=== PATIENT | female | born 1945 | race Caucasian/White ===

== ENCOUNTER 2018-04-19 12:27 | Emergency (ER) | payer MEDICARE, OTHER, SELFPAY ==
[2018-04-19 12:27] VITALS: BP 124/73; PULSE 87; RESP 16; TEMP 36.6; O2SAT 98; BMI 38.7
[2018-04-19 12:31] VITALS: BP 127/78; PULSE 87; RESP 16; O2SAT 96
--- NOTE | 2018-04-19 12:41 | EKG12_ITS ---
Test Reason : LEFT ARM PAIN Blood Pressure : / mmHG Vent. Rate : 085 BPM Atrial Rate : 085 BPM P-R Int : 138 ms QRS Dur : 074 ms QT Int : 372 ms P-R-T Axes : 023 -04 014 degrees QTc Int : 442 ms Normal sinus rhythm Normal ECG Confirmed by RONAN BIRD ([id number]), whizzer hand BAILEY ALEGRE ([id number]) on 04/29/2018 6:15:25 PM Referred By: CLARA
--- NOTE | 2018-04-19 12:43 | ED.RN ---
NO OLD EKG'S IN MUSE.
--- NOTE | 2018-04-19 13:09 | ED.VISSUMM ---
- ER Visit Summary Date of Service: 04/19/18 Chief Complaint: Atraumatic left shoulder pain last evening and nausea and diaphoresis this morning History of Present Illness: The patient is a 72 F who was sent from Dr. Ko's office for further evaluation of atraumatic left shoulder pain that was reported to be associated with nausea and diaphoresis. Upon further questioning patient states she has had problems with her shoulder. The shoulder pain occurred last evening. She has pain with movement of that extremity. There is no associated chest pain, back pain, neck or jaw pain. There was no associated nausea, vomiting, diaphoresis or dyspnea with the left shoulder pain. This morning while packing/doing the dishes she developed nausea and diaphoresis. This occurred at approximately 10 AM. She has no known coronary disease. She does have risk factors. She presently complains of shoulder pain. The nausea and diaphoresis was transient. She denies any fever, chills night sweats. She denies any ocular, visual auditory symptoms. She denies any trouble with speech or swallowing. She denies any dyspnea or dyspnea on exertion. She denied orthopnea or PND. She denied any black or maroon colored stool. She had no urologic symptoms. She denied any neurologic symptoms. Physical Examination: Patient's vital signs were noted and are unremarkable. BMI is 30.7. HEENT exam is unremarkable. She has left shoulder pain with passive internal/external rotation and abduction. Axillary, median, radial and ulnar function intact. Trachea is midline. There is no cervical lymphadenopathy or carotid bruits. Heart is regular without murmur, gallop or rub. S1 and S2 are normal. Lungs are clear to auscultation with good movement of air bilaterally. There is no reproducible chest pain. Abdomen is soft nontender with no abnormal bowel sounds or tympany on percussion. There is no CVA tenderness noted. There is no asymmetry, swelling, discoloration, leg vein distention, palpable cords or tenderness along the distribution of the deep venous system. Neuro exam is nonfocal. Test Results: EKG is normal with a rate of 85. Two-view chest x-ray interpreted by me as normal. White count slightly elevated 12.3 with 78 segs. Electro panels marked for an elevated glucose 192 and slight elevation of creatinine 1.05. Troponin is less than 0.015. Emergency Department Course and Treatment: In my professional medical opinion patient's left shoulder pain is muscle skeletal etiology. The nausea and diaphoresis may represent hypoglycemia, coronary disease, or possible pulmonary cause. Since she is 72 years of age with multiple risk factors for coronary disease will obtain an EKG, troponin as well as CBC to evaluate for pneumonia and BMP to assess her blood sugar and electrolytes. Treatment Plan: Outpatient follow-up with her primary care physician. Disposition: Discharged home in stable condition Impression: 1. Musculoskeletal left shoulder pain 2. Nausea and diaphoresis of unknown etiology 3. History of diabetes, type II 3. History of hypertension This note was generated with [employer] dictation software. It may contain incorrect words, spelling, and punctuation that were not noted in review of the chart prior to signing ED Disposition - Plan for ED Patient: Disposition: Home or Assisted Living Chief Complaint: General Illness Instructions: ED Shoulder Pain [facility] Referrals: Nica Macario MD [Primary Care Provider] - 3-5 Days
[2018-04-19 13:10] LABS: Absolute Lymphocyte Count 1.68 X10^3/ul (0.83-4.51); Absolute Neutrophil Count 9.5 X10^3/uL (2.0-7.7); Basophil# 0.03 X10^3/uL; Basophil% 0.2 % (0-1); Eosinophil# 0.15 X10^3/uL; Eosinophils% 1.2 % (0-5); Hemoglobin 12.6 g/dl (12.0-15.0); Lymphocyte # 1.68 X10^3/ul (4.0); Lymphocyte % 13.7 % (19-41); Mean Corp Hgb Conc 32.3 g/gl (32-36); Mean Corpuscular Hgb 24.6 pg (27.0-32.0); Mean Corpuscular Volume 76.2 fL (81-99); Monocyte# 0.85 X10^3/uL; Monocyte% 6.9 % (0-10); Neutrophil # 9.51 X10^3/uL (2.7-7.7); Neutrophil % 77.8 % (47-70); Platelet Count 368 K/mm3 (150-450); RBC Distribution Width CV 13.9 % (11.6-14.6); RBC Distribution Width SD 39.1 fl (35.1-43.9); Red Blood Count 5.12 M/mm3 (4.2-5.4); White Blood Count 12.3 K/mm3 (4.4-11.0)
--- NOTE | 2018-04-19 13:10 | RAD_ITS ---
STUDY: X-RAY CHEST REASON FOR EXAM: Female, 72 years old. Nausea. Chest pain radiating into the left arm. TECHNIQUE: PA and lateral views of the chest. COMPARISON: None. FINDINGS: The lungs are clear and expanded. Scattered calcified granulomas. There is no demonstrated pleural abnormality. Normal size heart. Normal mediastinum and nuzhat. Normal visualized pulmonary arteries. There is atherosclerotic tortuosity of the aortic arch and descending thoracic aorta. There are degenerative changes of the visualized thoracic spine. Normal visualized ribs, clavicles, and shoulders. Prior cholecystectomy. RAD/Chest PA and Lateral IMPRESSION: No acute abnormality is seen. Electronically Signed: Ronnie Garcia MD at 13:36 EDT Tel [phone], Service support ,
[2018-04-19 13:17] LABS: Anion Gap 10 (5-15); BUN 16 mg/dL (7-18); BUN/Creat Ratio 15.2 RATIO (10-20); Calcium,Total 9.8 mg/dL (8.5-10.1); Chloride 99 mmol/L (98-107); Creatinine, Serum 1.05 mg/dL (0.55-1.02); EST Glomerular Filtration Rate 55 mL/min (>60); Est Glom Filt Rate - Afr Amer 67 mL/min (>60); Estimated Creatinine Clearance 41.24 ml/min; Glucose 192 mg/dL (74-106); Potassium 3.9 mmol/L (3.5-5.1); Sodium Level 135 mmol/L (136-145)
[2018-04-19 13:21] LABS: POSITIVE COUNT NO; POSITIVE DIFFERENTIAL NO; POSITIVE MORPHOLOGY NO
[2018-04-19 14:00] VITALS: BP 124/77; PULSE 79; RESP 20; O2SAT 96
[2018-04-19 15:20] VITALS: BP 127/79; PULSE 77; RESP 18; O2SAT 96
== END 2018-04-19 15:00 | disposition home or self-care (01) ==
PROVIDERS: Emergency Provider Emergency Medicine; Family Provider Internal Medicine; PCP Internal Medicine
DX: M25.512 Pain in left shoulder (principal); R11.0 Nausea; R61 Generalized hyperhidrosis; E11.9 Type 2 diabetes mellitus without complications; I10 Essential (primary) hypertension; E78.00 Pure hypercholesterolemia, unspecified; E66.9 Obesity, unspecified; Z68.38 Body mass index [BMI] 38.0-38.9, adult; Z87.891 Personal history of nicotine dependence
CPT/HCPCS: 71046; 80048; 84484; 85025; 93005; 99284; A4216

== ENCOUNTER 2021-01-12 15:12 | Outpatient (RCR) | payer MEDICARE, BC, SELFPAY | END 2021-01-12 23:59 | LOC: IMMUN 15:12 | PROVIDERS: PCP Internal Medicine; Referring Provider Family Medicine; Visit Provider Family Medicine | DX: Z23 Encounter for immunization (principal) | CPT/HCPCS: 0011A; 0012A ==

== ENCOUNTER 2021-10-29 16:31 | Emergency (ER) | payer MEDICARE, BC, SELFPAY ==
[2021-10-29 16:31] VITALS: BP 145/87; PULSE 78; RESP 18; TEMP 36.2; O2SAT 99; BMI 35.7
--- NOTE | 2021-10-29 17:02 | RAD_ITS ---
STUDY: X-RAY - RIGHT WRIST REASON FOR EXAM: Female, 76 years old. injury TECHNIQUE: 3 view(s) of the wrist were obtained. COMPARISON: None. FINDINGS: Diffuse osteopenia. Osseous densities of the dorsal and volar wrist on lateral view are well corticated. Possible triquetral fracture. Normal radiocarpal articulation. Normal distal radioulnar articulation. Normal carpal bones. There is widening of the scapholunate articulation suggesting a sprain of the scapholunate interosseous ligament. Status post trapezium resection. Operative changes of the first carpal. Normal second through fifth carpometacarpal articulations. Mild osteopenia. Oval to round shaped areas of lucency in the distal tibia and fibula may be sequela of old injury or localized osteopenia. No periosteal reaction. Operative changes of the distal ulna. Diffuse soft tissue swelling. RAD/Wrist min 3 Views IMPRESSION: 1. Possible triquetral fracture versus sequela previous surgery/injury. 2. Degenerative and operative changes, as above. Electronically Signed: Alejnadro Orr MD ([place]) at 17:42 EST , Service support ,
--- NOTE | 2021-10-29 17:05 | EX.ED.UPPERE ---
HPI History of Present Illness Chief Complaint: Upper Extremity Injury Informant: patient Occured/Mechanism Mechanism/Context: Yes fall Onset/Context/Timing Onset: Today Current Severity: Mild Maximum Severity: Moderate Narrative Narrative: Patient presents secondary to right wrist injury. She was walking into a local [employer] [place] this morning and slipped on the wet tile floor injuring her right wrist. Her left wrist is already in an AP splint due to a recent fall. She states there was concern for possible hairline fracture there versus sprain. She is in a splint and is scheduled to have repeat x-rays done next week. She denies any new injury to the left arm from her fall. She denies striking her head or loss of consciousness. [facility] Medical History (Updated 10/29/21 @ 18:[address] Tonia Sierra MD) Diabetes High cholesterol Hypertension Hypothyroidism Vertigo Allergy/AdvReac Type Severity Reaction Status Date / Time amoxicillin Allergy Unknown Verified 10/29/21 16:35 codeine AdvReac Nausea Verified 10/29/21 16:35 Social History Smoking Status: Never smoker ROS ROS ED Constitutional Constitutional ED: Denies chills or fever(s) Eyes Eyes: Denies change in vision ENT ENT ED: Denies sore throat Cardiovascular Cardiovascular: Denies chest pain Respiratory/Chest Respiratory/Chest: Denies cough or dyspnea Gastrointestinal Gastrointestinal: Denies abdominal pain, nausea or vomiting Genitourinary Genitourinary ED: Denies dysuria Musculoskeletal Musculoskeletal: Reports other Details: Right wrist pain ; Denies back pain or neck pain Integumentary Denies rash Neurologic Neurologic: Denies headache(s) or weakness Allergic/Immunologic Allergic/Immunologic ED: Denies urticaria EXAM Physical Exam Const Vital Signs: 10/29/21 16:31 Temperature 97.2 F L Temperature Source Temporal Pulse Rate 78 Respiratory Rate 18 Blood Pressure 145/87 H Blood Pressure Mean 106 Pulse Ox 99 Oxygen Delivery Method Room Air Positive well nourished and well developed General Appearance ED: well developed HEENT normocephalic Eyes PERRL and EOMs intact bilaterally Neck full ROM and supple Resp normal respiratory effort and clear to auscultation bilaterally Cardio regular rate and regular rhythm GI non-tender Palpation: soft Extremity Extremity Narrative: Left wrist and AP splint. Able to wiggle fingers with good sensation. Mild edema and tenderness noted to the right wrist with no obvious deformity. No tenderness at the right elbow or shoulder. Psych mental status grossly normal Skin Lesions: no lesions Rashes: no rashes MDM MDM MDM Narrative Medical decision making narrative: Right wrist x-rays obtained. Radiography Diagnostic Testing: Radiology Impression Wrist X-Ray 10/29/21 17:02 IMPRESSION: 1. Possible triquetral fracture versus sequela previous surgery/injury. 2. Degenerative and operative changes, as above. Electronically Signed: Alejandro Orr MD ([place]) at 17:42 EST , Service support , Treatment and Re-Evaluation Comments:: X-ray results discussed with patient. There is a questionable triquetral fracture. She does have tenderness to this area. She be placed in a Velcro wrist splint. She is already scheduled to see sports medicine/Ortho next Sunday for her left wrist. She will have right wrist reevaluate at that time as well. Discharge Plan Triage Chief Complaint: Upper Extremity Injury ED Provider: Tonia Sierra Dx/Rx/DC Orders Clinical Impression: Right wrist sprain Instructions: ED Possible Wrist Fracture Primary Care Provider: Nica Macario Referrals: Nica Macario MD [Primary Care Provider] - Activity Restrictions/Additional Instructions: Follow-up this Sunday as discussed. Disposition Disposition: Home, Self Care
[2021-10-29 18:10] VITALS: RESP 16
== END 2021-10-29 18:15 | disposition home or self-care (01) ==
LOC: ED 18:05
PROVIDERS: Emergency Provider Emergency Medicine; PCP Internal Medicine
DX: S63.501A Unspecified sprain of right wrist, initial encounter (principal); W01.0XXA Fall on same level from slipping, tripping and stumbling without subsequent striking against object, initial encounter; Y93.01 Activity, walking, marching and hiking
CPT/HCPCS: 73110; 99283

== ENCOUNTER → 2023-12-06 | Outpatient (CLI) | payer MEDICARE, BC, SELFPAY ==
--- NOTE | 2023-12-06 13:32 | CT_ITS ---
ACR Level 3 findings have been noted. An addendum which confirms receipt of the report will follow. EXAM: CT NECK WITH INTRAVENOUS CONTRAST CLINICAL INDICATION: RT NECK/PAROTID MASS TECHNIQUE: Helically acquired images were obtained of the neck with intravenous contrast. This CT exam was performed using one or more of the following dose reduction techniques: automated exposure control, adjustment of the mA and/or kV according to patient size, and/or use of iterative reconstruction technique. CONTRAST: IV 75mL [id number]-370 RADIATION DOSE: CTDIvol = 16.34 mGy, DLP = 469.52 mGy-cm COMPARISON: No relevant prior studies available. FINDINGS: NASOPHARYNX: Unremarkable. SUPRAHYOID NECK: Unremarkable. Oropharynx, oral cavity, parapharyngeal space and retropharyngeal space are unremarkable. INFRAHYOID NECK: Unremarkable. The larynx, hypopharynx and supraglottis are unremarkable. SUBMANDIBULAR/PAROTID GLANDS: Unremarkable. Glands are normal in size. THYROID: Enlarged heterogeneous thyroid. Confluent complex cystic mass of 5 cm x 2.1 cm x 3.3 cm in the left lobe with internal incomplete septations and question of a medial irregular solid component, likely large multilocular cyst.. Punctate calcification and thick-walled centrally low-attenuation 1.5 cm x 1.1 cm x 1.6 cm nodule in the right lobe. Thyroid ultrasound is recommended if not previously evaluated. SINUSES: Completely included paranasal sinuses, middle ears and mastoids sinuses are well aerated. BONES/JOINTS: Straightening of the usual lordotic curvature of the cervical spine with marked disc space narrowing at C5-C7 with mild anterior and posterior spondylosis. Ventral thecal sac flattening these levels, minimal AP diameter estimated to be 9 mm at C5-6 and C6-7 moderate right C4-5 neural foraminal stenosis, moderate bilateral C5-6 neural foraminal stenosis. No acute fracture. SOFT TISSUES: There is a smooth ovoid completely fat density mass measuring 4.3 cm x 2.1 cm x 2.7 cm in the right sternocleidomastoid muscle posterior to the right parotid gland. No parotid gland mass. Apparent intramuscular lipoma. VASCULATURE: Mild intracranial carotid calcifications. Telida of Ortiz vessels appear unremarkable. The partially included deep veins and dural venous sinuses are opacified. LYMPH NODES: Unremarkable. No lymphadenopathy. LUNG APICES: Unremarkable as visualized. HEART: Mild-moderate bilateral coronary artery calcification, estimated up to 50% narrowing at the left ICA origin. CT/Soft Tissue Neck WITH Contrast IMPRESSION: 1. 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 No suspicious parotid mass. 2. Heterogeneous enlarged thyroid with multiple focal complex lesions, the largest of at least 5 cm in the left lobe. Thyroid ultrasound is recommended if not recently performed. 3. Estimated 50% narrowing of the origin of the left ICA. 4. Degenerative spine changes with multilevel borderline spinal canal stenosis and moderate neural foraminal stenosis. Electronically Signed: Cass Breaux MD at 8:24 EST ,
--- OUTSIDE RECORDS SUMMARY | 2023-12-06 13:52 | XMS RPT_ITS | CCD ---
Author Name Unknown Address [address] [place] [address] Organization [facility] Care Team Providers Care Machine Stitcher Name Role Phone Amirah RUEDA, Patricia Primary Care Provider James Hu MD Unavailable Jamey Hu MDh A Unavailable Moon PT, Agatha Unavailable Patricia Covarrubias MD Primary Care Provider James Hu MD A Unavailable Fritz RUEDA, James A Unavailable [phone] Moon PT, Agatha Unavailable Older BRIM BLOCKER.TOOL POLISHING MACHINE OPERATOR, Meaghan Primary Care Provider Moon PT, Agatha Unavailable PROVIDER, UNKNOWN Referring Unavailable OLDER, MEAGHAN Primary Care Unavailable PROVIDER, UNKNOWN Referring Unavailable OLDER, MEAGHAN Primary Care Unavailable OLDER, MEAGHAN Primary Care Unavailable PROVIDER, UNKNOWN Referring Unavailable GANTA, PTARICIA Primary Care Unavailable PROVIDER, UNKNOWN Referring Unavailable GANTA, PATRICIA Primary Care Unavailable PATIENCE KEBEDE Admitting Unavailab le PATIENCE KEBEDE Attending Unavailab le GANTA, PATRICIA Primary Care Unavailable JESSY GRAY Referring Unavailable Moon PT, Agatha Unavailable GANTA, PATRICIA Primary Care Unavailable OLDER, MEAGHAN Primary Care Unavailable OLDER, MEAGHAN Referring Unavailable PATIENCE KEBEDE Attending Unavailab le GANTA, PATRICIA Primary Care Unavailable OLDER, MEAGHAN Primary Care Unavailable TOBIN GUERRERO Attending Unavailable JOSEPH ANG Referring Unavailable GANTA, PATRICIA Primary Care Unavailable MELO FREEMAN Referring Unavailable OLDER, MEAGHAN Primary Care Unavailable PATIENCE KEBEDE Attending Unavailab le OLDER, MEAGHAN Primary Care Unavailable REBECA, JOSEPH Referring Unavailable OLDER, MEAGHAN Primary Care Unavailable REBECA, JOSEPH Referring Unavailable OLDER, MEAGHAN Primary Care Unavailable TOBIN GUERRERO Attending Unavailable REBECA, JOSEPH Referring Unavailable OLDER, MEAGHAN Primary Care Unavailable GANTA, PATRCIIA Referring Unavailable OLDER, MEAGHAN Primary Care Unavailable TOBIN GUERRERO Attending Unavailable GANTA, PATRICIA Referring Unavailable OLDER, MEAGHAN Primary Care Unavailable TOBIN GUERRERO Attending Unavailable GANTA, PATRICIA Referring Unavailable OLDER, MEAGHAN Primary Care Unavailable TOIBN GUERRERO Attending Unavailable GANTA, PATRICIA Referring Unavailable OLDER, MEAGHAN Primary Care Unavailable REBECA, JOSEPH Referring Unavailable OLDER, MEAGHAN Primary Care Unavailable TOBIN GUERRERO Attending Unavailable REBECA, JOSEPH Referring Unavailable OLDER, MEAGHAN Primary Care Unavailable REBECA, JOSEPH Referring Unavailable OLDER, MEAGHAN Primary Care Unavailable REBECA, JOSEPH Referring Unavailable OLDER, MEAGHAN Primary Care Unavailable TOBIN GUERRERO Attending Unavailable REBECA, JOSEPH Referring Unavailable GANTA, PATRICIA Primary Care Unavailable GANTA, PATRICIA Attending Unavailable OLDER, MEAGHAN Primary Care Unavailable OLDER, MEAGHAN Primary Care Unavailable PATIENCE KEBEDE Referring Unavailab le YANDYPATIENCE Attending Unavailab le OLDER, MEAGHAN Primary Care Unavailable MAEGAN TORRES Attending Unavailable JESSY GRAY Attending Unavailable GANTA, PATRICIA Primary Care Unavailable GANTA, PATRICIA Primary Care Unavailable GANTA, PATRICIA Referring Unavailable YANDYPATIENCE Attending Unavailab le GANTA, PATRICIA Primary Care Unavailable GANTA, PATRICIA Primary Care Unavailable GANTA, PATRICIA Primary Care Unavailable GANTA, PATRICIA Attending Unavailable GANTA, PATRICIA Primary Care Unavailable GANTA, PATRICIA Primary Care Unavailable OLDER, MEAGHAN Primary Care Unavailable OLDER, MEAGHAN Attending Unavailable OLDER, MEAGHAN Primary Care Unavailable OLDER, MEAGHAN Referring Unavailable OLDER, MEAGHAN Primary Care Unavailable GANTA, PATRICIA Primary Care Unavailable GANTA, PATRICIA Referring Unavailable GANTA, PATRICIA Primary Care Unavailable MORRIS RAMON Referring Unavailable TESTMORRIS DAUGHERTY Attending Unavailable GANTA, PATRICIA Primary Care Unavailable OLDER, MEAGHAN Primary Care Unavailable OLDER, MEAGHAN Primary Care Unavailable YANDYPATIENCE PRIDE Referring Unavailab le OLDER, MEAGHAN Primary Care Unavailable CHRISSY MCCLOUD Referring Unavailable OLDER, MEAGHAN Primary Care Unavailable OLDER, MEAGHAN Primary Care Unavailable OLDER, MEAGHAN Primary Care Unavailable PATIENCE KEBEDE Attending Unavailab le OLDER, MEAGHAN Primary Care Unavailable MAEGAN TORRES Referring Unavailable PATRICIA COVARRUBIAS Primary Care Unavailable OLDER, MEAGHAN Primary Care Unavailable OLDER, MEAGHAN Primary Care Unavailable OLDER, MEAGHAN Primary Care Unavailable OLDER, MEAGHAN Attending Unavailable OLDER, MEAGHAN Primary Care Unavailable Allergies Allergy Classification Reported Allergen(s) Allergy Type Date of Onset Reaction(s) Facility (20 sources) Amoxicillin; Translations: [AMOXICILLIN] Drug Allergy 01-17-2013 [facility] (20 sources) Codeine; Translations: [CODEINE] Drug Allergy 01-17-2013 [facility] (20 sources) Latex; Translations: [LATEX] Drug Allergy 12-31-2019 [facility] Medications Current Medications Medication Drug Class(es) Dates Sig (Normalized) Sig (Original) doxycycline hyclate 100 mg oral capsule (4 sources) Tetracycline-clas s Drug Start: 06-04-2023 End: 06-14-2023 take 1 capsule by mouth twice daily doxycycline hyclate (VIBRAMYCIN) 100 mg capsule Indications: Skin infection Take 1 capsule by mouth twice daily for 10 days. 20 capsule 0 06/04/2023 06/14/2023 Active Completed/Discontinued Medications Medication Drug Class(es) Dates Sig (Normalized) Sig (Original) acetaminophen 325 mg / oxyCODONE hydrochloride 5 mg oral tablet (20 sources) Opioid Agonist Start: 06-01-2023 take 1-2 tablets by mouth every four hours as needed for pain oxyCODONE-acetami nophen (PERCOCET) 5-325 mg tablet Indications: S/P reverse total shoulder arthroplasty, right Take 1-2 tablets by mouth every 4 hours as needed for pain. 28 tablet 0 06/01/2023 Active Problems Active Problems Problem Classification Problem Date Documented Da te Episodic/Chronic Anxiety disorders (20 sources) Mixed anxiety and depressive disorder; Translations: [Anxiety disorder, unspecified] Onset: 05-14-2017 05-14-2017 Chronic Deficiency and other anemia (2 sources) Nutritional anemia; Translations: [Vitamin B12 deficiency anemia, unspecified] Episodic Diabetes mellitus with complications (20 sources) Type 2 diabetes mellitus; Translations: [Type 2 diabetes mellitus with diabetic neuropathy, unspecified] Onset: 05-14-2017 08-20-2020 Chronic Disorders of lipid metabolism (20 sources) Mixed hyperlipidemia; Translations: [Mixed hyperlipidemia] Onset: 05-14-2017 05-14-2017 Chronic Essential hypertension (20 sources) Essential hypertension; Translations: [Essential (primary) hypertension] Onset: 05-14-2017 05-14-2017 Chronic Fracture of upper limb (5 sources) Closed fracture of distal end of radius; Translations: [Other fractures of lower end of right radius, initial encounter for closed fracture] Episodic Genitourinary symptoms and ill-defined conditions (2 sources) Albuminuria ; Translations: [Proteinuria, unspecified] Episodic Immunizations and screening for infectious disease (3 sources) Vaccination needed; Translations: [Encounter for immunization] Episodic Mood disorders (17 sources) Seasonal affective disorder; Translations: [Other recurrent depressive disorders] Onset: 04-10-2023 04-10-2023 Chronic Osteoarthritis (20 sources) Osteoarthritis of right glenohumeral joint; Translations: [Primary osteoarthritis, right shoulder] Onset: 06-08-2023 Chronic Other connective tissue disease (20 sources) History of revision of right total knee arthroplasty; Translations: [Presence of right artificial knee joint] Onset: 04-20-2020 04-20-2020 Chronic Other connective tissue disease (1 source) Presence of right artificial shoulder joint; Translations: [S/P reverse total shoulder arthroplasty, right] Onset: 06-01-2023 Chronic Other connective tissue disease (16 sources) Paraparesis; Translations: [Other symptoms and signs involving the musculoskeletal system] Onset: 09-19-2022 Episodic Other connective tissue disease (1 source) Calcaneal spur; Translations: [Calcaneal spur, unspecified foot] Episodic Other connective tissue disease (1 source) Tendinitis; Translations: [Other specified enthesopathies of unspecified lower limb, excluding foot] Episodic Other gastrointestinal disorders (1 source) Diarrhea; Translations: [Diarrhea, unspecified] 07-13-2023 Episodic Other gastrointestinal disorders (1 source) Constipation; Translations: [Constipation, unspecified] 08-09-2023 Episodic Other hereditary and degenerative nervous system conditions (20 sources) Restless legs; Translations: [Restless legs syndrome] Onset: 05-14-2017 05-14-2017 Chronic Other hereditary and degenerative nervous system conditions (1 source) Restless legs syndrome; Translations: [Restless leg syndrome] Onset: 05-14-2017 Chronic Other nervous system disorders (1 source) Polyneuropathy; Translations: [Other specified polyneuropathies] Chronic Other nervous system disorders (1 source) Other chronic pain; Translations: [Chronic right shoulder pain] Onset: 08-24-2023 Chronic Other nervous system disorders (16 sources) Impairment of balance; Translations: [Other abnormalities of gait and mobility] Onset: 09-19-2022 Episodic Other non-traumatic joint disorders (1 source) Shoulder pain; Translations: [Pain in right shoulder] Episodic Other non-traumatic joint disorders (1 source) Pain of right wrist; Translations: [Pain in right wrist] Episodic Other non-traumatic joint disorders (3 sources) Chronic pain of right upper limb; Translations: [Pain in right shoulder] Episodic Other non-traumatic joint disorders (1 source) Effusion of joint; Translations: [Effusion, right elbow] 06-04-2023 Episodic Other non-traumatic joint disorders (1 source) Pain in right shoulder; Translations: [Chronic right shoulder pain] Onset: 08-24-2023 Episodic Other nutritional; endocrine; and metabolic disorders (2 sources) Obese class II; Translations: [Obesity, unspecified] Chronic Other nutritional; endocrine; and metabolic disorders (2 sources) Obesity; Translations: [Other obesity due to excess calories] Onset: 12-31-2019 Chronic Other nutritional; endocrine; and metabolic disorders (20 sources) Obesity caused by energy imbalance; Translations: [Other obesity due to excess calories] Onset: 12-31-2019 05-09-2023 Chronic Other nutritional; endocrine; and metabolic disorders (1 source) Other obesity due to excess calories; Translations: [Class 1 obesity due to excess calories with serious comorbidity and body mass index (BMI) of 33.0 to 33.9 in adult] Onset: 05-09-2023 Chronic Other nutritional; endocrine; and metabolic disorders (1 source) Body mass index (BMI) 33.0-33.9, adult; Translations: [Class 1 obesity due to excess calories with serious comorbidity and body mass index (BMI) of 33.0 to 33.9 in adult] Onset: 05-09-2023 Chronic Other screening for suspected conditions (not mental disorders or infectious disease) (3 sources) Mammography abnormal; Translations: [Other abnormal and inconclusive findings on diagnostic imaging of breast] Episodic Residual codes; unclassified (20 sources) Obstructive sleep apnea syndrome; Translations: [Obstructive sleep apnea (adult) (pediatric)] Onset: 05-14-2017 05-14-2017 Chronic Residual codes; unclassified (1 source) Obstructive sleep apnea (adult) (pediatric); Translations: [DAVION (obstructive sleep apnea)] Onset: 05-14-2017 Chronic Residual codes; unclassified (2 sources) Edema of foot; Translations: [Localized edema] Episodic Skin and subcutaneous tissue infections (1 source) Infection of skin; Translations: [Local infection of the skin and subcutaneous tissue, unspecified] 06-04-2023 Episodic Thyroid disorders (20 sources) Acquired hypothyroidism; Translations: [Hypothyroidism, unspecified] Onset: 05-14-2017 05-14-2017 Chronic Past or Other Problems Problem Classification Problem Date Documented Date Episodic/Chronic Deficiency and other anemia (20 sources) Iron deficiency anemia; Translations: [Iron deficiency anemia, unspecified] Onset: 04-23-2020 04-23-2020 Episodic Deficiency and other anemia (1 source) Iron deficiency anemia, unspecified; Translations: [Iron deficiency anemia, unspecified iron deficiency anemia type] Onset: 04-23-2020 Episodic Nutritional deficiencies (20 sources) Cobalamin deficiency; Translations: [Deficiency of other specified B group vitamins] Onset: 05-26-2022 Episodic Other and unspecified benign neoplasm (20 sources) Adrenal adenoma; Translations: [Benign neoplasm of unspecified adrenal gland] Onset: 12-31-2019 12-31-2019 Episodic Other and unspecified benign neoplasm (1 source) Benign neoplasm of unspecified adrenal gland; Translations: [Adrenal adenoma, unspecified laterality] Onset: 12-31-2019 Episodic Other connective tissue disease (20 sources) Quadriceps weakness; Translations: [Muscle weakness (generalized)] Onset: 04-20-2020 04-20-2020 Episodic Other diseases of veins and lymphatics (20 sources) Peripheral venous insufficiency; Translations: [Venous insufficiency (chronic) (peripheral)] Onset: 04-10-2019 04-10-2019 Episodic Other diseases of veins and lymphatics (1 source) Venous insufficiency (chronic) (peripheral); Translations: [Venous insufficiency (chronic) (peripheral)] Onset: 04-10-2019 Episodic Other non-epithelial cancer of skin (20 sources) Basal cell carcinoma of neck; Translations: [Basal cell carcinoma of skin of scalp and neck] Onset: 12-31-2019 12-31-2019 Episodic Other non-traumatic joint disorders (1 source) Pain in right knee; Translations: [Pain in both knees, unspecified chronicity] Onset: 12-20-2022 Episodic Other non-traumatic joint disorders (1 source) Pain in left knee; Translations: [Pain in both knees, unspecified chronicity] Onset: 12-20-2022 Episodic Other non-traumatic joint disorders (1 source) Knee pain Onset: 12-20-2022 Episodic Pancreatic disorders (not diabetes) (20 sources) Cyst of pancreas; Translations: [Cyst of pancreas] Onset: 05-14-2017 12-31-2017 Episodic Results Test Name Value Interpretation Reference Range Facil ity Vital Signs Date Time Vital Sign Value Performing Clinician Sruthi waite 10-15-2023 11:24-0500 Body weight 85.28 kg Meaghan Older BRIM BLOCKER.TOOL POLISHING MACHINE OPERATOR Work Phone: [facility] 10-15-2023 11:24-0500 Diastolic blood pressure 72 mm[Hg] Meaghan Older BRIM BLOCKER.TOOL POLISHING MACHINE OPERATOR Work Phone: [facility] 10-15-2023 11:24-0500 Heart rate 76 /min Meaghan Older BRIM BLOCKER.TOOL POLISHING MACHINE OPERATOR Work Phone: [facility] 10-15-2023 11:24-0500 Respiratory rate 16 /min Meaghan Older BRIM BLOCKER.TOOL POLISHING MACHINE OPERATOR Work Phone: [facility] 10-15-2023 11:24-0500 Systolic blood pressure 126 mm[Hg] Meaghan Older BRIM BLOCKER.TOOL POLISHING MACHINE OPERATOR Work Phone: [facility] 08-09-2023 14:15-0400 Body height 160 cm Meagan Torres MD Work Phone: [facility] 08-09-2023 14:15-0400 Body weight 85.73 kg Maegan Torres MD Work Phone: [facility] 08-09-2023 14:15-0400 Diastolic blood pressure 73 mm[Hg] Maegan Torres MD Work Phone: [facility] 08-09-2023 14:15-0400 Heart rate 76 /min Maegan Torres MD Work Phone: [facility] 08-09-2023 14:15-0400 Respiratory rate 16 /min Maegan Torres MD Work Phone: [facility] 08-09-2023 14:15-0400 SaO2% (BldA) [Mass fraction] 99 % Maegan Torres MD Work Phone: [facility] 08-09-2023 14:15-0400 Systolic blood pressure 139 mm[Hg] Maegan Torres MD Work Phone: [facility] 07-13-2023 09:15-0400 Diastolic blood pressure 84 mm[Hg] Meaghan Older BRIM BLOCKER.TOOL POLISHING MACHINE OPERATOR Work Phone: [facility] 07-13-2023 09:15-0400 Systolic blood pressure 136 mm[Hg] Meaghan Older BRIM BLOCKER.TOOL POLISHING MACHINE OPERATOR Work Phone: [facility] 07-13-2023 08:43-0400 Body weight 83.01 kg Meaghan Older BRIM BLOCKER.TOOL POLISHING MACHINE OPERATOR Work Phone: [facility] 07-13-2023 08:43-0400 Heart rate 90 /min Meaghan Older BRIM BLOCKER.TOOL POLISHING MACHINE OPERATOR Work Phone: [facility] 07-13-2023 08:43-0400 Respiratory rate 16 /min Meaghan Older BRIM BLOCKER.TOOL POLISHING MACHINE OPERATOR Work Phone: [facility] 07-13-2023 08:43-0400 SaO2% (BldA) [Mass fraction] 99 % Meaghan Older BRIM BLOCKER.TOOL POLISHING MACHINE OPERATOR Work Phone: [facility] 06-04-2023 11:48-0400 Body temperature 98.1 [degF] Alexsandra Cruz-Tarik BRIM BLOCKER.TOOL POLISHING MACHINE OPERATOR Work Phone: [facility] 06-04-2023 11:48-0400 Body weight 85.28 kg Alexsandra Pramiriamler-Wood BRIM BLOCKER.TOOL POLISHING MACHINE OPERATOR Work Phone: [facility] 06-04-2023 11:48-0400 Diastolic blood pressure 70 mm[Hg] Alexsandra Praisler-Wood BRIM BLOCKER.TOOL POLISHING MACHINE OPERATOR Work Phone: [facility] 06-04-2023 11:48-0400 Heart rate 96 /min Alexsandra Praisler-Wood BRIM BLOCKER.TOOL POLISHING MACHINE OPERATOR Work Phone: [facility] 06-04-2023 11:48-0400 Respiratory rate 16 /min Alexsandra Praisler-Wood BRIM BLOCKER.TOOL POLISHING MACHINE OPERATOR Work Phone: [facility] 06-04-2023 11:48-0400 SaO2% (BldA) [Mass fraction] 96 % Alexsandra Praisler-Wood BRIM BLOCKER.TOOL POLISHING MACHINE OPERATOR Work Phone: [facility] 06-04-2023 11:48-0400 Systolic blood pressure 128 mm[Hg] Alexsandra Praisler-Wood BRIM BLOCKER.TOOL POLISHING MACHINE OPERATOR Work Phone: [facility] 05-09-2023 09:21-0400 Body height 160 cm Pacc 1 Work Phone: [facility] 05-09-2023 09:21-0400 Body temperature 97.2 [degF] Pacc 1 Work Phone: [facility] 05-09-2023 09:21-0400 Body weight 84.82 kg Pacc 1 Work Phone: [facility] 05-09-2023 09:21-0400 Diastolic blood pressure 76 mm[Hg] Pacc 1 Work Phone: [facility] 05-09-2023 09:21-0400 Heart rate 87 /min Pacc 1 Work Phone: [facility] 05-09-2023 09:21-0400 SaO2% (BldA) [Mass fraction] 96 % Pacc 1 Work Phone: [facility] 05-09-2023 09:21-0400 Systolic blood pressure 120 mm[Hg] Pacc 1 Work Phone: [facility] 12-21-2022 10:58-0500 Body temperature 97.5 [degF] Patricia Covarrubias MD Work Phone: [facility] 12-21-2022 10:58-0500 Body weight 86.09 kg Patricia Covarrubias MD Work Phone: [facility] 12-21-2022 10:58-0500 Diastolic blood pressure 76 mm[Hg] Patricia Covarrubias MD Work Phone: [facility] 12-21-2022 10:58-0500 Heart rate 74 /min Patricia Covarrubias MD Work Phone: [facility] 12-21-2022 10:58-0500 Respiratory rate 18 /min Patricia Covarrubias MD Work Phone: [facility] 12-21-2022 10:58-0500 SaO2% (BldA) [Mass fraction] 97 % Patricia Covarrubias MD Work Phone: [facility] 12-21-2022 10:58-0500 Systolic blood pressure 118 mm[Hg] Patricia Covarrubias MD Work Phone: [facility] 08-03-2022 13:58-0400 Body temperature 97.3 [degF] Clara Athy PA-C Work Phone: [facility] 08-03-2022 13:58-0400 Body weight 89.45 kg Clara Athy PA-C Work Phone: [facility] 08-03-2022 13:58-0400 Diastolic blood pressure 80 mm[Hg] Clara Athy PA-C Work Phone: [facility] 08-03-2022 13:58-0400 Heart rate 82 /min Clara Athy PA-C Work Phone: [facility] 08-03-2022 13:58-0400 Respiratory rate 21 /min Clara Athy PA-C Work Phone: [facility] 08-03-2022 13:58-0400 SaO2% (BldA) [Mass fraction] 99 % Clara Athy PA-C Work Phone: [facility] 08-03-2022 13:58-0400 Systolic blood pressure 136 mm[Hg] Clara Felix PA-C Work Phone: [facility] 07-13-2022 15:45-0400 Body height 160.3 cm Maegan Torres MD Work Phone: [facility] 07-13-2022 15:45-0400 Body weight 85.73 kg Maegan Torres MD Work Phone: [facility] 07-13-2022 15:45-0400 Diastolic blood pressure 88 mm[Hg] Maegan Torres MD Work Phone: [facility] 07-13-2022 15:45-0400 Heart rate 85 /min Maegan Torres MD Work Phone: [facility] 07-13-2022 15:45-0400 Respiratory rate 16 /min Maegan Torres MD Work Phone: [facility] 07-13-2022 15:45-0400 SaO2% (BldA) [Mass fraction] 98 % Maegan Torres MD Work Phone: [facility] 07-13-2022 15:45-0400 Systolic blood pressure 140 mm[Hg] Maegan Torres MD Work Phone: [facility] 04-13-2022 09:51-0400 Body weight 87.82 kg Patricia Covarrubias MD Work Phone: [facility] 04-13-2022 09:51-0400 Diastolic blood pressure 64 mm[Hg] Patricia Covarrubias MD Work Phone: [facility] 04-13-2022 09:51-0400 Heart rate 95 /min Patricia Covarrubias MD Work Phone: [facility] 04-13-2022 09:51-0400 Respiratory rate 18 /min Patricia Covarrubias MD Work Phone: [facility] 04-13-2022 09:51-0400 Systolic blood pressure 116 mm[Hg] Patricia Covarrubias MD Work Phone: [facility] Encounters Encounter Date Encounter Type Care Provider Facility Start: 12-04-2023 End: 12-04-2023 ambulatory MEAGHAN OLDER Facility:[facility] Start: 11-05-2023 End: 11-05-2023 ambulatory MEAGHAN OLDER Facility:[facility] Start: 10-15-2023 End: 10-15-2023 ambulatory MEAGHAN OLDER Facility:[facility] Start: 10-15-2023 End: 10-15-2023 Patient encounter procedure Meaghan Villareal BRIM BLOCKER.TOOL POLISHING MACHINE OPERATOR Work Phone: [facility] Procedures Date Procedure Procedure Detail Performing Clinician Start: 09-11-2023 PFIZER-BIONTECH COVI D-19 VACCINE ( SEASON) AGE 12+ YR Jose Dunbar MD Work Phone: Start: 08-14-2023 INFLUENZA VACCINE, P RSV FREE, AGE 65+ YR, HIGH DOSE, QUADRIVALENT (FLUZONE HIGH-DOSE) Danika Smith MD Work Phone: Start: 07-13-2023 Hemoglobin A1c/Hemoglobin.total in Blood Meaghan Older BRIM BLOCKER.TOOL POLISHING MACHINE OPERATOR Work Phone: Start: 05-09-2023 Ecg routine ecg w/le ast 12 lds i&r only [facility] Provider Start: 12-21-2022 Mri abdomen w/o & w/contrast material Melo Freeman MD Work Phone: Start: 08-31-2022 Screening mammograph y bi 2-view breast inc cad Patricia Covarrubias MD Work Phone: Start: 08-19-2022 INFLUENZA SEASONAL QUADRIVALENT HIGH DOSE AGE 65+ Patricia Covarrubias MD Work Phone: Start: 08-19-2022 PFIZER-BIONTECH COVI D-19 BIVALENT BOOSTER VACCINE, AGE 12+ YR Patricia Covarrubias MD Work Phone: Start: 04-13-2022 Hemoglobin A1c/Hemoglobin.total in Blood Patricia Covarrubias MD Work Phone: Start: 03-30-2022 PFIZER-BIONTECH COVI D-19 VACCINE, AGE 12+ YR (DAVIS TOP) Meaghan Older BRIM BLOCKER.TOOL POLISHING MACHINE OPERATOR Work Phone: Start: 08-23-2021 Mammography Mallorie Older BRIM BLOCKER.TOOL POLISHING MACHINE OPERATOR Work Phone: Start: 10-24-2018 Colonoscopy Mallorie Older BRIM BLOCKER.TOOL POLISHING MACHINE OPERATOR Work Phone: Plan of Treatment Date Care Activity Detail Author Start: 10-24-2028 Colonoscopy COLONOSCOPY [facility] Start: 10-24-2028 COLORECTAL CANCER SCREENING COLORECTAL CANCER SCREENING [facility] Start: 10-15-2024 3 comp foot exam completed Diabetic Foot Exam [facility] Start: 10-15-2024 Annual PCP Team Flight Engineer magdalena Disease Visit Annual PCP Team Chronic Disease Visit [facility] Start: 10-15-2024 BP Controlled (<130/80) BP Controlle d (<130/80) [facility] Start: 10-15-2024 Hepatitis B Vaccine (1 of 3 - Risk 3-dose series) Hepatitis B Vaccine (1 of 3 - Risk 3-dose series) [facility] Immunizations Immunization Date Immunization Notes Care Provider Fa anthony 09-11-2023 COVID-19 vaccine, ag e 12+ yr, season (PFIZER-BIONTECH) Ut Nurse Work Phone: [facility] Work Phone: 08-14-2023 influenza (HD-IIV4) vaccine, age 65+ yr, high dose, quadrivalent, PF (FLUZONE HIGH-DOSE) Ut Nurse Work Phone: [facility] Work Phone: 04-13-2023 COVID-19 vaccine, ag e 12+ yr, bivalent (PFIZER-BIONTECH) Patience Kebede MD Work Phone: [facility] Work Phone: 08-19-2022 COVID-19 booster vaccine, age 12+ yr, bivalent (PFIZER-BIONTECH) Immunization Boykins Work Phone: [facility] Work Phone: 08-19-2022 influenza, high-dose , quadrivalent vaccine (FLUZONE HIGH DOSE QUADRIVALENT) Immunization Usama Work Phone: [facility] Work Phone: 08-19-2022 influenza virus vaccine, unspecified formulation Maegan Torres MD Work Phone: [facility] 03-30-2022 COVID-19 vaccine, ag e 12+ yr (PFIZER-BIONTECH - DAVIS TOP) Ut Nurse Work Phone: [facility] Work Phone: 09-12-2021 COVID-19 vaccine, ag e 12+ yr (PFIZER-BIONTECH - PURPLE TOP) Mallorie Older BRIM BLOCKER.TOOL POLISHING MACHINE OPERATOR Work Phone: [facility] Work Phone: 08-19-2021 influenza, high dose seasonal, preservative-free Mallorie Older BRIM BLOCKER.TOOL POLISHING MACHINE OPERATOR Work Phone: [facility] Work Phone: 08-19-2021 influenza, high-dose , quadrivalent vaccine (FLUZONE HIGH DOSE QUADRIVALENT) Patricia Covarrubias MD Work Phone: [facility] 02-09-2021 COVID-19 vaccine, fu ll dose (MODERNA) Mallorie Older BRIM BLOCKER.TOOL POLISHING MACHINE OPERATOR Work Phone: [facility] Work Phone: 01-12-2021 COVID-19 vaccine, fu ll dose (MODERNA) Mallorie Older BRIM BLOCKER.TOOL POLISHING MACHINE OPERATOR Work Phone: [facility] Work Phone: 09-02-2020 zoster vaccine recombinant Mallorie Older BRIM BLOCKER.TOOL POLISHING MACHINE OPERATOR Work Phone: [facility] Work Phone: 07-12-2020 influenza, high dose seasonal, preservative-free Mallorie Older BRIM BLOCKER.TOOL POLISHING MACHINE OPERATOR Work Phone: [facility] 07-12-2020 influenza, high-dose , quadrivalent vaccine (FLUZONE HIGH DOSE QUADRIVALENT) Patricia Covarrubias MD Work Phone: [facility] 07-03-2020 zoster vaccine recombinant Mallorie Older BRIM BLOCKER.TOOL POLISHING MACHINE OPERATOR Work Phone: [facility] Work Phone: 06-19-2020 influenza virus vaccine, unspecified formulation Mallorie Older BRIM BLOCKER.TOOL POLISHING MACHINE OPERATOR Work Phone: [facility] 09-19-2019 influenza, high dose seasonal, preservative-free Mallorie Older BRIM BLOCKER.TOOL POLISHING MACHINE OPERATOR Work Phone: [facility] 09-12-2018 influenza, high dose seasonal, preservative-free Mallorie Older BRIM BLOCKER.TOOL POLISHING MACHINE OPERATOR Work Phone: [facility] Work Phone: 04-03-2018 pneumococcal polysaccharide vaccine, 23 valent Mallorie Older BRIM BLOCKER.TOOL POLISHING MACHINE OPERATOR Work Phone: [facility] Work Phone: 09-18-2017 influenza, high dose seasonal, preservative-free Mallorie Older BRIM BLOCKER.TOOL POLISHING MACHINE OPERATOR Work Phone: [facility] Work Phone: 08-19-2015 influenza, high dose seasonal, preservative-free Patricia Covarrubias MD Work Phone: [facility] 05-20-2015 pneumococcal conjuga te vaccine, 13 valent Mallorie Older BRIM BLOCKER.TOOL POLISHING MACHINE OPERATOR Work Phone: [facility] 12-05-2012 tetanus toxoid, redu araceli diphtheria toxoid, and acellular pertussis vaccine, adsorbed Mallorie Older BRIM BLOCKER.TOOL POLISHING MACHINE OPERATOR Work Phone: [facility] 11-25-2012 zoster vaccine, live Mallorie Old er BRIM BLOCKER.TOOL POLISHING MACHINE OPERATOR Work Phone: [facility] 07-08-2008 tetanus and diphther ia toxoids, adsorbed, preservative free, for adult use (2 Lf of tetanus toxoid and 2 Lf of diphtheria toxoid) Mallorie Older BRIM BLOCKER.TOOL POLISHING MACHINE OPERATOR Work Phone: [facility] 12-26-2007 pneumococcal polysaccharide vaccine, 23 valent Mallorie Older BRIM BLOCKER.TOOL POLISHING MACHINE OPERATOR Work Phone: [facility] Payers Date Payer Category Payer Unknown ANTHEM BLUE CARD PPO OOS [id number] 2020-Present [phone] [address] [place] [address] PPO [id number] 2020 Unknown ADARSH BLUE CARD PPO OOS [id number] 2020-Present [phone] [address] [place] [address] PPO [id number] 2020 Unknown [id number] 2012 Medicare MEDICARE MEDICAR E A AND B [id number] 2012-Present [phone] [place] [address] Medicare [id number] 2012 Medicare MEDICARE MEDICAR E A AND B [id number] 2012-Present [phone] [place] [address] Medicare [id number] 2012 Medicare [id number] Social History Date Type Detail Facility Start: 01-17-2013 End: 07-13-2022 Tobacco smoking status NHIS Ex-smoker [facility] End: 11-19-1971 History of tobacco use Current smoker [facility] Start: 12-27-2021 End: 10-15-2023 Alcohol intake Current non-drinker of alcohol (finding) [facility] Start: 04-16-2020 End: 12-15-2022 History SDOH Alcohol Frequency 1 [facility] Start: 10-16-2019 History SDOH Alcohol Std Drinks 98 [facility] Start: 01-17-2013 History SDOH Alcohol Comment quit with onset DM2 [facility] Start: 08-22-2020 End: 12-15-2022 History SDOH Social Connections Phone 3 [facility] Start: 08-22-2020 End: 12-15-2022 History SDOH Social Connections Get Together 5 [facility] Start: 10-16-2019 End: 12-15-2022 History SDOH Physical Activity DPW 2 [facility] Start: 10-16-2019 Education 18 [facility] Start: 1945 Sex Assigned At Not on file [facility] Start: 03-29-2022 End: 10-03-2022 Exposure to SARS-CoV-2 (event) Not sure [facility] End: 11-19-1971 History of tobacco use Cigarette Smoker [facility] Work Phone: Start: 01-17-2013 End: 07-13-2022 Tobacco use and exposure Smokeless tobacco non-user [facility] Work Phone: Start: 12-15-2022 History SDOH Alcohol Std Drinks 0 [facility] Start: 12-15-2022 History SDOH Physical Activity DPW 4 [facility] Start: 12-15-2022 End: 03-27-2023 History of Social function [facility] Start: 12-15-2022 End: 03-27-2023 Social connection and isolation panel [facility] Do you belong to any clubs or organizations such as zoroastrianism groups, Subitecs, fraHelishopter or athletic groups, or school groups? Yes [facility] Are you now , , , , never or living with a partner? [facility] How often to you hav e a drink containing alcohol? Never [facility] How many standard dr inks containing alcohol do you have on a typical day? Patient does not drink [facility] Do you feel stress - tense, restless, nervous, or anxious, or unable to sleep at night because your mind is troubled all the time - these days [OSQ] Only a little [facility] (I/We) worried milena er (my/our) food would run out before (I/we) got money to buy more. Never true [facility] In the past 12 month s, was there a time when you were not able to pay the mortgage or rent on time? No [facility] Start: 04-05-2019 Sexual orientation Heterosexual (finding) [facility] Medical Equipment Procedure Code Equipment Code Equipment Origin al Text Equipment Identifier Dates Cement Simplex P Bone Radiopaque Full Dose Sterile - [id number] Start: 01-14-2020 Cement Simplex P Bone Radiopaque Full Dose Sterile - [id number] Start: 01-14-2020 Cement Simplex P Bone Radiopaque Full Dose Sterile - [id number] Start: 01-14-2020 Cement Simplex P Bone Radiopaque Full Dose Sterile - [id number] Start: 01-14-2020 Augment Triathlo n D Cone Tritanium Tibial Symmetric Revision Knee - [id number] Start: 01-14-2020 Augment Triathlo n 4 5mm Femoral Total Stabilized Right Distal Knee - [id number] Start: 01-14-2020 Stem Triathlon 1 5mm Cocr 50mm Femoral Cemented Total Stabilize Knee - [id number] Start: 01-14-2020 Component Triath adilene 4 Cocr Femoral Total Stabilizer Knee Right - [id number] Start: 01-14-2020 Augment Triathlo n 4 10mm Femoral Total Stabilize Knee Posterior - [id number] Start: 01-14-2020 Insert Triathlon 4 X3 19mm Tibial Posterior Stabilized Bearing Knee - [id number] Start: 01-14-2020 Stem Triathlon 1 5mm Cocr 50mm Femoral Cemented Total Stabilize Knee - [id number] Start: 01-14-2020 Augment Triathlo n 4 5mm Femoral Total Stabilized Right Distal Knee - [id number] Start: 01-14-2020 Augment Triathlo n 4 10mm Femoral Total Stabilize Knee Posterior - [id number] Start: 01-14-2020 Baseplate Triath adilene 4 [place] Cocr Tibial Total Stabilize Cemented Knee - [id number] Start: 01-14-2020 1 Strip once darrin ly. Use as instructed. Dx: E11.8 Insulin: No Start: 02-11-2021 End: 06-13-2023 Clinical Notes 01-14-2020 to 12-04-2023 Meaghan Villareal APRN.MYAH - 10/15/2023 11:30 AM Elsy Menard LPN - 10/09/2023 9:10 AM ESTTelephone Verónica - Lidya Blake MA - 10/02/2023 10:22 AM Elsy Menard LPN - 09/11/2023 10:09 AM EDT Note Date & Type Note [facility] 12-04-2023 Note [facility] 11-05-2023 Note [facility] 10-15-2023 Note [facility] 10-15-2023 History of Present illness Narrative CC: Patient presents with: F/U 3 Month HPI Medardo Ruiz is a 78 year old female who presents today for routine follow up. DIABETES MELLITUS: Ms. Ruiz denies increased frequency of urination, chest pain or dyspnea , numbness, tingling or pain in extremities, new or unusual visual symptoms, low sugar/hypoglycemic reactions, weight loss/gain, and bowel changes/loose stools. Has increased thirst. Follows a diabetic diet some of the time. Has noticed she is eating more sweet desert type food. Takes medication as ordered and had recent increase in doses by endocrinology. She reports checking her glucose on a once a day schedule with sugars in the fasting 140s - 160s range. Patient's last HgA1C was Hemoglobin A1C (%) Date Value 10/13/2023 7.0 03/12/2023 6.0 06/16/2021 7.3 03/16/2021 7.3 Hemoglobin A1C (POCT) (%) Date Value 07/13/2023 5.9 04/13/2022 5.9 ) Last Ophthalmology exam was within the past 12 months HTN and HLD: Ms. Ruiz indicates that she is feeling well and denies any symptoms referable to elevated blood pressure. Specifically denies headache, chest pain, palpitations, dyspnea, and peripheral edema. Patient denies any side effects of her medication(s) and is compliant with their regimen. She does not check BP's generally. Medardo denies regular aerobic exercise. She watches her diet for sodium, low fat and low cholesterol some of the time. Last 3 Encounter BP Readings: Date: BP: 10/15/2023 126/72 08/09/2023 139/73 07/13/2023 136/84 Depression: Stable at this time but usually worsens in the winter time or if she doesn't get to socialize. Does volunteer activities to make sure she is focusing. Sleep: is described as normal Alcohol use: does not drink any alcohol Drug use: No Appetite: good Stresses: Denies any major stressor. REVIEW OF SYSTEMS See HPI PAST MEDICAL HISTORY Diagnosis Date Depression DM type 2 (diabetes mellitus, type 2) (HCC) GERD (gastroesophageal reflux disease) Hyperlipidemia Hypertension Loc osteoarth NOS-site NEC Narcolepsy Pancreatic neoplasm PUD (peptic ulcer disease) Restless leg Rhinitis, chronic Sleep apnea Snoring Thyroid nodule PAST SURGICAL HISTORY Procedure Laterality Date ADENOIDECTOMY PRIMARY <AGE 14 1950 Adenoidectomy ARTHROPLASTY METACARPOPHALANGEAL JOINT EACH 2002 right thumb ARTHROSCOPY KNEE DIAGNOSTIC W/WO SYNOVIAL BX SPX Left 2006 Arthroscopy, knee ARTHROSCOPY KNEE DIAGNOSTIC W/WO SYNOVIAL BX SPX Right 2011 Arthroscopy, knee ARTHRP KNE CONDYLE&PLATU MEDIAL&LAT COMPARTMENTS Left 2007 Knee replacement, total ARTHRP KNE CONDYLE&PLATU MEDIAL&LAT COMPARTMENTS Right 2010 Knee replacement, total BLEPHAROPLASTY UP LID W/EXCESS SKIN 2011 bilaterally BREAST BIOPSY 1998 negative DELIVERY ONLY 1975 , low transverse DELIVERY ONLY 1978 , low transverse CHOLECYSTECTOMY 1977 Cholecystectomy COLONOSCOPY 2012 COLONOSCOPY FLX DX W/COLLJ SPEC WHEN PFRMD 10/24/2018 Colonoscopy EXCISION GANGLION WRIST, RECURRENT Right 1968 NEUROPLASTY &/TRANSPOS MEDIAN NRV CARPAL TUNNE Right 1998 Carpal tunnel decomp PAST SURGICAL HISTORY OF 2011 trigger finger release x 4 bilateral middle and ring fingers PAST SURGICAL HISTORY OF 6 of small instestine removed REVJ TOT KNEE ARTHRP FEM&ENTIRE TIBIAL COMPONE Right 01/14/2020 Knee replacement, revision TONSILLECTOMY PRIMARY/SECONDARY <AGE 14 1952 Tonsillectomy TOTAL ABDOMINAL HYSTERECT W/WO RMVL TUBE OVARY 1988 Hysterectomy, KALIA left ovary remains ALLERGIES Amoxicillin, Codeine, and Latex MEDICATIONS levothyroxine (SYNTHROID) 75 mcg tablet^Take 1 tablet by mouth daily before breakfast.^Disp: 90 tablet^Rfl: 3 metFORMIN ER (GLUCOPHAGE XR) 500 mg 24 hr tablet^Take 1 tablet by mouth two times a day.^Disp: 180 tablet^Rfl: 3 dulaglutide (TRULICITY) 1.5 mg/0.5 mL pen injector^Inject 1.5 mg subcutaneously one time a week.^Disp: 6 mL^Rfl: 1 buPROPion (WELLBUTRIN) 75 mg tablet^Take 1 tablet by mouth two times a day.^Disp: 180 tablet^Rfl: 1 furosemide (LASIX) 20 mg tablet^Take 1 tablet by mouth once daily.^Disp: 90 tablet^Rfl: 3 blood sugar diagnostic (ACCU-CHEK ISAMAR PLUS TEST STRP) test strip^1 Strip once daily. Use as instructed. Dx: E11.8 Insulin: No^Disp: 100 Strip^Rfl: 5 Ibuprofen 200 mg cap^Take by mouth every 6 hours as needed for pain.^Disp: ^Rfl: docusate sodium (COLACE) 100 mg capsule^Take 1 capsule by mouth twice daily.^Disp: 30 capsule^Rfl: 1 venlafaxine ER (EFFEXOR XR) 75 mg 24 hr capsule^Take 1 capsule by mouth once daily.^Disp: 90 capsule^Rfl: 3 rOPINIRole (REQUIP) 1 mg tablet^Take 1.5 tablets by mouth daily at bedtime.^Disp: 135 tablet^Rfl: 3 simvastatin (ZOCOR) 40 mg tablet^Take 1 tablet by mouth daily at bedtime.^Disp: 90 tablet^Rfl: 3 amLODIPine (NORVASC) 5 mg tablet^Take 1 tablet by mouth once daily.^Disp: 90 tablet^Rfl: 3 Benazepril HCl (LOTENSIN) 40 mg tablet^Take 1 tablet by mouth once daily.^Disp: 90 tablet^Rfl: 3 diclofenac (VOLTAREN) 1 % topical gel^Apply 4 g to affected area three times daily as needed.^Disp: 200 g^Rfl: 0 Ferrous Gluconate 240 mg (27 mg iron) tablet^Take 1 tablet by mouth three times daily with meals.^Disp: 90 tablet^Rfl: 11 latanoprost (XALATAN) 0.005 % ophthalmic solution^^Disp: ^Rfl: CPAP^Initiate CPAP @ 9 cm of water with humidification. Mask (per patient preference) optional chin strap (if indicated) , filters, tubing, humidifier and lifetime supplies.^Disp: 1 Device^Rfl: 0 Omeprazole Magnesium 20 mg tablet^Take 20 mg by mouth once daily.^Disp: ^Rfl: ascorbic acid, vitamin C, (VITAMIN C) 500 mg tablet^Take 500 mg by mouth once daily.^Disp: ^Rfl: Calcium Citrate-Vitamin D3 (CITRACAL+D) 315 mg-6.25 mcg (250 unit) tab^Take 1 tablet by mouth once daily. ^Disp: ^Rfl: glimepiride (AMARYL) 2 mg tablet^Take 1 tablet by mouth daily with breakfast.^Disp: 90 tablet^Rfl: 0 (Patient not taking: Reported on 10/15/2023) oxyCODONE-acetaminophen (PERCOCET) 5-325 mg tablet^Take 1-2 tablets by mouth every 4 hours as needed for pain.^Disp: 28 tablet^Rfl: 0 ondansetron orally disintegrating (ZOFRAN ODT) 4 mg disintegrating tablet^Take 1 tablet by mouth every 8 hours as needed for nausea/vomiting.^Disp: 20 tablet^Rfl: 1 FAMILY HISTORY Problem Relation Age of Onset Cancer Mother lymphoma Breast Cancer Mother Stroke Mother r/t chemo Alzheimer's Disease Father Diabetes Father Hypertension Father Cancer Brother brain, prostate Hypertension Brother Social History Tobacco Use Smoking status: Former Types: Cigarettes Quit date: 11/19/1971 Years since quittin.9 Smokeless tobacco: Never Vaping Use Vaping Use: Never used Substance Use Topics Alcohol use: No Comment: quit with onset DM2 Drug use: No PHYSICAL EXAM BP 126/72 (BP Site: Left Arm, BP Position: Sitting, BP Cuff Size: Large Adult) Pulse 76 Resp 16 Wt 85.3 kg (188 lb) BMI 33.31 kg/m General Appearance: well appearing, in no acute distress, alert Pysch: mood and affect broad and appropriate Skin: Skin color, texture, turgor normal for age; Eyes: conjunctiva pink and moist, no icterus, sclera white, non-injected Lungs: Lungs clear to auscultation. No wheezing, rhonchi, rales. Heart: RRR without murmur, gallop, or rubs. No ectopy Extremities: No deformities, edema, skin discoloration, clubbing or cyanosis. Good capillary refill. Feet:Shoes and socks removed, normal distal pulses, sensitive to 10 gm monofilament except decreased sensitivity noted to left great toe, and vibratory perception normal Health maintenance reviewed with patient: BP Controlled (<130/80) Never done Hepatitis B Vaccine(1 of 3 - Risk 3-dose series) Never done RSV Vaccine(1 - 1-dose 60+ series) Never done Advance Directive Discussion due on 11/19/2022 Diabetic Foot Exam due on 09/19/2023 DTaP,Tdap,Td Vaccine(2 - Td or Tdap) due on 07/13/2024 Dilated Retinal Exam due on 03/26/2024 HbA1C due on 04/12/2024 Annual PCP Team Chronic Disease Visit due on 07/13/2024 Urine Albumin:Creatinine Ratio due on 08/23/2024 LDL Cholesterol due on 10/13/2024 Bone Density Screening Completed Influenza Vaccine Completed Hepatitis C Screening Completed Shingrix Vaccine Completed Covid-19 Vaccine Completed Pneumococcal Vaccine: 65+ Completed HPV Vaccine Aged Out Mammogram Screening Discontinued Colorectal Cancer Screening Discontinued DATA REVIEWED: Most recent labs ASSESSMENT/PLAN: 1. Type 2 diabetes mellitus with diabetic neuropathy, without long-term current use of insulin (HCC) - ICD9: 250.60, 357.2, ICD10: E11.40 (primary diagnosis) - Worsening control - Continue current medications as increased recently by endocrinology - follow up in 3 months - Blood glucose monitoring on a once daily schedule - Counseled on healthy diet and regular exercise - Discussed need for and benefit of weight loss. BMI 33.31 kg/(m^2) - BASIC METABOLIC PNL - CBC - HGB A1C 2. Essential hypertension - ICD9: 401.9, ICD10: I10 - Controlled - Continue current medications - Recommend home blood pressure monitoring, to bring results to next visit - Encouraged sodium restriction, DASH or Mediterranean diet - Recommend regular aerobic exercise - BASIC METABOLIC PNL - CBC 3. Mixed hyperlipidemia - ICD9: 272.2, ICD10: E78.2 - Uncontrolled - patient has had worsening diet and sedentary lifestyle. - continue with healthy choices as discussed and will recheck in 3 months, if no improvement will have to discuss medication changes - Continue current medications - Counseled on healthy diet and regular exercise - Discussed need for and benefit of weight loss. BMI 33.31 kg/(m^2) - LIPID PANEL BASIC 4. Moderate episode of recurrent major depressive disorder (HCC) - ICD9: 296.32, ICD10: F33.1 Controlled at this time - patient going to increase exercise and activities to see if this will help prevent her worsening depression in winter - call if this does not help and we can increase effexor - Reviewed concept of neurochemical imbalance wt depression/anxiety, treatment options and benefits of counseling in combination with medication. Also reviewed benefits of sleep hygeine, diet and exercise - Follow-up in 3 months or sooner as needed - Instructed patient to contact office or [id number] after-hours promptly should condition worsen or any new symptoms appear. - [facility] crisis line Prescription instructions reviewed with patient as applicable. Potential red flag symptoms discussed with the patient. Reviewed appropriate action plan to take if red flag symptoms occur. Patient agreeable to treatment plan. Meaghan Villareal APRN.CNP documented in this encounter [facility] 10-09-2023 Note [facility] 10-09-2023 History of Present illness Narrative Patient presents for B-12 injection. Denies any problems at this time. Patient instructed on any SE of medication, verbalized understanding and agreed to proceed with treatment. Tolerated injection well. Elsy Escalera LPN documented in this encounter [facility] 10-02-2023 Miscellaneous Notes Requester: Pharmacy Last Visit in Endocrinology: Provider name: Maegan Torres DO , Date 08/09/2023 Next Scheduled Appt in Endo: Visit date not found Last Refill: 07/13/2022 Number of Refills given: 3 Requested Prescriptions Pending Prescriptions Disp Refills levothyroxine (SYNTHROID) 75 mcg tablet 90 tablet 3 Sig: Take 1 tablet by mouth daily before breakfast. Please review and advise. Lidya Blake MA documented in this encounter [facility] 09-12-2023 Miscellaneous Notes Patient phones requesting refills as follows: LAST SEEN 08/09/23 Requested Prescriptions Pending Prescriptions Disp Refills dulaglutide (TRULICITY) 1.5 mg/0.5 mL pen injector 6 mL 1 Sig: Inject 1.5 mg subcutaneously one time a week. Please review and advise. Neela Iglesias MA documented in this encounter [facility] 09-11-2023 Note [facility] 09-11-2023 History of Present illness Narrative Patient presents for B-12 injection. Denies any problems at this time. Patient instructed on any SE of medication, verbalized understanding and agreed to proceed with treatment. Tolerated injection well. Pt to also receive COVID vaccine. Elsy Escalera LPN documented in this encounter [facility] 09-05-2023 Miscellaneous Notes DONALDO: 07/13/2023 Last refill: 02/28/2023 QTY: 180 Refills: 1 documented in this encounter [facility] 08-31-2023 Miscellaneous Notes DONALDO: 04/10/2023 Last refill: 08/10/2022 QTY: 90 Refills: 3 documented in this encounter [facility] 08-27-2023 Note [facility] 08-24-2023 Note HNO ID: [id number] Author: Nunu Mullen RT(Suly) Service: Radiology Author Type: Technologist Type: Progress Notes Filed: 08/24/2023 11:28 AM Note Text: Radiology Service Progress Note PATIENT NAME: Medardo Ruiz DATE OF SERVICE: August 24, 2023 TIME: 11:16 AM PATIENT IDENTITY VERIFICATION COMPLETED USING TWO (2) IDENTIFIERS: Name and Date of confirmed by patient verbally. FALL SCREENING: Has the patient had 2 falls in the last year or 1 fall with injury or currently using an Ambulatory Assistive Device (Walker, Cane, Wheelchair, Crutches, etc.)? No PATIENT GENDER DATA: Female. status: : No status: NO. PATIENT RELEVANT IMPLANT DATA REVIEWED: Not Applicable RADIOLOGY DEPARTMENT: General X-ray: Exam(s) Completed: Upper Extremity X-Ray(s): Shoulder, AP / TRUE AP / AXILLARY right PERIPHERAL IV DATA: Not applicable SIGNED BY: NEREIDA Gupta) August 24, 2023 11:16 AM [facility] 08-14-2023 Note [facility] 08-14-2023 History of Present illness Narrative Patient presents for B-12 injection. Denies any problems at this time. Patient instructed on any SE of medication, verbalized understanding and agreed to proceed with treatment. Tolerated injection well. Pt to also receive flu vaccine. Elsy Escalera LPN documented in this encounter [facility] 08-10-2023 Note [facility] 08-10-2023 History of Present illness Narrative Episode Visit Count: 13 Therapist That Will Accept/Oversee The Plan Of Care: Tobin Guerrero, PT, DPT. Start of Care Date: 06/01/23 Onset Date: 06/01/23 Plan of Care Certification Date: 07/10/23 Next Certification Due Date: 08/14/23 Patient Identified by Name and Date of : Yes [facility] PHYSICAL THERAPY DISCONTINUANCE OF CARE PLAN OF CARE UPDATE: Assessment: Medardo Ruiz is discontinued from Physical Therapy services due to goal achievement and maximal benefit.. Patient was seen for 13 visits from Start of Care Date: 06/01/23 to 08/10/2023 and treatment included: Therapeutic exercise, Manual therapy, and Self-snf management. Goals for Episode of Care: UPDATED on 08/10/23 Goals for Episode of Care: created on 06/01/23 through 08/09/23 1. [facility] in home exercise program. (Partially MET) 2. Patient will decrease pain rating by 2 points to meet minimal clinical important difference for numeric pain rating scale. (MET) 3. Patient will increase active ROM of RIGHT upper extremity to WNL/equal to the LEFT upper extremity to allow pt to to improve performance of ADLs. (MET) 4. Patient will demonstrate increase in RIGHT upper extremity strength to 5/5 during manual muscle testing in order to improve function for basic self-care tasks, home management tasks, light to moderate functional tasks, and prior functional tasks. (MET) 5. Perform use of RIGHT upper extremity at shoulder level with decreased report of symptoms/pain in 8 weeks. (MET) 6. Perform reaching, lifting, sleeping, and all self care without pain. (MET) Patient Goals: Wants to get back to PLOF; get back to water-jogging class , does variety of movements with arms/legs for 1 hr in the pool. SUBJECTIVE: Patient reports slight stiffness in B shoulders this date; states she felt really good following last session in the R Shoulder; Patient reports she thinks this will be her last visit and two cancel her next appts; she feels like she is able to do everything on her own, it is just a matter of adhering and completing the HEP. Except with R IR, pt. feels like she is back to normal. Pain: Pain Pain Level: 1 Pain Location: Shoulder - Right Description: Stiffness Post Treatment Pain Post Treatment Pain Level: Better Post Treatment Pain Location: Shoulder - Right Post Treatment Symptoms: Decreased stiffness.. PROMIS Scales Higher is Better 08/05/2023 07/10/2023 06/05/2023 Phys Func - Score 48 (within normal limits) 39 (moderate dysfunction) 42 (mild dysfunction) Phys Func - Percentile 42 % 14 % 21 % Self-Eff Symptom - Score 50 (Average) 46 (Average) 41 (Average) Self-Eff Symptom - Percentile 50 % 34 % 18 % T-scores: mean of general population = 50. 5 points is clinically meaningfully difference Percentiles provide an indication of how the patient's score ranks in relation to the general population. Higher percentile rankings indicate better function/quality of life. 50th percentile is the average of the general population and indicates half of respondents had a worse score. OBJECTIVE MEASURES WITH LEVEL OF FUNCTION: UE AROM R Shoulder Flex: 155 Degrees R Shoulder ABduction: 150 Degrees R Shoulder Internal Rotation (Functional): Thumb to approximately T12 R Shoulder External Rotation (Functional): T2 L Shoulder Flex: 155 Degrees L Shoulder ABduction: 150 Degrees L Shoulder Internal Rotation (Functional): T8 L Shoulder External Rotation (Functional): T2 UE PROM R Shoulder Flex: 165 Degrees (With rody's) TREATMENT: Therapeutic Exercise: 1: Rody Flexion: 3 Minutes 2: Rody ABD: 3 Minutes 3: R Sleeper Stretch: 3x12, 2-3 hold. 4: Standing Wall Ball Circles: 2x15 Cw/Ccw. 5: IR AAROM w/ wand behind back: 2x15, 1-2 hold. 6: *Objective Measures Collected this date* 7: *Education on continuing HEP, addressing questions as needed, and importance of adhering to for increased motion and strength following discharge. Skilled Intervention: Patient was educated in proper exercise technique and purpose for exercises. Reviewed and educated patient on additions/changes for home exercise program as above (*). Skilled judgment was provided in selection of appropriate interventions. Provided written instruction for home exercise program to facilitate proper performance and compliance. Correct performance of therapeutic exercises was facilitated with verbal, tactile, and visual cuing. Billing Therapeutic Exercise Treatment Minutes: 40 Skilled Treatment Time Minutes (timed and untimed codes): 40 Total Session Time (minutes): 40 Session Start Time : 914 Session Stop Time : 954 Tobin Guerrero PT documented in this encounter [facility] 08-09-2023 Note HNO ID: [id number] Author: Lidya Blake MA Service: ? Author Type: ? 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 documented in this encounter [facility] 08-09-2023 History of Present illness Narrative SUBJECTIVE: Medardo Ruiz is a 78 year old female presents for type 2 Diabetes and hypothyroidism follow up She has Intraductal pancreatic mucinous neoplasm, this was diagnosed in 2012, when she was in [place]. At that time, she was seen by Gastroenterology and surgical oncology. The initial diagnosis of diabetes was made in 2000. 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 Interval history: She underwent right shoulder replacement Recent A1c- 5.9 Weight loss of 25 lbs in the past 1 year, since starting Trulicity Recent weight gain of 10 lbs Patient reports constipation Current diabetes treatment regimen: Amaryl 2 mg daily with dinner Trulicity 0.75 mg weekly Metformin ER 500 mg Past diabetes treatments: Byetta- she stopped it due to concerns about pancreatitis Januvia- stopped when started Trulcity Metformin - Gut issues Blood glucose times and ranges (mg/dl): Currently checks sugars 1 times daily Average BG 103 Fasting BG -92, 91, 114, 119, 90, 84, 107 Hypoglycemic episodes: No Meal planning and timin meals Exercise: no eye exam:uptodate flu shot:Yes 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 Cardiovascular risk factors: hyperlipidemia, diabetes mellitus and obesity She also has hypothyroidism: Current treatment: Levothyroxine 75 mcg daily Previous treatment: she was taking levothyroxine 100 mcg 4 days a week and half tablet 3 days a week No temperature intolerance No changes in bowel habits Pancreatic cyst- Sees MRI pancreas was in Sep 2020 REVIEW OF SYSTEMS: GENERAL:No weight loss, malaise or fevers NECK:Negative for lumps, goiter, pain and significant neck swelling RESPIRATORY: Negative for cough, hemoptysis, wheezing or shortness of breath CARDIOVASCULAR: Negative for chest pain, leg swelling or palpitations GASTROINTESTINAL: No nausea, vomiting, or persistent diarrhea GENITOURINARY: no dysuria, Polyuria, no changes in urinary frequency MUSCULOSKELETAL:no muscle aches, arthralgia NEUROLOGIC: no numbness, tingling, no Paresthesias, no headaches SKIN:Negative for lesions, rash, and itching ENDOCRINE: Negative for cold or heat intolerance or goiter Current Outpatient Medications on File Prior to Visit Medication Sig levothyroxine (SYNTHROID) 75 mcg tablet Take 1 tablet by mouth daily before breakfast. dulaglutide (TRULICITY) 0.75 mg/0.5 mL pen injector Inject 0.75 mg subcutaneously one time a week. Inject dose once per week. Discard Pen After blood sugar diagnostic (ACCU-CHEK ISAMAR PLUS TEST STRP) test strip 1 Strip once daily. Use as instructed. Dx: E11.8 Insulin: No glimepiride (AMARYL) 4 mg tablet Take 1 tablet by mouth daily with breakfast. (Patient taking differently: Take 4 mg by mouth daily with breakfast. 1/2 tab daily) rOPINIRole (REQUIP) 1 mg tablet Take 1.5 tablets by mouth daily at bedtime. venlafaxine ER (EFFEXOR XR) 75 mg 24 hr capsule Take 1 capsule by mouth once daily. amLODIPine (NORVASC) 5 mg tablet Take 1 tablet by mouth once daily. Benazepril HCl (LOTENSIN) 40 mg tablet Take 1 tablet by mouth once daily. simvastatin (ZOCOR) 40 mg tablet Take 1 tablet by mouth daily at bedtime. buPROPion (WELLBUTRIN) 75 mg tablet Take 1 tablet by mouth twice daily. latanoprost (XALATAN) 0.005 % ophthalmic solution metFORMIN (GLUCOPHAGE) 500 mg tablet Take 2 tablets by mouth twice daily with meals. And 1 tablet at bedtime furosemide (LASIX) 20 mg tablet Take 1 tablet by mouth once daily. Ferrous Gluconate 240 mg (27 mg iron) tablet Take 1 tablet by mouth three times daily with meals. CPAP Initiate CPAP @ 9 cm of water with humidification. Mask (per patient preference) optional chin strap (if indicated) , filters, tubing, humidifier and lifetime supplies. Omeprazole Magnesium 20 mg tablet Take 20 mg by mouth once daily. ascorbic acid, vitamin C, (VITAMIN C) 500 mg tablet Take 500 mg by mouth once daily. loratadine 10 mg cap Take by mouth. Calcium Citrate-Vitamin D3 (CITRACAL+D) 315 mg-6.25 mcg (250 unit) tab Take 1 tablet by mouth once daily. Current Facility-Administered Medications on File Prior to Visit Medication cyanocobalamin 1,000 mcg injection ALLERGIES Allergen Reactions Amoxicillin Itching Codeine Itching Latex Itching PAST MEDICAL HISTORY Diagnosis Date Depression DM type 2 (diabetes mellitus, type 2) (HCC) GERD (gastroesophageal reflux disease) Hyperlipidemia Hypertension Loc osteoarth NOS-site NEC Narcolepsy Pancreatic neoplasm PUD (peptic ulcer disease) Restless leg Rhinitis, chronic Sleep apnea Snoring Thyroid nodule PAST SURGICAL HISTORY Procedure Laterality Date ADENOIDECTOMY PRIMARY <AGE 14 1952 Adenoidectomy ARTHROPLASTY METACARPOPHALANGEAL JOINT EACH 2001 right thumb ARTHROSCOPY KNEE DIAGNOSTIC W/WO SYNOVIAL BX SPX Left 2005 Arthroscopy, knee ARTHROSCOPY KNEE DIAGNOSTIC W/WO SYNOVIAL BX SPX Right 2011 Arthroscopy, knee ARTHRP KNE CONDYLE&PLATU MEDIAL&LAT COMPARTMENTS Left 2007 Knee replacement, total ARTHRP KNE CONDYLE&PLATU MEDIAL&LAT COMPARTMENTS Right 2010 Knee replacement, total BLEPHAROPLASTY UP LID W/EXCESS SKIN 2010 bilaterally BREAST BIOPSY 1998 negative DELIVERY ONLY 1975 , low transverse DELIVERY ONLY 1978 , low transverse CHOLECYSTECTOMY 1977 Cholecystectomy COLONOSCOPY 2012 COLONOSCOPY FLX DX W/COLLJ SPEC WHEN PFRMD 10/24/2018 Colonoscopy EXCISION GANGLION WRIST, RECURRENT Right 1967 NEUROPLASTY &/TRANSPOS MEDIAN NRV CARPAL TUNNE Right 1997 Carpal tunnel decomp PAST SURGICAL HISTORY OF 2011 trigger finger release x 4 bilateral middle and ring fingers PAST SURGICAL HISTORY OF 6 of small instestine removed REVJ TOT KNEE ARTHRP FEM&ENTIRE TIBIAL COMPONE Right 01/14/2020 Knee replacement, revision TONSILLECTOMY PRIMARY/SECONDARY <AGE 14 1952 Tonsillectomy TOTAL ABDOMINAL HYSTERECT W/WO RMVL TUBE OVARY 1988 Hysterectomy, KALIA left ovary remains Social History Tobacco Use Smoking status: Former Types: Cigarettes Quit date: 11/19/1971 Years since quittin.7 Smokeless tobacco: Never Vaping Use Vaping Use: Never used Substance Use Topics Alcohol use: No Comment: quit with onset DM2 Drug use: No PHYSICAL EXAM: Resp 16 Ht 160 cm (5' 2.99 ) BMI 32.43 kg/m General:alert and oriented X 3, no acute distress Eyes:anicteric sclera, Extraocular motions intact Neck supple, no cervical lymphadenopathy Thyroid: normal size, normal texture, no palpable nodules Chest: Breathing unlabored, Lungs clear to auscultation. No wheezing CV:normal, Regular rate and rhythm, no murmurs, clicks, or gallops. Abdomen: Normal abdominal sounds, non tender to palpation, obese Neuro: Gait normal. Sensation grossly intact. No focal findings Musculoskeletal: Muscular strength intact, No joint swelling, deformity, or tenderness Extremities No edema, no deformities Skin: no rashes/ erythema, dry skin noted in feet and arms LAB: Hemoglobin A1C Date Value Ref Range Status 03/12/2023 6.0 (H) 4.3 - 5.6 % Final Comment: [place] [employer] guidelines indicate that patients with HgbA1c in the range 5.7-6.4% are at increased risk for development of diabetes, and intervention by lifestyle modification may be beneficial. HgbA1c greater or equal to 6.5% is considered diagnostic of diabetes. 12/19/2022 6.4 (H) 4.3 - 5.6 % Final Comment: [place] [employer] guidelines indicate that patients with HgbA1c in the range 5.7-6.4% are at increased risk for development of diabetes, and intervention by lifestyle modification may be beneficial. HgbA1c greater or equal to 6.5% is considered diagnostic of diabetes. 07/11/2022 6.2 (H) 4.3 - 5.6 % Final Comment: [place] [employer] guidelines indicate that patients with HgbA1c in the range 5.7-6.4% are at increased risk for development of diabetes, and intervention by lifestyle modification may be beneficial. HgbA1c greater or equal to 6.5% is considered diagnostic of diabetes. Hemoglobin A1C (POCT) Date Value Ref Range Status 07/13/2023 5.9 4.2 - 5.6 % Final Comment: Location:[address], [place], [address] Point of care (POC) Hemoglobin A1c (HGBA1C) testing is intended to assess glucose control and provide a management tool for patients known to have diabetes and their healthcare providers. Target HGBA1C levels may depend on specific clinical circumstances. POC HGBA1C is not intended for use as a diagnostic or screening test; laboratory-based testing should be used for diagnostic purposes. The following information is supplemental and may not be applicable to specific diabetes management situations: The POC device silk folder provides a normal range of 4.2% to 6.5% for the HGBA1C POC test. However, the [place] [employer] guidelines indicate that patients with HGBA1C in the range of 5.7% to 6.4% are at increased risk for development of diabetes and that intervention by lifestyle modification may be beneficial. A HGBA1C level greater than or equal to 6.5% is considered diagnostic of diabetes, pending confirmatory testing. Use of HGBA1C testing to evaluate glucose control may not be appropriate for patients with hemoglobin variants or other conditions (e.g. anemia) that alter red blood cell lifespan. 04/13/2022 5.9 4.2 - 5.6 % Final Comment: Location:[address], [place], [address] Point of care (POC) Hemoglobin A1c (HGBA1C) testing is intended to assess glucose control and provide a management tool for patients known to have diabetes and their healthcare providers. Target HGBA1C levels may depend on specific clinical circumstances. POC HGBA1C is not intended for use as a diagnostic or screening test; laboratory-based testing should be used for diagnostic purposes. The following information is supplemental and may not be applicable to specific diabetes management situations: The POC device silk folder provides a normal range of 4.2% to 6.5% for the HGBA1C POC test. However, the [place] [employer] guidelines indicate that patients with HGBA1C in the range of 5.7% to 6.4% are at increased risk for development of diabetes and that intervention by lifestyle modification may be beneficial. A HGBA1C level greater than or equal to 6.5% is considered diagnostic of diabetes, pending confirmatory testing. Use of HGBA1C testing to evaluate glucose control may not be appropriate for patients with hemoglobin variants or other conditions (e.g. anemia) that alter red blood cell lifespan. Glucose (mg/dL) Date Value 03/12/2023 104 03/16/2021 166 Potassium (mmol/L) Date Value 03/12/2023 4.8 03/16/2021 4.5 Sodium (mmol/L) Date Value 03/12/2023 140 03/16/2021 137 Chloride (mmol/L) Date Value 03/12/2023 101 03/16/2021 100 CO2 (mmol/L) Date Value 03/12/2023 27 03/16/2021 26 Creatinine (mg/dL) Date Value 03/12/2023 0.80 03/16/2021 0.85 BUN (mg/dL) Date Value 03/12/2023 15 03/16/2021 15 Anion Gap (mmol/L) Date Value 03/12/2023 12 03/16/2021 11 Calcium (mg/dL) Date Value 03/16/2021 9.8 Calcium, Total (mg/dL) Date Value 03/12/2023 9.7 Latest Reference Range & Units 07/11/22 10:10 Cholesterol, Total <200 mg/dL 174 Triglyceride <150 mg/dL 173 (H) Fasting Time hrs 11 HDL Cholesterol >39 mg/dL 51 LDL Cholesterol <100 mg/dL 88 Latest Reference Range & Units 07/11/22 10:10 Hemoglobin A1C 4.3 - 5.6 % 6.2 (H) Estimated Average Glucose mg/dL 131 TSH 0.270 - 4.200 mIU/L 0.338 ASSESSMENT/PLAN: Type 2 Diabetes Obesity/BMI 33 Hypertension Hyperlipidemia Hypothyroidism Albuminuria Constipation Pancreatic Cyst 1. Glycemic Control: A1c is within goal She has been successful losing weight with trulicity Her fasting BG has markedly improved and within target Stop Amaryl Increase Trulicity to 1.5 mg weekly Continue Metformin ER 500 mg with dinner Patient is instructed to test sugars 1 times daily 3. Hypertension: BP is well controlled Continue norvasc and lotensin 4. Cholesterol: lipids are within goal Will defer lipid testing to PCP Continue zocor 5. Complications: None 6. Other: Update urine microalbumin/Cr Previously, she had mild albuminuria She has been on ACEI Will continue to monitor urine microalbumin Eye exam and immunization are uptodate 7. Clinically, she appears euthyroid Update thyroid function test Continue levothyroxine 75 mcg daily 8. Intraductal pancreatic mucinous neoplasm-Sees GI 9. Constipation- recommended her to see GI I will send patient a message in my chart once the lab results become available Follow up with me in 12 months Maegan Torres MD documented in this encounter [facility] 08-07-2023 Note [facility] 08-07-2023 History of Present illness Narrative Episode Visit Count: 12 Therapist That Will Accept/Oversee The Plan Of Care: Tobin Guerrero, PT, DPT. Start of Care Date: 06/01/23 Onset Date: 06/01/23 Plan of Care Certification Date: 07/10/23 Next Certification Due Date: 08/14/23 Patient Identified by Name and Date of : Yes REHABILITATION AND SPORTS THERAPY PHYSICAL THERAPY TREATMENT NOTE ASSESSMENT: Medardo Ruiz tolerated the session with decreased tightness, expected muscle soreness, and no issues. She demonstrated difficulty with R internal rotation AAROM this date. The patient will continue to benefit from ongoing skilled physical therapy to progress toward set goals. PLAN FOR NEXT VISIT: Continue motion progressions; scapular strengthening, shoulder level stability. SUBJECTIVE: Pt. reports slight stiffness; slight pain/ache in R shoulder this a.m. Pain: Pain Pain Level: 1 Pain Location: Shoulder - Right Description: Sore, Stiffness Post Treatment Pain Post Treatment Pain Level: No Change Post Treatment Pain Location: Shoulder - Right Post Treatment Pain Description: Sore Post Treatment Symptoms: Decreased tightness, appropriate muscle soreness. OBJECTIVE MEASURES WITH LEVEL OF FUNCTION: UE PROM R Shoulder Internal Rotation: 50 Degrees (from 45 degrees ABD.) TREATMENT: Therapeutic Exercise: 1: Rody Flexion: 2 Minutes 2: Supine Shoulder Flexion AAROM with 3# cuff added: 3x10. 1-2 hold at end range. 3: *R Sleeper Stretch: 3x10, 2-3 hold. 4: Standing Wall Ball Circles: 3x12 Cw/Ccw. 5: Shoulder IR with YTB: 2x10 6: Shoulder ER with YTB: 2x10 7: Standing Rows: 2x15, PTB. 8: Standing Shoulder EXT: 2x15, PTB. 9: RUE Adduction: 2x10, YTB. 10: RUE ABDuction: 2x10, YTB. Skilled Intervention: Patient was educated in proper exercise technique and purpose for exercises. Reviewed and educated patient on additions/changes for home exercise program as above (*). Skilled judgment was provided in selection of appropriate interventions. Provided written instruction for home exercise program to facilitate proper performance and compliance. Correct performance of therapeutic exercises was facilitated with verbal, visual, and tactile cuing. Manual Therapy: 1: R Rotator Interval Manual Stretch 2: PROM to R shoulder internal rotation: Push to tolerance. 3: IaSTM to R Deltoid: Push to tolerance. Skilled Intervention: Manual skills to improve joint mobility, ROM, and decrease pain. Utilized anatomy knowledge of the therapist, and assessment of patient's response to intervention. Billing Therapeutic Exercise Treatment Minutes: 41 Manual TherapyTreatment Minutes: 14 Skilled Treatment Time Minutes (timed and untimed codes): 55 Total Session Time (minutes): 55 Session Start Time : 901 Session Stop Time : 956 Tobin Guerrero PT documented in this encounter [facility] 08-06-2023 Miscellaneous Notes Patient has appt on 08/09/23. Left voicemail and sent [employer] message. Please call patient her last office visit was 07/13/22 and no appointments coming up. She needs to schedule a follow up visit with us or let us know if she will be seeing another provider. Send back refill with date of appointment. documented in this encounter [facility] 08-03-2023 Note [facility] 07-27-2023 Note [facility] 07-27-2023 History of Present illness Narrative Episode Visit Count: 10 Therapist That Will Accept/Oversee The Plan Of Care: Tobin Guerrero, PT, DPT. Start of Care Date: 06/01/23 Onset Date: 06/01/23 Plan of Care Certification Date: 07/10/23 Next Certification Due Date: 08/14/23 Patient Identified by Name and Date of : Yes REHABILITATION AND SPORTS THERAPY PHYSICAL THERAPY TREATMENT NOTE ASSESSMENT: Medardo Ruiz tolerated the session with fatigue and expected muscle soreness. She demonstrated difficulty with ER with YTB. The patient will continue to benefit from ongoing skilled physical therapy to progress toward set goals. PLAN FOR NEXT VISIT: scapular stability exercises, possibly body blade SUBJECTIVE: Pt reports that her blood sugar was low today (61), pt ate 2 fig bars prior to coming. Pt states that she feels okay today. Pt really likes towel stretch and pink theraband exercises. Pain: Pain Pain Level: 0 Pain Location: Shoulder - Right Post Treatment Pain Post Treatment Pain Location: Shoulder - Right OBJECTIVE MEASURES WITH LEVEL OF FUNCTION: UE AROM R Shoulder Internal Rotation (Functional): thumb to approximately L1 UE PROM R Shoulder Internal Rotation: (f) TREATMENT: Therapeutic Exercise: 1: Rody Flexion: 2 Minutes 2: Standing Rows: 1x12, PTB. 3: Standing Shoulder EXT: 1x12, PTB. 4: IR AAROM w/ wand behind back: 2x10, 1-2 hold. 5: Shoulder IR with YTB 1x10 6: Shoulder ER with YTB 1x10 (challenging) 7: *Sidelying ER 2x10 Skilled Intervention: Patient was educated in proper exercise technique and purpose for exercises. Reviewed and educated patient on additions/changes for home exercise program as above (*). Skilled judgment was provided in selection of appropriate interventions. Provided written instruction for home exercise program to facilitate proper performance and compliance. Correct performance of therapeutic exercises was facilitated with verbal and visual cuing. Billing Therapeutic Exercise Treatment Minutes: 40 Skilled Treatment Time Minutes (timed and untimed codes): 40 Total Session Time (minutes): 40 Session Start Time : 847 Session Stop Time : 927 YANELIS Chowdary, PT, DPT. documented in this encounter [facility] 07-24-2023 Note [facility] 07-24-2023 History of Present illness Narrative Episode Visit Count: 9 Therapist That Will Accept/Oversee The Plan Of Care: Tobin Guerrero PT, DPT. Start of Care Date: 06/01/23 Onset Date: 06/01/23 Plan of Care Certification Date: 07/10/23 Next Certification Due Date: 08/14/23 Patient Identified by Name and Date of : Yes REHABILITATION AND SPORTS THERAPY PHYSICAL THERAPY TREATMENT NOTE ASSESSMENT: Medardo Ruiz tolerated the session with fatigue, expected muscle soreness, and no issues. She demonstrated improvements in R Shoulder PROM this date. The patient will continue to benefit from ongoing skilled physical therapy to progress toward set goals and to continue with post-operative protocol. PLAN FOR NEXT VISIT: Pulleys for warm-up;Assess how strengthening with HEP went; IR Motion, scap stability interventions. SUBJECTIVE: Pt. saw Joseph Ang with orthopedics last week and disclosed the fall from last week; Ortho reports the R shoulder is looking good per patient; patient reports continued improvement overall, she was able to get her phone in the back R pocket with her UE and she was able to open a heavy door with the R Arm as well. Pain: Pain Pain Level: 0 Pain Location: Shoulder - Right Post Treatment Pain Post Treatment Pain Level: Better Post Treatment Pain Location: Shoulder - Right Post Treatment Symptoms: R Shoulder Fatigued/Sore Appropriately. OBJECTIVE MEASURES WITH LEVEL OF FUNCTION: UE PROM R Shoulder Flex: 165 Degrees R Shoulder Internal Rotation: 40 Degrees (From 45 degrees of ABD.) R Shoulder External Rotation: 55 Degrees TREATMENT: Therapeutic Exercise: 1: UBE: Forward & Backward; 2 Minutes ea. (Direct contact & subjective taken.) 2: Rody Flexion: 2 Minutes 3: IR AAROM w/ wand behind back: 2x10, 1-2 hold. 4: Standing R Wall Clocks: 2x10, YTB. 5: Standing Wall Ball Circles: 2x15 Cw/Ccw. 6: *Standing Rows: 1x12, PTB. 7: *Standing Shoulder EXT: 1x12, PTB. Skilled Intervention: Patient was educated in proper exercise technique and purpose for exercises. Reviewed and educated patient on additions/changes for home exercise program as above (*). Skilled judgment was provided in selection of appropriate interventions. Provided written instruction for home exercise program to facilitate proper performance and compliance. Correct performance of therapeutic exercises was facilitated with verbal, visual, and tactile cuing. Manual Therapy: 1: PROM to R shoulder flexion, IR & ER: Push to tolerance. 2: R Rotator Interval Manual Stretch Skilled Intervention: Manual skills to improve joint mobility, ROM, and decrease pain. Utilized anatomy knowledge of the therapist, and assessment of patient's response to intervention. Billing Therapeutic Exercise Treatment Minutes: 30 Manual TherapyTreatment Minutes: 12 Skilled Treatment Time Minutes (timed and untimed codes): 42 Total Session Time (minutes): 42 Session Start Time : 945 Session Stop Time : 1028 Tobin Guerrero PT documented in this encounter [facility] 07-20-2023 Note [facility] 07-20-2023 Note HNO ID: [id number] Author: Radha Gardner Tech Service: Radiology Author Type: Postal Carrier Type: Progress Notes Filed: 07/20/2023 3:21 PM Note Text: Radiology Service Progress Note PATIENT NAME: Medardo Ruiz DATE OF SERVICE: July 20, 2023 TIME: 3:20 PM PATIENT IDENTITY VERIFICATION COMPLETED USING TWO (2) IDENTIFIERS: Name and Date of confirmed by patient verbally. FALL SCREENING: Has the patient had 2 falls in the last year or 1 fall with injury or currently using an Ambulatory Assistive Device (Walker, Cane, Wheelchair, Crutches, etc.)? No PATIENT GENDER DATA: Female. status: : No status: NO. PATIENT RELEVANT IMPLANT DATA REVIEWED: Not Applicable RADIOLOGY DEPARTMENT: General X-ray: Exam(s) Completed: Upper Extremity X-Ray(s): Shoulder, TRUE AP / AXILLARY / SUPRA OUTLET right PERIPHERAL IV DATA: Not applicable SIGNED BY: Kane Boateng July 20, 2023 3:20 PM [facility] 07-19-2023 Note [facility] 07-19-2023 History of Present illness Narrative Episode Visit Count: 8 Therapist That Will Accept/Oversee The Plan Of Care: Tobin Guerrero, PT, DPT. Start of Care Date: 06/01/23 Onset Date: 06/01/23 Plan of Care Certification Date: 07/10/23 Next Certification Due Date: 08/14/23 Patient Identified by Name and Date of : Yes REHABILITATION AND SPORTS THERAPY PHYSICAL THERAPY TREATMENT NOTE ASSESSMENT: Medardo Ruiz tolerated the session with fatigue, decreased symptoms, expected muscle soreness, and no issues. She demonstrated improvements in scapular strengthening tolerance and internal rotation PROM with continued repetitions. The patient will continue to benefit from ongoing skilled physical therapy to progress toward set goals. PLAN FOR NEXT VISIT: IR Motion; Scapular Stability; Possible Wall Clocks; Add strengthening to HEP. SUBJECTIVE: Pt. arrives from fall in PT 3 days ago; she reports she was sore in the R Shoulder & Wrist (what she feel on) for 36-48 hours after, however now she feels fine with no pain. Reports whole-body pain yesterday due to weather and her OA in several joints. Pain: Pain Pain Level: 1 Pain Location: Shoulder - Right (Deltoid.) Description: Sore Post Treatment Pain Post Treatment Pain Level: Better Post Treatment Pain Location: Shoulder - Right OBJECTIVE MEASURES WITH LEVEL OF FUNCTION: UE PROM R Shoulder Flex: 155 Degrees R Shoulder Internal Rotation: 40 Degrees (From 45 deg.) R Shoulder External Rotation: 50 Degrees TREATMENT: Therapeutic Exercise: 1: UBE: Forward & Backward; 2 Minutes ea. (Direct contact & subjective taken.) 2: RUE Flexion: 2x10, 1#db. 3: RUE Scaption: 2x10, 1#db. 4: RUE ABD: 2x10, 1#db. 5: *Standing Wall Ball Circles: 2x15 Cw/Ccw. 6: Standing Rows: 2x10, PTB. 7: Standing Shoulder EXT: 2x10, PTB. 8: IR AAROM w/ wand behind back: 2x10 Skilled Intervention: Patient was educated in proper exercise technique and purpose for exercises. Skilled judgment was provided in selection of appropriate interventions. Correct performance of therapeutic exercises was facilitated with verbal, visual, and tactile cuing. Manual Therapy: 1: PROM to R shoulder flexion, IR & ER: Push to tolerance. 2: IaSTM to R Deltoid: Push to tolerance. Skilled Intervention: Manual skills to improve joint mobility, ROM, and decrease pain. Utilized anatomy knowledge of the therapist, and assessment of patient's response to intervention. Billing Therapeutic Exercise Treatment Minutes: 30 Manual TherapyTreatment Minutes: 10 Total Treatment Time Minutes (timed/untimed): 40 Session Start Time : 1115 Session Stop Time : 1155 Tobin Guerrero PT documented in this encounter [facility] 07-17-2023 Note [facility] 07-17-2023 History of Present illness Narrative Patient presents for B-12 injection. Denies any problems at this time. Patient instructed on any SE of medication, verbalized understanding and agreed to proceed with treatment. Tolerated injection well. Elsy Escalera LPN documented in this encounter [facility] 07-16-2023 Note [facility] 07-16-2023 History of Present illness Narrative Episode Visit Count: 7 Therapist That Will Accept/Oversee The Plan Of Care: Tobin Guerrero PT, DPT. Start of Care Date: 06/01/23 Onset Date: 06/01/23 Plan of Care Certification Date: 07/10/23 Next Certification Due Date: 08/14/23 Patient Identified by Name and Date of : Yes REHABILITATION AND SPORTS THERAPY PHYSICAL THERAPY TREATMENT NOTE ASSESSMENT: Medardo Ruiz tolerated the session with fatigue and expected muscle soreness. She demonstrated improvements in R shoulder flexion with pulleys. Pt fell during session , she tripped over the toe of her sandal (didn't pick her foot up high enough and looked down to the R, which she has problems with due to vertigo issues and often falls as a result) and fell on her R shoulder and wrist/forearm. Pt tried to catch herself on the wall but was unsuccessful and DIRECT SUPPORT PROFESSIONAL was not close enough behind pt to grab her. Pt was safely assisted from floor and assesed for injury. Pt stated that her shoulder felt okay, but knows it will hurt later. Pt states her R wrist is hurting some, but nothing major according to pt. The patient will continue to benefit from ongoing skilled physical therapy to progress toward set goals. PLAN FOR NEXT VISIT: Continue with IR motion. Work on scapular stability. SUBJECTIVE: Pt reports that her shoulder is hurting today. Pt states that she went the [employer] and did her exercises and thinks she may have overdone it. Pt states that she slept on her R side most of the night last night. Pain: Pain Pain Level: 2 Pain Location: Shoulder - Right Description: Aching Post Treatment Pain Post Treatment Pain Location: Shoulder - Right OBJECTIVE MEASURES WITH LEVEL OF FUNCTION: UE PROM R Shoulder Flex: 157 Degrees (with pulleys) TREATMENT: Therapeutic Exercise: 1: Rody Flexion: 2.5 Minutes 2: Numbers on the wall #1-5 3x30 seconds 3: Seated IR isometric with wand 1x10 with 10 second hold 4: Seated ER isometric with wand 1x10 with 10 second hold Skilled Intervention: Patient was educated in proper exercise technique and purpose for exercises. Skilled judgment was provided in selection of appropriate interventions. Correct performance of therapeutic exercises was facilitated with verbal and visual cuing. Additional time necessary for assessing symptoms due to fall. Billing Therapeutic Exercise Treatment Minutes: 40 Total Treatment Time Minutes (timed/untimed): 40 Session Start Time : 1015 Session Stop Time : 1055 YANELIS Chowdary, PT, DPT. documented in this encounter [facility] 07-13-2023 Note [facility] 07-13-2023 Note [facility] 07-13-2023 History of Present illness Narrative Episode Visit Count: 6 Therapist That Will Accept/Oversee The Plan Of Care: Tobin Guerrero PT, DPT. Start of Care Date: 06/01/23 Onset Date: 06/01/23 Plan of Care Certification Date: 07/10/23 Next Certification Due Date: 08/14/23 Patient Identified by Name and Date of : Yes REHABILITATION AND SPORTS THERAPY PHYSICAL THERAPY TREATMENT NOTE ASSESSMENT: Medardo Ruiz tolerated the session with fatigue and expected muscle soreness. She demonstrated improvements in R shoulder flexion AROM. The patient will continue to benefit from ongoing skilled physical therapy to progress toward set goals. PLAN FOR NEXT VISIT: Continue with IR motion. Work on scapular stability. Numbers on wall with wrist weight SUBJECTIVE: Pt reports that she is tired today, didn't sleep last night. Pt reports that her shoulder has been sore, hasn't had time to rest. Pain: Pain Pain Level: 1 Pain Location: Shoulder - Right Description: Aching Post Treatment Pain Post Treatment Pain Location: Shoulder - Right OBJECTIVE MEASURES WITH LEVEL OF FUNCTION: UE AROM R Shoulder Flex: 145 Degrees TREATMENT: Therapeutic Exercise: 1: IR AAROM w/ wand behind back: 2x12 2: Rody Flexion: 2.5 Minutes 3: AROM flexion: 2x10 4: AROM scaption: 2x10 5: AROM abduction: 2x10 6: *Seated IR isometric with wand 1x10 with 10 second hold 7: *Seated ER isometric with wand 1x10 with 10 second hold 8: Body blade IR/ER 2x30 seconds RUE Skilled Intervention: Patient was educated in proper exercise technique and purpose for exercises. Reviewed and educated patient on additions/changes for home exercise program as above (*). Skilled judgment was provided in selection of appropriate interventions. Correct performance of therapeutic exercises was facilitated with verbal and visual cuing. Billing Therapeutic Exercise Treatment Minutes: 45 Total Treatment Time Minutes (timed/untimed): 45 Session Start Time : 1015 Session Stop Time : 1100 YANELIS Chowdary PT, DPT. documented in this encounter [facility] 07-13-2023 History of Present illness Narrative CC: Patient presents with: Recheck: 3 month follow up HPI Medardo Ruiz is a 78 year old female who presents today for routine follow up. DIABETES MELLITUS: Ms. Ruiz denies excessive thirst or increased frequency of urination, chest pain or dyspnea , numbness, tingling or pain in extremities, new or unusual visual symptoms, low sugar/hypoglycemic reactions, weight loss/gain, and lightheadedness/dizziness. Follows a diabetic diet most of the time. She is compliant with medication(s) and is tolerating med(s) without any side effects. Patient's last HgA1C was Hemoglobin A1C (%) Date Value 03/12/2023 6.0 12/19/2022 6.4 06/16/2021 7.3 03/16/2021 7.3 Hemoglobin A1C (POCT) (%) Date Value 07/13/2023 5.9 04/13/2022 5.9 ) Takes total of 2500mg of metformin daily as ordered by PCP. 100s-130s. Chronic bouts of diarrhea with vomiting over the last 12 years. Unsure on cause but possibly related to milk so she has decreased her milk intake but not all the time. Last colonoscopy was in 2018, normal, and recommendation to repeat in 10 years. Denies any abdominal pain nausea or concerns outside of these episodes. RLS: Well controlled on current treatment and sometimes doesn't even need the extra half. HTN and HLD: Ms. Ruiz indicates that she is feeling well and denies any symptoms referable to elevated blood pressure. Specifically denies headache, chest pain, palpitations, dyspnea, and peripheral edema. Patient denies any side effects of her medication(s) and is compliant with their regimen. She does not check BP's generally. Medardo works out regularly but has not been doing as much as usual. She watches her diet for sodium, low fat and low cholesterol most of the time. Last 3 Encounter BP Readings: Date: BP: 07/13/2023 136/84 06/04/2023 128/70 06/01/2023 193/105 Anxiety and Depression: Feels well controlled on current treatment. Sleep: is described as normal for her, but has not been to bed yet this morning. States she was up all night reading, there was a tornado warning, so she just stayed up for this appointment. Appetite: good Stresses: Denies any major stressor Suicidal Thoughts: No suicidal ideation, intent or plan Hypothyroidism: Takes medication as ordered. Denies any changes in energy or abnormal changes in weight. Hypothyroidism: Takes medication as ordered no abnormal changes in weight or energy. REVIEW OF SYSTEMS See HPI PAST MEDICAL HISTORY Diagnosis Date Depression DM type 2 (diabetes mellitus, type 2) (HCC) GERD (gastroesophageal reflux disease) Hyperlipidemia Hypertension Loc osteoarth NOS-site NEC Narcolepsy Pancreatic neoplasm PUD (peptic ulcer disease) Restless leg Rhinitis, chronic Sleep apnea Snoring Thyroid nodule PAST SURGICAL HISTORY Procedure Laterality Date ADENOIDECTOMY PRIMARY <AGE 14 1950 Adenoidectomy ARTHROPLASTY METACARPOPHALANGEAL JOINT EACH 2002 right thumb ARTHROSCOPY KNEE DIAGNOSTIC W/WO SYNOVIAL BX SPX Left 2006 Arthroscopy, knee ARTHROSCOPY KNEE DIAGNOSTIC W/WO SYNOVIAL BX SPX Right 2010 Arthroscopy, knee ARTHRP KNE CONDYLE&PLATU MEDIAL&LAT COMPARTMENTS Left 2007 Knee replacement, total ARTHRP KNE CONDYLE&PLATU MEDIAL&LAT COMPARTMENTS Right 2010 Knee replacement, total BLEPHAROPLASTY UP LID W/EXCESS SKIN 2011 bilaterally BREAST BIOPSY 1998 negative DELIVERY ONLY 1975 , low transverse DELIVERY ONLY 1978 , low transverse CHOLECYSTECTOMY 1977 Cholecystectomy COLONOSCOPY 2012 COLONOSCOPY FLX DX W/COLLJ SPEC WHEN PFRMD 10/24/2018 Colonoscopy EXCISION GANGLION WRIST, RECURRENT Right 1968 NEUROPLASTY &/TRANSPOS MEDIAN NRV CARPAL TUNNE Right 1997 Carpal tunnel decomp PAST SURGICAL HISTORY OF 2011 trigger finger release x 4 bilateral middle and ring fingers PAST SURGICAL HISTORY OF 6 of small instestine removed REVJ TOT KNEE ARTHRP FEM&ENTIRE TIBIAL COMPONE Right 01/14/2020 Knee replacement, revision TONSILLECTOMY PRIMARY/SECONDARY <AGE 14 1952 Tonsillectomy TOTAL ABDOMINAL HYSTERECT W/WO RMVL TUBE OVARY 1988 Hysterectomy, KALIA left ovary remains ALLERGIES Amoxicillin, Codeine, and Latex MEDICATIONS venlafaxine ER (EFFEXOR XR) 75 mg 24 hr capsule^Take 1 capsule by mouth once daily.^Disp: 90 capsule^Rfl: 3 rOPINIRole (REQUIP) 1 mg tablet^Take 1.5 tablets by mouth daily at bedtime.^Disp: 135 tablet^Rfl: 3 dulaglutide (TRULICITY) 0.75 mg/0.5 mL pen injector^Inject 0.75 mg subcutaneously one time a week. Inject dose once per week. Discard Pen After^Disp: 4 Each^Rfl: 5 metFORMIN ER (GLUCOPHAGE XR) 500 mg 24 hr tablet^Take 1 tablet by mouth daily with breakfast.^Disp: 360 tablet^Rfl: 3 simvastatin (ZOCOR) 40 mg tablet^Take 1 tablet by mouth daily at bedtime.^Disp: 90 tablet^Rfl: 3 amLODIPine (NORVASC) 5 mg tablet^Take 1 tablet by mouth once daily.^Disp: 90 tablet^Rfl: 3 Benazepril HCl (LOTENSIN) 40 mg tablet^Take 1 tablet by mouth once daily.^Disp: 90 tablet^Rfl: 3 buPROPion (WELLBUTRIN) 75 mg tablet^Take 1 tablet by mouth twice daily.^Disp: 180 tablet^Rfl: 1 furosemide (LASIX) 20 mg tablet^Take 1 tablet by mouth once daily.^Disp: 90 tablet^Rfl: 3 glimepiride (AMARYL) 2 mg tablet^Take 1 tablet by mouth daily with breakfast.^Disp: 90 tablet^Rfl: 3 levothyroxine (SYNTHROID) 75 mcg tablet^Take 1 tablet by mouth daily before breakfast.^Disp: 90 tablet^Rfl: 3 blood sugar diagnostic (ACCU-CHEK ISAMAR PLUS TEST STRP) test strip^1 Strip once daily. Use as instructed. Dx: E11.8 Insulin: No^Disp: 100 Strip^Rfl: 5 Ibuprofen 200 mg cap^Take by mouth every 6 hours as needed for pain.^Disp: ^Rfl: oxyCODONE-acetaminophen (PERCOCET) 5-325 mg tablet^Take 1-2 tablets by mouth every 4 hours as needed for pain.^Disp: 28 tablet^Rfl: 0 ondansetron orally disintegrating (ZOFRAN ODT) 4 mg disintegrating tablet^Take 1 tablet by mouth every 8 hours as needed for nausea/vomiting.^Disp: 20 tablet^Rfl: 1 docusate sodium (COLACE) 100 mg capsule^Take 1 capsule by mouth twice daily.^Disp: 30 capsule^Rfl: 1 diclofenac (VOLTAREN) 1 % topical gel^Apply 4 g to affected area three times daily as needed.^Disp: 200 g^Rfl: 0 Ferrous Gluconate 240 mg (27 mg iron) tablet^Take 1 tablet by mouth three times daily with meals.^Disp: 90 tablet^Rfl: 11 latanoprost (XALATAN) 0.005 % ophthalmic solution^^Disp: ^Rfl: CPAP^Initiate CPAP @ 9 cm of water with humidification. Mask (per patient preference) optional chin strap (if indicated) , filters, tubing, humidifier and lifetime supplies.^Disp: 1 Device^Rfl: 0 Omeprazole Magnesium 20 mg tablet^Take 20 mg by mouth once daily.^Disp: ^Rfl: ascorbic acid, vitamin C, (VITAMIN C) 500 mg tablet^Take 500 mg by mouth once daily.^Disp: ^Rfl: Calcium Citrate-Vitamin D3 (CITRACAL+D) 315 mg-6.25 mcg (250 unit) tab^Take 1 tablet by mouth once daily. ^Disp: ^Rfl: FAMILY HISTORY Problem Relation Age of Onset Cancer Mother lymphoma Breast Cancer Mother Stroke Mother r/t chemo Alzheimer's Disease Father Diabetes Father Hypertension Father Cancer Brother brain, prostate Hypertension Brother Social History Tobacco Use Smoking status: Former Types: Cigarettes Quit date: 11/19/1971 Years since quittin.6 Smokeless tobacco: Never Vaping Use Vaping Use: Never used Substance Use Topics Alcohol use: No Comment: quit with onset DM2 Drug use: No PHYSICAL EXAM BP 136/84 Pulse 90 Resp 16 Wt 83 kg (183 lb) SpO2 99% BMI 32.42 kg/m General Appearance: well appearing, in no acute distress, alert Pysch: mood and affect broad and appropriate Skin: Skin color, texture, turgor normal for age; Eyes: conjunctiva pink and moist, no icterus, sclera white, non-injected Neck: Thyroid normal size and symmetric without palpable nodules, Neck supple, No adenopathy Lymph nodes: No cervical lymphadenopathy and No supraclavicular lymphadenopathy Lungs: Lungs clear to auscultation. No wheezing, rhonchi, rales. Heart: RRR without murmur, gallop, or rubs. No ectopy Abdomen: Abdomen soft, non-tender. Bowel sounds normal. No masses, organomegaly Health maintenance reviewed with patient: ADVANCE DIRECTIVE DISCUSSION due on 11/19/2022 DTAP,TDAP,TD(2 - Td or Tdap) due on 12/05/2022 INFLUENZA(1) due on 07/20/2023 HBA1C due on 09/11/2023 URINE ALBUMIN:CREATININE RATIO due on 09/12/2023 DIABETIC FOOT EXAM due on 09/19/2023 LDL CHOLESTEROL due on 03/12/2024 DILATED RETINAL EXAM due on 03/26/2024 ANNUAL PCP TEAM CHRONIC DISEASE VISIT due on 04/10/2024 BP CONTROLLED (<130/80) due on 06/04/2024 BONE DENSITY Completed HEPATITIS C SCREENING Completed SHINGRIX VACCINE Completed COVID-19 VACCINE Completed PNEUMOCOCCAL: 65+ Completed HPV VACCINE Aged Out MAMMOGRAM Discontinued COLORECTAL CANCER SCREENING Discontinued DATA REVIEWED: No new labs ASSESSMENT/PLAN: 1. Type 2 diabetes mellitus with diabetic neuropathy, without long-term current use of insulin (HCC) - ICD9: 250.60, 357.2, ICD10: E11.40 (primary diagnosis) - Controlled - Continue current medications - at last visit in March PCP decreased metformin to XR and has not started new dosing yet. Patient to start new dosing as previously ordered and monitor glucose home readings closely. If a large increase in glucose is noted we can increase trulicity - Blood glucose monitoring on a twice daily schedule - Counseled on healthy diet and regular exercise - Discussed need for and benefit of weight loss. BMI 32.42 kg/(m^2) - HEMOGLOBIN A1C (POC) - COMP METABOLIC PANEL - CBC - HGB A1C 2. Essential hypertension - ICD9: 401.9, ICD10: I10 - Controlled - Continue current medications - Recommend home blood pressure monitoring, to bring results to next visit - Encouraged sodium restriction, DASH or Mediterranean diet - Recommend regular aerobic exercise - COMP METABOLIC PANEL - CBC 3. Mixed hyperlipidemia - ICD9: 272.2, ICD10: E78.2 - Controlled - Continue current medications - Counseled on healthy diet and regular exercise - Discussed need for and benefit of weight loss. BMI 32.42 kg/(m^2) - COMP METABOLIC PANEL - LIPID PANEL BASIC 4. Hypothyroidism, acquired - ICD9: 244.9, ICD10: E03.9 - Instructed patient on importance of taking on an empty stomach either first thing in the morning or at bedtime. asymptomatic - TSH BLD 5. Anxiety and depression - ICD9: 300.00, 311, ICD10: F41.9, F32.A Controlled at this time, continue current dosing - Reviewed concept of neurochemical imbalance [facility] depression/anxiety, treatment options and benefits of counseling in combination with medication. Also reviewed benefits of sleep hygeine, diet and exercise - Instructed patient to contact office or [id number] after-hours promptly should condition worsen or any new symptoms appear. - Counseling Center [facility] and after hours crisis line 6. Restless leg syndrome - ICD9: 333.94, ICD10: G25.81 - controlled with current treatment 7. Diarrhea, unspecified type - ICD9: 787.91, ICD10: R19.7 - chronic, no concerns at this time, curious to see if metformin changes improve this - follow up for any increase in this, abdominal pain, dark sticky stools, or blood in stools. Prescription instructions reviewed with patient as applicable. Potential red flag symptoms discussed with the patient. Reviewed appropriate action plan to take if red flag symptoms occur. Patient agreeable to treatment plan. Meaghan Villareal APRN.CNP documented in this encounter [facility] 07-10-2023 Note [facility] 07-10-2023 History of Present illness Narrative Episode Visit Count: 5 Therapist That Will Accept/Oversee The Plan Of Care: Tobin Guerrero, PT, DPT. Start of Care Date: 06/01/23 Onset Date: 06/01/23 Plan of Care Certification Date: 07/10/23 Next Certification Due Date: 08/14/23 Patient Identified by Name and Date of : Yes REHABILITATION AND SPORTS THERAPY PHYSICAL THERAPY PROGRESS REPORT PLAN OF CARE UPDATE: Assessment: Medardo Ruiz demonstrates significant improvement in global motion (except internal rotation), able to sleep through the night on the R Shoulder without awakening, lifting, physical activities, recreational activities, reaching overhead, use hand with arm at shoulder level, driving, cleaning, cooking, dressing, grooming, pulling, pushing, and carrying . She has progressed toward goals. Patient continues to present with impairments in ADL's/IADLs, flexibility, joint mobility, range of motion, and strength that interfere with reaching behind back, Comments buckling her seatbelt with the RUE.. Current prognosis is Good due to: current objective clinical presentation, good overall health status, good support system/ coping skills . She will benefit from continued skilled therapy services to meet the updated goals for this plan of care as noted below. Goals for Episode of Care: UPDATED on 07/10/23 Goals for Episode of Care: created on 06/01/23 through 08/09/23 1. [facility] in home exercise program. (Currently MET) 2. Patient will decrease pain rating by 2 points to meet minimal clinical important difference for numeric pain rating scale. (Currently MET) 3. Patient will increase active ROM of RIGHT upper extremity to WNL/equal to the LEFT upper extremity to allow pt to to improve performance of ADLs. (Progressing Towards) 4. Patient will demonstrate increase in RIGHT upper extremity strength to 5/5 during manual muscle testing in order to improve function for basic self-care tasks, home management tasks, light to moderate functional tasks, and prior functional tasks. (Progressing Towards) 5. Perform use of RIGHT upper extremity at shoulder level with decreased report of symptoms/pain in 8 weeks. (Progressing Towards) 6. Perform reaching, lifting, sleeping, and all self care without pain. (Currently MET) Patient Goals: Wants to get back to PLOF; get back to water-jogging class , does variety of movements with arms/legs for 1 hr in the pool. Planned Interventions, Frequency, and Duration: 2x/week (Patient wishes to complete rest of visits/POC and decide if she wants to continue with therapy for R Shoulder strength and motion gains.), 4 weeks Patient to be seen for Therapeutic exercise (50624), Neuromuscular re-education (75131), Manual therapy (82586), Therapeutic activities (08961), Self-snf management (56812), Patient/Family/Caregiver Education, Body Mechanics Training PLAN FOR NEXT VISIT: Work on R IR motion; progressive strengthening to R shoulder as tolerated. SUBJECTIVE: Patient reports she had to travel to [place] to visit a friend who was in intensive care; she got upgraded to a bigger rental car and haven't driven a big car in a while so she states the shoulder got a workout, but also feels like it loosened it up. Patient feels like she is 85% with the R Shoulder heading to 90%. Functional Limitations: reaching behind back, Comments Functional Limitation Comments: buckling her seatbelt with the RUE. Pain: Pain Pain Level: 2 Pain Location: Shoulder - Right Description: Aching Frequency: Continuous Post Treatment Pain Post Treatment Pain Level: No Change Post Treatment Pain Location: Shoulder - Right PROMIS Scales Higher is Better 07/10/2023 06/05/2023 10/02/2022 Phys Func - Score 39 (moderate dysfunction) 42 (mild dysfunction) 43 (mild dysfunction) Phys Func - Percentile 14 % 21 % 24 % Self-Eff Symptom - Score 46 (Average) 41 (Average) 47 (Average) Self-Eff Symptom - Percentile 34 % 18 % 38 % T-scores: mean of general population = 50. 5 points is clinically meaningfully difference Percentiles provide an indication of how the patient's score ranks in relation to the general population. Higher percentile rankings indicate better function/quality of life. 50th percentile is the average of the general population and indicates half of respondents had a worse score. OBJECTIVE MEASURES WITH LEVEL OF FUNCTION: Shoulder Observations Incision: Appropriately Healed. R Shoulder Palpation Tenderness: Bicipital groove R Shoulder Palpation Tenderness Comments: Middle Deltoid. UE AROM R Shoulder Flex: 135 Degrees R Shoulder ABduction: 130 Degrees R Shoulder Internal Rotation (Functional): R Thumb at R PSIS. R Shoulder External Rotation: 40 Degrees R Shoulder External Rotation (Functional): C7 UE PROM R Shoulder Flex: 155 Degrees R Shoulder Internal Rotation: (Top of R Pelvis with AAROM with wand.) R Shoulder External Rotation: 50 Degrees UE and Cervical Strength R UE Strength: Grossly 4+/5 L UE Strength: Grossly 5/5 TREATMENT: Therapeutic Exercise: 1: Rody Flexion: 2.5 Minutes 2: Rody ABD: 2.5 Minutes 3: IR AAROM w/ wand behind back: 2x12 (B Wand IR of shoulders.) 4: IR AAROM w/ wand behind back: 2x12 (L Shoulder moving into flexion pullying R arm up.) 5: AROM flexion: 2x10 6: AROM scaption: 2x10 7: AROM abduction: 2x10 8: *Progress check & objective measures collected this date*. Skilled Intervention: Patient was educated in proper exercise technique and purpose for exercises. Skilled judgment was provided in selection of appropriate interventions. Correct performance of therapeutic exercises was facilitated with verbal, visual, and tactile cuing. Billing Therapeutic Exercise Treatment Minutes: 40 Self-Care/Home Management Treatment Minutes: 2 Total Treatment Time Minutes (timed/untimed): 42 Session Start Time : 899 Session Stop Time : 941 Tobin Guerrero PT documented in this encounter [facility] 06-26-2023 Note [facility] 06-26-2023 History of Present illness Narrative Episode Visit Count: 4 Therapist That Will Accept/Oversee The Plan Of Care: Tobin Guerrero PT, DPT. Start of Care Date: 06/01/23 Onset Date: 06/01/23 Plan of Care Certification Date: 06/08/23 Next Certification Due Date: 07/13/23 Patient Identified by Name and Date of : Yes REHABILITATION AND SPORTS THERAPY PHYSICAL THERAPY TREATMENT NOTE ASSESSMENT: Medardo Ruiz tolerated the session with fatigue and expected muscle soreness. She demonstrated improvements in R shoulder flexion ROM. The patient will continue to benefit from ongoing skilled physical therapy to progress toward set goals. PLAN FOR NEXT VISIT: Pt out of town next week, will resume PT when she returns. SUBJECTIVE: Pt no longer taking Tylenol at night or any pain medications at this point. Pt states that her shoulder is feeling pretty good. Pt still having difficulty with drying the L side of her body ( horizontal adduction). Pt reports that she is going ot be out of town for the next week and will return to PT when seh gets back. Pain: Pain Pain Level: 0 Pain Location: Shoulder - Right Post Treatment Pain Post Treatment Pain Level: 0 Post Treatment Pain Location: Shoulder - Right OBJECTIVE MEASURES WITH LEVEL OF FUNCTION: UE AROM R Shoulder Flex: 125 Degrees R Shoulder ABduction: 128 Degrees UE PROM R Shoulder Flex: 140 Degrees (with pulleys) TREATMENT: Therapeutic Exercise: 1: Rody Flexion: 2x15 2-3 hold. 2: *AROM flexion 1x5 3: *AROM scaption 1x5 4: *AROM abduction 1x5 5: *Scapular retractions 2x10 6: *IR AAROM with wand behind back 2x10 Skilled Intervention: Patient was educated in proper exercise technique and purpose for exercises. Reviewed and educated patient on additions/changes for home exercise program as above (*). Skilled judgment was provided in selection of appropriate interventions. Provided written instruction for home exercise program to facilitate proper performance and compliance. Correct performance of therapeutic exercises was facilitated with verbal and visual cuing. Billing Therapeutic Exercise Treatment Minutes: 45 Total Treatment Time Minutes (timed/untimed): 45 Session Start Time : 1015 Session Stop Time : 1100 YANELIS Chowdary, FORTINO, DPT. documented in this encounter [facility] 06-21-2023 Note [facility] 06-21-2023 History of Present illness Narrative Episode Visit Count: 3 Therapist That Will Accept/Oversee The Plan Of Care: Tobin Guerrero, PT, DPT. Start of Care Date: 06/01/23 Onset Date: 06/01/23 Plan of Care Certification Date: 06/08/23 Next Certification Due Date: 07/13/23 Patient Identified by Name and Date of : Yes REHABILITATION AND SPORTS THERAPY PHYSICAL THERAPY TREATMENT NOTE ASSESSMENT: Medardo Ruiz tolerated the session with fatigue and expected muscle soreness. She demonstrated improvements in tolerance to seated AAROM wand flexion. The patient will continue to benefit from ongoing skilled physical therapy to progress toward set goals. PLAN FOR NEXT VISIT: Assess response to isometrics SUBJECTIVE: Pt reports that she is doing much better. Pt able to sleep on her R side and didn't realize it until she woke up. Pt states increased flexibiltiy and use of RUE. Pain: Pain Pain Location: Shoulder - Right Description: Aching Post Treatment Pain Post Treatment Pain Level: 0 Post Treatment Pain Location: Shoulder - Right OBJECTIVE MEASURES WITH LEVEL OF FUNCTION: Increased motion of R shoulder noted with increased reps of AAROM flexion with wand. TREATMENT: Therapeutic Exercise: 1: Rody Flexion: 2x15 2-3 hold. 2: *Scapular and deltoid isometrics x10 each direction with 5 second holds 3: Standing wand AAROM abduction 1x10 4: Seated AAROM flexion 3x10 5: Seated AAROM ER 2x10 Skilled Intervention: Patient was educated in proper exercise technique and purpose for exercises. Reviewed and educated patient on additions/changes for home exercise program as above (*). Skilled judgment was provided in selection of appropriate interventions. Provided written instruction for home exercise program to facilitate proper performance and compliance. Correct performance of therapeutic exercises was facilitated with verbal and visual cuing. Billing Therapeutic Exercise Treatment Minutes: 44 Total Treatment Time Minutes (timed/untimed): 44 Session Start Time : 1015 Session Stop Time : 1059 Soumya Stone, DIRECT SUPPORT PROFESSIONAL Tobin Guerrero, PT, DPT. documented in this encounter [facility] 06-19-2023 Note [facility] 06-13-2023 Miscellaneous Notes Anne with [facility] calls to request a prescription for Isamar Plus accu-check test strips. Order was sent to [facility] and they aren't able to bill medicare and prescription can't be transferred. Pended per request. Madina Ruff RN documented in this encounter [facility] 06-11-2023 Note [facility] 06-08-2023 Note [facility] 06-08-2023 Note HNO ID: [id number] Author: Radha Gardner Tech Service: Radiology Author Type: Postal Carrier Type: Progress Notes Filed: 06/08/2023 1:53 PM Note Text: Radiology Service Progress Note PATIENT NAME: Medardo Ruiz DATE OF SERVICE: June 08, 2023 TIME: 1:53 PM PATIENT IDENTITY VERIFICATION COMPLETED USING TWO (2) IDENTIFIERS: Name and Date of confirmed by patient verbally. FALL SCREENING: Has the patient had 2 falls in the last year or 1 fall with injury or currently using an Ambulatory Assistive Device (Walker, Cane, Wheelchair, Crutches, etc.)? No PATIENT GENDER DATA: Female. status: : No status: NO. PATIENT RELEVANT IMPLANT DATA REVIEWED: Not Applicable RADIOLOGY DEPARTMENT: General X-ray: Exam(s) Completed: Upper Extremity X-Ray(s): Shoulder, AP / TRUE AP / AXILLARY / SUPRA OUTLET right PERIPHERAL IV DATA: Not applicable SIGNED BY: Kane Boateng June 08, 2023 1:53 PM [facility] 06-08-2023 Note [facility] 06-04-2023 Note [facility] 06-04-2023 Miscellaneous Notes Addended by: ALEXSANDRA TOLEDO on: 06/04/2023 01:18 PM Modules accepted: Orders documented in this encounter [facility] 06-04-2023 History of Present illness Narrative Images from the original note were not included. Subjective HPI Medardo Ruiz is a 77 year old female who presents with concern over redness and swelling of her right arm following a surgery done on 06/01/23. She had a REVERSE TOTAL SHOULDER ARTHROPLASTY - Right with Yandy, Patience Cloud MD on 06/01/2023. She has been wearing her sling intermittently and states her pain is improving. She took the Percocet that was prescribed Sunday and Sunday and since has been taking ibuprofen. She is concerned due to redness, warmth and swelling around the distal upper arm and proximal lower arm. She has not had a fever. She did have some chills yesterday. Review of Systems Constitutional: Positive for chills. Negative for fever and malaise/fatigue. Respiratory: Negative. Cardiovascular: Negative. Musculoskeletal: Positive for joint pain. See HPI Skin: Negative for itching and rash. BP 128/70 Pulse 96 Temp 36.7 C (98.1 F) Resp 16 Wt 85.3 kg (188 lb) SpO2 96% BMI 33.30 kg/m PAST MEDICAL HISTORY Diagnosis Date Depression DM type 2 (diabetes mellitus, type 2) (HCC) GERD (gastroesophageal reflux disease) Hyperlipidemia Hypertension Loc osteoarth NOS-site NEC Narcolepsy Pancreatic neoplasm PUD (peptic ulcer disease) Restless leg Rhinitis, chronic Sleep apnea Snoring Thyroid nodule PAST SURGICAL HISTORY Procedure Laterality Date ADENOIDECTOMY PRIMARY <AGE 14 1952 Adenoidectomy ARTHROPLASTY METACARPOPHALANGEAL JOINT EACH 2001 right thumb ARTHROSCOPY KNEE DIAGNOSTIC W/WO SYNOVIAL BX SPX Left 2006 Arthroscopy, knee ARTHROSCOPY KNEE DIAGNOSTIC W/WO SYNOVIAL BX SPX Right 2011 Arthroscopy, knee ARTHRP KNE CONDYLE&PLATU MEDIAL&LAT COMPARTMENTS Left 2008 Knee replacement, total ARTHRP KNE CONDYLE&PLATU MEDIAL&LAT COMPARTMENTS Right 2011 Knee replacement, total BLEPHAROPLASTY UP LID W/EXCESS SKIN 2011 bilaterally BREAST BIOPSY 1998 negative DELIVERY ONLY 1976 , low transverse DELIVERY ONLY 1978 , low transverse CHOLECYSTECTOMY 1977 Cholecystectomy COLONOSCOPY 2012 COLONOSCOPY FLX DX W/COLLJ SPEC WHEN PFRMD 10/24/2018 Colonoscopy EXCISION GANGLION WRIST, RECURRENT Right 1967 NEUROPLASTY &/TRANSPOS MEDIAN NRV CARPAL TUNNE Right 1997 Carpal tunnel decomp PAST SURGICAL HISTORY OF 2011 trigger finger release x 4 bilateral middle and ring fingers PAST SURGICAL HISTORY OF 6 of small instestine removed REVJ TOT KNEE ARTHRP FEM&ENTIRE TIBIAL COMPONE Right 01/14/2020 Knee replacement, revision TONSILLECTOMY PRIMARY/SECONDARY <AGE 14 1952 Tonsillectomy TOTAL ABDOMINAL HYSTERECT W/WO RMVL TUBE OVARY 1987 Hysterectomy, KALIA left ovary remains ALLERGIES Amoxicillin, Codeine, and Latex MEDICATIONS doxycycline hyclate (VIBRAMYCIN) 100 mg capsule^Take 1 capsule by mouth twice daily for 10 days.^Disp: 20 capsule^Rfl: 0 oxyCODONE-acetaminophen (PERCOCET) 5-325 mg tablet^Take 1-2 tablets by mouth every 4 hours as needed for pain.^Disp: 28 tablet^Rfl: 0 ondansetron orally disintegrating (ZOFRAN ODT) 4 mg disintegrating tablet^Take 1 tablet by mouth every 8 hours as needed for nausea/vomiting.^Disp: 20 tablet^Rfl: 1 docusate sodium (COLACE) 100 mg capsule^Take 1 capsule by mouth twice daily.^Disp: 30 capsule^Rfl: 1 venlafaxine ER (EFFEXOR XR) 75 mg 24 hr capsule^Take 1 capsule by mouth once daily.^Disp: 90 capsule^Rfl: 3 rOPINIRole (REQUIP) 1 mg tablet^Take 1.5 tablets by mouth daily at bedtime.^Disp: 135 tablet^Rfl: 3 blood sugar diagnostic (ACCU-CHEK ISAMAR PLUS TEST STRP) test strip^1 Strip once daily. Use as instructed. Dx: E11.8 Insulin: No^Disp: 100 Strip^Rfl: 5 dulaglutide (TRULICITY) 0.75 mg/0.5 mL pen injector^Inject 0.75 mg subcutaneously one time a week. Inject dose once per week. Discard Pen After^Disp: 4 Each^Rfl: 5 metFORMIN ER (GLUCOPHAGE XR) 500 mg 24 hr tablet^Take 1 tablet by mouth daily with breakfast.^Disp: 360 tablet^Rfl: 3 simvastatin (ZOCOR) 40 mg tablet^Take 1 tablet by mouth daily at bedtime.^Disp: 90 tablet^Rfl: 3 amLODIPine (NORVASC) 5 mg tablet^Take 1 tablet by mouth once daily.^Disp: 90 tablet^Rfl: 3 Benazepril HCl (LOTENSIN) 40 mg tablet^Take 1 tablet by mouth once daily.^Disp: 90 tablet^Rfl: 3 buPROPion (WELLBUTRIN) 75 mg tablet^Take 1 tablet by mouth twice daily.^Disp: 180 tablet^Rfl: 1 diclofenac (VOLTAREN) 1 % topical gel^Apply 4 g to affected area three times daily as needed.^Disp: 200 g^Rfl: 0 Ferrous Gluconate 240 mg (27 mg iron) tablet^Take 1 tablet by mouth three times daily with meals.^Disp: 90 tablet^Rfl: 11 furosemide (LASIX) 20 mg tablet^Take 1 tablet by mouth once daily.^Disp: 90 tablet^Rfl: 3 glimepiride (AMARYL) 2 mg tablet^Take 1 tablet by mouth daily with breakfast.^Disp: 90 tablet^Rfl: 3 levothyroxine (SYNTHROID) 75 mcg tablet^Take 1 tablet by mouth daily before breakfast.^Disp: 90 tablet^Rfl: 3 latanoprost (XALATAN) 0.005 % ophthalmic solution^^Disp: ^Rfl: CPAP^Initiate CPAP @ 9 cm of water with humidification. Mask (per patient preference) optional chin strap (if indicated) , filters, tubing, humidifier and lifetime supplies.^Disp: 1 Device^Rfl: 0 Omeprazole Magnesium 20 mg tablet^Take 20 mg by mouth once daily.^Disp: ^Rfl: ascorbic acid, vitamin C, (VITAMIN C) 500 mg tablet^Take 500 mg by mouth once daily.^Disp: ^Rfl: Calcium Citrate-Vitamin D3 (CITRACAL+D) 315 mg-6.25 mcg (250 unit) tab^Take 1 tablet by mouth once daily. ^Disp: ^Rfl: FAMILY HISTORY Problem Relation Age of Onset Cancer Mother lymphoma Breast Cancer Mother Stroke Mother r/t chemo Alzheimer's Disease Father Diabetes Father Hypertension Father Cancer Brother brain, prostate Hypertension Brother Social History Tobacco Use Smoking status: Former Types: Cigarettes Quit date: 11/19/1971 Years since quittin.5 Smokeless tobacco: Never Vaping Use Vaping Use: Never used Substance Use Topics Alcohol use: No Comment: quit with onset DM2 Drug use: No Objective Physical Exam Vitals and nursing note reviewed. Constitutional: General: She is not in acute distress. Appearance: Normal appearance. She is ill-appearing. Cardiovascular: Rate and Rhythm: Normal rate. Pulmonary: Effort: Pulmonary effort is normal. Musculoskeletal: General: Swelling and tenderness present. Arms: Skin: General: Skin is warm and dry. Capillary Refill: Capillary refill takes less than 2 seconds. Findings: Bruising and erythema present. No rash. Neurological: Mental Status: She is alert. ASSESSMENT/PLAN: 1. Skin infection - ICD9: 686.9, ICD10: L08.9 - Begin treatment with doxycycline - No lymphangetic streaking, this was defined for patient to watch for and to seek medical care immediately if appears - DOXYCYCLINE HYCLATE 100 MG CAPSULE - discussed with Obed at Dr. Kebede's office. She will notify Dr. Kebede and contact patient if she needs to be seen sooner than Sunday. 2. Swelling of joint of upper arm, right - ICD9: 719.02, ICD10: M25.421 - consistent with s/p shoulder replacement surgery. - recommend use of ice packs around swollen area near elbow. - wear sling for comfort as needed. - Follow-up with your PCP in 3-5 days if symptoms have not improved or sooner if symptoms worsen - Discussed red flags and need for immediate medical evaluation if any occur. - Discussed supportive care treatment with fluids, rest and analgesia. - Discussed expected course of illness Alexsandra Toledo APRN.TOOL POLISHING MACHINE OPERATOR documented in this encounter [facility] 06-04-2023 Instructions Alexsandra Toledo APRN.TOOL POLISHING MACHINE OPERATOR - 06/04/2023 11:43 AM EDT ASSESSMENT/PLAN: 1. Skin infection - ICD9: 686.9, ICD10: L08.9 - Begin treatment with doxycycline - No lymphangetic streaking, this was defined for patient to watch for and to seek medical care immediately if appears - DOXYCYCLINE HYCLATE 100 MG CAPSULE - discussed with Obed at Dr. Kebede's office. She will notify Dr. Kebede and contact patient if she needs to be seen sooner than Sunday. 2. Swelling of joint of upper arm, right - ICD9: 719.02, ICD10: M25.421 - consistent with s/p shoulder replacement surgery. - recommend use of ice packs around swollen area near elbow. - wear sling for comfort as needed. - Follow-up with your PCP in 3-5 days if symptoms have not improved or sooner if symptoms worsen - Discussed red flags and need for immediate medical evaluation if any occur. - Discussed supportive care treatment with fluids, rest and analgesia. - Discussed expected course of illness Alexsandra Toledo APRN.TOOL POLISHING MACHINE OPERATOR documented in this encounter [facility] 06-01-2023 Note HNO ID: [id number] Author: VANESSA Dewitt Service: Nursing Author Type: Student Type: Anesthesia Procedure Notes Filed: 06/01/2023 10:41 AM Note Text: ANESTHESIOLOGY PROCEDURE NOTE Airway General Information Procedure Start Time/Medication Administration: 06/01/2023 10:15 AM Patient location during procedure: OR Timeout Performed Pre-procedure: timeout performed Consent Obtained: Yes Patient identity confirmed: patient and arm band Staffing SRNA: Kushal Pagan SRNA Performed by: VANESSA Indications and Patient Condition Indications for airway management: anesthesia Preoxygenated: yes anesthesia circuit Patient position: sniffing Method: asleep Cricoid Pressure: No Manual In-Line Stabilization: No Difficult Mask: No Final Airway Details Final airway type: endotracheal airway Final Endotracheal Airway: ETT Successful intubation technique: video laryngoscopy Devices used: P[place]ripe Endotracheal tube insertion site: oral ETT size (mm): 7.0 Measured from: lips Measurement (cm): 21 Placement verified by: chest auscultation and capnometry Cormack-Lehane Classification: grade I - full view of glottis Number of attempts at approach: 2 Ventilation between attempts: BVM Other Attempts Unsuccessful attempted endotracheal techniques: direct laryngoscopy (anterior airway) Failed airway: no Unrecognized esophageal intubation: no Airway not difficult SIGNATURE: VANESSA Dewitt PATIENT NAME: Medardo Ruiz DATE: June 01, 2023 TIME: 10:36 AM CSN: [id number] [facility] 06-01-2023 Note HNO ID: [id number] Author: Vini Cameron MD Service: Nursing Author Type: Anesthesiologist Type: Anesthesia Procedure Notes Filed: 06/01/2023 12:40 PM Note Text: ANESTHESIOLOGY PROCEDURE NOTE Peripheral Nerve Block General Information Procedure Start Time/Medication Administration: 06/01/2023 8:56 AM Procedure End time: 06/01/2023 9:01 AM Patient location during procedure: PACU Timeout Performed Pre-procedure: timeout performed Consent Obtained: Yes Patient identity confirmed: arm band and patient Reason for block: post-op pain management/at surgeon's request Staffing Anesthesiologist: Magdalena Cutler MD SRNA: Kushal Pagan SRNA Performed by: VANESSA Preparation Sterility Preparation: hand hygiene performed prior to procedure, sterile gloves, drapes, and procedure tray, surgical cap used, mask used, sterile drape used during line insertion, skin prep agent completely dried prior to procedure Site Prep: Chloraprep Pre-Procedure Neuro Exam Location: RUE Sensory: intact Motor: intact Procedure Details Patient Position: sitting Monitoring: Pulse OX, EKG and NIBP Block Type Upper Extremity: brachial plexus Approach: supraclavicular Laterality: right Injection Technique: single-shot Ultrasound Guided: Yes Image in Chart: yes Local Infiltration: Yes Needle Needle Type: echogenic Needle Gauge: 22 G Needle Length: 50 mm (80) Needle Localization: ultrasound Test Dose Response: negative test dose Assessment Injection assessment: negative aspiration and local visualized surrounding nerve on ultrasound Post-Procedure Neuro Exam Expected Regional Anesthesia: Yes Medications Administered ropivacaine (PF) 5 mg/mL (0.5 %) injection (NAROPIN) - peripheral nerve block 30 mL - 06/01/2023 8:56:00 AM dexamethasone sodium phosphate injection (DECADRON) - peripheral nerve block 4 mg - 06/01/2023 8:56:00 AM SIGNATURE: VANESSA Dewitt PATIENT NAME: Medardo Ruiz DATE: June 01, 2023 TIME: 9:05 AM CSN: [id number] [facility] 05-21-2023 Note [facility] 05-21-2023 History of Present illness Narrative Patient presents for B-12 injection. Denies any problems at this time. Patient instructed on any SE of medication, verbalized understanding and agreed to proceed with treatment. Tolerated injection well. Elsy Escalera LPN documented in this encounter [facility] 05-09-2023 History and physical note HISTORY AND PHYSICAL EXAMINATION SERVICE DATE: 05/09/2023 SERVICE TIME: 10:28 AM PRIMARY CARE PHYSICIAN: Meaghan Villareal APRN.CNP REASON FOR VISIT: Medardo Ruiz is a 77 year old female who is scheduled for Procedure(s): REVERSE TOTAL SHOULDER ARTHROPLASTY (Right) at the request of Dr. Patience Kebede for consultation. My final recommendation will be communicated back to the requesting physician by way of shared medical record or letter. Subjective The patient has the following: ACTIVE PROBLEM LIST Type 2 Diabetes Mellitus With Diabetic Neuropathy, Without Long-Term Current Use of Insulin (Hcc) Hypothyroidism, Acquired Pancreatic Cyst Davion (Obstructive Sleep Apnea) Restless Leg Syndrome Anxiety and Depression Mixed Hyperlipidemia Essential Hypertension Venous Insufficiency (Chronic) (Peripheral) Basal Cell Carcinoma (Bcc) of Skin of Neck Class 1 Obesity Due to Excess Calories With Serious Comorbidity and Body Mass Index (Bmi) of 33.0 to 33.9 in Adult Adrenal Adenoma S/P Revision of Total Knee, Right Quadriceps Weakness Iron Deficiency Anemia Vitamin B12 Deficiency Seasonal Depression (Hcc) COVID-19 Immunization Status COVID-19 VACCINE (Series Information) Completed 04/13/2023 Imm Admin: COVID-19 vaccine, age 12+ yr, bivalent (PFIZER-BIONTECH) 08/19/2022 Imm Admin: COVID-19 vaccine, age 12+ yr, bivalent (PFIZER-BIONTECH) 03/30/2022 Imm Admin: COVID-19 original vaccine, age 12+ yr, monovalent (PFIZER-BIONTECH - DAVIS TOP) Only the first 3 history entries have been loaded, but more history exists. CHIEF COMPLAINT: Pre-op exam HPI: Medardo Ruiz is a 77 year old seen for PAC due to scheduled above surgery because of OA right shoulder. 12/22/2022, Dr. Kebede CHIEF COMPLAINT: right shoulder pain PAIN EVALUATION 12/22/2022 1418 Pain Level: 9 Pain Location: Shoulder-Right Description: Sharp;Shooting;Radiating Duration Units: Years Frequency: Intermittent Intervention/Comfort measure: Medication tylenol Comments: cortisone injections in the past SUBJECTIVE: Medardo Ruiz is a 77 year old female presents to clinic with right shoulder pain. Ongoing since 2019 without injury. She has seen Dr. Pham in the past and was diagnosed with right shoulder osteoarthritis. She is undergone 1 corticosteroid injection with no improvement in symptoms. Occasionally she will take Tylenol, which does provide some relief. She has a history of a GI bleed and is a type II diabetic, therefore avoids NSAIDs. Most recent hemoglobin A1c was 6.4%. 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 REVIEW OF SYSTEMS: General: No weight loss, malaise or fevers. Neurological: No history of TIA's, stroke, DRY MILL OPERATOR tumor, impaired sensorium, hemiplegia, paraplegia or quadraplegia. No neurological symptoms or problems. Respiratory: Positive for: obstructive sleep apnea and CPAP/BiPAP compliant. Cardiovascular: Positive for: hyperlipidemia, hypertension and PVD Negative for: anticoagulation therapy, arrhythmia, atrial fibrillation, CAD, chest pain, CHF, congenital heart defect, DVT/PE, recent WI, murmur/valvular heart disease, open heart surgery and valve surgery. GI: Positive for: GERD Negative for: abdominal pain, dysphagia, hepatitis, irritable bowel syndrome, inflammatory bowel disease, liver disease, nausea, pancreatitis, vomiting and ETOH >2 drinks/day. : No history of dysuria, frequency or incontinence, stones or chronic kidney disease. No difficulty urinating, nocturia > 1 time per night or hematuria. PRINCIPAL BIOSTATISTICIAN: Negative for abnormal vaginal bleeding, abnormal vaginal discharge. Endocrine: +pancreatic cysts Positive for: diabetes mellitus and hypothyroidism (on rx). Patient's diabetes mellitus is controlled by oral agents and weekly injectable. Hematology: Positive for: anemia and iron deficiency anemia (on rx). Negative for: bruises/bleeds easily, factor V Leiden, transfusion of at least 4 units within 72 hours prior to surgery and chronic anti-coagulation/platelet meds. Oncology: BCC s/p excision Psych: Positive for: anxiety and depression. Musculoskeletal: See HPI. Positive for: joint pain. Skin: Negative for lesions, rash and itching. PAST MEDICAL HISTORY Diagnosis Date Depression DM type 2 (diabetes mellitus, type 2) (HCC) GERD (gastroesophageal reflux disease) Hyperlipidemia Hypertension Loc osteoarth NOS-site NEC Narcolepsy Pancreatic neoplasm PUD (peptic ulcer disease) Restless leg Rhinitis, chronic Sleep apnea Snoring Thyroid nodule PAST SURGICAL HISTORY Procedure Laterality Date ADENOIDECTOMY PRIMARY <AGE 14 1950 Adenoidectomy ARTHROPLASTY METACARPOPHALANGEAL JOINT EACH 2002 right thumb ARTHROSCOPY KNEE DIAGNOSTIC W/WO SYNOVIAL BX SPX Left 2006 Arthroscopy, knee ARTHROSCOPY KNEE DIAGNOSTIC W/WO SYNOVIAL BX SPX Right 2010 Arthroscopy, knee ARTHRP KNE CONDYLE&PLATU MEDIAL&LAT COMPARTMENTS Left 2007 Knee replacement, total ARTHRP KNE CONDYLE&PLATU MEDIAL&LAT COMPARTMENTS Right 2010 Knee replacement, total BLEPHAROPLASTY UP LID W/EXCESS SKIN 2011 bilaterally BREAST BIOPSY 1998 negative DELIVERY ONLY 1975 , low transverse DELIVERY ONLY 1978 , low transverse CHOLECYSTECTOMY 1977 Cholecystectomy COLONOSCOPY 2012 COLONOSCOPY FLX DX W/COLLJ SPEC WHEN PFRMD 10/24/2018 Colonoscopy EXCISION GANGLION WRIST, RECURRENT Right 1967 NEUROPLASTY &/TRANSPOS MEDIAN NRV CARPAL TUNNE Right 1997 Carpal tunnel decomp PAST SURGICAL HISTORY OF 2010 trigger finger release x 4 bilateral middle and ring fingers PAST SURGICAL HISTORY OF 6 of small instestine removed REVJ TOT KNEE ARTHRP FEM&ENTIRE TIBIAL COMPONE Right 01/14/2020 Knee replacement, revision TONSILLECTOMY PRIMARY/SECONDARY <AGE 14 1952 Tonsillectomy TOTAL ABDOMINAL HYSTERECT W/WO RMVL TUBE OVARY 1987 Hysterectomy, KALIA left ovary remains FAMILY HISTORY Problem Relation Age of Onset Cancer Mother lymphoma Breast Cancer Mother Stroke Mother r/t chemo Alzheimer's Disease Father Diabetes Father Hypertension Father Cancer Brother brain, prostate Hypertension Brother Social History Tobacco Use Smoking status: Former Types: Cigarettes Quit date: 11/19/1971 Years since quittin.5 Smokeless tobacco: Never Vaping Use Vaping Use: Never used Substance Use Topics Alcohol use: No Comment: quit with onset DM2 Drug use: No Prior to Admission medications as of 05/09/23 0934 Medication Sig Last Dose Taking venlafaxine ER (EFFEXOR XR) 75 mg 24 hr capsule Take 1 capsule by mouth once daily. Taking Yes rOPINIRole (REQUIP) 1 mg tablet Take 1.5 tablets by mouth daily at bedtime. Taking Yes blood sugar diagnostic (ACCU-CHEK ISAMAR PLUS TEST STRP) test strip 1 Strip once daily. Use as instructed. Dx: E11.8 Insulin: No Taking Yes dulaglutide (TRULICITY) 0.75 mg/0.5 mL pen injector Inject 0.75 mg subcutaneously one time a week. Inject dose once per week. Discard Pen After Taking Yes metFORMIN ER (GLUCOPHAGE XR) 500 mg 24 hr tablet Take 1 tablet by mouth daily with breakfast. Taking Yes simvastatin (ZOCOR) 40 mg tablet Take 1 tablet by mouth daily at bedtime. Taking Yes simvastatin (ZOCOR) 40 mg tablet Take 1 tablet by mouth daily at bedtime. Taking Yes amLODIPine (NORVASC) 5 mg tablet Take 1 tablet by mouth once daily. Taking Yes Benazepril HCl (LOTENSIN) 40 mg tablet Take 1 tablet by mouth once daily. Taking Yes buPROPion (WELLBUTRIN) 75 mg tablet Take 1 tablet by mouth twice daily. Taking Yes diclofenac (VOLTAREN) 1 % topical gel Apply 4 g to affected area three times daily as needed. Taking Yes Ferrous Gluconate 240 mg (27 mg iron) tablet Take 1 tablet by mouth three times daily with meals. Taking Yes furosemide (LASIX) 20 mg tablet Take 1 tablet by mouth once daily. Taking Yes glimepiride (AMARYL) 2 mg tablet Take 1 tablet by mouth daily with breakfast. Taking Yes levothyroxine (SYNTHROID) 75 mcg tablet Take 1 tablet by mouth daily before breakfast. Taking Yes latanoprost (XALATAN) 0.005 % ophthalmic solution Taking Yes CPAP Initiate CPAP @ 9 cm of water with humidification. Mask (per patient preference) optional chin strap (if indicated) , filters, tubing, humidifier and lifetime supplies. Taking Yes Omeprazole Magnesium 20 mg tablet Take 20 mg by mouth once daily. Taking Yes ascorbic acid, vitamin C, (VITAMIN C) 500 mg tablet Take 500 mg by mouth once daily. Taking Yes Calcium Citrate-Vitamin D3 (CITRACAL+D) 315 mg-6.25 mcg (250 unit) tab Take 1 tablet by mouth once daily. Taking Yes mupirocin (BACTROBAN) 2 % ointment Apply 0.5 inch with cotton swab (Q-tip) to each nostril in the morning and evening for 5 days prior to and including day of surgery. No medication comments found. ALLERGIES Allergen Reactions Amoxicillin Itching Codeine Itching Latex Itching Objective PHYSICAL EXAM: General: alert and oriented (x3), healthy appearance and obese. Pertinent negatives noted - not distressed. Skin: normal color, no rash or lesions. HEENT: EOM intact and pupils equal round. Pertinent negatives noted - no carotid bruit. Cardiovascular: regular rate and rhythm, normal S1 and S2, no rub, murmurs, or gallop. Respiratory: normal breath sounds, no wheezes or crackles. No chest wall deformity or tenderness. Abdomen: soft. Pertinent negatives noted - not tender. Extremities: no deformity, no edema or tenderness, no joint swelling or clubbing. Neurological: normal cognition and motor skills. Gait normal. No weakness or sensory deficit. PAIN ASSESSMENT: Pain Pain Level: 2 Pain Location: Shoulder-Right Description: Aching Duration Amount of Time: 4 Duration Units: Years Frequency: Continuous VITALS: BP 120/76 Pulse 87 Temp (Src) 97.2 (Temporal) Ht 5' 3 (1.60m) Wt 187 lb (84.8kg) SpO2 96% BMI 33.13 kg/(m^2). Diagnostic tests reviewed for today's visit: Lab Value Units Date High Low HB 12.3 g/dL 03/12/2023 15.5 11.5 HCT 38.8 % 03/12/2023 46.0 36.0 WBC 8.54 k/uL 03/12/2023 11.00 3.70 PLT 387 k/uL 03/12/2023 400 150 NA 140 mmol/L 03/12/2023 144 136 K 4.8 mmol/L 03/12/2023 5.1 3.7 GLUC 104 mg/dL 03/12/2023 99 74 BUN 15 mg/dL 03/12/2023 21 7 CREAT 0.80 mg/dL 03/12/2023 0.96 0.58 PTSEC No results within date range. INR No results within date range. APTT No results within date range. ALT 12 U/L 03/12/2023 38 7 AST 16 U/L 03/12/2023 35 13 TBILI 0.2 mg/dL 03/12/2023 1.3 0.2 TSH 0.376 mIU/L 03/12/2023 4.200 0.270 Lab Value Units Date High Low HCGQT No results within date range. UHCG No results within date range. HCG, BODY* No results within date range. Lab Value Units Date High Low ABORHD No results within date range. ABSCREEN No results within date range. Hemoglobin A1C (%) Date Value 03/12/2023 6.0 12/19/2022 6.4 07/11/2022 6.2 06/16/2021 7.3 03/16/2021 7.3 08/23/2020 7.0 07/06/2020 6.7 04/22/2020 6.8 Hemoglobin A1C (POCT) (%) Date Value 04/13/2022 5.9 12/27/2021 6.2 09/23/2021 6.5 12/28/2020 6.5 Recent Results (from the past 8760 hour(s)) ECG COMPLETE Collection Time: 05/09/23 9:35 AM Result Value Ventricular Rate 80 Atrial Rate 80 P-R Interval 142 QRS Duration 72 QT Interval 370 QTC Calculation (Bazett) 426 Calculated P [place] 28 Calculated R [place] -8 Calculated T [place] 42 Impression NORMAL SINUS RHYTHM NORMAL ECG No results found for this or any previous visit (from the past 56835 hour(s)). Assessment Patient has the following medical conditions which may affect alex-operative course: Seasonal depression (HCC) Assessment: stable on rx per pt Type 2 diabetes mellitus with diabetic neuropathy, without long-term current use of insulin (HCC) Assessment: controlled on oral agents and weekly injectable Hemoglobin A1C (%) Date Value 03/12/2023 6.0 06/16/2021 7.3 Hemoglobin A1C (POCT) (%) Date Value 04/13/2022 5.9 Iron deficiency anemia Assessment: on rx Hemoglobin (g/dL) Date Value 03/12/2023 12.3 03/16/2021 12.4 Hematocrit (%) Date Value 03/12/2023 38.8 03/16/2021 39.1 WBC (k/uL) Date Value 03/12/2023 8.54 03/16/2021 9.51 Adrenal adenoma Assessment: stable 12/2022 MRI Adrenals: 1.5 cm right adrenal nodule best appreciated on the coronal HASTE (2:19) stable when compared to the 2018 CT with signal loss on out of phase images in this region, likely adenoma. No left adrenal mass. Basal cell carcinoma (BCC) of skin of neck Assessment: s/p excision Essential hypertension Assessment: controlled on rx Last 14 BP Last 14 Encounter BP Readings: Date: BP: 05/09/2023 120/76 04/10/2023 132/76 12/21/2022 118/76 09/19/2022 110/72 08/03/2022 136/80 07/13/2022 140/88 05/15/2022 122/70 04/13/2022 116/64 12/27/2021 120/68 10/22/2021 124/78 10/04/2021 133/71 09/23/2021 124/64 06/21/2021 126/62 12/28/2020 123/72 Hypothyroidism, acquired Assessment: stable on rx Mixed hyperlipidemia Assessment: c/w statin DAVION (obstructive sleep apnea) Assessment: c/w CPAP Pancreatic cyst Assessment: stable under surveillance 12/2022 MRI IMPRESSION: Stable multiple cystic pancreatic lesions, 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 No worrisome features. Restless leg syndrome Assessment: controlled on rx Venous insufficiency (chronic) (peripheral) Assessment: controlled on rx Class 1 obesity due to excess calories with serious comorbidity and body mass index (BMI) of 33.0 to 33.9 in adult Assessment: Body mass index is 33.13 kg/m . Bruno Activity Status Index: METS: Climb a flight of stairs or walk up a hill (5.50 METs) DASI Score: 5.5 Patient denies any chest pain or undue shortness of breath with the above physical activity. Clinical Frailty Scale: 3. Well, with treated comorbid disease STOP-Bang Score: Snores loudly Often feels tired, fatigued, or sleepy during the daytime Has been observed to stop breathing or choking/gasping during sleep Has or is being treated for high blood pressure Patient over 50 years old Has a large neck BMI less than or equal to 35 kg/m^2 Non-male patient STOP-Bang Score: 6 [id number] Score: Age: >=75 Sex: female CHF history: No Hypertension history: Yes Stroke/TIA/thromboembolism history: No Vascular disease history: Yes Diabetes history: Yes [id number] Score: 6 ARISCAT Score: Age: 51-80 Preoperative SpO2: >=96% Respiratory infection in the last month: No Preoperative anemia: Yes Surgical incision: peripheral Duration of surgery: 2-3 hrs Emergency procedure: No ARISCAT Score: 30 ASA Class: 3 ANESTHESIA FINDINGS: Intubation History: No history of difficult intubation Significant Anesthesia Considerations: none Airway History: No history of difficult airway I - PHYSICAL EVALUATION AIRWAY Patient intubated: No. Tracheostomy tube not present Mallampati: III. TM distance: >3 FB. Neck ROM: full ROM without neurological symptoms. Mouth opening: adequate. Short neck: no. Thick neck: no Overton present: no Lip Bite Test: II Microretrognathia/Micronagthia/Rec essed Chin: No DENTAL Dental findings: teeth intact. Additional comments: +crowns/back. II - ANESTHESIA PLAN ASA Score: 3 Anesthetic Plan: other Anesthetic plan additional comments: *PACC/TCI - anesthesia choice. Beta Yvonne Monitoring Plan Post Procedure Analgesic Plan Informed Consent Anesthetic risks, benefits, alternatives, personnel and consent discussed: yes. Patient / Responsible Democrat agrees to proceed: yes Patient / Surrogate agrees to blood products: blood products not planned Discussed the possibility of lip / dental damage: yes Prepared for Surgery: optimally prepared for surgery, pending [see comment]. ekg CONSULTS: Patient does not require consults for optimization at this time Planned Anesthetic: other anesthesia choice The Following Tests/Procedures Have Been Initiated: Orders Placed This Encounter mupirocin (BACTROBAN) 2 % ointment Sig: Apply 0.5 inch with cotton swab (Q-tip) to each nostril in the morning and evening for 5 days prior to and including day of surgery. Dispense: 22 g Refill: 0 ECG COMPLETE Order Comments: Ordered by an unspecified provider ECG COMPLETE Standing Status: Future Standing Expiration Date: 05/09/2024 Instructions Given to Patient: Instructions located in the after visit summary. Patient given verbal and written preop instructions and voices comprehension and compliance. SIGNATURE: Chrissy Mccloud APRN.CNP PATIENT NAME: Medardo Ruiz DATE: May 09, 2023 TIME: 9:39 AM PAGER/CONTACT #: documented in this encounter [facility] 05-09-2023 Instructions Chrissy Mccloud APRN.CNP - 05/09/2023 9:37 AM EDT PATIENT PREOPERATIVE INSTRUCTIONS Patience Kebede,* has scheduled you for your procedure at this surgery center: [facility]: [phone] -- [address] [place] [id number]. Please read below carefully for your personalized instructions. Dietary Restrictions: - No solid food after midnight. - You may have 12 ounces of clear liquids (water, clear juices such as apple juice or gatorade, carbonated beverages, clear tea, black coffee, jello) until 2 hours before scheduled arrival at facility. No red/purple coloring and no creamer/sugar Medications: Unless instructed differently below, stay on all of your medications until your surgery. Approved medications to take the morning of surgery with a sip of water: amLODIPine (NORVASC), buPROPion (WELLBUTRIN), levothyroxine (SYNTHROID, omeprazole (PRILOSEC), rOPINIRole (REQUIP), simvastatin (ZOCOR), venlafaxine (EFFEXOR) Do not take Benzapril, furosemide (LASIX), or any ORAL diabetic medications including weekly Trulicity the morning and/or evening prior surgery If you take any medications for erectile dysfunction-Cialis (Tadalafil), Levitra, Staxyn (Vardenafil) Viagra (Sildenenafil please do not take these for 48 hours before surgery. If you start any new medications after today's visit, please contact the surgeon's office. Blood Thinning Medications: - Stop NSAIDS (Ibuprofen, Advil, Aleve, Motrin, Celebrex, Mobic, etc.) 7 days before surgery, as directed by your surgeon. - Stop Aspirin 7 days before surgery, as directed by your surgeon. - Stop Vitamin E, ALL multi-vitamins, herbals and dietary supplements 7 days before surgery. - You may take Tylenol (Acetaminophen) or any of your pain medications that do not contain aspirin or NSAIDS as needed. Important Reminders: - Candy, mints, gum and tobacco products are NOT permitted the morning of surgery. - Hearing aids, dentures and glasses may be worn the morning of surgery. - NO jewelry, body piercings, makeup, hairpins or contacts are to be worn the day of surgery. If you develop symptoms such as a fever, cold, or flu, or have other changes to your health within TWO DAYS of scheduled surgery or the morning of surgery, please contact the surgery center above. Personal Belongings: -Please have photo ID and insurance cards. -If you do not have a copy of advance directives on file with us, please bring a copy with you on the day of surgery. - Leave ALL valuables and money at home or with family members. For Outpatient Procedures: - YOU MUST HAVE A RESPONSIBLE TRACTOR TRAILER MOVING VAN DRIVER TAKE YOU HOME. A RIM FIRE PRIMING OPERATOR OR REGULATORY COORDINATOR CANNOT BE MADE A RESPONSIBLE TRACTOR TRAILER MOVING VAN DRIVER. - We recommend that a responsible person stays with you overnight to take care of you. - You cannot stay in a hotel alone after outpatient surgery. You will not be permitted to have your surgery, if you do not have someone to take care of you. Arrival Time for Surgery: - The Surgery Center or hospital where you are having surgery will call the afternoon before surgery (or Sunday for Sunday surgery) with a scheduled arrival time. - If you have not heard by 4 pm, please contact the surgery center above. Please be aware that emergency situations arise, which may delay or change your surgical time. If this happens, we will notify you as soon as possible and regret any inconvenience. If you already have an Advance Directive, please fax a copy to [phone] or email to for it to be added to your chart. If you do not have an Advance Directive, you can find the appropriate form and more information at [email or web address]. We recommend that you complete the Advance Directive form found on the website and bring it with you the day of your surgery. It can be witnessed and scanned into your chart that day. Chrissy Mccloud APRN.MYAH documented in this encounter [facility] 05-07-2023 Miscellaneous Notes Patient scheduled. Lorenza Marshall Patient scheduled for surgery 06-01-2023. Please reach out and assist with scheduling post-op physical therapy approximately 1 week post-op. Thank you. Lorenza Sandra Sedc documented in this encounter [facility] 04-25-2023 Miscellaneous Notes Please sign post-op physical therapy orders. Thank you. Lorenza Dasc documented in this encounter [facility] 04-24-2023 Note [facility] 04-24-2023 History of Present illness Narrative Patient presents for B-12 injection. Denies any problems at this time. Patient instructed on any SE of medication, verbalized understanding and agreed to proceed with treatment. Tolerated injection well. Elsy Escalera LPN documented in this encounter [facility] 04-20-2023 Note [facility] 04-20-2023 History of Present illness Narrative Images from the original note were not included. PAIN EVALUATION 04/20/2023 1121 Pain Level: -- 2-3, 4-6 Pain Location: Shoulder-Right Description: Aching;Sharp;Shooting Frequency: Intermittent Intervention/Comfort measure: Reposition;Relaxation;Cold;Medicat ion Encounter Diagnosis ICD-10-CM 1. Osteoarthritis of right glenohumeral joint M19.011 Medardo Ruiz returns today to discuss upcoming surgery scheduled for May for reverse shoulder arthroplasty. She has questions about surgery and recovery. On exam today she demonstrates her range of motion overhead and rotationally which is limited by pain. This essentially represents no change from what is documented in the office visit she had previously with Joseph Ang. I reviewed radiographs today showing end-stage osteoarthritis of the right shoulder. We had a discussion about surgery and expected timeline of recovery today. Informed consent was signed and we will plan to proceed with surgery as previously scheduled for May. Patience Kebede MD Shoulder & Elbow Surgeon Department of Orthopaedic Surgery [facility] documented in this encounter [facility] 04-13-2023 Note HNO ID: [id number] Author: Elsy Escalera LPN Service: ? Author Type: ? Type: Progress Notes Filed: 04/13/2023 10:39 AM Note Text: Patient presents for COVID booster. Denies any problems at this time. Tolerated injection well. 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 08/20/2020 Hypertension, essential 05/14/201703/20 documented as of this encounter (statuses as of 07/14/2023) [facility] History of Past illness Narrative* Problem Noted Date Diagnosed Date Resolved Date Seasonal depression 04/10/2023 07/13/20 Last Assessment & Plan: Assessment: stable on rx per pt Balance disorder 09/19/2022 10/26/2022 Weakness of both lower extremities 09/19/2022 10/26/2022 Arthritis of knee 01/14/2020 01/15/2020 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 08/20/2020 Infected prosthetic knee joint 06/18/2019 08/20/2020 Hypertension, essential 05/14/201703/20 documented as of this encounter (statuses as of 07/17/2023) [facility] History of Past illness Narrative* Problem Noted Date Diagnosed Date Resolved Date Seasonal depression 04/10/2023 07/13/20 Last Assessment & Plan: Assessment: stable on rx per pt Balance disorder 09/19/2022 10/26/2022 Weakness of both lower extremities 09/19/2022 10/26/2022 Arthritis of knee 01/14/2020 01/15/2020 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 08/20/2020 Infected prosthetic knee joint 06/18/2019 08/20/2020 Hypertension, essential 05/14/201703/20 documented as of this encounter (statuses as of 07/17/2023) [facility] History of Past illness Narrative* Problem Noted Date Diagnosed Date Resolved Date Seasonal depression 04/10/2023 07/13/20 Last Assessment & Plan: Assessment: stable on rx per pt Balance disorder 09/19/2022 10/26/2022 Weakness of both lower extremities 09/19/2022 10/26/2022 Arthritis of knee 01/14/2020 01/15/2020 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 08/20/2020 Infected prosthetic knee joint 06/18/2019 08/20/2020 Hypertension, essential 05/14/201703/20 documented as of this encounter (statuses as of 07/19/2023) [facility] History of Past illness Narrative* Problem Noted Date Diagnosed Date Resolved Date Seasonal depression 04/10/2023 07/13/20 Last Assessment & Plan: Assessment: stable on rx per pt Balance disorder 09/19/2022 10/26/2022 Weakness of both lower extremities 09/19/2022 10/26/2022 Arthritis of knee 01/14/2020 01/15/2020 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 08/20/2020 Infected prosthetic knee joint 06/18/2019 08/20/2020 Hypertension, essential 05/14/201703/20 documented as of this encounter (statuses as of 07/24/2023) [facility] History of Past illness Narrative* Problem Noted Date Diagnosed Date Resolved Date Seasonal depression 04/10/2023 07/13/20 Last Assessment & Plan: Assessment: stable on rx per pt Balance disorder 09/19/2022 10/26/2022 Weakness of both lower extremities 09/19/2022 10/26/2022 Arthritis of knee 01/14/2020 01/15/2020 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 08/20/2020 Infected prosthetic knee joint 06/18/2019 08/20/2020 Hypertension, essential 05/14/201703/20 documented as of this encounter (statuses as of 07/28/2023) [facility] History of Past illness Narrative* Problem Noted Date Diagnosed Date Resolved Date Seasonal depression 04/10/2023 07/13/20 Last Assessment & Plan: Assessment: stable on rx per pt Balance disorder 09/19/2022 10/26/2022 Weakness of both lower extremities 09/19/2022 10/26/2022 Arthritis of knee 01/14/2020 01/15/2020 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 08/20/2020 Infected prosthetic knee joint 06/18/2019 08/20/2020 Hypertension, essential 05/14/201703/20 documented as of this encounter (statuses as of 08/06/2023) [facility] History of Past illness Narrative* Problem Noted Date Diagnosed Date Resolved Date Seasonal depression 04/10/2023 07/13/20 Last Assessment & Plan: Assessment: stable on rx per pt Balance disorder 09/19/2022 10/26/2022 Weakness of both lower extremities 09/19/2022 10/26/2022 Arthritis of knee 01/14/2020 01/15/2020 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 08/20/2020 Infected prosthetic knee joint 06/18/2019 08/20/2020 Hypertension, essential 05/14/201703/20 documented as of this encounter (statuses as of 08/07/2023) [facility] History of Past illness Narrative* Problem Noted Date Diagnosed Date Resolved Date Seasonal depression 04/10/2023 07/13/20 Last Assessment & Plan: Assessment: stable on rx per pt Balance disorder 09/19/2022 10/26/2022 Weakness of both lower extremities 09/19/2022 10/26/2022 Arthritis of knee 01/14/2020 01/15/2020 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 08/20/2020 Infected prosthetic knee joint 06/18/2019 08/20/2020 Hypertension, essential 05/14/201703/20 documented as of this encounter (statuses as of 08/10/2023) [facility] History of Past illness Narrative* Problem Noted Date Diagnosed Date Resolved Date Seasonal depression 04/10/2023 07/13/20 Last Assessment & Plan: Assessment: stable on rx per pt Balance disorder 09/19/2022 10/26/2022 Weakness of both lower extremities 09/19/2022 10/26/2022 Arthritis of knee 01/14/2020 01/15/2020 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 08/20/2020 Infected prosthetic knee joint 06/18/2019 08/20/2020 Hypertension, essential 05/14/201703/20 documented as of this encounter (statuses as of 08/10/2023) [facility] History of Past illness Narrative* Problem Noted Date Diagnosed Date Resolved Date Seasonal depression 04/10/2023 07/13/20 Last Assessment & Plan: Assessment: stable on rx per pt Balance disorder 09/19/2022 10/26/2022 Weakness of both lower extremities 09/19/2022 10/26/2022 Arthritis of knee 01/14/2020 01/15/2020 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 08/20/2020 Infected prosthetic knee joint 06/18/2019 08/20/2020 Hypertension, essential 05/14/201703/20 documented as of this encounter (statuses as of 08/14/2023) [facility] History of Past illness Narrative* Problem Noted Date Diagnosed Date Resolved Date Seasonal depression 04/10/2023 07/13/20 Last Assessment & Plan: Assessment: stable on rx per pt Balance disorder 09/19/2022 10/26/2022 Weakness of both lower extremities 09/19/2022 10/26/2022 Arthritis of knee 01/14/2020 01/15/2020 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 08/20/2020 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/2019 08/20/2020 Hypertension, essential 05/14/201703/20 documented as of this encounter (statuses as of 08/31/2023) [facility] of Past illness Narrative* Problem Noted Date Diagnosed Date Resolved Date Seasonal depression 04/10/2023 07/13/20 Last Assessment & Plan: Assessment: stable on rx per pt Balance disorder 09/19/2022 10/26/2022 Weakness of both lower extremities 09/19/2022 10/26/2022 Arthritis of knee 01/14/2020 01/15/2020 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 08/20/2020 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/2019 08/20/2020 Hypertension, essential 05/14/201703/20 documented as of this encounter (statuses as of 09/06/2023) [facility] History of Past illness Narrative* Problem Noted Date Diagnosed Date Resolved Date Seasonal depression 04/10/2023 07/13/20 Last Assessment & Plan: Assessment: stable on rx per pt Balance disorder 09/19/2022 10/26/2022 Weakness of both lower extremities 09/19/2022 10/26/2022 Arthritis of knee 01/14/2020 01/15/2020 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 08/20/2020 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/2019 08/20/2020 Hypertension, essential 05/14/201703/20 documented as of this encounter (statuses as of 09/11/2023) [facility] History of Past illness Narrative* Problem Noted Date Diagnosed Date Resolved Date Seasonal depression 04/10/2023 07/13/20 Last Assessment & Plan: Assessment: stable on rx per pt Balance disorder 09/19/2022 10/26/2022 Weakness of both lower extremities 09/19/2022 10/26/2022 Arthritis of knee 01/14/2020 01/15/2020 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 08/20/2020 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/2019 08/20/2020 Hypertension, essential 05/14/201703/20 documented as of this encounter (statuses as of 09/13/2023) [facility] History of Past illness Narrative* Problem Noted Date Diagnosed Date Resolved Date Seasonal depression 04/10/2023 07/13/20 Last Assessment & Plan: Assessment: stable on rx per pt Balance disorder 09/19/2022 10/26/2022 Weakness of both lower extremities 09/19/2022 10/26/2022 Arthritis of knee 01/14/2020 01/15/2020 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 08/20/2020 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/2019 08/20/2020 Hypertension, essential 05/14/201703/20 documented as of this encounter (statuses as of 10/03/2023) [facility] History of Past illness Narrative* Problem Noted Date Diagnosed Date Resolved Date Seasonal depression 04/10/2023 07/13/20 Last Assessment & Plan: Assessment: stable on rx per pt Balance disorder 09/19/2022 10/26/2022 Weakness of both lower extremities 09/19/2022 10/26/2022 Arthritis of knee 01/14/2020 01/15/2020 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 08/20/2020 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/2019 08/20/2020 Hypertension, essential 05/14/201703/20 documented as of this encounter (statuses as of 10/09/2023) [facility] History of Past illness Narrative* Problem Noted Date Diagnosed Date Resolved Date Seasonal depression 04/10/2023 07/13/20 Last Assessment & Plan: Assessment: stable on rx per pt Balance disorder 09/19/2022 10/26/2022 Weakness of both lower extremities 09/19/2022 10/26/2022 Arthritis of knee 01/14/2020 01/15/2020 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 08/20/2020 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 Poor foot care may lead to amputation of a foot or leg. As a person with diabetes, you are more vulnerable to foot problems, because diabetes can damage your nerves and reduce blood flow to your feet. Here are some diabetes foot care tips to follow: Wash and Dry Your Feet Daily Use mild soaps Use warm water Pat your skin dry; do not rub. Thoroughly dry your feet. After washing, use lotion on your feet to prevent cracking. Do not put lotion between your toes. Examine Your Feet Each Day Check the tops and bottoms of your feet. Have someone else look at your feet if you cannot see them. Check for dry, cracked skin. Look for blisters, cuts, scratches, or other sores. Check for redness, increased warmth, or tenderness when touching any area of your feet. Check for ingrown toenails, corns, and calluses. If you get a blister or sore from your shoes, do not pop it. Apply a bandage and wear a differentpair of shoes. Take Care of Your Toenails Cut toenails after bathing, when they are soft. Cut toenails straight across and smooth with a nail file. Avoid cutting into the corners of toes. Do not cut cuticles. If you have neuropathy (or decreased sensation in your feet) a chain tender should always cut your toenails. Be Careful When Exercising Walk and exercise in comfortable shoes. Do not exercise when you have open sores on your feet. Protect Your Feet With Shoes and Socks Never go barefoot. Always protect your feet by wearing shoes or hard-soled slippers or footwear. Avoid shoes with high heels and pointed toes. Avoid shoes that expose your toes or heels (such as open-toed shoes or sandals). These types of shoes increase your risk for injury and potential infections. Try on new footwear with the type of socks you usually wear. Do not wear new shoes for more than an hour at a time. Change your socks daily. Look and feel inside your shoes before putting them on to make sure there are no foreign objects orrough areas. Avoid tight socks. Wear natural-fiber socks (cotton, wool, or a cotton-wool blend). Wear special shoes if your health care provider recommends them. Wear shoes/boots that will protect your feet from various weather conditions (cold, moisture, etc.). Make sure your shoes fit properly. If you have neuropathy (nerve damage), you may not notice that your shoes are too tight. Perform the footwear test described below. Footwear Test Use this simple test to see if your shoes fit correctly: Stand on a piece of paper. (Make sure you are standing and not sitting, because your foot changes shape when you stand.) Trace the outline of your foot. Trace the outline of your shoe. Compare the tracings: Is the shoe too narrow? Is your foot crammed into the shoe? The shoe should be at least 1/2 inch longer than your longest toe and as wide as your foot. Proper Shoe Choices The following types of shoes are best for people with diabetes Closed toes and heels Leather uppers without a seam inside At least 1/2 inch extra space at the end of your longest toe Inside of shoe should be soft with no rough areas Outer sole should be made of stiff material Shoes should be at least as wide as your feet Tips for Foot Care in Diabetes Don't wait to treat a minor foot problem if you have diabetes. Follow your health care provider's guidelines and first aid guidelines. Report foot injuries and infections to your health care provider immediately. Check water temperature with your elbow, not your foot. Do not use a heating pad on your feet. Do not cross your legs. Do not self-treat your corns, calluses, or other foot problems. Go to your health care provider or chain tender to treat these conditions. Shoe options: Eduardo (ravenna or ghost) Nkechi Blanton (dress ) [facility] History of Present illness Narrative* Morris Ramon - 04/03/2023 10:21 AM EDT Images from the original note were not included. Subjective: This 77 year old female presents to clinic for diabetic foot check.. Patient +B/T/N in feet at this time. Patient -pain in legs when walking. No other pedal complaints at this time. No change in medications or medical history since last visit. PAIN EVALUATION 04/03/2023 1004 Pain Level: 4 Pain Location: Other: See Comment bilateral feet Description: Sore;Stiffness Frequency: Intermittent Intervention/Comfort measure: Reposition;Relaxation Comments: when weather is changing Hemoglobin A1C (%) Date Value 03/12/2023 6.0 12/19/2022 6.4 07/11/2022 6.2 06/16/2021 7.3 03/16/2021 7.3 08/23/2020 7.0 07/06/2020 6.7 04/22/2020 6.8 Hemoglobin A1C (POCT) (%) Date Value 04/13/2022 5.9 12/27/2021 6.2 09/23/2021 6.5 12/28/2020 6.5 PCP: Patricia Covarrubias MD PAST MEDICAL HISTORY Diagnosis Date Depression DM type 2 (diabetes mellitus, type 2) (HCC) GERD (gastroesophageal reflux disease) Hyperlipidemia Hypertension Loc osteoarth NOS-site NEC Narcolepsy Pancreatic neoplasm PUD (peptic ulcer disease) Restless leg Rhinitis, chronic Sleep apnea Snoring Thyroid nodule Current Outpatient Medications Medication Sig simvastatin (ZOCOR) 40 mg tablet Take 1 tablet by mouth daily at bedtime. metFORMIN (GLUCOPHAGE) 500 mg tablet Take 2 tablets by mouth twice daily with meals. And 1 tablet at bedtime simvastatin (ZOCOR) 40 mg tablet Take 1 tablet by mouth daily at bedtime. amLODIPine (NORVASC) 5 mg tablet Take 1 tablet by mouth once daily. Benazepril HCl (LOTENSIN) 40 mg tablet Take 1 tablet by mouth once daily. buPROPion (WELLBUTRIN) 75 mg tablet Take 1 tablet by mouth twice daily. Ferrous Gluconate 240 mg (27 mg iron) tablet Take 1 tablet by mouth three times daily with meals. furosemide (LASIX) 20 mg tablet Take 1 tablet by mouth once daily. glimepiride (AMARYL) 2 mg tablet Take 1 tablet by mouth daily with breakfast. metFORMIN (GLUCOPHAGE) 500 mg tablet Take 2 tablets by mouth twice daily with meals. And 1 tablet at bedtime levothyroxine (SYNTHROID) 75 mcg tablet Take 1 tablet by mouth daily before breakfast. dulaglutide (TRULICITY) 0.75 mg/0.5 mL pen injector Inject 0.75 mg subcutaneously one time a week. Inject dose once per week. Discard Pen After blood sugar diagnostic (ACCU-CHEK ISAMAR PLUS TEST STRP) test strip 1 Strip once daily. Use as instructed. Dx: E11.8 Insulin: No rOPINIRole (REQUIP) 1 mg tablet Take 1.5 tablets by mouth daily at bedtime. venlafaxine ER (EFFEXOR XR) 75 mg 24 hr capsule Take 1 capsule by mouth once daily. latanoprost (XALATAN) 0.005 % ophthalmic solution CPAP Initiate CPAP @ 9 cm of water with humidification. Mask (per patient preference) optional chinstrap (if indicated) , filters, tubing, humidifier and lifetime supplies. Omeprazole Magnesium 20 mg tablet Take 20 mg by mouth once daily. ascorbic acid, vitamin C, (VITAMIN C) 500 mg tablet Take 500 mg by mouth once daily. Calcium Citrate-Vitamin D3 (CITRACAL+D) 315 mg-6.25 mcg (250 unit) tab Take 1 tablet by mouth once daily. diclofenac (VOLTAREN) 1 % topical gel Apply 4 g to affected area three times daily as needed. (Patient not taking: Reported on 04/03/2023) gabapentin (NEURONTIN) 300 mg capsule Take 1 capsule by mouth daily at bedtime for 90 days. loratadine 10 mg cap Take by mouth. Current Facility-Administered Medications Medication Dose Route Frequency cyanocobalamin 1,000 mcg injection 1,000 mcg INTRAMUSCULAR q 4 WEEKS ALLERGIES Allergen Reactions Amoxicillin Itching Codeine Itching Latex Itching PAST SURGICAL HISTORY Procedure Laterality Date ADENOIDECTOMY PRIMARY <AGE 12 1952 Adenoidectomy ARTHROPLASTY METACARPOPHALANGEAL JOINT EACH 2001 right thumb ARTHROSCOPY KNEE DIAGNOSTIC W/WO SYNOVIAL BX SPX Left 2005 Arthroscopy, knee ARTHROSCOPY KNEE DIAGNOSTIC W/WO SYNOVIAL BX SPX Right 2011 Arthroscopy, knee ARTHRP KNE CONDYLE&PLATU MEDIAL&LAT COMPARTMENTS Left 2008 Knee replacement, total ARTHRP KNE CONDYLE&PLATU MEDIAL&LAT COMPARTMENTS Right 2010 Knee replacement, total BLEPHAROPLASTY UP LID W/EXCESS SKIN 2011 bilaterally BREAST BIOPSY 1998 negative DELIVERY ONLY 1975 , low transverse DELIVERY ONLY 1978 , low transverse CHOLECYSTECTOMY 1977 Cholecystectomy COLONOSCOPY 2012 COLONOSCOPY FLX DX W/COLLJ SPEC WHEN PFRMD 10/24/2018 Colonoscopy EXCISION GANGLION WRIST, RECURRENT Right 1967 NEUROPLASTY &/TRANSPOS MEDIAN NRV CARPAL TUNNE Right 1997 Carpal tunnel decomp PAST SURGICAL HISTORY OF 2011 trigger finger release x 4 bilateral middle and ring fingers PAST SURGICAL HISTORY OF 6 of small instestine removed REVJ TOT KNEE ARTHRP FEM&ENTIRE TIBIAL COMPONE Right 01/14/2020 Knee replacement, revision TONSILLECTOMY PRIMARY/SECONDARY <AGE 14 1952 Tonsillectomy TOTAL ABDOMINAL HYSTERECT W/WO RMVL TUBE OVARY 1987 Hysterectomy, KALIA left ovary remains FAMILY HISTORY Problem Relation Age of Onset Cancer Mother lymphoma Breast Cancer Mother Stroke Mother r/t chemo Alzheimer's Disease Father Diabetes Father Hypertension Father Cancer Brother brain, prostate Hypertension Brother Social History Tobacco Use Smoking status: Former Types: Cigarettes Quit date: 11/19/1971 Years since quittin.4 Smokeless tobacco: Never Vaping Use Vaping Use: Never used Substance Use Topics Alcohol use: No Comment: quit with onset DM2 Drug use: No REVIEW OF SYSTEMS GENERAL: Negative for Malaise, significant weight loss, fever RESPIRATORY: Negative for cough, wheezing and shortness of breath CARDIOVASCULAR: Negative for chest pain, leg swelling and palpitations GI: Negative for abdominal discomfort, blood in stools or black stools and change in bowel habits : Negative for dysuria, frequency and incontinence MUSCULOSKELETAL: Negative for joint pain or swelling, back pain, and muscle pain. SKIN: Negative for lesions, rash, and itching. HEMATOLOGY/LYMPHOLOGY Negative for prolonged bleeding, bruising easily, and swollen nodes. ENDOCRINE: Negative for cold or heat intolerance, polyuria, polydipsia and goiter. NEURO: negative The remainder of the review of systems is noncontributory. Objective: Patient presents to clinic ambulating in [facility] Constitutional: Pt is a well developed 77 year old female who is alert, oriented, cooperative and in no apparent distress. Eyes: Following during examination. No redness or drainage. Respiratory: RR normal and nonlabored. Even breathing. No evidence of distress. Psychology: Patient is engaged during conversation. Normal affect and mood. Does not appear depressed or anxious. Vasc: DP and PT pulses are palpable bilateral. CFT is less than 5 seconds bilateral. Skin temperature is warm to warm proximal to distal bilateral. There is no edema or varicosities noted. Hair growth present. Neuro: Protective sensation is intact to the foot and toes when tested with the 5.07 SWM bilateral.Vibratory sensation is decreased at the hallux bilateral. + Significant neurological defecits. Derm: Inspection and palpation performed. Nails 1-5 b/l are normal in length and thickness Skin is of normal turgor and texture. Hyperkeratosis (minimal) to left 5th metatarsal. NO ulcerations, scars, verruca or other lesions noted. Ortho: Ankle joint DF is full with the knee extended and full with knee flexed. No pain or crepitusnoted. STJ, MTJ ROM are full and free of pain or crepitus. Muscle strength is 5/5 for dorsiflexors,plantarflexors, inverters, everters. Digital deformities include none. Arthritis of b/l midfoot Assessment: (E11.40) Type 2 diabetes mellitus with diabetic neuropathy, without long-term current use of insulin ([facility]) (primary encounter diagnosis) (M19.079) Arthritis of foot Plan: 1. Patient was seen and evaluated. 2. Patient was instructed on the continued importance of diabetic foot care along with proper diet and keeping their blood sugar under control to prevent complications. Instructions given both oral and written. 3. Discussed likely arthritis of midfoot. No pain. Offered plain film radiographs but she declined.Recommend good supporitve tennis shoes such as lopez or hoka or asics. If pain develops, steroid inejction under xray could be performed. Altering laces in shoes can help to limit pressure to toes. 4. Small callus lightly reduced with drmmel. 5. Recommend lotion to feet 6. F/u in 1 year Morris Ramon DPM * Alba Crespo LPN - 04/03/2023 10:04 AM EDT AMB ROOMING INTAKE FLOWSHEET DATA Pain Pain Level: 4 Pain Location: Other: See Comment (bilateral feet) Description: Sore, Stiffness Frequency: Intermittent Intervention/Comfort measure: Reposition, Relaxation Comments: when weather is changing Patient presents with: Left Foot - Established Patient, Follow Up, Diabetic Foot Care, Pain Right Foot - Established Patient, Diabetic Foot Care, Follow Up, Pain Alba Crespo LPN documented in [facility] encounterK[facility] History of Present illness Narrative* Elsy Escalera LPN - 03/27/2023 9:49 AM EDT Patient presents for B-12 injection. Denies any problems at this time. Patient instructed on any SEof medication, verbalized understanding and agreed to proceed with treatment. Tolerated injection well. Elsy Escalera LPN documented in this encounterK[facility]04-12-2023 Miscellaneous Notes* Telephone Encounter - Mallorie Villareal APRN.CNP - 02/28/2023 2:11 PM EDT Refilled in another encounter * Telephone Encounter - Maru Fernandez LPN - 02/28/2023 12:12 PM EDT Patient has been identified by name and date of : No Patient phones for refill(s): Requested Prescriptions Pending Prescriptions Disp Refills amLODIPine (NORVASC) 5 mg tablet [Pharmacy Med Name: AMLODIPINE BESYLATE 5 MG TAB] 90 tablet 2 Sig: Take 1 tablet by mouth once daily. Benazepril HCl 40 mg tablet [Pharmacy Med Name: BENAZEPRIL HCL 40 MG TABLET] 90 tablet 2 Sig: Take 1 tablet by mouth once daily. Date of last office visit in primary care: 12/21/22 Last 2 Encounter Wt Readings: Date: Wt: 12/21/2022 86.1 kg (189 lb 12.8 oz) 09/19/2022 88 kg (194 lb) Previous labs/tests for medication: Blood Pressure: BUN (mg/dL) Date Value 12/19/2022 11 03/16/2021 15 Sodium (mmol/L) Date Value 12/19/2022 138 03/16/2021 137 Last 1 Encounter BP Readings: Date: BP: 12/21/2022 118/76 Please advise. Thank you. aMru Fernandez LPN documented in this encounterK[facility]04-12-2023 Miscellaneous Notes* Telephone Encounter - Pete Dacosta Ma - 02/28/2023 11:38 AM EDT DONALDO: 12/21/2022 Last refill: 03/08/2022 QTY: 90 Refills: 3 documented in this encounterK[facility]04-[facility]-2023 [facility] History of Present illness Narrative* Elsy Escalera LPN - 01/31/2023 9:53 AM EDT Patient presents for B-12 injection. Denies any problems at this time. Patient instructed on any SEof medication, verbalized understanding and agreed to proceed with treatment. Tolerated injection well. Elsy Escalera LPN documented in this encounterK[facility]02-14-2023 [facility] Miscellaneous Notes* Telephone Encounter - Carlita Green - 12/25/2022 1:33 PM EST Patient has been scheduled * Telephone Encounter - Lorenza Das - 12/25/2022 1:08 PM EST Patient is scheduled with Dr. Kebede for a right reverse total shoulder arthroplasty 06-01-2023. Sheneeds to come in in April for a pre-op visit with Dr. Kebede. Please call this patient and assist with scheduling this appointment. She can be reached at [phone]. Lorenza Marshall documented in this encounterKet[facility]02-[facility]-2023 [facility] History of Present illness Narrative* Joseph Ang PA-C - 12/22/2022 2:26 PM EST Images from the original note were not included. ORTHOPAEDIC SHOULDER & ELBOW SERVICE HISTORY & PHYSICAL EXAM REFERRING PROVIDER: No referring provider defined for this encounter. CHIEF COMPLAINT: right shoulder pain PAIN EVALUATION 12/22/2022 1418 Pain Level: 9 Pain Location: Shoulder-Right Description: Sharp;Shooting;Radiating Duration Units: Years Frequency: Intermittent Intervention/Comfort measure: Medication tylenol Comments: cortisone injections in the past SUBJECTIVE: Medardo Ruiz is a 77 year old female presents to clinic with right shoulder pain. Ongoing [id number] without injury. She has seen Dr. Pham in the past and was diagnosed with right shoulder osteoarthritis. She is undergone 1 corticosteroid injection with no improvement in symptoms. Occasionally she will take Tylenol, which does provide some relief. She has a history of a GI bleed and is a type II diabetic, therefore avoids NSAIDs. Most recent hemoglobin A1c was 6.4%. 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 PAST MEDICAL HISTORY: PAST MEDICAL HISTORY Diagnosis Date Depression DM type 2 (diabetes mellitus, type 2) (HCC) GERD (gastroesophageal reflux disease) Hyperlipidemia Hypertension Loc osteoarth NOS-site NEC Narcolepsy Pancreatic neoplasm PUD (peptic ulcer disease) Restless leg Rhinitis, chronic Sleep apnea Snoring Thyroid nodule PAST SURGICAL HISTORY: PAST SURGICAL HISTORY Procedure Laterality Date ADENOIDECTOMY PRIMARY <AGE 14 1950 Adenoidectomy ARTHROPLASTY METACARPOPHALANGEAL JOINT EACH 2001 right thumb ARTHROSCOPY KNEE DIAGNOSTIC W/WO SYNOVIAL BX SPX Left 2006 Arthroscopy, knee ARTHROSCOPY KNEE DIAGNOSTIC W/WO SYNOVIAL BX SPX Right 2011 Arthroscopy, knee ARTHRP KNE CONDYLE&PLATU MEDIAL&LAT COMPARTMENTS Left 2008 Knee replacement, total ARTHRP KNE CONDYLE&PLATU MEDIAL&LAT COMPARTMENTS Right 2011 Knee replacement, total BLEPHAROPLASTY UP LID W/EXCESS SKIN 2010 bilaterally BREAST BIOPSY 1998 negative DELIVERY ONLY 1975 , low transverse DELIVERY ONLY 1978 , low transverse CHOLECYSTECTOMY 1977 Cholecystectomy COLONOSCOPY 2012 COLONOSCOPY FLX DX W/COLLJ SPEC WHEN PFRMD 10/24/2018 Colonoscopy EXCISION GANGLION WRIST, RECURRENT Right 1968 NEUROPLASTY &/TRANSPOS MEDIAN NRV CARPAL TUNNE Right 1997 Carpal tunnel decomp PAST SURGICAL HISTORY OF 2011 trigger finger release x 4 bilateral middle and ring fingers PAST SURGICAL HISTORY OF 6 of small instestine removed REVJ TOT KNEE ARTHRP FEM&ENTIRE TIBIAL COMPONE Right 01/14/2020 Knee replacement, revision TONSILLECTOMY PRIMARY/SECONDARY <AGE 14 1952 Tonsillectomy TOTAL ABDOMINAL HYSTERECT W/WO RMVL TUBE OVARY 1987 Hysterectomy, KALIA left ovary remains SOCIAL HISTORY: Social History Tobacco Use Smoking status: Former Types: Cigarettes Quit date: 11/19/1971 Years since quittin.1 Smokeless tobacco: Never Vaping Use Vaping Use: Never used Substance Use Topics Alcohol use: No Comment: quit with onset DM2 Drug use: No ALLERGIES: ALLERGIES Allergen Reactions Amoxicillin Itching Codeine Itching Latex Itching MEDICATIONS: Current Outpatient Medications on File Prior to Visit Medication Sig diclofenac (VOLTAREN) 1 % topical gel Apply 4 g to affected area three times daily as needed. Ferrous Gluconate 240 mg (27 mg iron) tablet Take 1 tablet by mouth three times daily with meals. furosemide (LASIX) 20 mg tablet Take 1 tablet by mouth once daily. buPROPion (WELLBUTRIN) 75 mg tablet Take 1 tablet by mouth twice daily. glimepiride (AMARYL) 2 mg tablet Take 1 tablet by mouth daily with breakfast. metFORMIN (GLUCOPHAGE) 500 mg tablet Take 2 tablets by mouth twice daily with meals. And 1 tablet at bedtime levothyroxine (SYNTHROID) 75 mcg tablet Take 1 tablet by mouth daily before breakfast. dulaglutide (TRULICITY) 0.75 mg/0.5 mL pen injector Inject 0.75 mg subcutaneously one time a week. Inject dose once per week. Discard Pen After blood sugar diagnostic (ACCU-CHEK ISAMAR PLUS TEST STRP) test strip 1 Strip once daily. Use as instructed. Dx: E11.8 Insulin: No rOPINIRole (REQUIP) 1 mg tablet Take 1.5 tablets by mouth daily at bedtime. venlafaxine ER (EFFEXOR XR) 75 mg 24 hr capsule Take 1 capsule by mouth once daily. amLODIPine (NORVASC) 5 mg tablet Take 1 tablet by mouth once daily. Benazepril HCl (LOTENSIN) 40 mg tablet Take 1 tablet by mouth once daily. simvastatin (ZOCOR) 40 mg tablet Take 1 tablet by mouth daily at bedtime. latanoprost (XALATAN) 0.005 % ophthalmic solution CPAP Initiate CPAP @ 9 cm of water with humidification. Mask (per patient preference) optional chinstrap (if indicated) , filters, tubing, humidifier and lifetime supplies. Omeprazole Magnesium 20 mg tablet Take 20 mg by mouth once daily. ascorbic acid, vitamin C, (VITAMIN C) 500 mg tablet Take 500 mg by mouth once daily. loratadine 10 mg cap Take by mouth. Calcium Citrate-Vitamin D3 (CITRACAL+D) 315 mg-6.25 mcg (250 unit) tab Take 1 tablet by mouth once daily. gabapentin (NEURONTIN) 300 mg capsule Take 1 capsule by mouth daily at bedtime for 90 days. Current Facility-Administered Medications on File Prior to Visit Medication [START ON 01/02/2023] cyanocobalamin 1,000 mcg injection PHYSICAL EXAMINATION: There were no vitals taken for this visit. EXAM: Shoulder Musculoskeletal Exam Inspection Right Right shoulder inspection is normal. Palpation Right Tenderness: present Anterior shoulder: mild Range of Motion Right Active forward elevation: 160. Shoulder active abduction: 160. Active external rotation at side: 10. Internal rotation: side. Strength Right External rotation: 5/5. Internal rotation: 5/5. Abduction: 5/5. Neurovascular Right Right shoulder nerve sensation is normal. Special Tests Right Rotator Cuff Signs Neer's test: positive Supraspinatus: negative Belly press test: negative Lift-off sign: negative Bear hug test: positive Drop arm test: negative Biceps/laura Signs Glades's test: negative General Constitutional: appears stated age Psychiatric: normal mood and affect and no acute distress Neurological: alert and oriented x3 IMAGING: I reviewed images taken on 12/20/22, three-view right shoulder. End-stage glenohumeral joint degenerative changes. No acute fractures or dislocations. MEDICAL DECISION MAKING: Right shoulder glenohumeral joint osteoarthritis We reviewed her x-rays, exam and treatment options. She has undergone a corticosteroid injection and [id number] medications without significant improvement in symptoms. After thorough review ofhistory, examination findings, and imaging, we have decided to pursue surgical intervention today which would be a right reverse total shoulder arthroplasty. I described the procedure in detail as well as the expected healing time of 3-6 months and physical therapy regimen following surgery, likelyfor much of this time. Informed consent was discussed in detail and signed in the office today. Significant risks of surgery including those of general anesthesia, and those from surgery including inf ection, nerve injury, bleeding, procedure failure and possible need for repeat procedure were all discussed at the time of consent. No guarantees as to the outcome of surgery were given or implied. Surgery will be scheduled for the next available date. She has several trips and commitments coming up over the next few months. Likely will be schedulinginto the end of May. I will have Lorenza call her to schedule. She will need an appointment to come into the office prior to surgery to meet with Dr. Kebede and sign consent. Medical decision making for today's visit was conducted with review of the following data sources: History, exam, imaging REFERRING PHYSICIAN: The patient was referred to me for consultation by the following physician. This consultation note will be sent to the following physician by either mail or electronic medical record. No referring provider defined for this encounter. Joseph Ang PA-C Department of [facility] documented in this encounterK[facility]23 NoteAk[facility] History of Present illness Narrative* Patricia Covarrubias MD - 12/21/2022 11:27 AM EST Reason for Visit Patient presents with: Follow Up Medardo Ruiz is a 77 year old female who presents here today for Above Complaints.. Health Maintenance ADVANCE DIRECTIVE DISCUSSION DTAP,TDAP,TD(2 - Td or Tdap) HPI Margareth is a 76-year-old with a past medical history of diabetes mellitus, restless leg syndrome, hypertension, hyperlipidemia, sleep apnea, hypothyroidism, pancreatic cysts, anxiety depression, iron deficiency anemia. Last visit we advised Physical Therapy for falls and she did well with Physical Therapy. Below is info related to the falls Today we are going to focus on her neuropathy, falls and foot care. She had a fall a couple months ago, prior to this she mentioned having some issues with uneven surfaces , she has neuropathy from Diabetes Mellitus, presenting as numbness, and lack of depth perception, if she wears something thick she cannot feel the floor and she feels unsteady, She has to be careful stepping up on things and going down on things. Continues with dizziness. She is not thinking where her feet are going. Does not have diabetic shoes. She does have numbness of the feet but does not tingling Since last visit she also saw the chain tender. Who suggested diabetic shoes and took care of callus,she refused the shoes. Patient says she is starting to get old at 77. Diabetes Mellitus: her hba1c is 6.4, patient has not been having as much hypoglycemia as she has inthe past. Likely one episode in a month. She Is eating less than before . She is pleases she managed to hold it this long. Patient is feeling positive. HTN: Compliant with medications. Denies any chest pain, palpitations, or edema. No SOB. Doesn't check BP at home generally. Careful with diet to avoid salt, trying to eat more fruits and vegetables, exercises regularly. Hemoglobin is normal tjos to,e No problem-specific Assessment & Plan notes found for this encounter. PAST MEDICAL HISTORY Diagnosis Date Depression DM type 2 (diabetes mellitus, type 2) (HCC) GERD (gastroesophageal reflux disease) Hyperlipidemia Hypertension Loc osteoarth NOS-site NEC Narcolepsy Pancreatic neoplasm PUD (peptic ulcer disease) Restless leg Rhinitis, chronic Sleep apnea Snoring Thyroid nodule PAST SURGICAL HISTORY Procedure Laterality Date ADENOIDECTOMY PRIMARY <AGE 14 1952 Adenoidectomy ARTHROPLASTY METACARPOPHALANGEAL JOINT EACH 2001 right thumb ARTHROSCOPY KNEE DIAGNOSTIC W/WO SYNOVIAL BX SPX Left 2005 Arthroscopy, knee ARTHROSCOPY KNEE DIAGNOSTIC W/WO SYNOVIAL BX SPX Right 2010 Arthroscopy, knee ARTHRP KNE CONDYLE&PLATU MEDIAL&LAT COMPARTMENTS Left 2007 Knee replacement, total ARTHRP KNE CONDYLE&PLATU MEDIAL&LAT COMPARTMENTS Right 2010 Knee replacement, total BLEPHAROPLASTY UP LID W/EXCESS SKIN 2011 bilaterally BREAST BIOPSY 1998 negative DELIVERY ONLY 1975 , low transverse DELIVERY ONLY 1978 , low transverse CHOLECYSTECTOMY 1977 Cholecystectomy COLONOSCOPY 2012 COLONOSCOPY FLX DX W/COLLJ SPEC WHEN PFRMD 10/24/2018 Colonoscopy EXCISION GANGLION WRIST, RECURRENT Right 1967 NEUROPLASTY &/TRANSPOS MEDIAN NRV CARPAL TUNNE Right 1997 Carpal tunnel decomp PAST SURGICAL HISTORY OF 2010 trigger finger release x 4 bilateral middle and ring fingers PAST SURGICAL HISTORY OF 6 of small instestine removed REVJ TOT KNEE ARTHRP FEM&ENTIRE TIBIAL COMPONE Right 01/14/2020 Knee replacement, revision TONSILLECTOMY PRIMARY/SECONDARY <AGE 14 1952 Tonsillectomy TOTAL ABDOMINAL HYSTERECT W/WO RMVL TUBE OVARY 1987 Hysterectomy, KALIA left ovary remains FAMILY HISTORY Problem Relation Age of Onset Cancer Mother lymphoma Breast Cancer Mother Stroke Mother r/t chemo Alzheimer's Disease Father Diabetes Father Hypertension Father Cancer Brother brain, prostate Hypertension Brother Social History Tobacco Use Smoking status: Former Types: Cigarettes Quit date: 11/19/1971 Years since quittin.1 Smokeless tobacco: Never Vaping Use Vaping Use: Never used Substance Use Topics Alcohol use: No Comment: quit with onset DM2 Drug use: No Past medical history, appointments, medications, allergies reviewed. Pertinent Lab/Diagnostic Studies are reviewed and discussed today Current Outpatient Medications: diclofenac (VOLTAREN) 1 % topical gel Ferrous Gluconate 240 mg (27 mg iron) tablet furosemide (LASIX) 20 mg tablet buPROPion (WELLBUTRIN) 75 mg tablet glimepiride (AMARYL) 2 mg tablet metFORMIN (GLUCOPHAGE) 500 mg tablet levothyroxine (SYNTHROID) 75 mcg tablet dulaglutide (TRULICITY) 0.75 mg/0.5 mL pen injector blood sugar diagnostic (ACCU-CHEK ISAMAR PLUS TEST STRP) test strip rOPINIRole (REQUIP) 1 mg tablet venlafaxine ER (EFFEXOR XR) 75 mg 24 hr capsule amLODIPine (NORVASC) 5 mg tablet Benazepril HCl (LOTENSIN) 40 mg tablet simvastatin (ZOCOR) 40 mg tablet latanoprost (XALATAN) 0.005 % ophthalmic solution CPAP Omeprazole Magnesium 20 mg tablet ascorbic acid, vitamin C, (VITAMIN C) 500 mg tablet loratadine 10 mg cap Calcium Citrate-Vitamin D3 (CITRACAL+D) 315 mg-6.25 mcg (250 unit) tab gabapentin (NEURONTIN) 300 mg capsule Current Facility-Administered Medications: [START ON 01/02/2023] cyanocobalamin 1,000 mcg injection Review of Systems CONSTITUTIONAL: No fevers, chills night sweats, unintended weight loss CARDIOVASCULAR: No chest pain, dyspnea, palpitations, orthopnea, PND, ankle edema. PULM: No dyspnea, unexplained cough. GI: No dysphagia/odynophagia, problematic reflux, constipation, diarrhea, changes in stool habits, hematochezia, melena. : No new urinary complaints, including dysuria, gross hematuria or pyuria. NEURO: No new balance problems, peripheral weakness/paresthesias or numbness of concern. Physical Exam BP 118/76 Pulse 74 Temp 36.4 C (97.5 F) Resp 18 Wt 86.1 kg (189 lb 12.8 oz) SpO2 97% BMI 33.62 kg/m General appearance: Well appearing, alert, in no acute distress, well nourished. Skin: Skin color, texture, turgor normal, no suspicious rashes or lesions Head: Normocephalic, no masses, lesions, tenderness or abnormalities Eyes: Anicteric sclera. Pupils are equally round and reactive to light. Extraocular movements are intact. Lungs: Lungs clear to auscultation. No wheezing, rhonchi, rales Heart: RRR without murmur, gallop, or rubs. Extremities: No deformities, edema, skin discoloration, clubbing or cyanosis. Good capillary refill. ASSESSMENT/PLAN: 1. Type 2 diabetes mellitus with diabetic neuropathy, without long-term current use of insulin (HCC) - ICD9: 250.60, 357.2, ICD10: E11.40 (primary diagnosis) Controlled. - Continue current medications 2. Mixed hyperlipidemia - ICD9: 272.2, ICD10: E78.2 - good control - Continue current medication. 3. Essential hypertension - ICD9: 401.9, ICD10: I10 - good control - Recommended regular aerobic exercise. - Recommend home blood pressure monitoring, to bring results in on next visit - Goal of BP <130/80 4. DAVION (obstructive sleep apnea) - ICD9: 327.23, ICD10: G47.33 5. Hypothyroidism, acquired - ICD9: 244.9, ICD10: E03.9 - Instructed patient on importance of taking on an empty stomach either first thing in the morning or at bedtime. Stable 6. Anxiety and depression - ICD9: 300.00, 311, ICD10: F41.9, F32.A Controlled on the current medication. Patricia Covarrubias MD documented in this encounterK[facility]02-02-2023 NoteAkron [facility]02-02-2023 History of Present illness Narrative* Lorenza Mendez RT(R) - 12/21/2022 9:20 AM EST Radiology Service Progress Note DATE OF SERVICE: December 21, 2022 TIME: 9:45 AM PATIENT IDENTITY VERIFICATION COMPLETED USING TWO (2) STANDARD IDENTIFIERS: Name and Date of confirmed by patient verbally. FALL SCREENING: Has the patient had 2 falls in the last year or 1 fall with injury or currently using an Ambulatory Assistive Device (Walker, Cane, Wheelchair, Crutches, etc.)? No PATIENT GENDER DATA: Female. status: : No status: NO. PATIENT RELEVANT IMPLANT DATA REVIEWED: Yes ALLERGIES: Reviewed and unchanged CONTRAST ALLERGY: NO. EXAM: MRI - CONTRAST TYPE: GROUP II PERIPHERAL IV DATA: Ambulatory: A peripheral IV was started in the Right with a Angio cath: 22 gauge. RADIOLOGY DEPARTMENT: MR; Exam(s) Completed: Body: Pancreas/Biliary SIGNATURE: RT Elysia(Suly) PATIENT NAME: Medardo Ruiz DATE: December 21, 2022 TIME: 9:45 AM documented in this encounterKettering [facility]02-01-2023 NoteAkron [facility]02-01-2023 NoteHNO ID: [id number] Author: AMANDA Pollard Service: Radiology Author Type: Technologist Type: Progress Notes Filed: 12/20/2022 10:34 AM Note Text: Radiology Service Progress Note PATIENT NAME: Medardo Ruiz DATE OF SERVICE: December 20, 2022 TIME: 10:34 AM PATIENT IDENTITY VERIFICATION COMPLETED USING TWO (2) IDENTIFIERS: Name and Date of confirmed by patient verbally. FALL SCREENING: Has the patient had 2 falls in the last year or 1 fall with injury or currently using an Ambulatory Assistive Device (Walker, Cane, Wheelchair, Crutches, etc.)? Yes, Patient High Risk for Falls What interventions were put in place to prevent falls during this visit? Offered Assistance with Transfers/Clothing and Increased Observations by Caregivers PATIENT GENDER DATA: Female. status: : No status: NO. PATIENT RELEVANT IMPLANT DATA REVIEWED: Not Applicable RADIOLOGY DEPARTMENT: General X-ray: Exam(s) Completed: Lower Extremity X-Ray(s): Knee, AP / Lat / Merchant Bilateral and Wt. Bearing PERIPHERAL IV DATA: Not applicable SIGNED BY: AMANDA Pollard December 20, 2022 10:34 AMUniversity Hospitals Geneva Medical [id number] NoteHNO ID: [id number] Author: AMANDA Pollard Service: Radiology Author Type: Technologist Type: Progress Notes Filed: 12/20/2022 10:26 AM Note Text: Radiology Service Progress Note PATIENT NAME: Medardo Ruiz DATE OF SERVICE: December 20, 2022 TIME: 10:25 AM PATIENT IDENTITY VERIFICATION COMPLETED USING TWO (2) IDENTIFIERS: Name and Date of confirmed by patient verbally. FALL SCREENING: Has the patient had 2 falls in the last year or 1 fall with injury or currently using an Ambulatory Assistive Device (Walker, Cane, Wheelchair, Crutches, etc.)? Yes, Patient High Risk for Falls What interventions were put in place to prevent falls during this visit? Offered Assistance with Transfers/Clothing and Increased Observations by Caregivers PATIENT GENDER DATA: Female. status: : No status: NO. PATIENT RELEVANT IMPLANT DATA REVIEWED: Not Applicable RADIOLOGY DEPARTMENT: General X-ray: Exam(s) Completed: Upper Extremity X-Ray(s): Shoulder, AP / TRUE AP / AXILLARY right PERIPHERAL IV DATA: Not applicable SIGNED BY: AMANDA Pollard December 20, 2022 10:25 AMUniversity Hospitals Geneva Medical [id number] History of Present illness Narrative* Jessy Gray PA-C - 12/20/2022 9:27 AM EST Images from the original note were not included. DEPARTMENT OF ORTHOPAEDICS CC: Follow-up visit after knee replacement HPI: Ms. Ruiz is here today for her 3 year clinical follow up status post right revision total knee replacement. Since her last visit Ms. Ruiz conveys the interval has been complicated by recent right knee discomfort. 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 She denies trauma and feels the knee has improved with rest, she has no pain today. Pleased with outcome: Yes Pain? 0 on a scale of 1-10 Ambulatory support: none Distance able to walk:> 30 minutes Stairs Normal sequence Requires a handrail: No Able to kneel: Yes Able to arise from chair: Yes with ease Back issues: Yes Pain Medication: none REVIEW OF SYSTEMS: No new medical issues PAST MEDICAL HISTORY Diagnosis Date Depression DM type 2 (diabetes mellitus, type 2) (HCC) GERD (gastroesophageal reflux disease) Hyperlipidemia Hypertension Loc osteoarth NOS-site NEC Narcolepsy Pancreatic neoplasm PUD (peptic ulcer disease) Restless leg Rhinitis, chronic Sleep apnea Snoring Thyroid nodule PAST SURGICAL HISTORY Procedure Laterality Date ADENOIDECTOMY PRIMARY <AGE 14 1952 Adenoidectomy ARTHROPLASTY METACARPOPHALANGEAL JOINT EACH 2001 right thumb ARTHROSCOPY KNEE DIAGNOSTIC W/WO SYNOVIAL BX SPX Left 2006 Arthroscopy, knee ARTHROSCOPY KNEE DIAGNOSTIC W/WO SYNOVIAL BX SPX Right 2011 Arthroscopy, knee ARTHRP KNE CONDYLE&PLATU MEDIAL&LAT COMPARTMENTS Left 2008 Knee replacement, total ARTHRP KNE CONDYLE&PLATU MEDIAL&LAT COMPARTMENTS Right 2010 Knee replacement, total BLEPHAROPLASTY UP LID W/EXCESS SKIN 2011 bilaterally BREAST BIOPSY 1998 negative DELIVERY ONLY 1975 , low transverse DELIVERY ONLY 1978 , low transverse CHOLECYSTECTOMY 1977 Cholecystectomy COLONOSCOPY 2012 COLONOSCOPY FLX DX W/COLLJ SPEC WHEN PFRMD 10/24/2018 Colonoscopy EXCISION GANGLION WRIST, RECURRENT Right 1968 NEUROPLASTY &/TRANSPOS MEDIAN NRV CARPAL TUNNE Right 1997 Carpal tunnel decomp PAST SURGICAL HISTORY OF 2011 trigger finger release x 4 bilateral middle and ring fingers PAST SURGICAL HISTORY OF 6 of small instestine removed REVJ TOT KNEE ARTHRP FEM&ENTIRE TIBIAL COMPONE Right 01/14/2020 Knee replacement, revision TONSILLECTOMY PRIMARY/SECONDARY <AGE 14 1952 Tonsillectomy TOTAL ABDOMINAL HYSTERECT W/WO RMVL TUBE OVARY 1987 Hysterectomy, KALIA left ovary remains Current Outpatient Medications Medication Sig Dispense Refill Ferrous Gluconate 240 mg (27 mg iron) tablet Take 1 tablet by mouth three times daily with meals. 90 tablet 11 furosemide (LASIX) 20 mg tablet Take 1 tablet by mouth once daily. 90 tablet 3 buPROPion (WELLBUTRIN) 75 mg tablet Take 1 tablet by mouth twice daily. 180 tablet 1 glimepiride (AMARYL) 2 mg tablet Take 1 tablet by mouth daily with breakfast. 90 tablet 3 metFORMIN (GLUCOPHAGE) 500 mg tablet Take 2 tablets by mouth twice daily with meals. And 1 tablet at bedtime 450 tablet 3 levothyroxine (SYNTHROID) 75 mcg tablet Take 1 tablet by mouth daily before breakfast. 90 tablet 3 dulaglutide (TRULICITY) 0.75 mg/0.5 mL pen injector Inject 0.75 mg subcutaneously one time a week. Inject dose once per week. Discard Pen After 4 Each 5 blood sugar diagnostic (ACCU-CHEK ISAMAR PLUS TEST STRP) test strip 1 Strip once daily. Use as instructed. Dx: E11.8 Insulin: No 100 Strip 5 rOPINIRole (REQUIP) 1 mg tablet Take 1.5 tablets by mouth daily at bedtime. 135 tablet 3 venlafaxine ER (EFFEXOR XR) 75 mg 24 hr capsule Take 1 capsule by mouth once daily. 90 capsule 3 amLODIPine (NORVASC) 5 mg tablet Take 1 tablet by mouth once daily. 90 tablet 3 Benazepril HCl (LOTENSIN) 40 mg tablet Take 1 tablet by mouth once daily. 90 tablet 3 simvastatin (ZOCOR) 40 mg tablet Take 1 tablet by mouth daily at bedtime. 90 tablet 3 latanoprost (XALATAN) 0.005 % ophthalmic solution CPAP Initiate CPAP @ 9 cm of water with humidification. Mask (per patient preference) optional chinstrap (if indicated) , filters, tubing, humidifier and lifetime supplies. 1 Device 0 Omeprazole Magnesium 20 mg tablet Take 20 mg by mouth once daily. ascorbic acid, vitamin C, (VITAMIN C) 500 mg tablet Take 500 mg by mouth once daily. loratadine 10 mg cap Take by mouth. Calcium Citrate-Vitamin D3 (CITRACAL+D) 315 mg-6.25 mcg (250 unit) tab Take 1 tablet by mouth once daily. diclofenac (VOLTAREN) 1 % topical gel Apply 4 g to affected area three times daily as needed. 200 g0 gabapentin (NEURONTIN) 300 mg capsule Take 1 capsule by mouth daily at bedtime for 90 days. 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 ALLERGIES Allergen Reactions Amoxicillin Itching Codeine Itching Latex Itching FAMILY HISTORY Problem Relation Age of Onset Cancer Mother lymphoma Breast Cancer Mother Stroke Mother r/t chemo Alzheimer's Disease Father Diabetes Father Hypertension Father Cancer Brother brain, prostate Hypertension Brother Social History Tobacco Use Smoking status: Former Types: Cigarettes Quit date: 11/19/1971 Years since quittin.1 Smokeless tobacco: Never Vaping Use Vaping Use: Never used Substance Use Topics Alcohol use: No Comment: quit with onset DM2 Drug use: No EXAMINATION: GENERAL:no apparent distress RESP:Unlabored with no shortness of breath CV: No extremity swelling, varices, edema, pallor, erythema Ms. Ruiz has no difficulty arising out of a chair and has no difficulty ambulating in the exam room. her gait was normal. LOWER EXTREMITIES: On the exam table seated and supine, hip range of motion bilaterally was symmetric, unrestricted and non-painful. No trochanteric pain to palpation. Straight leg raise and femoral nerve stretch testswere negative for acute radicular symptoms to suggest spine problems. Examination of the right knee reveals Multiple previous incisions and has no erythema, warmth or tenderness. Range of motion is 0 degrees in extension and 120 degrees of flexion actively. No varus-valgus instability with patella tracking midline. No patellofemoral crepitus. Examination of the left knee reveals Single previous incisions and has no erythema, warmth or tenderness. Range of motion is 0 degrees in extension and 120 degrees of flexion actively. Mild varus-valgus instability with patella tracking midline. No patellofemoral crepitus. Both lower extremities were neurovascularly intact, has no evidence of cellulitis, and has no distal swelling. X-RAYS: right Triathlon total stabilized total knee showing good component sizing, position, and alignment. The patella tracks midline. Radiographic review has no findings of loosening, has no findings of wear, and has no other complicating process. ASSESSMENT: S/P right total knee arthroplasty, significantly improved from pre-operative state, and experiencing pain from quad tendonitis PLAN: Continue with activities as tolerated Ice/ voltaren gel as needed for quad tenderness Follow up will be in 1-2 years.. If there are any questions or problems, patient instructed to callthe office. Rx Drug Management: New prescription entered into [facility]. Jessy Gray PA-C documented in this encounterKettering [facility] Hospital01-31-2023 Miscellaneous Notes* Telephone Encounter - Elsy Escalera LPN - 12/19/2022 10:09 AM EST Patient scheduled for nurse visit 01/02/23 to receive B-[address]. [address] new administration order at this time. Elsy Escalera LPN documented in this encounterK[facility] Miscellaneous Notes* Telephone Encounter - Patti Turner - 12/08/2022 9:42 AM EST Patient called back in and got on the schedule. * Telephone Encounter - Carola Niño - 12/08/2022 9:16 AM EST M and sent MYC to patient asking to schedule with Dr. Kebede. -Carola Niño * Telephone Encounter - Lorenza Sandra [facility] - 12/08/2022 8:56 AM EST Patient is being referred to Dr. Kebede by Dr. Pham. Please reach out to patient and assist with scheduling an appointment in the [place] office for a surgical consultation. Thank you. Lorenzajuanpablo Sandra Sedc * Telephone Encounter - Jesús Pham MD - 12/07/2022 4:30 PM EST Lorenza, please help facilitate patient in for a OV with Dr. Kebede. Pt. Interested in arthroplasty. documented in this encounterK[facility]01-16-[facility]23 History of Present illness Narrative* Elsy Escalera LPN - 12/04/2022 2:05 PM EST Patient presents for B-12 injection. Denies any problems at this time. Patient instructed on any SEof medication, verbalized understanding and agreed to proceed with treatment. Tolerated injection well. Elsy Escalera LPN documented in this encounterK[facility]01-09-2023 Miscellaneous Notes* Telephone Encounter - Maru Fernandez LPN - 11/27/2022 8:09 AM EST Patient has been identified by name and date of : No Patient phones for refill(s): Requested Prescriptions Pending Prescriptions Disp Refills Ferrous Gluconate 240 mg (27 mg iron) tablet 90 tablet 11 Sig: Take 1 tablet by mouth three times daily with meals. Date of last office visit in primary care: 09/19/2022 Last 2 Encounter Wt Readings: Date: Wt: 09/19/2022 88 kg (194 lb) 08/03/2022 89.4 kg (197 lb 3.2 oz) Previous labs/tests for medication: Not applicable Please advise. Thank you. Maru Fernandez LPN documented in this encounterK[facility]12[facility]22 History of Present illness Narrative* Elsy Escalera LPN - 11/06/2022 2:13 PM EST Patient presents for B-12 injection. Denies any problems at this time. Patient instructed on any SEof medication, verbalized understanding and agreed to proceed with treatment. Tolerated injection well. Elsy Escalera LPN documented in this encounterK[facility]12-08-2022 History of Present illness Narrative* Lorenza Dillard, PT - 10/26/2022 12:38 PM EST Episode Visit Count: 9 Therapist That Will Accept/Oversee The Plan Of Care: Lorenza Dillard PT Start of Care Date: 09/19/22 Onset Date: 06/14/21 Plan of Care Certification Date: 09/19/22 Next Certification Due Date: 10/31/22 Patient Identified by Name and Date of : Yes REHABILITATION AND SPORTS THERAPY PHYSICAL THERAPY DISCONTINUANCE OF CARE PLAN OF CARE UPDATE: Assessment: Medardo Ruiz is discontinued from Physical Therapy services due to goal achievementand maximal benefit.. Patient was seen for 9 visits from Start of Care Date: 09/19/22 to 10/26/2022 and treatment included: Therapeutic exercise, Neuromuscular re-education, Self-snf management,and Patient/Family/Caregiver Education. Goals for Episode of Care: created on 09/19/22 through 10/31/22 updated 10/26/22 Patient will report no falls./ achieved Improve performance on 4 Stage Balance Test to 15 seconds tandem to reflect decreased fall risk. achieved [facility] in home exercise program including cardiovascular exercise./ achieved Pt will report increased confidence with ambulation and balance / achieved Patient Goals: improve balance and strength./ achieved SUBJECTIVE: Patient Reason for Visit: Pt reports that she was a little dizzy when she closed her eyes in the shower. feels that her legs are doing better. she is no longer doing the pool exs d/t shoulder pain. . . Still doing home exs and walking almost everyday. On weekend using the gym and doing recumbent bike. Feels confident now to walk in grass. Pain: Post Treatment Pain Post Treatment Pain Level: No Change PROMIS Scales Higher is Better 09/12/2022 10/02/2022 10/02/2022 Phys Func - Score - - 43 (mild dysfunction) Phys Func - Percentile - - 24 % Social Roles - Score - - - Social Role - Percentile - - - GH Physical - Score 44.9 (Good) - 42.3 (Good) GH Physical - Percentile 31 % 22 % 22 % GH Mental - Score 48.3 (Very Good) - Incomplete GH Mental - Percentile 43 % - - Self-Eff Symptom - Score - - 47 (Average) Self-Eff Symptom - Percentile - - 38 % T-scores: mean of general population = 50. 5 points is clinically meaningfully difference Percentiles provide an indication of how the patient's score ranks in relation to the general population. Higher percentile rankings indicate better function/quality of life. 50th percentile is the average of the general population and indicates half of respondents had a worse score. Lower is Better 05/23/2020 07/04/2021 07/13/2021 Fatigue - Score 52 (within normal limits) 51 (within normal limits) 50 (within normal limits) Fatigue - Percentile 42 % 46 % 50 % T-scores: mean of general population = 50. 5 points is clinically meaningfully difference Percentiles provide an indication of how the patient's score ranks in relation to the general population. Higher percentile rankings indicate better function/quality of life. 50th percentile is the average of the general population and indicates half of respondents had a worse score. OBJECTIVE MEASURES WITH LEVEL OF FUNCTION: Mobility Sit To Stand: Independent Gait Gait Observation: no deviations Functional Performance Test Results 30 Second Chair Stand Test: 16 reps Timed Up and Go (sec): 8 sec 4 Stage Balance Test Narrow base of support (sec): 30 sec Semi-tandem base of support (sec): 30 sec Tandem base of support (sec): 20 sec Functional Reach - Stand Functional Reach Stand - Right (inches): 12 in Tinetti Assessment Tool Sitting balance: 1- Steady, safe Rises from chair: 2- Able without use of arms Attempts to rise: 2- Able to rise, 1 attempt Immediate standin- Steady without walker or other support Standing balance: 2- Narrow stance without support Nudged: 2- Stead Eyes closed: 1- Steady Turning 360 Continuous: 1- Continuous Turning 360 Steady: 1- Steady Sitting down: 2- Safe, smooth motion Balance Score (calculated): 16 Indication of gait: 1- No hesitancy R Step length and height: 1- Step through R L Step length and height: 1- Step through L R Foot clearance: 1- R foot clears L Foot clearance: 1- L foot clears Step symmetry: 1- R and L step length appear equal Step continuity: 1- Steps appear continuous Path: 2- Straight without aid Trunk: 2- No sway, flex or use of arms or aid Walk Time: 1- Heels amost touching while walking Gait Score (calculated): 12 Tinetti Assessment Tool Total Score (calculated): 28 Fall Risk:: > or equal to 24: Low Fall Risk TREATMENT: Therapeutic Exercise: 1: STS 2x10 Skilled Intervention: Reviewed and educated patient on additions/changes for home exercise program as above (*). Skilled judgment was provided in selection of appropriate interventions. Patient education as noted. Neuromuscular Re-Education: 1: balance board forward backward in parallel bars x 20 each 2: balance board side to side without hands in parallel bars x20 each with EC (CGA provided atgait belt) 3: Tandem walking on foam beam x2 each direction (more unsteady today) 4: Side stepping on foam beam x 2 5: Alt toe taps on BOSU 2x20 B 6: Standing on foam pad with ball toss into rebounder 2x10 (Min A provided at gait belt.) 7: SLS x 15 seconds each leg with occasional taps with UE on parallel bars 8: NBOS standing on blue foam x 30 seconds without hands Skilled Intervention: Skilled judgment used to assess appropriate program for balance and coordination activity. Education in proprioceptive/kinesthetic awareness during dynamic activities. Ensured patient safety with use of gait belt and parallel bars Billing Therapeutic Exercise Treatment Minutes: 5 Neuromuscular Re-Education Treatment Minutes: 35 Total Treatment Time Minutes (timed/untimed): 40 Lorenza Dillard PT documented in this encounterK[facility]12-06-2022 History of Present illness Narrative* Lorenza Dillard PT - 10/24/2022 9:35 AM EST Episode Visit Count: 8 Therapist That Will Accept/Oversee The Plan Of Care: Lorenza Dillard PT Start of Care Date: 09/19/22 Onset Date: 06/14/21 Plan of Care Certification Date: 09/19/22 Next Certification Due Date: 10/31/22 Patient Identified by Name and Date of : Yes REHABILITATION AND SPORTS THERAPY PHYSICAL THERAPY TREATMENT NOTE ASSESSMENT: Medardo Ruiz tolerated the session with fatigue and expected muscle soreness. She demonstrated improvements in wobble board activities. The patient will continue to benefit from ongoing skilled physical therapy to progress toward set goals. PLAN FOR NEXT VISIT: continue advancing balance exercises SUBJECTIVE: Patient Reason for Visit: Pt reports that shes feeling pretty good today. Pain: OBJECTIVE MEASURES WITH LEVEL OF FUNCTION: Less assistance provided at gait belt with balance board side to side with EC. TREATMENT: Therapeutic Exercise: 1: STS 2x10 4: LAQ 1.5 # 2x12 B Skilled Intervention: Patient was educated in proper exercise technique and purpose for exercises. Skilled judgment was provided in selection of appropriate interventions. Correct performance of therapeutic exercises was facilitated with verbal, visual, and tactile cuing. Neuromuscular Re-Education: 1: balance board forward backward in parallel bars x 20 each 2: balance board side to side without hands in parallel bars x20 each with EC (CGA provided atgait belt) 3: Tandem walking on foam beam x2 each direction (more unsteady today) 4: Side stepping on foam beam x 2 5: Alt toe taps on BOSU 2x20 B 6: Standing on foam pad with ball toss into rebounder 2x10 (Min A provided at gait belt.) 7: SLS x 15 seconds each leg with occasional taps with UE on parallel bars 8: NBOS standing on blue foam x 30 seconds without hands Skilled Intervention: Skilled judgment used to assess appropriate program for balance and coordination activity. Ensured patient safety with use of gait belt Billing Therapeutic Exercise Treatment Minutes: 10 Neuromuscular Re-Education Treatment Minutes: 30 Total Treatment Time Minutes (timed/untimed): 40 Soumya Stone PTA/Lorenza Dillard PT documented in this encounterK[facility]12-[facility]-2022 History of Present illness Narrative* Lorenza Dillard PT - 10/19/2022 9:31 AM EST Episode Visit Count: 7 Therapist That Will Accept/Oversee The Plan Of Care: Lorenza Dillard PT Start of Care Date: 09/19/22 Onset Date: 06/14/21 Plan of Care Certification Date: 09/19/22 Next Certification Due Date: 10/31/22 Patient Identified by Name and Date of : Yes REHABILITATION AND SPORTS THERAPY PHYSICAL THERAPY TREATMENT NOTE ASSESSMENT: Medardo Ruiz tolerated the session with increased unsteadiness. She demonstrated difficulty with step downs forward and lateral step ups. The patient will continue to benefit from ongoing skilled physical therapy to progress toward set goals. PLAN FOR NEXT VISIT: work on tandem and semitandem on foam surface and floor SUBJECTIVE: Patient Reason for Visit: Pt reports that she is tired today, only got 1.5 hours of sleep lat night and sore due to arthritis. Pain: OBJECTIVE MEASURES WITH LEVEL OF FUNCTION: Pt more unsteady this visit due to lack of sleep. TREATMENT: Therapeutic Exercise: 1: Step ups forward on 6 inch step x10 B 2: Step ups laterally on 6 inch step x10 B 3: Step downs on 6 inch step x8 B 4: LAQ 1.5 # 2x12 B 5: STS 2x10 Skilled Intervention: Patient was educated in proper exercise technique and purpose for exercises. Skilled judgment was provided in selection of appropriate interventions. Correct performance of therapeutic exercises was facilitated with verbal and visual and tactile cuing. Neuromuscular Re-Education: 1: balance board forward backward in parallel bars x 15 each 2: balance board side to side without hands in parallel bars x15 each with EC (Min A provided at gait belt) 3: Semitandem stance on foam x30 seconds B (with occasional hand taps on parallel bars and CGA provided at gait belt) 4: Tandem stance on blue foam (with occasional hand taps on parallel bars and CGA provided at gait belt) 5: Alt toe taps on BOSU 2x15 B 7: semitandem stance on blue foam hands on guarding 8: NBOS standing on blue foam x 30 seconds without hands Skilled Intervention: Skilled judgment used to assess appropriate program for balance and coordination activity. Ensured patient safety with use of gait belt. Billing Therapeutic Exercise Treatment Minutes: 15 Neuromuscular Re-Education Treatment Minutes: 25 Total Treatment Time Minutes (timed/untimed): 40 Soumya Stone PTA/Lorenza Dillard PT documented in this encounterCleveland [id number] History of Present illness Narrative* Lorenza Dillard, PT - 10/17/2022 4:00 PM EST Episode Visit Count: 6 Therapist That Will Accept/Oversee The Plan Of Care: Lorenza Nishant PT Start of Care Date: 09/19/22 Onset Date: 06/14/21 Plan of Care Certification Date: 09/19/22 Next Certification Due Date: 10/31/22 Patient Identified by Name and Date of : Yes REHABILITATION AND SPORTS THERAPY PHYSICAL THERAPY TREATMENT NOTE ASSESSMENT: Medardo Ruiz tolerated the session with no issues. She demonstrated improvements inbalance on balance board and challenged by hurdles and semitandem and step ups on blue foam . The patient will continue to benefit from ongoing skilled physical therapy to progress toward set goals. PLAN FOR NEXT VISIT: work on tandem and semitandem on foam surface and floor SUBJECTIVE: Patient Reason for Visit: Pt notes that she feels she is doing pretty well. Used recumbent bike for 50 min. Pain: OBJECTIVE MEASURES WITH LEVEL OF FUNCTION: more difficulty with use of balance board side to side TREATMENT: Therapeutic Exercise: 1: LAQ with 1.5# 2x12 B 2: standing at parallel bars hip abduction 1 1/2# 2x12 B 3: Standing at parallel bars hip extension 1 1/2# 2x12 B Skilled Intervention: Skilled judgment was provided in selection of appropriate interventions. Correct performance of therapeutic exercises was facilitated with verbal and visual cuing. Patient education as noted. Neuromuscular Re-Education: 1: balance board forward backward in parallel bars x 15 each 2: balance board side to side without hands in parallel bars x15 each with EC (Min A provided at gait belt) 3: Forward stepping Bilateral and reciprocal over 6 hurdles x2 4: lateral stepping over 6 hurdles x2 5: Alt toe taps on BOSU 2x15 B 6: Stepping ups to blue foam square 2x10 B 7: semitandem stance on blue foam hands on guarding 8: NBOS standing on blue foam with paloff and stir the pot arm motions and head turns 1x10 each Skilled Intervention: Skilled judgment used to assess appropriate program for balance and coordination activity. Education in proprioceptive/kinesthetic awareness during dynamic activities. Ensured patient safety with use of gait belt and parallel bars Billing Therapeutic Exercise Treatment Minutes: 10 Neuromuscular Re-Education Treatment Minutes: 30 Total Treatment Time Minutes (timed/untimed): 40 Lorenza Dillard PT documented in this encounterK[facility]11-25-2022 History of Present illness Narrative* Lorenza Dillard PT - 10/13/2022 8:02 AM EST Episode Visit Count: 5 Therapist That Will Accept/Oversee The Plan Of Care: Lorenza Dillard PT Start of Care Date: 09/19/22 Onset Date: 06/14/21 Plan of Care Certification Date: 09/19/22 Next Certification Due Date: 10/31/22 Patient Identified by Name and Date of : Yes REHABILITATION AND SPORTS THERAPY PHYSICAL THERAPY TREATMENT NOTE ASSESSMENT: Medardo Ruiz tolerated the session with fatigue and expected muscle soreness. She demonstrated difficulty with lateral stepping over hurdles. The patient will continue to benefit fromongoing skilled physical therapy to progress toward set goals. PLAN FOR NEXT VISIT: Continue with balance and LE strengthening SUBJECTIVE: Patient Reason for Visit: Pt reports that she is tired today, but other than that she is feeling well. Pt denies any falls. Pain: OBJECTIVE MEASURES WITH LEVEL OF FUNCTION: Pt able to complete balance board side to side with EC without use if BUE. TREATMENT: Therapeutic Exercise: 1: LAQ with 1.5# 2x10 B 2: standing at parallel bars hip abduction 2x10 B 3: Standing at parallel bars hip extension 2x10 B Skilled Intervention: Patient was educated in proper exercise technique and purpose for exercises. Reviewed and educated patient on additions/changes for home exercise program as above (*). Skilled judgment was provided in selection of appropriate interventions. Correct performance of therapeutic exercises was facilitated with verbal and visual cuing. Neuromuscular Re-Education: 1: balance board forward backward in parallel bars x 15 each 2: balance board side to sie without hands in parallel bars x15 each with EC (Min A provided at gait belt) 3: [place] stepping over 6 hurdles x2 4: lateral stepping over 6 hurdles x2 5: Alt toe taps on BOSU 2x10 B 6: Stepping up on dome side of BOSU 2x10 B 7: Lateral stepping over dome side of BOSU x10 B Skilled Intervention: Skilled judgment used to assess appropriate program for balance and coordination activity. Ensured patient safety with use of gait belt Billing Therapeutic Exercise Treatment Minutes: 45 Total Treatment Time Minutes (timed/untimed): 45 Soumya Stone PTA./ Lorenza Dillard PT documented in this encounterK[facility]11-22-2022 History of Present illness Narrative* Lorenza Dilladr PT - 10/10/2022 11:07 AM EST Episode Visit Count: 4 Therapist That Will Accept/Oversee The Plan Of Care: Lorenza Dillard PT Start of Care Date: 09/19/22 Onset Date: 06/14/21 Plan of Care Certification Date: 09/19/22 Next Certification Due Date: 10/31/22 Patient Identified by Name and Date of : Yes REHABILITATION AND SPORTS THERAPY PHYSICAL THERAPY TREATMENT NOTE ASSESSMENT: Medardo Ruiz tolerated the session with no issues. She demonstrated improvements intolerance with balance exercise. The patient will continue to benefit from ongoing skilled physicaltherapy to progress toward set goals. PLAN FOR NEXT VISIT: continue per POC SUBJECTIVE: Patient Reason for Visit: Pt reports that she was sore after last session. Pt forgot tocomplete HEP last night, but is regularly compliant. Pt reports she has been dizzy on and off. Pt rpeorts bedning over to pet a dog and it felt like the world was spinning around her. Pt then later bent over and got dizzy again with the same symptoms. Pt has been cautious since then. pt has historyof vertigo, but bending forward has never been the cause. Pain: OBJECTIVE MEASURES WITH LEVEL OF FUNCTION: Pt able to complete lateral stepping on blue foam without use of BUE. TREATMENT: Therapeutic Exercise: 1: sit to stand 2x10 2: standing at parallel bars hip abduction 1# 2x10 B 3: Standing at parallel bars hip extension 1x10 B with 1# ankle weight Skilled Intervention: Patient was educated in proper exercise technique and purpose for exercises. Skilled judgment was provided in selection of appropriate interventions. Correct performance of therapeutic exercises was facilitated with verbal and visual cuing. Neuromuscular Re-Education: 1: balance board forward backward in parallel bars x 15 each 2: balance board side to sie without hands in parallel bars x15 each 3: partial tandem on blue foam x 30 seconds B 4: tandem stance on blue foam x10 seconds B 5: lateral walking on blue foam balance beam 6: tandem walking on blue foam balance beam 8: blue foam NBOS with eyes open x30 seconds 9: blue foam narrow base with eyes closed x 40 seconds Skilled Intervention: Skilled judgment used to assess appropriate program for balance and coordination activity. Ensured patient safety with use of gait belt. Billing Therapeutic Exercise Treatment Minutes: 8 Neuromuscular Re-Education Treatment Minutes: 37 Total Treatment Time Minutes (timed/untimed): 45 Soumya Stone PTA/Lorenza Dillard PT documented in this encounterK[facility]11-16-2022 History of Present illness Narrative* Lorenza Dillard PT - 10/04/2022 7:50 AM EST Episode Visit Count: 2 Therapist That Will Accept/Oversee The Plan Of Care: Lorenza Dillard PT Start of Care Date: 09/19/22 Onset Date: 06/14/21 Plan of Care Certification Date: 09/19/22 Next Certification Due Date: 10/31/22 Patient Identified by Name and Date of : Yes REHABILITATION AND SPORTS THERAPY PHYSICAL THERAPY TREATMENT NOTE ASSESSMENT: Medardo Ruiz tolerated the session with no issues. She demonstrated improvements intandem stance with practice. The patient will continue to benefit from ongoing skilled physical therapy to progress toward set goals. PLAN FOR NEXT VISIT: continue with balance and gait activities SUBJECTIVE: Patient Reason for Visit: Pt reports that she has not fallen . Pt reports that she has not been doing the exs very much. Pain: OBJECTIVE MEASURES WITH LEVEL OF FUNCTION: Pt required hands on guarding with mild assist at times in parallel bars with activities TREATMENT: Therapeutic Exercise: 1: sit to stand 1x10 2: standing at parallel bars hip abduction 2x10 B 3: green step ups 1x10 B Skilled Intervention: Patient was educated in proper exercise technique and purpose for exercises. Correct performance of therapeutic exercises was facilitated with verbal and visual cuing. Neuromuscular Re-Education: 1: balance board forward backward in parallel bars and balancing 2: step taps to doam of BOSU 2x10 B hands on guard 3: front side back foot taps alternating while in parallel bars 4: standing on blue foam NBOS with paloff and stir the pot UE ROM 1x10 each 5: tandem stance B 6: tandem walking on blue foam balance beam 7: tandem walking wtih counting backwards 8: blue foam NBOS with head turns 9: blue foam narrow base with eyes closed. 10: 6 hurdles reciprocally Skilled Intervention: Skilled judgment used to assess appropriate program for balance and coordination activity. Education in proprioceptive/kinesthetic awareness during dynamic activities. Ensured patient safety with use of gait belt and parallel bars Billing Therapeutic Exercise Treatment Minutes: 5 Neuromuscular Re-Education Treatment Minutes: 35 Total Treatment Time Minutes (timed/untimed): 40 Lorenza Dillard PT documented in this encounterK[facility]11-15-2022 Instructions* Patient Instructions* Morris Yenny - 10/03/2022 2:07 PM EST Diabetes Foot Care Instructions When you have diabetes, proper foot care is very important. Poor foot care may lead to amputation of a foot or leg. As a person with diabetes, you are more vulnerable to foot problems, because diabetes can damage your nerves and reduce blood flow to your feet. Here are some diabetes foot care tips to follow: Wash and Dry Your Feet Daily Use mild soaps Use warm water Pat your skin dry; do not rub. Thoroughly dry your feet. After washing, use lotion on your feet to prevent cracking. Do not put lotion between your toes. Examine Your Feet Each Day Check the tops and bottoms of your feet. Have someone else look at your feet if you cannot see them. Check for dry, cracked skin. Look for blisters, cuts, scratches, or other sores. Check for redness, increased warmth, or tenderness when touching any area of your feet. Check for ingrown toenails, corns, and calluses. If you get a blister or sore from your shoes, do not pop it. Apply a bandage and wear a differentpair of shoes. Take Care of Your Toenails Cut toenails after bathing, when they are soft. Cut toenails straight across and smooth with a nail file. Avoid cutting into the corners of toes. Do not cut cuticles. If you have neuropathy (or decreased sensation in your feet) a chain tender should always cut your toenails. Be Careful When Exercising Walk and exercise in comfortable shoes. Do not exercise when you have open sores on your feet. Protect Your Feet With Shoes and Socks Never go barefoot. Always protect your feet by wearing shoes or hard-soled slippers or footwear. Avoid shoes with high heels and pointed toes. Avoid shoes that expose your toes or heels (such as open-toed shoes or sandals). These types of shoes increase your risk for injury and potential infections. Try on new footwear with the type of socks you usually wear. Do not wear new shoes for more than an hour at a time. Change your socks daily. Look and feel inside your shoes before putting them on to make sure there are no foreign objects orrough areas. Avoid tight socks. Wear natural-fiber socks (cotton, wool, or a cotton-wool blend). Wear special shoes if your health care provider recommends them. Wear shoes/boots that will protect your feet from various weather conditions (cold, moisture, etc.). Make sure your shoes fit properly. If you have neuropathy (nerve damage), you may not notice that your shoes are too tight. Perform the footwear test described below. Footwear Test Use this simple test to see if your shoes fit correctly: Stand on a piece of paper. (Make sure you are standing and not sitting, because your foot changes shape when you stand.) Trace the outline of your foot. Trace the outline of your shoe. Compare the tracings: Is the shoe too narrow? Is your foot crammed into the shoe? The shoe should be at least 1/2 inch longer than your longest toe and as wide as your foot. Proper Shoe Choices The following types of shoes are best for people with diabetes Closed toes and heels Leather uppers without a seam inside At least 1/2 inch extra space at the end of your longest toe Inside of shoe should be soft with no rough areas Outer sole should be made of stiff material Shoes should be at least as wide as your feet Tips for Foot Care in Diabetes Don't wait to treat a minor foot problem if you have diabetes. Follow your health care provider's guidelines and first aid guidelines. Report foot injuries and infections to your health care provider immediately. Check water temperature with your elbow, not your foot. Do not use a heating pad on your feet. Do not cross your legs. Do not self-treat your corns, calluses, or other foot problems. Go to your health care provider or chain tender to treat these conditions. [facility] History of Present illness Narrative* Morris Ramon - 10/03/2022 2:00 PM EST Consultation requested by Dr. Covarrubias for an opinion regarding diabetic foot exam. My final recommendations will be communicated back to the requesting physician by way of shared Medical record or letter to requesting physician via US mail. Initial Office Visit Subjective: This 77 year old female presents to clinic for diabetic foot check. Patient has the following complaints: balance issues. Patient presents to clinic for evaluation of b/l feet. She really has no acute problems that she complains of although she is noticing more balance issues. Due to balance issues, she has fallen more.Patient admits to being diabetic for 22 years now. Patient +B/T/N in feet at this time. Patient -pain in legs when walking. No other pedal complaints at this time. No change in medications or medical history since last visit. PAIN EVALUATION No data found in the last 1 encounters. Hemoglobin A1C (%) Date Value 07/11/2022 6.2 06/16/2021 7.3 03/16/2021 7.3 08/23/2020 7.0 07/06/2020 6.7 04/22/2020 6.8 Hemoglobin A1C (POCT) (%) Date Value 04/13/2022 5.9 12/27/2021 6.2 09/23/2021 6.5 12/28/2020 6.5 PCP: Patricia Covarrubias MD PAST MEDICAL HISTORY Diagnosis Date Depression DM type 2 (diabetes mellitus, type 2) (HCC) GERD (gastroesophageal reflux disease) Hyperlipidemia Hypertension Loc osteoarth NOS-site NEC Narcolepsy Pancreatic neoplasm PUD (peptic ulcer disease) Restless leg Rhinitis, chronic Sleep apnea Snoring Thyroid nodule Current Outpatient Medications Medication Sig furosemide (LASIX) 20 mg tablet Take 1 tablet by mouth once daily. buPROPion (WELLBUTRIN) 75 mg tablet Take 1 tablet by mouth twice daily. glimepiride (AMARYL) 2 mg tablet Take 1 tablet by mouth daily with breakfast. [START ON 10/13/2022] metFORMIN (GLUCOPHAGE) 500 mg tablet Take 2 tablets by mouth twice daily withmeals. And 1 tablet at bedtime levothyroxine (SYNTHROID) 75 mcg tablet Take 1 tablet by mouth daily before breakfast. gabapentin (NEURONTIN) 300 mg capsule Take 1 capsule by mouth daily at bedtime for 90 days. dulaglutide (TRULICITY) 0.75 mg/0.5 mL pen injector Inject 0.75 mg subcutaneously one time a week. Inject dose once per week. Discard Pen After blood sugar diagnostic (ACCU-CHEK ISAMAR PLUS TEST STRP) test strip 1 Strip once daily. Use as instructed. Dx: E11.8 Insulin: No rOPINIRole (REQUIP) 1 mg tablet Take 1.5 tablets by mouth daily at bedtime. venlafaxine ER (EFFEXOR XR) 75 mg 24 hr capsule Take 1 capsule by mouth once daily. amLODIPine (NORVASC) 5 mg tablet Take 1 tablet by mouth once daily. Benazepril HCl (LOTENSIN) 40 mg tablet Take 1 tablet by mouth once daily. simvastatin (ZOCOR) 40 mg tablet Take 1 tablet by mouth daily at bedtime. latanoprost (XALATAN) 0.005 % ophthalmic solution Ferrous Gluconate 240 mg (27 mg iron) tablet Take 1 tablet by mouth three times daily with meals. CPAP Initiate CPAP @ 9 cm of water with humidification. Mask (per patient preference) optional chinstrap (if indicated) , filters, tubing, humidifier and lifetime supplies. Omeprazole Magnesium 20 mg tablet Take 20 mg by mouth once daily. ascorbic acid, vitamin C, (VITAMIN C) 500 mg tablet Take 500 mg by mouth once daily. loratadine 10 mg cap Take by mouth. Calcium Citrate-Vitamin D3 (CITRACAL+D) 315 mg-6.25 mcg (250 unit) tab Take 1 tablet by mouth once daily. Current Facility-Administered Medications Medication Dose Route Frequency cyanocobalamin 1,000 mcg injection 1,000 mcg INTRAMUSCULAR q 4 WEEKS ALLERGIES Allergen Reactions Amoxicillin Itching Codeine Itching Latex Itching PAST SURGICAL HISTORY Procedure Laterality Date ADENOIDECTOMY PRIMARY <AGE 14 1950 Adenoidectomy ARTHROPLASTY METACARPOPHALANGEAL JOINT EACH 2001 right thumb ARTHROSCOPY KNEE DIAGNOSTIC W/WO SYNOVIAL BX SPX Left 2005 Arthroscopy, knee ARTHROSCOPY KNEE DIAGNOSTIC W/WO SYNOVIAL BX SPX Right 2010 Arthroscopy, knee ARTHRP KNE CONDYLE&PLATU MEDIAL&LAT COMPARTMENTS Left 2007 Knee replacement, total ARTHRP KNE CONDYLE&PLATU MEDIAL&LAT COMPARTMENTS Right 2010 Knee replacement, total BLEPHAROPLASTY UP LID W/EXCESS SKIN 2011 bilaterally BREAST BIOPSY 1998 negative DELIVERY ONLY 1975 , low transverse DELIVERY ONLY 1978 , low transverse CHOLECYSTECTOMY 1977 Cholecystectomy COLONOSCOPY 2012 COLONOSCOPY FLX DX W/COLLJ SPEC WHEN PFRMD 10/24/2018 Colonoscopy EXCISION GANGLION WRIST, RECURRENT Right 1967 NEUROPLASTY &/TRANSPOS MEDIAN NRV CARPAL TUNNE Right 1997 Carpal tunnel decomp PAST SURGICAL HISTORY OF 2010 trigger finger release x 4 bilateral middle and ring fingers PAST SURGICAL HISTORY OF 6 of small instestine removed REVJ TOT KNEE ARTHRP FEM&ENTIRE TIBIAL COMPONE Right 01/14/2020 Knee replacement, revision TONSILLECTOMY PRIMARY/SECONDARY <AGE 14 1952 Tonsillectomy TOTAL ABDOMINAL HYSTERECT W/WO RMVL TUBE OVARY 1988 Hysterectomy, KALIA left ovary remains FAMILY HISTORY Problem Relation Age of Onset Cancer Mother lymphoma Breast Cancer Mother Stroke Mother r/t chemo Alzheimer's Disease Father Diabetes Father Hypertension Father Cancer Brother brain, prostate Hypertension Brother Social History Tobacco Use Smoking status: Former Types: Cigarettes Quit date: 11/19/1971 Years since quittin.9 Smokeless tobacco: Never Vaping Use Vaping Use: Never used Substance Use Topics Alcohol use: No Comment: quit with onset DM2 Drug use: No REVIEW OF SYSTEMS GENERAL: Negative for Malaise, significant weight loss, fever RESPIRATORY: Negative for cough, wheezing and shortness of breath CARDIOVASCULAR: Negative for chest pain, leg swelling and palpitations GI: Negative for abdominal discomfort, blood in stools or black stools and change in bowel habits : Negative for dysuria, frequency and incontinence MUSCULOSKELETAL: Negative for joint pain or swelling, back pain, and muscle pain. SKIN: Negative for lesions, rash, and itching. HEMATOLOGY/LYMPHOLOGY Negative for prolonged bleeding, bruising easily, and swollen nodes. ENDOCRINE: Negative for cold or heat intolerance, polyuria, polydipsia and goiter. NEURO: negative The remainder of the review of systems is noncontributory. Objective: Patient presents to clinic ambulating in [facility] Constitutional: Pt is a well developed 77 year old female who is alert, oriented, cooperative and in no apparent distress. Eyes: Following during examination. No redness or drainage. Respiratory: RR normal and nonlabored. Even breathing. No evidence of distress. Psychology: Patient is engaged during conversation. Normal affect and mood. Does not appear depressed or anxious. Vasc: DP and PT pulses are palpable bilateral. CFT is less than 5 seconds bilateral. Skin temperature is warm to warm proximal to distal bilateral. There is mild edema or varicosities noted. Hair growth present. Neuro: Protective sensation is intact to the foot and toes when tested with the 5.07 SWM bilateral.Vibratory sensation is intact at the hallux bilateral. No Significant neurological defecits. Derm: Inspection and palpation performed. Nails 1-5 b/l are normal in length. Skin is of normal turgor and texture. Hyperkeratosis noted to right 5th toe. NO ulcerations, scars, verruca or other lesions noted. Ortho: Ankle joint DF is full with the knee extended and full with knee flexed. No pain or crepitusnoted. STJ, MTJ ROM are full and free of pain or crepitus. Muscle strength is 5/5 for dorsiflexors,plantarflexors, inverters, everters. Digital deformities include adductovarus deformity of b/l feet. There is calcaneal spur to b/l feet. Radford test produces plantarflexion b/l. Assessment: (M77.30) Calcaneal spur, unspecified laterality (primary encounter diagnosis) (E11.40) Type 2 diabetes mellitus with diabetic neuropathy, without long-term current use of insulin (HCC) Hammertoe callus Plan: 1. Patient was seen and evaluated. 2. Patient was instructed on the continued importance of diabetic foot care along with proper diet and keeping their blood sugar under control to prevent complications. Instructions given both oral and written. 3. Callus reduced with dremmel. Recommend wider shoes or padding for hammertoe. Diabetic shoe offered. Patient declined 4. Recommend cushion heel pad for heel spur 5. F/u in 6 months for diabetic foot exam Morris Testrake, DPM * Lety Edgar RN - 10/03/2022 1:39 PM EST Patient presents with: Left Foot - New, Pain Right Foot - New, Pain New Patient: Wants to get established with a chain tender Patient presents to get established with a chain tender per her PCP. Patient is a diabetic, states some pain in her feet at times. [facility] History of Present illness Narrative* Lorenza Dillard, PT - 09/19/2022 2:15 PM EDT Episode Visit Count: 1 Therapist That Will Accept/Oversee The Plan Of Care: Lorenza Dillard PT Start of Care Date: 09/19/22 Onset Date: 06/14/21 Plan of Care Certification Date: 09/19/22 Next Certification Due Date: 10/31/22 Patient Identified by Name and Date of : Yes REHABILITATION AND SPORTS THERAPY PHYSICAL THERAPY EVALUATION PLAN OF CARE: Assessment: Medardo Ruiz presents with diagnosis of balance disorder and leg weakness that interferes with physical activities;recreational activities . She presents with impairments in balance and independence in exercise. . Prognosis for therapy is Good due to: current objective clinical presentation . She will benefit from skilled therapy services to meet the goals established for this plan of care as noted below. Assessment Fall Risk : Inactive at risk Goals for Episode of Care: created on 09/19/22 through 10/31/22 Patient will report no falls. Improve performance on 4 Stage Balance Test to 15 seconds tandem to reflect decreased fall risk. [facility]anner in home exercise program including cardiovascular exercise. Pt will report increased confidence with ambulation and balance Patient Goals: improve balance and strength. Planned Interventions, Frequency, and Duration: Current Frequency: 2x/week Duration: 4 weeks Total Number of Visits Planned: 8 Planned Treatment Interventions: Therapeutic exercise (51325);Neuromuscular re- education (53602);Self-snf management (81149);Patient/Family/Caregiver Education PLAN FOR NEXT VISIT: Will continue with challenged balance activities. Patient demonstrates good understanding of plan of care and treatment. The above goals and plan of care were discussed and agreed upon by patient/family. SUBJECTIVE: Medardo Ruiz is a 77 year old female seen today for fallen 3 times from mid October and last was Jul of this year wtih wrist fracture. Has not been as active recently. Currently doing water jogging 2x/week . Patient Goals: improve balance and strength. Functional Limitations: physical activities;recreational activities Relevant History Employment: Retired Home Environment Patient Lives With: Spouse Home Type: Multi-Level Entry To Home: Stairs;Without Rail Number Of Stairs Into Home: 1 Intake Information: Prescription present Previous Treatment: Aquatic PT (water exercise, walking) Falls Interview: Two or more falls in the last year;Fall with injury in the last year Falls Intervention: More thorough falls assessment to be performed Falls History # of falls in past year: 3 # of falls resulting in an injury in past year: 1 Pain: Pain Pain Level: 3 Pain Location: Shoulder - Right Description: Aching Post Treatment Pain Post Treatment Pain Level: No Change PROMIS Scales Higher is Better 04/07/2022 07/05/2022 09/12/2022 Phys Func - Score - - - Phys Func - Percentile - - - Social Roles - Score - - - Social Role - Percentile - - - GH Physical - Score 44.9 (Good) 44.9 (Good) 44.9 (Good) GH Physical - Percentile 31 % 31 % 31 % GH Mental - Score 45.8 (Good) 48.3 (Very Good) 48.3 (Very Good) GH Mental - Percentile 34 % 43 % 43 % Self-Eff Symptom - Score - - - Self-Eff Symptom - Percentile - - - T-scores: mean of general population = 50. 5 points is clinically meaningfully difference Percentiles provide an indication of how the patient's score ranks in relation to the general population. Higher percentile rankings indicate better function/quality of life. 50th percentile is the average of the general population and indicates half of respondents had a worse score. Lower is Better 05/23/2020 07/04/2021 07/13/2021 Fatigue - Score 52 (within normal limits) 51 (within normal limits) 50 (within normal limits) Fatigue - Percentile 42 % 46 % 50 % T-scores: mean of general population = 50. 5 points is clinically meaningfully difference Percentiles provide an indication of how the patient's score ranks in relation to the general population. Higher percentile rankings indicate better function/quality of life. 50th percentile is the average of the general population and indicates half of respondents had a worse score. OBJECTIVE MEASURES WITH LEVEL OF FUNCTION: Vision Vision Deficits: Wears corrective lenses Posture / Alignment Posture: Good Sensory Sensory Deficits: Light Touch Light Touch: Impaired (in feet) Mobility Sit To Stand: Independent Gait Weight Bearing Status: FWB Gait: Independent Gait Device: None Functional Performance Test Results 30 Second Chair Stand Test: 15 reps Timed Up and Go (sec): 9 sec 4 Stage Balance Test Narrow base of support (sec): 30 sec Semi-tandem base of support (sec): 15 sec Tandem base of support (sec): 9 sec Functional Reach - Stand Functional Reach Stand - Right (inches): 12 in Tinetti Assessment Tool Sitting balance: 1- Steady, safe Rises from chair: 2- Able without use of arms Attempts to rise: 2- Able to rise, 1 attempt Immediate standin- Steady without walker or other support Nudged: 2- Stead Eyes closed: 1- Steady Turning 360 Continuous: 1- Continuous Turning 360 Steady: 1- Steady Sitting down: 2- Safe, smooth motion Balance Score (calculated): 14 Indication of gait: 1- No hesitancy R Step length and height: 1- Step through R L Step length and height: 1- Step through L R Foot clearance: 1- R foot clears L Foot clearance: 1- L foot clears Step symmetry: 1- R and L step length appear equal Step continuity: 1- Steps appear continuous Path: 2- Straight without aid Trunk: 2- No sway, flex or use of arms or aid Walk Time: 1- Heels amost touching while walking Gait Score (calculated): 12 Tinetti Assessment Tool Total Score (calculated): 26 Fall Risk:: > or equal to 24: Low Fall Risk Education: Education Learning Preferences: Demonstration;Explanation;Performance Barriers: None Learning/educational needs: Plan of Care Education Provided: Yes, see treatment interventions for education provided Education Provided To: Patient Education Mode/Type: Demonstration;Explanation/Discussion;Performance Response to Education/Teach Back: States/Identifies;Return Demonstration TREATMENT: PT Treatment Interventions: Neuromuscular Re-Education;Therapeutic Exercise Evaluation Therapeutic Exercise: 1: sit to stand 1x10 2: standing at parallel bars hip abduction 2x10 B Skilled Intervention: Patient was educated in proper exercise technique and purpose for exercises. Skilled judgment was provided in selection of appropriate interventions. Patient education as noted. Neuromuscular Re-Education: 1: balance board forward backward in parallel bars and balancing 2: step taps to doam of BOSU 2x10 B hands on guard 3: front side back foot taps alternating while in parallel bars 4: standing on blue foam NBOS with paloff and stir the pot UE ROM 1x10 each 5: tandem stance B Skilled Intervention: Skilled judgment used to assess appropriate program for balance and coordination activity. Education in proprioceptive/kinesthetic awareness during dynamic activities. Ensured patient safety with use of gait belt and parallel bars Home Exercise Program Assigned: 1: sit to stand and standing hip abduction Billing * Evaluation Low Complexity: 1 Unit Therapeutic Exercise Treatment Minutes: 10 Neuromuscular Re-Education Treatment Minutes: 20 Total Treatment Time Minutes (timed/untimed): 45 Lorenza Dillard PT documented [facility] History of Past illness Narrative* Problem Noted Date Resolved Date Balance disorder 09/19/2022 10/26/2022 Weakness of both lower extremities 09/19/2022 10/26/2022 Arthritis of knee 01/14/2020 01/15/2020 Class 2 obesity due to exces s calories with body mass index (BMI) of 36.0 to 36.9 in adult 12/31/2019 08/20/2020 Last Assessment & Plan: Assessment: Body mass index is 36.64 kg/m . 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 06/18/2019 1 Hypertension, essential 05/14/2017 04/10/20 19 documented as of this encounter (statuses as of 12/04/2022) [facility] Narrative* Problem Noted Date Resolved Date Balance disorder 09/19/2022 10/26/2022 Weakness of both lower extremities 09/19/2022 10/26/2022 Arthritis of knee 01/14/2020 01/15/2020 Class 2 obesity due to exces s calories with body mass index (BMI) of 36.0 to 36.9 in adult 12/31/2019 08/20/2020 Last Assessment & Plan: Assessment: Body mass index is 36.64 kg/m . 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 06/18/2019 1 Hypertension, essential 05/14/2017 04/10/20 19 documented as of this encounter (statuses as of 12/08/2022) [facility] Narrative* Problem Noted Date Resolved Date Balance disorder 09/19/2022 10/26/2022 Weakness of both lower extremities 09/19/2022 10/26/2022 Arthritis of knee 01/14/2020 01/15/2020 Class 2 obesity due to exces s calories with body mass index (BMI) of 36.0 to 36.9 in adult 12/31/2019 08/20/2020 Last Assessment & Plan: Assessment: Body mass index is 36.64 kg/m . 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 06/18/2019 1 Hypertension, essential 05/14/2017 04/10/20 19 documented as of this encounter (statuses as of 12/18/2022) [facility] Narrative* Problem Noted Date Resolved Date Balance disorder 09/19/2022 10/26/2022 Weakness of both lower extremities 09/19/2022 10/26/2022 Arthritis of knee 01/14/2020 01/15/2020 Class 2 obesity due to exces s calories with body mass index (BMI) of 36.0 to 36.9 in adult 12/31/2019 08/20/2020 Last Assessment & Plan: Assessment: Body mass index is 36.64 kg/m . 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 06/18/2019 1 Hypertension, essential 05/14/2017 04/10/20 19 documented as of this encounter (statuses as of 12/20/2022) [facility] Narrative* Problem Noted Date Resolved Date Balance disorder 09/19/2022 10/26/2022 Weakness of both lower extremities 09/19/2022 10/26/2022 Arthritis of knee 01/14/2020 01/15/2020 Class 2 obesity due to exces s calories with body mass index (BMI) of 36.0 to 36.9 in adult 12/31/2019 08/20/2020 Last Assessment & Plan: Assessment: Body mass index is 36.64 kg/m . 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 06/18/2019 1 Hypertension, essential 05/14/2017 04/10/20 19 documented as of this encounter (statuses as of 12/21/2022) [facility]11-01-2022 History of Past illness Narrative* Problem Noted Date Resolved Date Balance disorder 09/19/2022 10/26/2022 Weakness of both lower extremities 09/19/2022 10/26/2022 Arthritis of knee 01/14/2020 01/15/2020 Class 2 obesity due to exces s calories with body mass index (BMI) of 36.0 to 36.9 in adult 12/31/2019 08/20/2020 Last Assessment & Plan: Assessment: Body mass index is 36.64 kg/m . 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 06/18/2019 1 Hypertension, essential 05/14/2017 04/10/20 19 documented as of this encounter (statuses as of 12/22/2022) [facility]22 History of Past illness Narrative* Problem Noted Date Resolved Date Balance disorder 09/19/2022 10/26/2022 Weakness of both lower extremities 09/19/2022 10/26/2022 Arthritis of knee 01/14/2020 01/15/2020 Class 2 obesity due to exces s calories with body mass index (BMI) of 36.0 to 36.9 in adult 12/31/2019 08/20/2020 Last Assessment & Plan: Assessment: Body mass index is 36.64 kg/m . 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 06/18/2019 1 Hypertension, essential 05/14/2017 04/10/20 19 documented as of this encounter (statuses as of 01/03/2023) [facility]01[facility] History of Past illness Narrative* Problem Noted Date Resolved Date Balance disorder 09/19/2022 10/26/2022 Weakness of both lower extremities 09/19/2022 10/26/2022 Arthritis of knee 01/14/2020 01/15/2020 Class 2 obesity due to exces s calories with body mass index (BMI) of 36.0 to 36.9 in adult 12/31/2019 08/20/2020 Last Assessment & Plan: Assessment: Body mass index is 36.64 kg/m . 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 06/18/2019 1 Hypertension, essential 05/14/2017 04/10/20 19 documented as of this encounter (statuses as of 01/11/2023) [facility] History of Past illness Narrative* Problem Noted Date Resolved Date Balance disorder 09/19/2022 10/26/2022 Weakness of both lower extremities 09/19/2022 10/26/2022 Arthritis of knee 01/14/2020 01/15/2020 Class 2 obesity due to exces s calories with body mass index (BMI) of 36.0 to 36.9 in adult 12/31/2019 08/20/2020 Last Assessment & Plan: Assessment: Body mass index is 36.64 kg/m . 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 06/18/2019 1 Hypertension, essential 05/14/2017 04/10/20 19 documented as of this encounter (statuses as of 01/31/2023) [facility] History of Past illness Narrative* Problem Noted Date Resolved Date Balance disorder 09/19/2022 10/26/2022 Weakness of both lower extremities 09/19/2022 10/26/2022 Arthritis of knee 01/14/2020 01/15/2020 Class 2 obesity due to exces s calories with body mass index (BMI) of 36.0 to 36.9 in adult 12/31/2019 08/20/2020 Last Assessment & Plan: Assessment: Body mass index is 36.64 kg/m . 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 06/18/2019 1 Hypertension, essential 05/14/2017 04/10/20 19 documented as of this encounter (statuses as of 03/01/2023) [facility] History of Past illness Narrative* Problem Noted Date Resolved Date Balance disorder 09/19/2022 10/26/2022 Weakness of both lower extremities 09/19/2022 10/26/2022 Arthritis of knee 01/14/2020 01/15/2020 Class 2 obesity due to exces s calories with body mass index (BMI) of 36.0 to 36.9 in adult 12/31/2019 08/20/2020 Last Assessment & Plan: Assessment: Body mass index is 36.64 kg/m . 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 06/18/2019 1 Hypertension, essential 05/14/2017 04/10/20 19 documented as of this encounter (statuses as of 03/01/2023) [facility] History of Past illness Narrative* Problem Noted Date Resolved Date Balance disorder 09/19/2022 10/26/2022 Weakness of both lower extremities 09/19/2022 10/26/2022 Arthritis of knee 01/14/2020 01/15/2020 Class 2 obesity due to exces s calories with body mass index (BMI) of 36.0 to 36.9 in adult 12/31/2019 08/20/2020 Last Assessment & Plan: Assessment: Body mass index is 36.64 kg/m . 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 06/18/2019 1 Hypertension, essential 05/14/2017 04/10/20 19 documented as of this encounter (statuses as of 03/27/2023) [facility] History of Past illness Narrative* Problem Noted Date Resolved Date Balance disorder 09/19/2022 10/26/2022 Weakness of both lower extremities 09/19/2022 10/26/2022 Arthritis of knee 01/14/2020 01/15/2020 Class 2 obesity due to exces s calories with body mass index (BMI) of 36.0 to 36.9 in adult 12/31/2019 08/20/2020 Last Assessment & Plan: Assessment: Body mass index is 36.64 kg/m . 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 06/18/2019 1 Hypertension, essential 05/14/2017 04/10/20 19 documented as of this encounter (statuses as of 04/03/2023) [facility] History of Past illness Narrative* Problem Noted Date Resolved Date Balance disorder 09/19/2022 10/26/2022 Weakness of both lower extremities 09/19/2022 10/26/2022 Arthritis of knee 01/14/2020 01/15/2020 Class 2 obesity due to exces s calories with body mass index (BMI) of 36.0 to 36.9 in adult 12/31/2019 08/20/2020 Last Assessment & Plan: Assessment: Body mass index is 36.64 kg/m . 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 06/18/2019 1 Hypertension, essential 05/14/2017 04/10/20 19 documented as of this encounter (statuses as of 04/20/2023) [facility] History of Past illness Narrative* Problem Noted Date Resolved Date Balance disorder 09/19/2022 10/26/2022 Weakness of both lower extremities 09/19/2022 10/26/2022 Arthritis of knee 01/14/2020 01/15/2020 Class 2 obesity due to exces s calories with body mass index (BMI) of 36.0 to 36.9 in adult 12/31/2019 08/20/2020 Last Assessment & Plan: Assessment: Body mass index is 36.64 kg/m . 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 06/18/2019 1 Hypertension, essential 05/14/2017 04/10/20 19 documented as of this encounter (statuses as of 04/25/2023) [facility] History of Past illness Narrative* Problem Noted Date Resolved Date Balance disorder 09/19/2022 10/26/2022 Weakness of both lower extremities 09/19/2022 10/26/2022 Arthritis of knee 01/14/2020 01/15/2020 Class 2 obesity due to exces s calories with body mass index (BMI) of 36.0 to 36.9 in adult 12/31/2019 08/20/2020 Last Assessment & Plan: Assessment: Body mass index is 36.64 kg/m . 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 06/18/2019 1 Hypertension, essential 05/14/2017 04/10/20 19 documented as of this encounter (statuses as of 05/08/2023) [facility] History of Past illness Narrative* Problem Noted Date Resolved Date Balance disorder 09/19/2022 10/26/2022 Weakness of both lower extremities 09/19/2022 10/26/2022 Arthritis of knee 01/14/2020 01/15/2020 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 06/18/2019 1 Hypertension, essential 05/14/2017 04/10/20 19 documented as of this encounter (statuses as of 05/09/2023) [facility] History of Past illness Narrative* Problem Noted Date Resolved Date Balance disorder 09/19/2022 10/26/2022 Weakness of both lower extremities 09/19/2022 10/26/2022 Arthritis of knee 01/14/2020 01/15/2020 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 06/18/2019 1 Hypertension, essential 05/14/2017 04/10/20 19 documented as of this encounter (statuses as of 05/21/2023) [facility] History of Past illness Narrative* Problem Noted Date Diagnosed Date Resolved Date Balance disorder 09/19/2022 10/26/2022 Weakness of both lower extremities 09/19/2022 10/26/2022 Arthritis of knee 01/14/2020 01/15/2020 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 08/20/2020 Infected prosthetic knee joint 06/18/2019 08/20/2020 Hypertension, essential 05/14/201703/20 documented as of this encounter (statuses as of 06/04/2023) [facility] History of Past illness Narrative* Problem Noted Date Diagnosed Date Resolved Date Balance disorder 09/19/2022 10/26/2022 Weakness of both lower extremities 09/19/2022 10/26/2022 Arthritis of knee 01/14/2020 01/15/2020 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 08/20/2020 Infected prosthetic knee joint 06/18/2019 08/20/2020 Hypertension, essential 05/14/201703/20 documented as of this encounter (statuses as of 06/05/2023) [facility] History of Past illness Narrative* Problem Noted Date Diagnosed Date Resolved Date Balance disorder 09/19/2022 10/26/2022 Weakness of both lower extremities 09/19/2022 10/26/2022 Arthritis of knee 01/14/2020 01/15/2020 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 08/20/2020 Infected prosthetic knee joint 06/18/2019 08/20/2020 Hypertension, essential 05/14/201703/20 documented as of this encounter (statuses as of 06/13/2023) [facility] History of Past illness Narrative* Problem Noted Date Diagnosed Date Resolved Date Balance disorder 09/19/2022 10/26/2022 Weakness of both lower extremities 09/19/2022 10/26/2022 Arthritis of knee 01/14/2020 01/15/2020 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 08/20/2020 Infected prosthetic knee joint 06/18/2019 08/20/2020 Hypertension, essential 05/14/201703/20 documented as of this encounter (statuses as of 06/21/2023) [facility] History of Past illness Narrative* Problem Noted Date Diagnosed Date Resolved Date Balance disorder 09/19/2022 10/26/2022 Weakness of both lower extremities 09/19/2022 10/26/2022 Arthritis of knee 01/14/2020 01/15/2020 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 08/20/2020 Infected prosthetic knee joint 06/18/2019 08/20/2020 Hypertension, essential 05/14/201703/20 documented as of this encounter (statuses as of 06/26/2023) [facility] History of Past illness Narrative* Problem Noted Date Diagnosed Date Resolved Date Balance disorder 09/19/2022 10/26/2022 Weakness of both lower extremities 09/19/2022 10/26/2022 Arthritis of knee 01/14/2020 01/15/2020 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 08/20/2020 Infected prosthetic knee joint 06/18/2019 08/20/2020 Hypertension, essential 05/14/201703/20 documented as of this encounter (statuses as of 06/28/2023) [facility] History of Past illness Narrative* Problem Noted Date Diagnosed Date Resolved Date Balance disorder 09/19/2022 10/26/2022 Weakness of both lower extremities 09/19/2022 10/26/2022 Arthritis of knee 01/14/2020 01/15/2020 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 08/20/2020 Infected prosthetic knee joint 06/18/2019 08/20/2020 Hypertension, essential 05/14/201703/20 documented as of this encounter (statuses as of 07/10/2023) [facility] History of Past illness Narrative* Problem Noted Date Diagnosed Date Resolved Date Balance disorder 09/19/2022 10/26/2022 Weakness of both lower extremities 09/19/2022 10/26/2022 Arthritis of knee 01/14/2020 01/15/2020 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 08/20/2020 Infected prosthetic knee joint 06/18/2019 08/20/2020 Hypertension, essential 05/14/201703/20 documented as of this encounter (statuses as of 09/24/2023) [facility] History of Present illness Narrative* Elsy Escalera LPN - 09/14/2022 1:30 PM EDT Patient presents for B-12 injection. Denies any problems at this time. Patient instructed on any SEof medication, verbalized understanding and agreed to proceed with treatment. Tolerated injection well. Elsy Escalera LPN [facility] Miscellaneous Notes* Letter - Mammography Coordinator - 08/31/2022 2:09 PM EDT August 31, 2022 PID: [id number] Medardo Ruiz [address] [place] [address] Dear Ms. Ruiz, We are pleased to inform you that the results of your recent breast imaging exam on 08/31/2022 are normal. Your mammogram demonstrates that you have dense breast tissue, which could hide abnormalities. Dense breast tissue, in and of itself, is a relatively common condition. Therefore, this information is not provided to cause undue concern; rather, it is to raise your awareness and promote discussion with your health care provider regarding the presence of dense breast tissue in addition to other riskfactors. Early detection of cancer is very important. We also understand recommendations regarding breast cancer screening are controversial. Please discuss with your primary care provider which strategy is best for you and whether a mammogram is right for you. Your imaging studies and report will be kept on file at [facility] as part of your permanent medical record and are available for your continuing care. Thank you for allowing us to help in meeting your health care needs. Sincerely, Dr. Taylor Interpreting Radiologist [facility] (Normal over 40) documented in this encounterK[facility]10[facility] History of Present illness Narrative* Javad Borja - 08/31/2022 1:10 PM EDT Radiology Service Progress Note PATIENT NAME: Medardo Ruiz DATE OF SERVICE: August 31, 2022 TIME: 1:23 PM PATIENT IDENTITY VERIFICATION COMPLETED USING TWO (2) IDENTIFIERS: Name and Date of confirmedby patient verbally. FALL SCREENING: Has the patient had 2 falls in the last year or 1 fall with injury or currently using an Ambulatory Assistive Device (Walker, Cane, Wheelchair, Crutches, etc.)? No PATIENT GENDER DATA: Female. status: : No status: NO. PATIENT RELEVANT IMPLANT DATA REVIEWED: Not Applicable RADIOLOGY DEPARTMENT: Mammography PERIPHERAL IV DATA: Not applicable SIGNED BY: Javad Borja August 31, 2022 1:23 PM documented in this [facility] History of Present illness Narrative* Jerri Harvey PA-C - 08/28/2022 8:50 AM EDT Jerri Harvey PA-C Department of Orthopaedics Orthopaedics [address] [facility] [address] Dept: [phone] Dept August 28, 2022 CHIEF COMPLAINT: Established Patient and Fracture of the Right Wrist. ASSESSMENT: S52.514A Closed nondisplaced fracture of styloid process of right radius, initial encounter (primary encounter diagnosis) SUMMARY/PLAN: Patient presents just about 1 month status post right radial styloid fracture. She is doing very well, no pain today but her thumb feels very stiff from being in a cast. X-rays look good, we will gether into a functional brace to be worn during heavier activities. She may remove the brace and encourage gentle range of motion. Discussed having her continue with the brace for an additional 2 weeks, at that point she can transition out of the brace. Offered occupational therapy, she declines at this time. Follow-up on an as-needed basis. Exam: Right wrist is without tenderness to palpation at the radial styloid. Wrist extension of 55 degreeswith flexion to 45 degrees. Full pronation and full supination with subjective stiffness. Imaging: * * *Final Report* * * DATE OF EXAM: Aug 28 2022 8:20AM [id number] - XR WRIST 3V PA/LAT/OBL RT / PROCEDURE REASON: Closed nondisplaced fracture of styloid process of right radius, initial encount * * * * Physician Interpretation * * * * EXAMINATION: XR WRIST 3V PA/LAT/OBL RT CLINICAL HISTORY: Follow-up right wrist fracture Technique: XR WRIST 3V PA/LAT/OBL RT -- RIGHT with 3 views on 3 images Comparison: X-ray right wrist 08/03/2022 RESULT: There is a nondisplaced fracture of the distal right radius. There is some sclerosis along the margins of the fracture line. No dislocation. Postoperative changes from resection of the trapezium. IMPRESSION IMPRESSION: Unchanged alignment of a healing fracture of the distal right radius Rn Transplant: RAY Transcribe Date/Time: Aug 29 2022 1:27P Dictated by : ELSY GOLDMAN MD This examination was interpreted and the report reviewed and electronically signed by: ELSY GOLDMAN MD on Aug 29 2022 1:28PM EST Ms. Medardo Ruiz was advised as to contrast therapies and/or to take analgesics/anti-inflammatories as needed and all contraindications were reviewed. Supporting Information Below: Medications: Current Outpatient Medications Medication Sig furosemide (LASIX) 20 mg tablet Take 1 tablet by mouth once daily. buPROPion (WELLBUTRIN) 75 mg tablet Take 1 tablet by mouth twice daily. glimepiride (AMARYL) 2 mg tablet Take 1 tablet by mouth daily with breakfast. [START ON 10/13/2022] metFORMIN (GLUCOPHAGE) 500 mg tablet Take 2 tablets by mouth twice daily withmeals. And 1 tablet at bedtime levothyroxine (SYNTHROID) 75 mcg tablet Take 1 tablet by mouth daily before breakfast. gabapentin (NEURONTIN) 300 mg capsule Take 1 capsule by mouth daily at bedtime for 90 days. dulaglutide (TRULICITY) 0.75 mg/0.5 mL pen injector Inject 0.75 mg subcutaneously one time a week. Inject dose once per week. Discard Pen After rOPINIRole (REQUIP) 1 mg tablet Take 1.5 tablets by mouth daily at bedtime. venlafaxine ER (EFFEXOR XR) 75 mg 24 hr capsule Take 1 capsule by mouth once daily. amLODIPine (NORVASC) 5 mg tablet Take 1 tablet by mouth once daily. Benazepril HCl (LOTENSIN) 40 mg tablet Take 1 tablet by mouth once daily. simvastatin (ZOCOR) 40 mg tablet Take 1 tablet by mouth daily at bedtime. latanoprost (XALATAN) 0.005 % ophthalmic solution Ferrous Gluconate 240 mg (27 mg iron) tablet Take 1 tablet by mouth three times daily with meals. Omeprazole Magnesium 20 mg tablet Take 20 mg by mouth once daily. ascorbic acid, vitamin C, (VITAMIN C) 500 mg tablet Take 500 mg by mouth once daily. loratadine 10 mg cap Take by mouth. Calcium Citrate-Vitamin D3 (CITRACAL+D) 315 mg-6.25 mcg (250 unit) tab Take 1 tablet by mouth once daily. blood sugar diagnostic (ACCU-CHEK ISAMAR PLUS TEST STRP) test strip 1 Strip once daily. Use as instructed. Dx: E11.8 Insulin: No CPAP Initiate CPAP @ 9 cm of water with humidification. Mask (per patient preference) optional chinstrap (if indicated) , filters, tubing, humidifier and lifetime supplies. Current Facility-Administered Medications Medication Dose Route Frequency cyanocobalamin 1,000 mcg injection 1,000 mcg INTRAMUSCULAR q 4 WEEKS Allergies: Amoxicillin, Codeine, and Latex This note was partially generated using [email or web address] voice recognition system, and there may be some incorrect words, spellings, and punctuation that were not noted in checking the note before saving. Jerri Harvey PA-C * Mikaela Meza Ma - 08/28/2022 8:02 AM EDT AMB ROOMING INTAKE FLOWSHEET DATA Risk Screening Do you have concerns about personal safety or safety in the home?: No Patient here today for 3 weeks 6 days post right wrist fx. Patient denies any pain. documented in [facility] History of Present illness Narrative* RT Monika(R) - 08/28/2022 8:00 AM EDT Radiology Service Progress Note PATIENT NAME: Medardo Ruiz DATE OF SERVICE: August 28, 2022 TIME: 8:15 AM PATIENT IDENTITY VERIFICATION COMPLETED USING TWO (2) IDENTIFIERS: Name and Date of confirmedby patient verbally. FALL SCREENING: Has the patient had 2 falls in the last year or 1 fall with injury or currently using an Ambulatory Assistive Device (Walker, Cane, Wheelchair, Crutches, etc.)? No PATIENT GENDER DATA: Female. status: : No status: NO. PATIENT RELEVANT IMPLANT DATA REVIEWED: Not Applicable RADIOLOGY DEPARTMENT: General X-ray: Exam(s) Completed: Upper Extremity X- Ray(s): Wrist, right PERIPHERAL IV DATA: Not applicable SIGNED BY: RT Monika(R) August 28, 2022 8:15 AM documented in this [facility]09[facility] History of Present illness Narrative* RT Kevin(R) - 08/17/2022 1:10 PM EDT Radiology Service Progress Note PATIENT NAME: Medardo Ruiz DATE OF SERVICE: August 17, 2022 TIME: 1:00 PM PATIENT IDENTITY VERIFICATION COMPLETED USING TWO (2) IDENTIFIERS: Name and Date of confirmedby patient verbally. FALL SCREENING: Has the patient had 2 falls in the last year or 1 fall with injury or currently using an Ambulatory Assistive Device (Walker, Cane, Wheelchair, Crutches, etc.)? No PATIENT GENDER DATA: Female. status: : No status: NO. PATIENT RELEVANT IMPLANT DATA REVIEWED: Not Applicable RADIOLOGY DEPARTMENT: Mammography PERIPHERAL IV DATA: Not applicable SIGNED BY: RT Kevin(R) August 17, 2022 1:00 PM documented in this [facility] Miscellaneous Notes* Telephone Encounter - Marilee Wood LPN - 08/10/2022 12:42 PM EDT Patient has been identified by name and date of : Yes Patient phones for refill(s): Requested Prescriptions Pending Prescriptions Disp Refills buPROPion (WELLBUTRIN) 75 mg tablet 180 tablet 1 Sig: Take 1 tablet by mouth twice daily. Date of last office visit in primary care: 05/15/22 Please advise. Thank you. Marilee Wood LPN documented in this [facility] Miscellaneous Notes* Telephone Encounter - Marilee Wood LPN - 08/10/2022 12:40 PM EDT Patient has been identified by name and date of : Yes Patient phones for refill(s): Requested Prescriptions Pending Prescriptions Disp Refills furosemide (LASIX) 20 mg tablet 90 tablet 3 Sig: Take 1 tablet by mouth once daily. Date of last office visit in primary care: 05/15/22 Please advise. Thank you. Marilee Wood LPN documented in this [facility] Instructions* Patient Instructions* Mikaela Meza Ma - 08/07/2022 11:03 AM EDT CAST CARE INSTRUCTIONS You have a fiberglass/plaster cast. Casts keep broken bones in place so they can heal. They are also used in other injuries to immobilize the injured area and allow for healing. For similar reasons they are used after some types of surgery. Fiberglass casts are stringed instrument tuner in weight and more durable. Plaster casts can be made to more accurately conform to your arm or leg. It is possible to take x-rays through the cast to check fracture alignment and healing. Below are some things you should be aware of: 1) You should elevate your injured extremity above the level of your heart (i.e. use pillows to elevate your arm or leg, this will help minimize swelling). If your cast is too tight, fingers or toes may become swollen or numb and often your arm or leg will become more painful. You should continue elevation until swelling is no longer a problem, after days of experience this will be easier for youto determine. A safe rule of thumb is to continue to elevate your injured extremity as much as possible until your first follow-up appointment. 2) Protect your cast until it finishes hardening, this is about 3 days for a plaster cast or 2 hours for a fiberglass cast. This specifically means you SHOULD NOT walk on a walking cast until afterthis time period. 3) If your cast is waterproof, you can skip to #4. If your cast is plaster or not waterproof, keep your cast dry. The fiberglass cast is more water resistant than plaster but the padding inside the cast is not water resistant. Soaking wet cast padding will eventually cause damage to your skin. Use a water tight plastic bag to keep your cast dry while showering. We have bags specifically designed for this purpose if your desire one. Our experience has been that no bag is very effective in keeping the cast dry if you submerge it under water such as in a bathtub or a swimming pool. If your cast does accidentally get wet and you have a fiberglass cast, use a chair frame builder on LOW temperature setting and high FAN setting until the cast completely dried out, including the padding inside it. This will probably take several DAYS. Please note that getting your cast wet will probably also cause it tohave an unpleasant odor. 4) Avoid high temperature and high humidity situations (sweat makes a cast uncomfortable and will cause it to smell). 5) Do not pull any cast padding from inside your cast. If you feel your cast needs trimming contactus so that we may have you come to the office for this purpose. 6) Never try to relieve an itch by inserting anything under the cast such as a coat drapery hanger, wire, stick, etc. This commonly will cause small scratches in your skin which, because of the environment under the cast, may become infected. This infection may not be visible until it becomes quite severe because it is underneath the cast. Often a chair frame builder on a cool setting blowing in the opening of the cast may help. If itching persists please call our office. 7) You may autograph or write on your cast once it is completely dried. Magic marker and pen works best, do not use paint or crayons. WARNING SIGNS -- this can mean something is wrong. 1) Increased pain. 2) Numbness or tingling in your hand or foot. 3) Excessive swelling below the cast, not relieved by elevation. 4) Foul smell or appearance of drainage on your cast. 5) A fever which is not associated with other illnesses. DO'S AND DON'TS 1) DON'T break off rough edges or trim your cast. 2) DO inspect the cast daily, call if it is cracked, becomes soft , or it is rubbing against your skin. 3) DO keep your cast clean and dry. 4) DON'T pull out the cast padding. 5) DON'T stick objects inside the cast. 6) DON'T use ice on your plaster cast. 7) DO exercise your fingers or toes and try to move them as much as the cast will permit. Frequently asked questions: Can I wash my waterproof fiberglass cast? Yes, washing or rinsing inside your fiberglass cast may reduce odor and irritation and improve the overall skin condition of the cast area. You may use a spray nozzle at a sink or flexible shower head to rinse inside your cast with warm water. Never insert any object into your cast for any purpose.No special drying procedures are necessary after wetting. Make sure you rinse out all soap after showering. If you are at the beach, make sure you rinse out any sand. If you have any questions or anything seems wrong, please contact our Orthopedic office immediatelyat and ask to speak with a nurse. After hours you can call the Clinic at and the '[id number]' can answer your questions or she will page Dr. Pham if needed. documented in this [facility] History of Present illness Narrative* Jerri Harvey PA-C - 08/07/2022 11:01 AM EDT Jerri Harvey PA-C Department of Orthopaedics Orthopaedics [address] [facility] [address] Dept: [phone] Dept August 07, [address] Clara Felix PA-C for an opinion regarding right wrist fracture. My final recommendations will be communicated back to the requesting physician by way of shared Medical record or letter to requesting physician via US mail. CHIEF COMPLAINT: Established Patient and Fracture of the Right Wrist Ms. Medardo Ruiz is a 77 year old female she presents with right wrist pain after a [place] [employer] [address], patient was going out to pick a green pepper when she lost her balance, she recalls falling directly on her right elbow. She did not go to the urgent care for a few days, she thought itwas just a sprain. Denies any pain today. Patient is left-hand dominant. She enjoys crafting. She is status post right CMC arthroplasty, right carpal tunnel release. ASSESSMENT: S52.514A Closed nondisplaced fracture of styloid process of right radius, initial encounter (primary encounter diagnosis) M25.531 Right wrist pain PLAN: She has a nondisplaced radial styloid fracture. We will get her into a cast today. I would like to just get a repeat x-ray next week in her cast. We will see her in 3 weeks with cast removal, we will transition her to a functional brace at that time. Patient agrees to plan. Ms. Medardo Ruiz was advised as to contrast therapies and/or to take analgesics/anti-inflammatories as needed and all contraindications were reviewed. OBJECTIVE: Ms. Medardo Ruiz is a pleasant 77 year old in no apparent distress. Gen:There were no vitals taken for this visit. nl development, obese, no deformities ENT: Normocephalic, normal hearing, moist mucosa CV: Pulses:Radial= 2+ and symmetric, capillary refill < 2 secs, no peripheral edema/varicosities Skin: no rash, bruising or lesions. Good turgor. Psych: cooperative and appropriate, alert and oriented x 3, good mood and affect. Musculoskeletal: Right wrist with mild but appropriate edema and ecchymosis along the dorsum of the wrist and volar aspect of the wrist. Pain with palpation over the distal radius. Patient is able to form a loose composite fist and extend all digits, range of motion of the wrist was not tested. Sensation is intact to the radial 3 digits. Imaging: IMPRESSION: Distal radial fracture. Rn Transplant: RAY Transcribe Date/Time: Aug 03 2022 2:32P Dictated by : TONJA MEDELLIN MD This examination was interpreted and the report reviewed and electronically signed by: TONJA MEDELLIN MD on Aug 03 2022 2:36PM EST Results-Findings * * *Final Report* * * DATE OF EXAM: Aug 03 2022 2:18PM WOX [id number] - XR WRIST 4V PA/LAT/OBL/SCAPH RT / PROCEDURE REASON: Wrist injury, left, initial encounter * * * * Physician Interpretation * * * * EXAM TITLE: XR WRIST 4V PA/LAT/OBL/SCAPH RT EXAM DATE/TIME: 08/03/2022 2:18 PM COMPARISON: None. CLINICAL INDICATION/HISTORY: Wrist injury. TECHNIQUE: PA, lateral, oblique and scaphoid views of right wrist are presented. FINDINGS: Nondisplaced fracture visualized in the distal radius. There appear to be postoperative changes from trapezium resection. Cyst formation seen in the base of the first metacarpal bone and within the proximal phalanx of the fifth digit. The bones are osteopenic. There is no significant soft tissue swelling. Supporting Subjective Information Below: Past Surgical History: PAST SURGICAL HISTORY Procedure Laterality Date ADENOIDECTOMY PRIMARY <AGE 14 1952 Adenoidectomy ARTHROPLASTY METACARPOPHALANGEAL JOINT EACH 2001 right thumb ARTHROSCOPY KNEE DIAGNOSTIC W/WO SYNOVIAL BX SPX Left 2006 Arthroscopy, knee ARTHROSCOPY KNEE DIAGNOSTIC W/WO SYNOVIAL BX SPX Right 2011 Arthroscopy, knee ARTHRP KNE CONDYLE&PLATU MEDIAL&LAT COMPARTMENTS Left 2007 Knee replacement, total ARTHRP KNE CONDYLE&PLATU MEDIAL&LAT COMPARTMENTS Right 2010 Knee replacement, total BLEPHAROPLASTY UP LID W/EXCESS SKIN 2011 bilaterally BREAST BIOPSY 1998 negative DELIVERY ONLY 1975 , low transverse DELIVERY ONLY 1978 , low transverse CHOLECYSTECTOMY 1977 Cholecystectomy COLONOSCOPY 2012 COLONOSCOPY FLX DX W/COLLJ SPEC WHEN PFRMD 10/24/2018 Colonoscopy EXCISION GANGLION WRIST, RECURRENT Right 1967 NEUROPLASTY &/TRANSPOS MEDIAN NRV CARPAL TUNNE Right 1997 Carpal tunnel decomp PAST SURGICAL HISTORY OF 2010 trigger finger release x 4 bilateral middle and ring fingers PAST SURGICAL HISTORY OF 6 of small instestine removed REVJ TOT KNEE ARTHRP FEM&ENTIRE TIBIAL COMPONE Right 01/14/2020 Knee replacement, revision TONSILLECTOMY PRIMARY/SECONDARY <AGE 14 1952 Tonsillectomy TOTAL ABDOMINAL HYSTERECT W/WO RMVL TUBE OVARY 1988 Hysterectomy, KALIA left ovary remains Medications: Current Outpatient Medications Medication Sig [START ON 08/24/2022] glimepiride (AMARYL) 2 mg tablet Take 1 tablet by mouth daily with breakfast. [START ON 10/13/2022] metFORMIN (GLUCOPHAGE) 500 mg tablet Take 2 tablets by mouth twice daily withmeals. And 1 tablet at bedtime levothyroxine (SYNTHROID) 75 mcg tablet Take 1 tablet by mouth daily before breakfast. gabapentin (NEURONTIN) 300 mg capsule Take 1 capsule by mouth daily at bedtime for 90 days. dulaglutide (TRULICITY) 0.75 mg/0.5 mL pen injector Inject 0.75 mg subcutaneously one time a week. Inject dose once per week. Discard Pen After rOPINIRole (REQUIP) 1 mg tablet Take 1.5 tablets by mouth daily at bedtime. venlafaxine ER (EFFEXOR XR) 75 mg 24 hr capsule Take 1 capsule by mouth once daily. amLODIPine (NORVASC) 5 mg tablet Take 1 tablet by mouth once daily. Benazepril HCl (LOTENSIN) 40 mg tablet Take 1 tablet by mouth once daily. simvastatin (ZOCOR) 40 mg tablet Take 1 tablet by mouth daily at bedtime. buPROPion (WELLBUTRIN) 75 mg tablet Take 1 tablet by mouth twice daily. latanoprost (XALATAN) 0.005 % ophthalmic solution furosemide (LASIX) 20 mg tablet Take 1 tablet by mouth once daily. Ferrous Gluconate 240 mg (27 mg iron) tablet Take 1 tablet by mouth three times daily with meals. Omeprazole Magnesium 20 mg tablet Take 20 mg by mouth once daily. ascorbic acid, vitamin C, (VITAMIN C) 500 mg tablet Take 500 mg by mouth once daily. loratadine 10 mg cap Take by mouth. Calcium Citrate-Vitamin D3 (CITRACAL+D) 315 mg-6.25 mcg (250 unit) tab Take 1 tablet by mouth once daily. blood sugar diagnostic (ACCU-CHEK ISAMAR PLUS TEST STRP) test strip 1 Strip once daily. Use as instructed. Dx: E11.8 Insulin: No CPAP Initiate CPAP @ 9 cm of water with humidification. Mask (per patient preference) optional chinstrap (if indicated) , filters, tubing, humidifier and lifetime supplies. Current Facility-Administered Medications Medication Dose Route Frequency cyanocobalamin 1,000 mcg injection 1,000 mcg INTRAMUSCULAR q 4 WEEKS Allergies: Amoxicillin, Codeine, and Latex ROS: General (negative for fatigue, malaise, weight loss/gain) HEENT (negative for headache, earache, recent vision changes, sinus pain, sore throat) Respiratory (no recent shortness of breath, hemoptysis) CV (negative for chest tightness, palpitations) Musculoskeletal (see HPI) Psych (no depression, anxiety) This note was partially generated using [email or web address] voice recognition system, and there may be some incorrect words, spellings, and punctuation that were not noted in checking the note before saving. Jerri Harvey PA-C * Mikaela Meza Ma - 08/07/2022 11:01 AM EDT PT ASSESSMENT - CASTING ROOM Medardo presents for Application of cast. Applied short thumb spica cast to Right hand using 3 rolls of gortex and 2 rolls of fiberglass. Patient tolerated well. Patient has been instructed in Care of cast. Instructed to return next week for a new x-ray in the cast and follow up in the office in 3 weeks. Mikaela Meza Ma * Mikaela Meza Ma - 08/07/2022 9:51 AM EDT AMB ROOMING INTAKE FLOWSHEET DATA Patient here today for right distal radius fracture. She fell on her patio on 08/01/2022. She was going out to get a green pepper from her garden for dinner. She has a brace at home so she put that onand didn't go to Urgent Care until . She is left hand dominant. Arrives in splint from urgent care. [facility] History of Present illness Narrative* Clara Felix PA-C - 08/03/2022 3:49 PM EDT Images from the original note were not included. This note was created using [employer]. Subjective Medardo Ruiz is a 77 year old female. HPI Patient presents with right wrist pain over the past 3 days. She states she tripped on her patio and landed on her right shoulder and wrist. No head injury. No neck or back pain. She noticed worsening bruising swelling today on her wrist so she came in for evaluation. She has had surgery on the wrist previously for probable arthritic changes. She denies any fractures previously. No numbness or tingling. She is left-handed. Review of Systems Constitutional: Negative. HENT: Negative. Respiratory: Negative. Cardiovascular: Negative. Gastrointestinal: Negative. Musculoskeletal: Right wrist pain All other systems reviewed and are negative. PAST MEDICAL HISTORY Diagnosis Date Depression DM type 2 (diabetes mellitus, type 2) (HCC) GERD (gastroesophageal reflux disease) Hyperlipidemia Hypertension Loc osteoarth NOS-site NEC Narcolepsy Pancreatic neoplasm PUD (peptic ulcer disease) Restless leg Rhinitis, chronic Sleep apnea Snoring Thyroid nodule Current Outpatient Medications Medication Sig Dispense Refill [START ON 08/24/2022] glimepiride (AMARYL) 2 mg tablet Take 1 tablet by mouth daily with breakfast. 90 tablet 3 [START ON 10/13/2022] metFORMIN (GLUCOPHAGE) 500 mg tablet Take 2 tablets by mouth twice daily withmeals. And 1 tablet at bedtime 450 tablet 3 levothyroxine (SYNTHROID) 75 mcg tablet Take 1 tablet by mouth daily before breakfast. 90 tablet 3 gabapentin (NEURONTIN) 300 mg capsule Take 1 capsule by mouth daily at bedtime for 90 days. 90 capsule 3 dulaglutide (TRULICITY) 0.75 mg/0.5 mL pen injector Inject 0.75 mg subcutaneously one time a week. Inject dose once per week. Discard Pen After 4 Each 5 blood sugar diagnostic (ACCU-CHEK ISAMAR PLUS TEST STRP) test strip 1 Strip once daily. Use as instructed. Dx: E11.8 Insulin: No 100 Strip 5 rOPINIRole (REQUIP) 1 mg tablet Take 1.5 tablets by mouth daily at bedtime. 135 tablet 3 venlafaxine ER (EFFEXOR XR) 75 mg 24 hr capsule Take 1 capsule by mouth once daily. 90 capsule 3 amLODIPine (NORVASC) 5 mg tablet Take 1 tablet by mouth once daily. 90 tablet 3 Benazepril HCl (LOTENSIN) 40 mg tablet Take 1 tablet by mouth once daily. 90 tablet 3 simvastatin (ZOCOR) 40 mg tablet Take 1 tablet by mouth daily at bedtime. 90 tablet 3 buPROPion (WELLBUTRIN) 75 mg tablet Take 1 tablet by mouth twice daily. 180 tablet 1 latanoprost (XALATAN) 0.005 % ophthalmic solution furosemide (LASIX) 20 mg tablet Take 1 tablet by mouth once daily. 90 tablet 3 Ferrous Gluconate 240 mg (27 mg iron) tablet Take 1 tablet by mouth three times daily with meals. 90 tablet 11 CPAP Initiate CPAP @ 9 cm of water with humidification. Mask (per patient preference) optional chinstrap (if indicated) , filters, tubing, humidifier and lifetime supplies. 1 Device 0 Omeprazole Magnesium 20 mg tablet Take 20 mg by mouth once daily. ascorbic acid, vitamin C, (VITAMIN C) 500 mg tablet Take 500 mg by mouth once daily. loratadine 10 mg cap Take by mouth. Calcium Citrate-Vitamin D3 (CITRACAL+D) 315 mg-6.25 mcg (250 unit) tab Take 1 tablet by mouth once daily. Current Facility-Administered Medications Medication Dose Route Frequency Provider Last Rate Last Admin cyanocobalamin 1,000 mcg injection 1,000 mcg INTRAMUSCULAR q 4 WEEKS Patricia Covarrubias MD 1,000 mcg at 06/27/22 0928 PAST SURGICAL HISTORY Procedure Laterality Date ADENOIDECTOMY PRIMARY <AGE 12 1950 Adenoidectomy ARTHROPLASTY METACARPOPHALANGEAL JOINT EACH 2001 right thumb ARTHROSCOPY KNEE DIAGNOSTIC W/WO SYNOVIAL BX SPX Left 2006 Arthroscopy, knee ARTHROSCOPY KNEE DIAGNOSTIC W/WO SYNOVIAL BX SPX Right 2011 Arthroscopy, knee ARTHRP KNE CONDYLE&PLATU MEDIAL&LAT COMPARTMENTS Left 2007 Knee replacement, total ARTHRP KNE CONDYLE&PLATU MEDIAL&LAT COMPARTMENTS Right 2011 Knee replacement, total BLEPHAROPLASTY UP LID W/EXCESS SKIN 2011 bilaterally BREAST BIOPSY 1998 negative DELIVERY ONLY 1975 , low transverse DELIVERY ONLY 1978 , low transverse CHOLECYSTECTOMY 1977 Cholecystectomy COLONOSCOPY 2012 COLONOSCOPY FLX DX W/COLLJ SPEC WHEN PFRMD 10/24/2018 Colonoscopy EXCISION GANGLION WRIST, RECURRENT Right 1968 NEUROPLASTY &/TRANSPOS MEDIAN NRV CARPAL TUNNE Right 1997 Carpal tunnel decomp PAST SURGICAL HISTORY OF 2010 trigger finger release x 4 bilateral middle and ring fingers PAST SURGICAL HISTORY OF 6 of small instestine removed REVJ TOT KNEE ARTHRP FEM&ENTIRE TIBIAL COMPONE Right 01/14/2020 Knee replacement, revision TONSILLECTOMY PRIMARY/SECONDARY <AGE 14 1952 Tonsillectomy TOTAL ABDOMINAL HYSTERECT W/WO RMVL TUBE OVARY 1988 Hysterectomy, KALIA left ovary remains FAMILY HISTORY Problem Relation Age of Onset Cancer Mother lymphoma Breast Cancer Mother Stroke Mother r/t chemo Alzheimer's Disease Father Diabetes Father Hypertension Father Cancer Brother brain, prostate Hypertension Brother Social History Tobacco Use Smoking status: Former Types: Cigarettes Quit date: 11/19/1971 Years since quittin.7 Smokeless tobacco: Never Vaping Use Vaping Use: Never used Substance Use Topics Alcohol use: No Comment: quit with onset DM2 Drug use: No Objective BP 136/80 Pulse 82 Temp 36.3 C (97.3 F) Resp 21 Wt 89.4 kg (197 lb 3.2 oz) SpO2 99% BMI34.81 kg/m Physical Exam Vitals reviewed. Constitutional: Appearance: Normal appearance. HENT: Head: Normocephalic and atraumatic. Musculoskeletal: Hands: Comments: Patient has bruising and swelling to the distal radial area with pain on flexion extension of the wrist. No snuffbox tenderness. Normal hand grasp strength. Normal distal sensation. No other tenderness of the hand. Skin: General: Skin is warm and dry. Neurological: Mental Status: She is alert. Assessment and Plan ASSESSMENT/PLAN: 1. Other closed fracture of distal end of right radius, initial encounter - ICD9: 813.42, ICD10: S52.591A X-ray shows a nondisplaced fracture of the distal right radius. She was placed in a reverse sugar-tong splint here in [facility]. Also sling given from [facility] stock. Instructed rest, ice, Tylenol for pain. She will follow-up with orthopedics. Splint checked after application and she was neurovascularly intact. Patient agreeable with plan. - XR WRIST INJURY 4V PA/LAT/OBL/SCAPH RIGHT - CONSULT TO ORTHOPAEDICS Clara Felix PA-C documented [facility] History of Present illness Narrative* Maegan Torres MD - 07/13/2022 3:56 PM EDT SUBJECTIVE: Medardo Ruiz is a 77 year old female presents for type 2 Diabetes and hypothyroidism follow up She has Intraductal pancreatic mucinous neoplasm, this was diagnosed in 2012, when she was in [place]. At that time, she was seen by Gastroenterology and surgical oncology. The initial diagnosis of diabetes was made in 2000. 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 Interval history: Recent A1c- 6.2 Weight loss of 25 lbs in the past 1 year, since starting Trulicity Since that time, Amaryl dose has been reduced Current diabetes treatment regimen: Amaryl 2 mg daily with breakfast Trulicity 0.75 mg weekly Metformin 1000 mg BID, 500 mg at bedtime Past diabetes treatments: Byetta- she stopped it due to concerns about pancreatitis Jackie- stopped when started Trulcity Blood glucose times and ranges (mg/dl): Currently checks sugars 1 times daily Fasting BG -103, 98, 95, 125, 112, 120,83, 97, 140 7 day average 115 14 day average 112 30 day average 112 Hypoglycemic episodes: No Meal planning and timin meals Exercise: no eye exam:uptodate flu shot:Yes 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 Cardiovascular risk factors: hyperlipidemia, diabetes mellitus and obesity She also has hypothyroidism: No temperature intolerance No changes in bowel habits Current treatment: Levothyroxine 75 mcg daily Previous treatment: she was taking levothyroxine 100 mcg 4 days a week and half tablet 3 days a week Pancreatic cyst- Sees MRI pancreas was in Sep 2020 REVIEW OF SYSTEMS: Answers submitted by the patient for this visit: Endocrine Review of Systems (Submitted on 07/13/2022) Fatigue: Yes Night Sweats: No Recent Unintentional Weight Change: No Skin Color Changes: No Post-Nasal Drip: Yes Thyroid Pain (lower neck): No Trouble Swallowing: No Vision Disturbance: No Chest Pain: No Leg Swelling: Yes Blood Clots?: No Leg Pain while walking?: No Difficulty Breathing?: No Heartburn: Yes Nausea: No Vomiting?: Yes Diarrhea: Yes Constipation: Yes Abdominal Pain: Yes Bone Pain?: Yes Muscle Aches: Yes Muscle Weakness: Yes Joint Pain or Stiffness: Yes Headaches: Yes Dizziness: Yes Numbness?: Yes Urgency to Urinate?: Yes Increased Urination?: Yes Slow or Small Urine Stream?: No Are your menstrual cycles regular?: No Are your menstrual cycles irregular?: No Have your menstrual cycles stopped?: Yes Flushing?: No Hot Flashes?: No Increased Thirst: Yes Change in Body Hair?: Yes Cold Intolerance: No Heat Intolerance?: Yes Core Review of Systems (Submitted on 07/13/2022) Night Sweats: No Recent Unintentional Weight Change: No Vision Disturbance: No Chest Pain: No Leg Swelling: Yes Difficulty Breathing?: No Nausea: No Diarrhea: Yes Muscle Aches: Yes Joint Pain or Stiffness: Yes Headaches: Yes Dizziness: Yes Fever : No Nasal Congestion: Yes Hearing Loss: Yes A Cough: Yes Irregular Heart Beat: No Black Tarry Stools: No Difficulty Urinating?: No Awaken at Night More Than Once to Urinate?: No Leg or Foot Discomfort at Night?: Yes A Rash: No Memory Loss: Yes Seizures: No Current Outpatient Medications on File Prior to Visit Medication Sig levothyroxine (SYNTHROID) 75 mcg tablet Take 1 tablet by mouth daily before breakfast. dulaglutide (TRULICITY) 0.75 mg/0.5 mL pen injector Inject 0.75 mg subcutaneously one time a week. Inject dose once per week. Discard Pen After blood sugar diagnostic (ACCU-CHEK ISAMAR PLUS TEST STRP) test strip 1 Strip once daily. Use as instructed. Dx: E11.8 Insulin: No glimepiride (AMARYL) 4 mg tablet Take 1 tablet by mouth daily with breakfast. (Patient taking differently: Take 4 mg by mouth daily with breakfast. 1/2 tab daily) rOPINIRole (REQUIP) 1 mg tablet Take 1.5 tablets by mouth daily at bedtime. venlafaxine ER (EFFEXOR XR) 75 mg 24 hr capsule Take 1 capsule by mouth once daily. amLODIPine (NORVASC) 5 mg tablet Take 1 tablet by mouth once daily. Benazepril HCl (LOTENSIN) 40 mg tablet Take 1 tablet by mouth once daily. simvastatin (ZOCOR) 40 mg tablet Take 1 tablet by mouth daily at bedtime. buPROPion (WELLBUTRIN) 75 mg tablet Take 1 tablet by mouth twice daily. latanoprost (XALATAN) 0.005 % ophthalmic solution metFORMIN (GLUCOPHAGE) 500 mg tablet Take 2 tablets by mouth twice daily with meals. And 1 tablet at bedtime furosemide (LASIX) 20 mg tablet Take 1 tablet by mouth once daily. Ferrous Gluconate 240 mg (27 mg iron) tablet Take 1 tablet by mouth three times daily with meals. CPAP Initiate CPAP @ 9 cm of water with humidification. Mask (per patient preference) optional chinstrap (if indicated) , filters, tubing, humidifier and lifetime supplies. Omeprazole Magnesium 20 mg tablet Take 20 mg by mouth once daily. ascorbic acid, vitamin C, (VITAMIN C) 500 mg tablet Take 500 mg by mouth once daily. loratadine 10 mg cap Take by mouth. Calcium Citrate-Vitamin D3 (CITRACAL+D) 315 mg-6.25 mcg (250 unit) tab Take 1 tablet by mouth once daily. Current Facility-Administered Medications on File Prior to Visit Medication cyanocobalamin 1,000 mcg injection ALLERGIES Allergen Reactions Amoxicillin Itching Codeine Itching Latex Itching PAST MEDICAL HISTORY Diagnosis Date Depression DM type 2 (diabetes mellitus, type 2) (HCC) GERD (gastroesophageal reflux disease) Hyperlipidemia Hypertension Loc osteoarth NOS-site NEC Narcolepsy Pancreatic neoplasm PUD (peptic ulcer disease) Restless leg Rhinitis, chronic Sleep apnea Snoring Thyroid nodule PAST SURGICAL HISTORY Procedure Laterality Date ADENOIDECTOMY PRIMARY <AGE 14 1950 Adenoidectomy ARTHROPLASTY METACARPOPHALANGEAL JOINT EACH 2002 right thumb ARTHROSCOPY KNEE DIAGNOSTIC W/WO SYNOVIAL BX SPX Left 2006 Arthroscopy, knee ARTHROSCOPY KNEE DIAGNOSTIC W/WO SYNOVIAL BX SPX Right 2010 Arthroscopy, knee ARTHRP KNE CONDYLE&PLATU MEDIAL&LAT COMPARTMENTS Left 2007 Knee replacement, total ARTHRP KNE CONDYLE&PLATU MEDIAL&LAT COMPARTMENTS Right 2010 Knee replacement, total BLEPHAROPLASTY UP LID W/EXCESS SKIN 2011 bilaterally BREAST BIOPSY 1998 negative DELIVERY ONLY 1975 , low transverse DELIVERY ONLY 1978 , low transverse CHOLECYSTECTOMY 1977 Cholecystectomy COLONOSCOPY 2012 COLONOSCOPY FLX DX W/COLLJ SPEC WHEN PFRMD 10/24/2018 Colonoscopy EXCISION GANGLION WRIST, RECURRENT Right 1967 NEUROPLASTY &/TRANSPOS MEDIAN NRV CARPAL TUNNE Right 1997 Carpal tunnel decomp PAST SURGICAL HISTORY OF 2010 trigger finger release x 4 bilateral middle and ring fingers PAST SURGICAL HISTORY OF 6 of small instestine removed REVJ TOT KNEE ARTHRP FEM&ENTIRE TIBIAL COMPONE Right 01/14/2020 Knee replacement, revision TONSILLECTOMY PRIMARY/SECONDARY <AGE 14 1952 Tonsillectomy TOTAL ABDOMINAL HYSTERECT W/WO RMVL TUBE OVARY 1988 Hysterectomy, KALIA left ovary remains Social History Tobacco Use Smoking status: Former Types: Cigarettes Quit date: 11/19/1971 Years since quittin.6 Smokeless tobacco: Never Vaping Use Vaping Use: Never used Substance Use Topics Alcohol use: No Comment: quit with onset DM2 Drug use: No PHYSICAL EXAM: BP 140/88 Pulse 85 Resp 16 Ht 160.3 cm (5' 3.11 ) Wt 85.7 kg (189 lb) SpO2 98% BMI 33.36 kg/m General:alert and oriented X 3, no acute distress Eyes:anicteric sclera, Extraocular motions intact Neck supple, no cervical lymphadenopathy Thyroid: normal size, normal texture, no palpable nodules Chest: Breathing unlabored, Lungs clear to auscultation. No wheezing CV:normal, Regular rate and rhythm, no murmurs, clicks, or gallops. Abdomen: Normal abdominal sounds, non tender to palpation, obese Neuro: Gait normal. Sensation grossly intact. No focal findings Musculoskeletal: Muscular strength intact, No joint swelling, deformity, or tenderness Extremities No edema, no deformities Skin: no rashes/ erythema, dry skin noted in feet and arms LAB: Hemoglobin A1C Date Value Ref Range Status 07/11/2022 6.2 (H) 4.3 - 5.6 % Final Comment: [place] [employer] guidelines indicate that patients with HgbA1c in the range 5.7-6.4% are at increased risk for development of diabetes, and intervention by lifestyle modification may be beneficial. HgbA1c greater or equal to 6.5% is considered diagnostic of diabetes. 06/16/2021 7.3 (H) 4.3 - 5.6 % Final Comment: [place] [employer] guidelines indicate that patients with HgbA1c in the range 5.7-6.4% are at increased risk for development of diabetes, and intervention by lifestyle modification may be beneficial. HgbA1c greater or equal to 6.5% is considered diagnostic of diabetes. Hemoglobin A1C (POCT) Date Value Ref Range Status 04/13/2022 5.9 4.2 - 5.6 % Final Comment: Location:[address], [facility] Point of care (POC) Hemoglobin A1c (HGBA1C) testing is intended to assess glucose control and provide a management tool for patients known to have diabetes and their healthcare providers. Target HGBA1C levels may depend on specific clinical circumstances. POC HGBA1C is not intended for use as a diagnostic or screening test; laboratory-based testing should be used for diagnostic purposes. The following information is supplemental and may not be applicable to specific diabetes management situations: The POC device silk folder provides a normal range of 4.2% to 6.5% for the HGBA1C POC test. However, the [place] [employer] guidelines indicate that patients with HGBA1C in the range of 5.7% to 6.4% are at increased risk for development of diabetes and that intervention by lifestyle modification may be beneficial. A HGBA1C level greater than or equal to 6.5% is considered diagnostic of diabetes, pending confirmatory testing. Use of HGBA1C testing to evaluate glucose control may not be appropriate for patients with hemoglobin variants or other conditions (e.g. anemia) that alter red blood cell lifespan. 12/27/2021 6.2 4.2 - 5.6 % Final Comment: Point of care (POC) Hemoglobin A1c (HGBA1C) testing is intended to assess glucose control and provide a management tool for patients known to have diabetes and their healthcare providers. Target HGBA1C levels may depend on specific clinical circumstances. POC HGBA1C is not intended for use as a diagnostic or screening test; laboratory-based testing should be used for diagnostic purposes. The following information is supplemental and may not be applicable to specific diabetes management situations: The POC device silk folder provides a normal range of 4.2% to 6.5% for the HGBA1C POC test. However, the [place] [employer] guidelines indicate that patients with HGBA1C in the range of 5.7% to 6.4% are at increased risk for development of diabetes and that intervention by lifestyle modification may be beneficial. A HGBA1C level greater than or equal to 6.5% is considered diagnostic of diabetes, pending confirmatory testing. Use of HGBA1C testing to evaluate glucose control may not be appropriate for patients with hemoglobin variants or other conditions (e.g. anemia) that alter red blood cell lifespan. 09/23/2021 6.5 4.2 - 5.6 % Final Comment: Point of care (POC) Hemoglobin A1c (HGBA1C) testing is intended to assess glucose control and provide a management tool for patients known to have diabetes and their healthcare providers. Target HGBA1C levels may depend on specific clinical circumstances. POC HGBA1C is not intended for use as a diagnostic or screening test; laboratory-based testing should be used for diagnostic purposes. The following information is supplemental and may not be applicable to specific diabetes management situations: The POC device silk folder provides a normal range of 4.2% to 6.5% for the HGBA1C POC test. However, the [place] [employer] guidelines indicate that patients with HGBA1C in the range of 5.7% to 6.4% are at increased risk for development of diabetes and that intervention by lifestyle modification may be beneficial. A HGBA1C level greater than or equal to 6.5% is considered diagnostic of diabetes, pending confirmatory testing. Use of HGBA1C testing to evaluate glucose control may not be appropriate for patients with hemoglobin variants or other conditions (e.g. anemia) that alter red blood cell lifespan. Glucose (mg/dL) Date Value 07/11/2022 142 03/16/2021 166 Potassium (mmol/L) Date Value 07/11/2022 4.0 03/16/2021 4.5 Sodium (mmol/L) Date Value 07/11/2022 138 03/16/2021 137 Chloride (mmol/L) Date Value 07/11/2022 101 03/16/2021 100 CO2 (mmol/L) Date Value 07/11/2022 28 03/16/2021 26 Creatinine (mg/dL) Date Value 07/11/2022 0.85 03/16/2021 0.85 BUN (mg/dL) Date Value 07/11/2022 18 03/16/2021 15 Anion Gap (mmol/L) Date Value 07/11/2022 9 03/16/2021 11 Calcium (mg/dL) Date Value 03/16/2021 9.8 Calcium, Total (mg/dL) Date Value 07/11/2022 10.1 Latest Reference Range & Units 07/11/22 10:10 Cholesterol, Total <200 mg/dL 174 Triglyceride <150 mg/dL 173 (H) Fasting Time hrs 11 HDL Cholesterol >39 mg/dL 51 LDL Cholesterol <100 mg/dL 88 Latest Reference Range & Units 07/11/22 10:10 Hemoglobin A1C 4.3 - 5.6 % 6.2 (H) Estimated Average Glucose mg/dL 131 TSH 0.270 - 4.200 mIU/L 0.338 ASSESSMENT/PLAN: Type 2 Diabetes with neuropathy Obesity/BMI 36 Hypertension Hyperlipidemia Hypothyroidism Albuminuria Pancreatic Cysts 1. Glycemic Control: A1c is within goal 6.2 She has been successful losing weight with trulicity Her fasting BG has markedly improved and within target Continue Amaryl and trulicity, along with current metformin regimen Patient is instructed to test sugars 1 times daily 3. Hypertension: BP is well controlled Continue norvasc and lotensin 4. Cholesterol: lipids are within goal Trig are borderline elevated Continue zocor 5. Complications: None 6. Other: Update urine microalbumin/Cr Previously, she had mild albuminuria She has been on ACEI Will continue to monitor urine microalbumin Eye exam and immunization are uptodate Neuropathy- start neurontin 300 mg q HS Discussed MOA, benefits and adverse effects 7. Clinically and bio-chemically euthyroid Discussed the recent thyroid function test Continue levothyroxine 75 mcg daily 8. Intraductal pancreatic mucinous neoplasm Sees GI Follow up with me in 12 months Maegan Torres MD 07/13/22 documented in this encounterK[facility] Miscellaneous Notes* Telephone Encounter - Fiorella Albert LPN - 06/29/2022 10:35 AM EDT Requester: Patient Last Visit in Endocrinology: Provider name: Maegan Torres DO , Date 10/04/2021 Next Scheduled Appt in Endo: 07/13/2022 Last Refill: 07/01/21 Number of Refills given: 3 Can you assist with this refill Dr Torres is out Requested Prescriptions Pending Prescriptions Disp Refills levothyroxine (SYNTHROID) 75 mcg tablet 90 tablet 3 Sig: Take 1 tablet by mouth daily before breakfast. Please review and advise. Fiorella Albert LPN documented in this encounterK[facility]06-28-2022 Miscellaneous Notes* Telephone Encounter - Maru Fernandez LPN - 05/16/2022 12:31 PM EDT Patient has been identified by name and date of : Yes Patient phones for refill(s): Pending Prescriptions Disp Refills TRULICITY 0.75 MG/0.5 ML SUBCUTANEOUS PEN INJECTOR 4 Each 5 Sig: Inject 0.75 mg subcutaneously one time a week. Inject dose once per week. Discard Pen After JOHNSON: No Date of last office visit in primary care: 05/16/22 Last 2 Encounter Wt Readings: Date: Wt: 05/15/2022 87.4 kg (192 lb 9.6 oz) 04/13/2022 87.8 kg (193 lb 9.6 oz) Previous labs/tests for medication: Diabetes: Hemoglobin A1C (%) Date Value 06/16/2021 7.3 03/16/2021 7.3 Hemoglobin A1C (POCT) (%) Date Value 04/13/2022 5.9 12/27/2021 6.2 Please advise. Thank you. Maru Fernandez LPN documented in this encounterK[facility]2022 Miscellaneous Notes* Telephone Encounter - Claudia Albert - 05/03/2022 10:35 AM EDT Patient electronically sent a request for the following prescription(s) Pending Prescriptions Disp Refills ACCU-CHEK ISAMAR PLUS TEST STRIPS 100 Strip 3 Si STRIP ONCE DAILY. USE INSTRUCTED. DX: E11.8 INSULIN: NO JOHNSON: Yes Patient aware RX will be sent to pharmacy. No need to notify patient. Last Office Visit: 04/13/2022 with PCP Next Office Visit: 05/15/2022 with PCP Please review. Claudia Albert documented in this encounterK[facility]06-09-2022 History of Present illness Narrative* Elsy Escalera LPN - 04/27/2022 9:55 AM EDT Patient presents for B-12 injection. Denies any problems at this time. Patient instructed on any SEof medication, verbalized understanding and agreed to proceed with treatment. Tolerated injection well. Elsy Escalera LPN documented in this encounterK[facility]06-06-2022 Miscellaneous Notes* Telephone Encounter - Cele Helms Ma - 04/24/2022 9:01 AM EDT Patient is requesting refill on medication. Please advise and send in. Follow up scheduled for 04/2022. Patient has been identified by name and date of : Yes Pending Prescriptions Disp Refills ACCU-CHEK ISAMAR PLUS TEST STRIPS 100 Strip 0 Si Strip once daily. Use as instructed. Dx: E11.8 Insulin: No JOHNSON: No RX INSTRUCTIONS: Patient aware RX will be sent to pharmacy. No need to notify patient. Cele Helms Ma documented in this encounterK[facility]06-02-2022 Miscellaneous Notes* Telephone Encounter - Maegan Torres MD - 04/20/2022 12:57 PM EDT Reviewed No retinopathy Maegan Torres MD * Telephone Encounter - Lidya Blake MA - 04/19/2022 8:45 AM EDT Received Eye Exam Report from [facility] Updated. Placed in provider's inbox for review. documented in this encounterK[facility]05-26-2022 History of Present illness Narrative* Patricia Covarrubias MD - 04/13/2022 10:03 AM EDT Reason for Visit Patient presents with: F/U 3 months: -DM Medardo Ruiz is a 76 year old female who presents here today for Above Complaints. Health Maintenance ADVANCE DIRECTIVE DISCUSSION DILATED RETINAL EXAM HPI Gerald is a 76-year-old with a past medical history of diabetes mellitus, restless leg syndrome, hypertension, hyperlipidemia, sleep apnea, hypothyroidism, pancreatic cysts, anxiety depression, iron deficiency anemia. Johnny discussing her diabetes mellitus, her iron deficiency and her pancreatic cysts and we will bediscussing her falls in a visit scheduled after this in a couple to 4 weeks Diabetes Mellitus: fasting sugars are between 71 to 110 this is the lowest that she has been in thepast few years. A1c today was 5.9. Last On max dose of met formin and amaryl last visit Trulicity was added. Because her A1c is 5.9 today we have cut down her Amaryl to 4 mg from 2 mg. Ok to try the truclity. Iron deficient: both sons are lactose intolerant, and one of them has small red blood cells. Patient has anemia and she has small red blood cells. Son had same issues and got of dairy and he is now normal.she wants to try eliminating the dairy products. She is hoping to do the same and see how her iron levels,. 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 She recently had an MRI to follow-up on the pancreatic mucinous cystic neoplasms. The largest pancreatic lesion is 3.2 cm in the uncinate process without suspicious features but the dominant lesion is larger compared to 2014. He is going to just wait and watch she has GI surgery with her on board. Has fallen recently and we would be calling her for another visit No problem-specific Assessment & Plan notes found for this encounter. PAST MEDICAL HISTORY Diagnosis Date Depression DM type 2 (diabetes mellitus, type 2) (HCC) GERD (gastroesophageal reflux disease) Hyperlipidemia Hypertension Loc osteoarth NOS-site NEC Narcolepsy Pancreatic neoplasm PUD (peptic ulcer disease) Restless leg Rhinitis, chronic Sleep apnea Snoring Thyroid nodule PAST SURGICAL HISTORY Procedure Laterality Date ADENOIDECTOMY PRIMARY <AGE 14 1950 Adenoidectomy ARTHROPLASTY METACARPOPHALANGEAL JOINT EACH 2002 right thumb ARTHROSCOPY KNEE DIAGNOSTIC W/WO SYNOVIAL BX SPX Left 2006 Arthroscopy, knee ARTHROSCOPY KNEE DIAGNOSTIC W/WO SYNOVIAL BX SPX Right 2011 Arthroscopy, knee ARTHRP KNE CONDYLE&PLATU MEDIAL&LAT COMPARTMENTS Left 2007 Knee replacement, total ARTHRP KNE CONDYLE&PLATU MEDIAL&LAT COMPARTMENTS Right 2010 Knee replacement, total BLEPHAROPLASTY UP LID W/EXCESS SKIN 2011 bilaterally BREAST BIOPSY 1998 negative DELIVERY ONLY 1976 , low transverse DELIVERY ONLY 1978 , low transverse CHOLECYSTECTOMY 1977 Cholecystectomy COLONOSCOPY 2012 COLONOSCOPY FLX DX W/COLLJ SPEC WHEN PFRMD 10/24/2018 Colonoscopy EXCISION GANGLION WRIST, RECURRENT Right 1968 NEUROPLASTY &/TRANSPOS MEDIAN NRV CARPAL TUNNE Right 1997 Carpal tunnel decomp PAST SURGICAL HISTORY OF 2010 trigger finger release x 4 bilateral middle and ring fingers PAST SURGICAL HISTORY OF 6 of small instestine removed REVJ TOT KNEE ARTHRP FEM&ENTIRE TIBIAL COMPONE Right 01/14/2020 Knee replacement, revision TONSILLECTOMY PRIMARY/SECONDARY <AGE 14 1952 Tonsillectomy TOTAL ABDOMINAL HYSTERECT W/WO RMVL TUBE OVARY 1988 Hysterectomy, KALIA left ovary remains FAMILY HISTORY Problem Relation Age of Onset Cancer Mother lymphoma Breast Cancer Mother Stroke Mother r/t chemo Alzheimer's Disease Father Diabetes Father Hypertension Father Cancer Brother brain, prostate Hypertension Brother Social History Tobacco Use Smoking status: Former Smoker Quit date: 11/19/1971 Years since quittin.4 Smokeless tobacco: Never Used Vaping Use Vaping Use: Never used Substance Use Topics Alcohol use: No Comment: quit with onset DM2 Drug use: No Past medical history, appointments, medications, allergies reviewed. Pertinent Lab/Diagnostic Studies are reviewed and discussed today Current Outpatient Medications: rOPINIRole (REQUIP) 1 mg tablet glimepiride (AMARYL) 4 mg tablet venlafaxine ER (EFFEXOR XR) 75 mg 24 hr capsule amLODIPine (NORVASC) 5 mg tablet Benazepril HCl (LOTENSIN) 40 mg tablet simvastatin (ZOCOR) 40 mg tablet buPROPion (WELLBUTRIN) 75 mg tablet latanoprost (XALATAN) 0.005 % ophthalmic solution metFORMIN (GLUCOPHAGE) 500 mg tablet furosemide (LASIX) 20 mg tablet Ferrous Gluconate 240 mg (27 mg iron) tablet levothyroxine (SYNTHROID) 75 mcg tablet dulaglutide (TRULICITY) 0.75 mg/0.5 mL pen injector blood sugar diagnostic (ACCU-CHEK ISAMAR PLUS TEST STRP) test strip CPAP Omeprazole Magnesium (PRILOSEC OTC) 20 mg tablet ascorbic acid (VITAMIN C) 500 mg tablet loratadine 10 mg cap Calcium Citrate-Vitamin D3 (CITRACAL + D) 315-250 mg-unit Tab Current Facility-Administered Medications: cyanocobalamin 1,000 mcg injection Review of Systems CONSTITUTIONAL: No fevers, chills night sweats, unintended weight loss CARDIOVASCULAR: No chest pain, dyspnea, palpitations, orthopnea, PND, ankle edema. PULM: No dyspnea, unexplained cough. GI: No dysphagia/odynophagia, problematic reflux, constipation, diarrhea, changes in stool habits, hematochezia, melena. : No new urinary complaints, including dysuria, gross hematuria or pyuria. NEURO: No new balance problems, peripheral weakness/paresthesias or numbness of concern. Physical Exam BP 116/64 Pulse 95 Resp 18 Wt 87.8 kg (193 lb 9.6 oz) BMI 34.09 kg/m General appearance: Well appearing, alert, in no acute distress, well nourished. Skin: Skin color, texture, turgor normal, no suspicious rashes or lesions Head: Normocephalic, no masses, lesions, tenderness or abnormalities Eyes: Anicteric sclera. Pupils are equally round and reactive to light. Extraocular movements are intact. Lungs: Lungs clear to auscultation. No wheezing, rhonchi, rales Heart: RRR without murmur, gallop, or rubs. Extremities: No deformities, edema, skin discoloration, clubbing or cyanosis. Good capillary refill. ASSESSMENT/PLAN: 1. Type 2 diabetes mellitus with diabetic neuropathy, without long-term current use of insulin (HCC) - ICD9: 250.60, 357.2, ICD10: E11.40 (primary diagnosis) - HEMOGLOBIN A1C (POC) - HGB A1C - COMP METABOLIC PANEL - CBC 2. Mixed hyperlipidemia - ICD9: 272.2, ICD10: E78.2 - good control - Continue current medication. - LIPID PANEL BASIC 3. Restless leg syndrome - ICD9: 333.94, ICD10: G25.81 The restless legs are well controlled 4. Essential hypertension - ICD9: 401.9, ICD10: I10 - good control - Recommended regular aerobic exercise. - Recommend home blood pressure monitoring, to bring results in on next visit - Goal of BP <130/80 5. DAVION (obstructive sleep apnea) - ICD9: 327.23, ICD10: G47.33 She uses daily , and benefits from it so she should use it 6. Hypothyroidism, acquired - ICD9: 244.9, ICD10: E03.9 - Instructed patient on importance of taking on an empty stomach either first thing in the morning or at bedtime. Stable - Continue current medications - TSH BLD 7. Pancreatic cyst - ICD9: 577.2, ICD10: K86.2 Last MRI shows: Multiple cystic pancreatic lesions, stable since 2018; the largest approximately 3 cm in the uncinate process. No lesions with suspicious imaging features and no dilation of the pancreatic duct. 8. Anxiety and depression - ICD9: 300.00, 311, ICD10: F41.9, F32.A Cont the current medications Patricia Covarrubias MD documented in this encounterK[facility]05-12-2022 History of Present illness Narrative* Elsy Escalera LPN - 03/30/2022 11:06 AM EDT Patient presents for B-12 injection. Denies any problems at this time. Patient instructed on any SEof medication, verbalized understanding and agreed to proceed with treatment. Tolerated injection well. Elsy Escalera LPN documented in this encounterK[facility]05-09-2022 Miscellaneous Notes* Telephone Encounter - Nuun Childs Ma - 03/27/2022 5:56 PM EDT Patient electronically sent a request for the following prescription(s) Pending Prescriptions Disp Refills ROPINIROLE 1 MG TABLET 135 tablet 2 Sig: TAKE ONE AND ONE-HALF TABLETS BY MOUTH AT BEDTIME JOHNSON: Yes Patient aware RX will be sent to pharmacy. No need to notify patient. Please review. Nunu fulton 12/27/21 documented in this encounterK[facility]05-09-2022 Miscellaneous Notes* Telephone Encounter - Maru Fernandez LPN - 03/27/2022 1:41 PM EDT Patient has been identified by name and date of : Yes Patient phones for refill(s): Pending Prescriptions Disp Refills GLIMEPIRIDE 4 MG TABLET Sig: Take 1 tablet by mouth daily with breakfast. JOHNSON: No Date of last office visit in primary care: 12/27/2021 Last 2 Encounter Wt Readings: Date: Wt: 12/27/2021 89.1 kg (196 lb 6.4 oz) 10/22/2021 93.4 kg (206 lb) Previous labs/tests for medication: Diabetes: Hemoglobin A1C (%) Date Value 06/16/2021 7.3 03/16/2021 7.3 Hemoglobin A1C (POCT) (%) Date Value 12/27/2021 6.2 09/23/2021 6.5 Please advise. Thank you. Maru Fernandez LPN documented in this encounterK[facility]05-09-2022 Miscellaneous Notes* Telephone Encounter - Maru Fernandez LPN - 03/27/2022 1:40 PM EDT Patient has been identified by name and date of : Yes Patient phones for refill(s): Pending Prescriptions Disp Refills VENLAFAXINE ER 75 MG CAPSULE,EXTENDED RELEASE 24 HR 90 capsule 3 Sig: Take 1 capsule by mouth once daily. JOHNSON: No Date of last office visit in primary care: 12/27/2021 Last 2 Encounter Wt Readings: Date: Wt: 12/27/2021 89.1 kg (196 lb 6.4 oz) 10/22/2021 93.4 kg (206 lb) Previous labs/tests for medication: Not applicable Please advise. Thank you. Maru Fernandez LPN documented in this encounterK[facility]05-09-2022 Miscellaneous Notes* Telephone Encounter - Nunu Childs Ma - 03/27/2022 1:31 PM EDT Patient electronically requested the following prescription(s) Pending Prescriptions Disp Refills ROPINIROLE 1 MG TABLET 135 tablet 3 Sig: Take 1.5 tablets by mouth daily at bedtime. JOHNSON: No Patient aware RX will be sent to pharmacy. No need to notify patient. Please review. Nunu Childs Ma donaldo 12/27/21 documented in this encounterK[facility]04-20-2022 Miscellaneous Notes* Telephone Encounter - Marilee Cerda MA - 03/08/2022 10:54 AM EDT NOV 03/28/22 DONALDO 12/27/21 Patient electronically sent a request for the following prescription(s) Pending Prescriptions Disp Refills BENAZEPRIL 40 MG TABLET 90 tablet 2 Sig: TAKE 1 TABLET BY MOUTH ONCE DAILY. JOHNSON: Yes AMLODIPINE 5 MG TABLET 90 tablet 2 Sig: TAKE 1 TABLET BY MOUTH ONCE DAILY. JOHNSON: Yes Patient aware RX will be sent to pharmacy. No need to notify patient. Please review. Marilee Cerda MA documented in this encounterK[facility]04-19-2022 Miscellaneous Notes* Telephone Encounter - Mel Lawson LPN - 03/07/2022 11:52 AM EDT Patient has been identified by name and date of : Yes Patient phones for refill(s): Pending Prescriptions Disp Refills AMLODIPINE 5 MG TABLET 90 tablet 3 Sig: Take 1 tablet by mouth once daily. JOHNSON: No BENAZEPRIL 40 MG TABLET 90 tablet 3 Sig: Take 1 tablet by mouth once daily. JOHNSON: No Date of last office visit in primary care: 12/27/21 next apt 04/13/22 Last 2 Encounter Wt Readings: Date: Wt: 12/27/2021 89.1 kg (196 lb 6.4 oz) 10/22/2021 93.4 kg (206 lb) Previous labs/tests for medication: Blood Pressure: BUN (mg/dL) Date Value 03/16/2021 15 Sodium (mmol/L) Date Value 03/16/2021 137 Last 1 Encounter BP Readings: Date: BP: 12/27/2021 120/68 Please advise. Thank you. Mel Lawson LPN * Telephone Encounter - Sweetie Jones Ma - 03/06/2022 2:26 PM EDT Patient phones requesting refills as follows: DONALDO -12/27/21 last refill -02/21/21 Pending Prescriptions Disp Refills AMLODIPINE 5 MG TABLET 90 tablet 3 Sig: Take 1 tablet by mouth once daily. JOHNSON: No BENAZEPRIL 40 MG TABLET 90 tablet 3 Sig: Take 1 tablet by mouth once daily. JOHNSON: No Please review and advise. Sweetie Jones Ma documented in this encounterK[facility]04-18-2022 Miscellaneous Notes* Telephone Encounter - Pete Dacosta Ma - 03/06/2022 9:35 AM EDT DONALDO: 12/27/2021 Last refill: 03/09/2021 QTY: 90 Refills: 3 Patient's request for medication is as follows: Pending Prescriptions Disp Refills SIMVASTATIN 40 MG TABLET 90 tablet 3 Sig: Take 1 tablet by mouth daily at bedtime. JOHNSON: No Please approve the above prescription(s) to electronically send to pharmacy. Pete Dacosta Ma documented in this encounterKettering [facility]04-14-2022 History of Present illness Narrative* Elsy Escalera LPN - 03/02/2022 11:10 AM EDT Patient presents for B-12 injection. Denies any problems at this time. Patient instructed on any SEof medication, verbalized understanding and agreed to proceed with treatment. Tolerated injection well. Elsy Escalera LPN [facility] Miscellaneous Notes* Telephone Encounter - Maru Fernandez LPN - 02/20/2022 4:21 PM EDT Patient has been identified by name and date of : Yes Patient phones for refill(s): Pending Prescriptions Disp Refills BUPROPION HCL 75 MG TABLET 180 tablet 1 Sig: Take 1 tablet by mouth twice daily. JOHNSON: No Date of last office visit in primary care: 12/27/21 Last 2 Encounter Wt Readings: Date: Wt: 12/27/2021 89.1 kg (196 lb 6.4 oz) 10/22/2021 93.4 kg (206 lb) Previous labs/tests for medication: Not applicable Please advise. Thank you. Maru Fernandez LPN [facility] History of Past illness Narrative* Problem Noted Date Resolved Date Arthritis of knee 01/14/2020 01/15/2020 Class 2 obesity due to exces s calories with body mass index (BMI) of 36.0 to 36.9 in adult 12/31/2019 08/20/2020 Last Assessment & Plan: Assessment: Body mass index is 36.64 kg/m . 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 06/18/2019 1 Hypertension, essential 05/14/2017 04/10/20 19 documented as of this encounter (statuses as of 03/08/2022) [facility] Narrative* Problem Noted Date Resolved Date Arthritis of knee 01/14/2020 01/15/2020 Class 2 obesity due to exces s calories with body mass index (BMI) of 36.0 to 36.9 in adult 12/31/2019 08/20/2020 Last Assessment & Plan: Assessment: Body mass index is 36.64 kg/m . 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 06/18/2019 1 Hypertension, essential 05/14/2017 04/10/20 19 documented as of this encounter (statuses as of 03/08/2022) [facility] Narrative* Problem Noted Date Resolved Date Arthritis of knee 01/14/2020 01/15/2020 Class 2 obesity due to exces s calories with body mass index (BMI) of 36.0 to 36.9 in adult 12/31/2019 08/20/2020 Last Assessment & Plan: Assessment: Body mass index is 36.64 kg/m . 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 06/18/2019 1 Hypertension, essential 05/14/2017 04/10/20 19 documented as of this encounter (statuses as of 03/27/2022) [facility] Narrative* Problem Noted Date Resolved Date Arthritis of knee 01/14/2020 01/15/2020 Class 2 obesity due to exces s calories with body mass index (BMI) of 36.0 to 36.9 in adult 12/31/2019 08/20/2020 Last Assessment & Plan: Assessment: Body mass index is 36.64 kg/m . 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 06/18/2019 1 Hypertension, essential 05/14/2017 04/10/20 19 documented as of this encounter (statuses as of 03/27/2022) [facility] Narrative* Problem Noted Date Resolved Date Arthritis of knee 01/14/2020 01/15/2020 Class 2 obesity due to exces s calories with body mass index (BMI) of 36.0 to 36.9 in adult 12/31/2019 08/20/2020 Last Assessment & Plan: Assessment: Body mass index is 36.64 kg/m . 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 06/18/2019 1 Hypertension, essential 05/14/2017 04/10/20 19 documented as of this encounter (statuses as of 03/27/2022) [facility] Narrative* Problem Noted Date Resolved Date Arthritis of knee 01/14/2020 01/15/2020 Class 2 obesity due to exces s calories with body mass index (BMI) of 36.0 to 36.9 in adult 12/31/2019 08/20/2020 Last Assessment & Plan: Assessment: Body mass index is 36.64 kg/m . 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 06/18/2019 1 Hypertension, essential 05/14/2017 04/10/20 19 documented as of this encounter (statuses as of 10/24/2022) [facility] Diagnosis Vitamin B12 deficiency- Primary Other [facility] Essential hypertension Unspecified essential [facility] Essential hypertension Unspecified essential [facility] Anxiety and depression Dysthymic disorder [facility] Diagnosis Type 2 diabetes mellitus with complication, without long-term current use of insulin (HCC) [facility] Restless leg syndrome Restless legs syndrome (RLS) [facility] Restless leg syndrome Restless legs syndrome (RLS) [facility] Diagnosis Vitamin B12 deficiency- Primary Other B-complex deficiencies Need for vaccination Need for prophylactic vaccination and inoculation against unspecified single disease [facility] Diagnosis Type 2 diabetes mellitus with diabetic neuropathy, without long-term current use of insulin (HCC) Mixed hyperlipidemia [facility] Diagnosis Type 2 diabetes mellitus with diabetic neuropathy, without long-term current use of insulin (HCC)- Primary Mixed hyperlipidemia Restless leg syndrome Restless legs syndrome (RLS) Essential hypertension Unspecified essential hypertension DAVION (obstructive sleep apnea) Obstructive sleep apnea (adult) (pediatric) Hypothyroidism, acquired Unspecified hypothyroidism Pancreatic cyst Cyst and pseudocyst of pancreas Anxiety and depression Dysthymic disorder Anemia due to vitamin B12 deficiency, unspecified B12 deficiency type Iron deficiency Iron deficiency anemia, unspecified Type 2 diabetes mellitus with complication, without long-term current use of insulin (HCC) [facility] Diagnosis Vitamin B12 deficiency- Primary Other B-complex deficiencies [facility] Diagnosis Type 2 diabetes mellitus with diabetic neuropathy, without long-term current use of insulin (HCC) [facility] Diagnosis Vitamin B12 deficiency Other B-complex deficiencies [facility]* Diagnosis Right shoulder pain, unspecified chronicity- Primary [facility] Diagnosis Hypothyroidism, acquired Unspecified hypothyroidism [facility]* Diagnosis Type 2 diabetes mellitus with complication, without long-term current use of insulin (HCC)- Primary Obesity, Class II, BMI 35-39.9 Obesity, unspecified Hypertension, essential Unspecified essential hypertension Mixed hyperlipidemia Hypothyroidism, acquired Unspecified hypothyroidism Albuminuria Proteinuria [facility] Diagnosis Other closed fracture of distal end of right radius, initial encounter- Primary [facility] Diagnosis Closed nondisplaced fracture of styloid process of right radius, initial encounter- Primary Right wrist pain Pain in joint, forearm [facility]* Diagnosis Pedal edema Edema [facility]* Diagnosis Breast cancer screening by mammogram- Primary Abnormal screening mammogram Abnormal mammogram, unspecified [facility] Diagnosis Breast cancer screening by mammogram [facility]* Diagnosis Closed nondisplaced fracture of styloid process of right radius, initial encounter- Primary [facility] Closed nondisplaced fracture of styloid process of right radius, initial encounter [facility] Diagnosis Closed nondisplaced fracture of styloid process of right radius with routine healing, subsequent encounter- Primary [facility]* Diagnosis Type 2 diabetes mellitus with diabetic neuropathy, without long-term current use of insulin (HCC) Balance disorder Other symptoms involving nervous and musculoskeletal systems Other polyneuropathy Weakness of both lower extremities [facility] Diagnosis Calcaneal spur, unspecified laterality- Primary Type 2 diabetes mellitus with diabetic neuropathy, without long-term current use of insulin (HCC) [facility] Diagnosis Weakness of both lower extremities- Primary Balance disorder Other symptoms involving nervous and musculoskeletal systems [facility] Diagnosis Weakness of both lower extremities- Primary Balance disorder Other symptoms involving nervous and musculoskeletal systems [facility] Diagnosis Weakness of both lower extremities- Primary Balance disorder Other symptoms involving nervous and musculoskeletal systems [facility] Diagnosis Weakness of both lower extremities- Primary Balance disorder Other symptoms involving nervous and musculoskeletal systems [facility]* Diagnosis Weakness of both lower extremities- Primary Balance disorder Other symptoms involving nervous and musculoskeletal systems [facility]* Diagnosis Weakness of both lower extremities- Primary Balance disorder Other symptoms involving nervous and musculoskeletal systems [facility]* Diagnosis Weakness of both lower extremities- Primary Balance disorder Other symptoms involving nervous and musculoskeletal systems [facility]* Diagnosis Vitamin B12 deficiency- Primary Other B-complex deficiencies [facility]* Diagnosis Pancreatic cyst- Primary Cyst and pseudocyst of pancreas [facility] Diagnosis Type 2 diabetes mellitus with complication, without long-term current use of insulin (HCC) [facility] Diagnosis Vitamin B12 deficiency- Primary Other B-complex deficiencies [facility]* Diagnosis Chronic right shoulder pain- Primary Pain in joint, shoulder region [facility]* Diagnosis S/P revision of total knee, right- Primary Quadriceps tendonitis Other synovitis and tenosynovitis [facility] Diagnosis Type 2 diabetes mellitus with diabetic neuropathy, without long-term current use of insulin ([facility])- Primary Mixed hyperlipidemia Essential hypertension Unspecified essential hypertension DAVION (obstructive sleep apnea) Obstructive sleep apnea (adult) (pediatric) Hypothyroidism, acquired Unspecified hypothyroidism Anxiety and depression Dysthymic disorder [facility]* Diagnosis Osteoarthritis of right glenohumeral joint- Primary [facility]* Diagnosis Vitamin B12 deficiency- Primary Other B-complex deficiencies Anemia due to vitamin B12 deficiency, unspecified B12 deficiency type [facility]* Diagnosis Vitamin B12 deficiency- Primary Other B-complex deficiencies [facility]* Diagnosis Essential hypertension Unspecified essential hypertension [facility]* Diagnosis Essential hypertension Unspecified essential hypertension [facility]* Diagnosis Type 2 diabetes mellitus with diabetic neuropathy, without long-term current use of insulin ([facility])- Primary Arthritis of foot Unspecified arthropathy, ankle and foot documented [facility]* Diagnosis Osteoarthritis of right glenohumeral joint- Primary [facility]* Diagnosis Osteoarthritis of right glenohumeral joint- Primary [facility]* Diagnosis Vitamin B12 deficiency- Primary Other B-complex deficiencies Osteoarthritis of right glenohumeral joint [facility]* Diagnosis Osteoarthritis of right glenohumeral joint- Primary Osteoarthritis of right glenohumeral joint [facility]* Diagnosis Pre-operative examination- Primary Preoperative examination, unspecified Seasonal depression (HCC) Other specified episodic mood disorder Type 2 diabetes mellitus with diabetic neuropathy, without long-term current use of insulin (HCC) Iron deficiency anemia, unspecified iron deficiency anemia type Adrenal adenoma, unspecified laterality Basal cell carcinoma (BCC) of skin of neck Essential hypertension Unspecified essential hypertension Hypothyroidism, acquired Unspecified hypothyroidism Mixed hyperlipidemia DAVION (obstructive sleep apnea) Obstructive sleep apnea (adult) (pediatric) Pancreatic cyst Cyst and pseudocyst of pancreas Restless leg syndrome Restless legs syndrome (RLS) Venous insufficiency (chronic) (peripheral) Unspecified venous (peripheral) insufficiency Class 1 obesity due to excess calories with serious comorbidity and body mass index (BMI) of 33.0 to 33.9 in adult Osteoarthritis of right glenohumeral joint [facility]* Diagnosis Vitamin B12 deficiency- Primary Other B-complex deficiencies Osteoarthritis of right glenohumeral joint [facility]* Diagnosis Skin infection- Primary Unspecified local infection of skin and subcutaneous tissue Swelling of joint of upper arm, right documented [facility]* Diagnosis Chronic right shoulder pain- Primary Pain in joint, shoulder region [facility]* Diagnosis Type 2 diabetes mellitus with diabetic neuropathy, without long-term current use of insulin (HCC)- Primary [facility]* Diagnosis Osteoarthritis of right glenohumeral joint- Primary [facility]* Diagnosis Osteoarthritis of right glenohumeral joint- Primary [facility]* Diagnosis Chronic right shoulder pain- Primary Pain in joint, shoulder region [facility]* Diagnosis Type 2 diabetes mellitus with diabetic neuropathy, without long-term current use of insulin (HCC)- Primary Essential hypertension Unspecified essential hypertension Mixed hyperlipidemia Hypothyroidism, acquired Unspecified hypothyroidism Anxiety and depression Dysthymic disorder Restless leg syndrome Restless legs syndrome (RLS) Diarrhea, unspecified type [facility]* Diagnosis Vitamin B12 deficiency- Primary Other B-complex deficiencies [facility]* Diagnosis Osteoarthritis of right glenohumeral joint- Primary [facility]* Diagnosis Osteoarthritis of right glenohumeral joint- Primary [facility]* Diagnosis Osteoarthritis of right glenohumeral joint- Primary [facility]* Diagnosis Type 2 diabetes mellitus with complication, without long-term current use of insulin (HCC)- Primary Hypothyroidism, acquired Unspecified hypothyroidism Obesity, Class II, BMI 35-39.9 Obesity, unspecified Hypertension, essential Unspecified essential hypertension Mixed hyperlipidemia Albuminuria Proteinuria Constipation, unspecified constipation type [facility]* Diagnosis Osteoarthritis of right glenohumeral joint- Primary [facility]* Diagnosis Vitamin B12 deficiency- Primary Other B-complex deficiencies Need for influenza vaccination Need for prophylactic vaccination and inoculation against influenza [facility]* Diagnosis Pedal edema Edema [facility]* Diagnosis Vitamin B12 deficiency- Primary Other B-complex deficiencies Encounter for immunization Need for other specified prophylactic vaccination against single bacterial disease documented in this encounter [facility]* Diagnosis Pancreatic cyst Cyst and pseudocyst of pancreas [facility]* Diagnosis Hypothyroidism, acquired Unspecified hypothyroidism [facility]* Diagnosis Vitamin B12 deficiency- Primary Other B-complex deficiencies [facility]* Diagnosis Type 2 diabetes mellitus with diabetic neuropathy, without long-term current use of insulin (HCC)- Primary Essential hypertension Unspecified essential hypertension Mixed hyperlipidemia Moderate episode of recurrent major depressive disorder (HCC) documented in this encounter [facility] for referral (narrative)* Diagnostic Procedure Only (Routine) - Pending Review Specialty Diagnoses / Procedures Referred By Loli maya Referred To Contact XR IMAGING Diagnoses Right shoulder pain, unspecified chronicity Procedures XR SHOULDER GENERAL 3V OR MORE AP/TRUE AP/OTHER RIGHT RADEX SHOULDER COMPLETE MINIMUM 2 VIEWS Jesús Pham MD [address] [place] [address] Xr Imaging Referral ID Status Reason Start Date Expiration Date Visits Requested Visits Authorized [id number] Pending Review Auto-Generat ed Referral 06/27/2022 07/27/2023 1 1 [facility] for referral (narrative)* Diagnostic Procedure Only (Routine) - Pending Review Specialty Diagnoses / Procedures Referred By Loli maya Referred To Contact XR IMAGING Diagnoses Closed nondisplaced fracture of styloid process of right radius, initial encounter Procedures XR WRIST GENERAL 3V PA/LAT/OBL RIGHT RADEX WRIST COMPLETE MINIMUM 3 VIEWS Jerri Harvey PA-C [address] [place] [address] Xr Imaging Referral ID Status Reason Start Date Expiration Date Visits Requested Visits Authorized [id number] Pending Review Auto-Generat ed Referral 08/07/2022 09/06/2023 1 1 T [facility] for referral (narrative)* Diagnostic Procedure Only (Routine) - Pending Review Specialty Diagnoses / Procedures Referred By Contac t Referred To Contact BR IMAGING Diagnoses Breast cancer screening by mammogram Procedures SHER SCREENING SCREENING MAMMOGRAPHY BI 2-VIEW BREAST INC CAD Patricia Covarrubias MD [address] [place] [address] [facility] [address] [place] [address] Referral ID Status Reason Start Date Expiration Date Visits Requested Visits Authorized [id number] Pending Review Auto-Generat ed Referral 08/15/2022 09/10/2023 1 1 [facility] for referral (narrative)* Diagnostic Procedure Only (Routine) - Pending Review Specialty Diagnoses / Procedures Referred By Contac t Referred To Contact XR IMAGING Diagnoses Closed nondisplaced fracture of styloid process of right radius, initial encounter Procedures XR WRIST GENERAL 3V PA/LAT/OBL RIGHT RADEX WRIST COMPLETE MINIMUM 3 VIEWS Jerri Harvey PA-C [address] [place] [address] Xr Imaging Referral ID Status Reason Start Date Expiration Date Visits Requested Visits Authorized [id number] Pending Review Auto-Generat ed Referral 08/22/2022 09/21/2023 1 1 [facility] for referral (narrative)* Diagnostic Procedure Only (Routine) - Closed Specialty Diagnoses / Procedures Referred By Contac t Referred To Contact XR IMAGING Diagnoses Closed nondisplaced fracture of styloid process of right radius, initial encounter Procedures XR WRIST GENERAL 3V PA/LAT/OBL RIGHT RADEX WRIST COMPLETE MINIMUM 3 VIEWS Jerri Harvey PA-C [address] [place] [address] Xr Imaging Referral ID Status Reason Start Date Expiration Date V isits Requested Visits Authorized [id number] Closed Auto-Generate d Referral 08/22/2022 09/21/2023 1 1 [facility] for referral (narrative)* Diagnostic Procedure Only (Routine) - Authorized Specialty Diagnoses / Procedures Referred By Contac t Referred To Contact XR IMAGING Diagnoses Chronic right shoulder pain Procedures XR SHOULDER GENERAL 3V OR MORE AP/TRUE AP/OTHER RIGHT RADEX SHOULDER COMPLETE MINIMUM 2 VIEWS Joseph Ang PA-C [address] [place] [address] Xr Imaging Referral ID Status Reason Start Date Expiration Date Visits Requested Visits Authorized [id number] Authorized Auto-Generat ed Referral 12/18/2022 01/17/2024 1 1 [facility] for referral (narrative)* Outpatient Procedure (Routine) - Closed Specialty Diagnoses / Procedures Referred By Contac t Referred To [facility] Diagnoses Pre-operative examination Procedures ECG COMPLETE ECG ROUTINE ECG W/LEAST 12 LDS W/I&R Chrissy Mccloud APRN.CNP [address] [place] [address] [facility] [place] [address] Referral ID Status Reason Start Date Expiration Date V isits Requested Visits Authorized [id number] Closed Auto-Generate d Referral 05/09/2023 05/08/2024 1 1 [facility] for referral (narrative)* Diagnostic Procedure Only (Routine) - Authorized Specialty Diagnoses / Procedures Referred By Contac t Referred To Contact XR IMAGING Diagnoses Chronic right shoulder pain Procedures XR SHOULDER GENERAL 3V OR MORE AP/TRUE AP/OTHER RIGHT RADEX SHOULDER COMPLETE MINIMUM 2 VIEWS Joseph Ang PA-C [address] [place] [address] Xr Imaging Referral ID Status Reason Start Date Expiration Date Visits Requested Visits Authorized [id number] Authorized Auto-Generat ed Referral 06/05/2023 07/03/2024 1 1 [facility] for referral (narrative)* Diagnostic Procedure Only (Routine) - Pending Review Specialty Diagnoses / Procedures Referred By Loli t Referred To Contact XR IMAGING Diagnoses Chronic right shoulder pain Procedures XR SHOULDER GENERAL 3V OR MORE AP/TRUE AP/OTHER RIGHT RADEX SHOULDER COMPLETE MINIMUM 2 VIEWS Joseph Ang PA-C [address] [place] [address] Xr Imaging Referral ID Status Reason Start Date Expiration Date Visits Requested Visits Authorized [id number] Pending Review Auto-Generat ed Referral 06/27/2023 07/26/2024 1 1 [facility] for visit Narrative* Diagnostic Procedure Only (Routine) - Closed Specialty Diagnoses / Procedures Referred By Loli t Referred To Contact XR IMAGING Diagnoses Closed nondisplaced fracture of styloid process of right radius, initial encounter Procedures XR WRIST GENERAL 3V PA/LAT/OBL RIGHT RADEX WRIST COMPLETE MINIMUM 3 VIEWS Jerri Harvey PA-C [address] [place] [address] Xr Imaging Referral ID Status Reason Start Date Expiration Date V isits Requested Visits Authorized [id number] Closed Auto-Generate d Referral 08/22/2022 09/21/2023 1 1 [facility] for visit Narrative* Diagnostic Procedure Only (Routine) - Closed Specialty Diagnoses / Procedures Referred By Contac t Referred To Contact BR IMAGING Diagnoses Breast cancer screening by mammogram Procedures SHER SCREENING SCREENING MAMMOGRAPHY BI 2-VIEW BREAST INC Patricia Ashby MD [address] [place] [address] [facility] [address] [place] [address] Referral ID Status Reason Start Date Expiration Date V isits Requested Visits Authorized [id number] Closed Auto-Generate d Referral 08/15/2022 09/10/2023 1 1 [facility] Advance Directives No Advanced Directives Records FoundDocuments on File 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) 01/14/2020 9:23 AM Sc anned 01-14-2020 Advance Directive(s) 01/14/2020 9:23 AM Advance Directive(s) 12/18/2019 4:03 PM Advance Directive(s) 10/24/2018 9:07 AM Latest Code Status on File Code Status Date Activated Date Inactivated Comments Full Code 01/16/2020 3:51 PM Documents on File 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) 01/14/2020 9:23 AM Latest Code Status on File Code Status Date Activated Date Inactivated Comments Full Code 01/16/2020 3:51 PM Documents on File 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) 01/14/2020 9:23 AM Latest Code Status on File Code Status Date Activated Date Inactivated Comments Full Code 01/16/2020 3:51 PM 06/01/2023 7:17 AM Latest Code Status on File Code Status Date Activated Date Inactivated Comments Full Code 01/16/2020 3:51 PM 06/01/2023 7:17 AM Medications Administered Section Active Administered Medications - up to 3 most recent administrations Medication Order MAR Action Action Date Dose Rate Site cyanocobalamin 1,000 mcg injection 1,000 mcg, INTRAMUSCULAR, EVERY 4 WEEKS, 12 doses, First dose on Sun01/10/22 at 0000, Last dose on Sun11/14/22 at 0000 Given 03/02/2022 11:10 AM EDT 1,000 mcg Deltoid, Right Active Administered Medications - up to 3 most recent administrations Medication Order MAR Action Action Date Dose Rate Site cyanocobalamin 1,000 mcg injection 1,000 mcg, INTRAMUSCULAR, EVERY 4 WEEKS, 12 doses, First dose on Sun01/10/22 at 0000, Last dose on Sun11/14/22 at 0000 Given 03/30/2022 11:06 AM EDT 1,000 mcg Deltoid, Left Active Administered Medications - up to 3 most recent administrations Medication Order MAR Action Action Date Dose Rate Site cyanocobalamin 1,000 mcg injection 1,000 mcg, INTRAMUSCULAR, EVERY 4 WEEKS, 12 doses, First dose on Sun01/10/22 at 0000, Last dose on Sun11/14/22 at 0000 Given 04/27/2022 9:55 AM EDT 1,000 mcg Deltoid, Right Active Administered Medications - up to 3 most recent administrations Medication Order MAR Action Action Date Dose Rate Site cyanocobalamin 1,000 mcg injection 1,000 mcg, INTRAMUSCULAR, EVERY 4 WEEKS, 12 doses, First dose on Sun01/10/22 at 0000, Last dose on Sun11/14/22 at 0000 Given 05/26/2022 11:42 AM EDT 1,000 mcg Arm, Left Active Administered Medications - up to 3 most recent administrations Medication Order MAR Action Action Date Dose Rate Site cyanocobalamin 1,000 mcg injection 1,000 mcg, INTRAMUSCULAR, EVERY 4 WEEKS, 12 doses, First dose on Sun01/10/22 at 0000, Last dose on Sun11/14/22 at 0000 Given 09/14/2022 1:38 PM EDT 1,000 mcg Deltoid, Right Active Administered Medications - up to 3 most recent administrations Medication Order MAR Action Action Date Dose Rate Site cyanocobalamin 1,000 mcg injection 1,000 mcg, INTRAMUSCULAR, EVERY 4 WEEKS, 12 doses, First dose on Sun01/10/22 at 0000, Last dose on Sun11/14/22 at 0000 Given 11/06/2022 2:15 PM EST 1,000 mcg Deltoid, Right Inactive Administered Medications - up to 3 most recent administrations Medication Order MAR Action Action Date Dose Rate Site cyanocobalamin 1,000 mcg injection 1,000 mcg, INTRAMUSCULAR, EVERY 4 WEEKS, 12 doses, First dose on Sun01/10/22 at 0000, Last dose on Sun11/14/22 at 0000 Given 12/04/2022 2:14 PM EST 1,000 mcg Deltoid, Left Active Administered Medications - up to 3 most recent administrations Medication Order MAR Action Action Date Dose Rate Site cyanocobalamin 1,000 mcg injection 1,000 mcg, INTRAMUSCULAR, EVERY 4 WEEKS, 12 doses, First dose on Sun01/02/23 at 0000, Last dose on Sun11/06/23 at 0000 Given 01/31/2023 9:53 AM EDT 1,000 mcg Deltoid, Left Active Administered Medications - up to 3 most recent administrations Medication Order MAR Action Action Date Dose Rate Site cyanocobalamin 1,000 mcg injection 1,000 mcg, INTRAMUSCULAR, EVERY 4 WEEKS, 12 doses, First dose on Sun01/02/23 at 0000, Last dose on Sun11/06/23 at 0000 Given 03/27/2023 9:50 AM EDT 1,000 mcg Deltoid, Left Active Administered Medications - up to 3 most recent administrations Medication Order MAR Action Action Date Dose Rate Site cyanocobalamin 1,000 mcg injection 1,000 mcg, INTRAMUSCULAR, EVERY 4 WEEKS, 12 doses, First dose on Sun01/02/23 at 0000, Last dose on Sun11/06/23 at 0000 Given 04/24/2023 9:56 AM EDT 1,000 mcg Deltoid, Right Active Administered Medications - up to 3 most recent administrations Medication Order MAR Action Action Date Dose Rate Site cyanocobalamin 1,000 mcg injection 1,000 mcg, INTRAMUSCULAR, EVERY 4 WEEKS, 12 doses, First dose on Sun01/02/23 at 0000, Last dose on Sun11/06/23 at 0000 Given 05/21/2023 1:17 PM EDT 1,000 mcg Deltoid, Left Active Administered Medications - up to 3 most recent administrations Medication Order MAR Action Action Date Dose Rate Site cyanocobalamin 1,000 mcg injection 1,000 mcg, INTRAMUSCULAR, EVERY 4 WEEKS, 12 doses, First dose on Sun01/02/23 at 0000, Last dose on Sun11/06/23 at 0000 Given 07/17/2023 10:25 AM EDT 1,000 mcg Deltoid, Left Active Administered Medications - up to 3 most recent administrations Medication Order MAR Action Action Date Dose Rate Site cyanocobalamin 1,000 mcg injection 1,000 mcg, INTRAMUSCULAR, EVERY 4 WEEKS, 12 doses, First dose on Sun01/02/23 at 0000, Last dose on Sun11/06/23 at 0000 Given 08/14/2023 9:59 AM EDT 1,000 mcg Deltoid, Right Active Administered Medications - up to 3 most recent administrations Medication Order MAR Action Action Date Dose Rate Site cyanocobalamin 1,000 mcg injection 1,000 mcg, INTRAMUSCULAR, EVERY 4 WEEKS, 12 doses, First dose on Sun01/02/23 at 0000, Last dose on Sun11/06/23 at 0000 Given 09/11/2023 10:10 AM EDT 1,000 mcg Deltoid, Right Active Administered Medications - up to 3 most recent administrations Medication Order MAR Action Action Date Dose Rate Site cyanocobalamin 1,000 mcg injection 1,000 mcg, INTRAMUSCULAR, EVERY 4 WEEKS, 12 doses, First dose on Sun01/02/23 at 0000, Last dose on Sun11/06/23 at 0000 Given 10/09/2023 9:24 AM EST 1,000 mcg Deltoid, Left Reason for Referral Specialty Diagnoses / Procedures Referred By Contac t Referred To Contact Orthopedics Diagnoses Other closed fracture of distal end of right radius, initial encounter Procedures CONSULT TO ORTHOPAEDICS OFFICE/OUT[facility]IENT [facility] 60-74 MINUTES Clara Felix PA-C [address] [place] [address] Referral ID Status Reason Start Date Expiration Date Visits Requested Visits Authorized [id number] Authorized PCP Requested Referral 08/03/2022 08/03/2023 1 1 Specialty Diagnoses / Procedures Referred By Contac t Referred To Contact XR IMAGING Diagnoses Other closed fracture of distal end of right radius, initial encounter Procedures XR WRIST INJURY 4V PA/LAT/OBL/SCAPH RIGHT RADEX WRIST COMPLETE MINIMUM 3 VIEWS Clara Felix PA-C [address] [place] [address] Xr Imaging Referral ID Status Reason Start Date Expiration Date V isits Requested Visits Authorized [id number] Closed Auto-Generate d Referral 08/03/2022 09/02/2023 1 1 Specialty Diagnoses / Procedures Referred By Contac t Referred To Contact MR IMAGING Diagnoses Pancreatic cyst Procedures MRI PANC/ROBIN WO/W IVCON MRI ABDOMEN W/O & W/CONTRAST MATERIAL Melo Freeman MD [address] [place] [address] Mr Imaging Referral ID Status Reason Start Date Expiration Date Visits Requested Visits Authorized [id number] Pending Review Auto-Generat ed Referral 12/15/2023 1 1 Specialty Diagnoses / Procedures Referred By Contac t Referred To Contact [facility] Diagnoses Osteoarthritis of right glenohumeral joint Procedures CONSULT TO PHYSICAL THERAPY PHYSICAL THERAPY EVALUATION HIGH COMPLEX 45 MINS Joseph Ang PA-C [address] [place] [address] [facility] [place] [address] [place] [address] Referral ID Status Reason Start Date Expiration Date Visits Requested Visits Authorized [id number] Authorized PCP Requested Referral Auto-Generate d Referral 06/08/2023 04/24/2024 99 99 Specialty Diagnoses / Procedures Referred By Contac t Referred To Contact MR IMAGING Diagnoses Pancreatic cyst Procedures MRI PANC/ROBIN WO/W IVCON MRI ABDOMEN W/O & W/CONTRAST MATERIAL Melo Freeman MD [address] [place] [address] [facility] [place] [address] Referral ID Status Reason Start Date Expiration Date V isits Requested Visits Authorized [id number] Closed Auto-Generate d Referral 11/15/2022 12/15/2023 1 1 Summary Purpose Family History No Family History Records FoundNo Family History Records Found Additional Source Comments Source Comments (unrecognize d section and content) In the event this informatio n is protected by the Federal Confidentiality of Alcohol and Drug Abuse Patient Records regulations: The Federal rules restrict any use of the information to criminally investigate or prosecute any alcohol or drug abuse patient.[facility] the event this information is protected by the Federal Confidentiality of Alcohol and Drug Abuse Patient Records regulations: The Federal rules restrict any use of the information to criminally investigate or prosecute any alcohol or drug abuse patient.[facility]In the event this information is protected by the Federal Confidentiality of Alcohol and Drug Abuse Patient Records regulations: The Federal rules restrict any use of the information to criminally investigate or prosecute any alcohol or drug abuse patient.[facility]In the event this information is protected by the Federal Confidentiality of Alcohol and Drug Abuse Patient Records regulations: The Federal rules restrict any use of the information to criminally investigate or prosecute any alcohol or drug abuse patient.[facility]In the event this information is protected by the Federal Confidentiality of Alcohol and Drug Abuse Patient Records regulations: The Federal rules restrict any use of the information to criminally investigate or prosecute any alcohol or drug abuse patient.[facility]In the event this information is protected by the Federal Confidentiality of Alcohol and Drug Abuse Patient Records regulations: The Federal rules restrict any use of the information to criminally investigate or prosecute any alcohol or drug abuse patient.[facility]In the event this information is protected by the Federal Confidentiality of Alcohol and Drug Abuse Patient Records regulations: The Federal rules restrict any use of the information to criminally investigate or prosecute any alcohol or drug abuse patient.[facility]In the event this information is protected by the Federal Confidentiality of Alcohol and Drug Abuse Patient Records regulations: The Federal rules restrict any use of the information to criminally investigate or prosecute any alcohol or drug abuse patient.[facility]In the event this information is protected by the Federal Confidentiality of Alcohol and Drug Abuse Patient Records regulations: The Federal rules restrict any use of the information to criminally investigate or prosecute any alcohol or drug abuse patient.[facility] HospitalIn the event this information is protected by the Federal Confidentiality of Alcohol and Drug Abuse Patient Records regulations: The Federal rules restrict any use of the information to criminally investigate or prosecute any alcohol or drug abuse patient.[facility] HospitalIn the event this information is protected by the Federal Confidentiality of Alcohol and Drug Abuse Patient Records regulations: The Federal rules restrict any use of the information to criminally investigate or prosecute any alcohol or drug abuse patient.[facility] HospitalIn the event this information is protected by the Federal Confidentiality of Alcohol and Drug Abuse Patient Records regulations: The Federal rules restrict any use of the information to criminally investigate or prosecute any alcohol or drug abuse patient.[facility] HospitalIn the event this information is protected by the Federal Confidentiality of Alcohol and Drug Abuse Patient Records regulations: The Federal rules restrict any use of the information to criminally investigate or prosecute any alcohol or drug abuse patient.[facility] HospitalIn the event this information is protected by the Federal Confidentiality of Alcohol and Drug Abuse Patient Records regulations: The Federal rules restrict any use of the information to criminally investigate or prosecute any alcohol or drug abuse patient.[facility] HospitalIn the event this information is protected by the Federal Confidentiality of Alcohol and Drug Abuse Patient Records regulations: The Federal rules restrict any use of the information to criminally investigate or prosecute any alcohol or drug abuse patient.[facility] HospitalIn the event this information is protected by the Federal Confidentiality of Alcohol and Drug Abuse Patient Records regulations: The Federal rules restrict any use of the information to criminally investigate or prosecute any alcohol or drug abuse patient.[facility] HospitalIn the event this information is protected by the Federal Confidentiality of Alcohol and Drug Abuse Patient Records regulations: The Federal rules restrict any use of the information to criminally investigate or prosecute any alcohol or drug abuse patient.[facility] HospitalIn the event this information is protected by the Federal Confidentiality of Alcohol and Drug Abuse Patient Records regulations: The Federal rules restrict any use of the information to criminally investigate or prosecute any alcohol or drug abuse patient.[facility] HospitalIn the event this information is protected by the Federal Confidentiality of Alcohol and Drug Abuse Patient Records regulations: The Federal rules restrict any use of the information to criminally investigate or prosecute any alcohol or drug abuse patient.[facility] HospitalIn the event this information is protected by the Federal Confidentiality of Alcohol and Drug Abuse Patient Records regulations: The Federal rules restrict any use of the information to criminally investigate or prosecute any alcohol or drug abuse patient.[facility] HospitalIn the event this information is protected by the Federal Confidentiality of Alcohol and Drug Abuse Patient Records regulations: The Federal rules restrict any use of the information to criminally investigate or prosecute any alcohol or drug abuse patient.[facility] HospitalIn the event this information is protected by the Federal Confidentiality of Alcohol and Drug Abuse Patient Records regulations: The Federal rules restrict any use of the information to criminally investigate or prosecute any alcohol or drug abuse patient.[facility] HospitalIn the event this information is protected by the Federal Confidentiality of Alcohol and Drug Abuse Patient Records regulations: The Federal rules restrict any use of the information to criminally investigate or prosecute any alcohol or drug abuse patient.[facility] HospitalIn the event this information is protected by the Federal Confidentiality of Alcohol and Drug Abuse Patient Records regulations: The Federal rules restrict any use of the information to criminally investigate or prosecute any alcohol or drug abuse patient.[facility] HospitalIn the event this information is protected by the Federal Confidentiality of Alcohol and Drug Abuse Patient Records regulations: The Federal rules restrict any use of the information to criminally investigate or prosecute any alcohol or drug abuse patient.[facility] HospitalIn the event this information is protected by the Federal Confidentiality of Alcohol and Drug Abuse Patient Records regulations: The Federal rules restrict any use of the information to criminally investigate or prosecute any alcohol or drug abuse patient.[facility] HospitalIn the event this information is protected by the Federal Confidentiality of Alcohol and Drug Abuse Patient Records regulations: The Federal rules restrict any use of the information to criminally investigate or prosecute any alcohol or drug abuse patient.[facility] HospitalIn the event this information is protected by the Federal Confidentiality of Alcohol and Drug Abuse Patient Records regulations: The Federal rules restrict any use of the information to criminally investigate or prosecute any alcohol or drug abuse patient.[facility] HospitalIn the event this information is protected by the Federal Confidentiality of Alcohol and Drug Abuse Patient Records regulations: The Federal rules restrict any use of the information to criminally investigate or prosecute any alcohol or drug abuse patient.[facility] HospitalIn the event this information is protected by the Federal Confidentiality of Alcohol and Drug Abuse Patient Records regulations: The Federal rules restrict any use of the information to criminally investigate or prosecute any alcohol or drug abuse patient.[facility] HospitalIn the event this information is protected by the Federal Confidentiality of Alcohol and Drug Abuse Patient Records regulations: The Federal rules restrict any use of the information to criminally investigate or prosecute any alcohol or drug abuse patient.[facility] HospitalIn the event this information is protected by the Federal Confidentiality of Alcohol and Drug Abuse Patient Records regulations: The Federal rules restrict any use of the information to criminally investigate or prosecute any alcohol or drug abuse patient.[facility] HospitalIn the event this information is protected by the Federal Confidentiality of Alcohol and Drug Abuse Patient Records regulations: The Federal rules restrict any use of the information to criminally investigate or prosecute any alcohol or drug abuse patient.[facility] HospitalIn the event this information is protected by the Federal Confidentiality of Alcohol and Drug Abuse Patient Records regulations: The Federal rules restrict any use of the information to criminally investigate or prosecute any alcohol or drug abuse patient.[facility] HospitalIn the event this information is protected by the Federal Confidentiality of Alcohol and Drug Abuse Patient Records regulations: The Federal rules restrict any use of the information to criminally investigate or prosecute any alcohol or drug abuse patient.[facility] HospitalIn the event this information is protected by the Federal Confidentiality of Alcohol and Drug Abuse Patient Records regulations: The Federal rules restrict any use of the information to criminally investigate or prosecute any alcohol or drug abuse patient.[facility] HospitalIn the event this information is protected by the Federal Confidentiality of Alcohol and Drug Abuse Patient Records regulations: The Federal rules restrict any use of the information to criminally investigate or prosecute any alcohol or drug abuse patient.[facility] HospitalIn the event this information is protected by the Federal Confidentiality of Alcohol and Drug Abuse Patient Records regulations: The Federal rules restrict any use of the information to criminally investigate or prosecute any alcohol or drug abuse patient.[facility] HospitalIn the event this information is protected by the Federal Confidentiality of Alcohol and Drug Abuse Patient Records regulations: The Federal rules restrict any use of the information to criminally investigate or prosecute any alcohol or drug abuse patient.[facility] HospitalIn the event this information is protected by the Federal Confidentiality of Alcohol and Drug Abuse Patient Records regulations: The Federal rules restrict any use of the information to criminally investigate or prosecute any alcohol or drug abuse patient.[facility] HospitalIn the event this information is protected by the Federal Confidentiality of Alcohol and Drug Abuse Patient Records regulations: The Federal rules restrict any use of the information to criminally investigate or prosecute any alcohol or drug abuse patient.[facility] HospitalIn the event this information is protected by the Federal Confidentiality of Alcohol and Drug Abuse Patient Records regulations: The Federal rules restrict any use of the information to criminally investigate or prosecute any alcohol or drug abuse patient.[facility] HospitalIn the event this information is protected by the Federal Confidentiality of Alcohol and Drug Abuse Patient Records regulations: The Federal rules restrict any use of the information to criminally investigate or prosecute any alcohol or drug abuse patient.[facility] HospitalIn the event this information is protected by the Federal Confidentiality of Alcohol and Drug Abuse Patient Records regulations: The Federal rules restrict any use of the information to criminally investigate or prosecute any alcohol or drug abuse patient.[facility] HospitalIn the event this information is protected by the Federal Confidentiality of Alcohol and Drug Abuse Patient Records regulations: The Federal rules restrict any use of the information to criminally investigate or prosecute any alcohol or drug abuse patient.[facility] HospitalIn the event this information is protected by the Federal Confidentiality of Alcohol and Drug Abuse Patient Records regulations: The Federal rules restrict any use of the information to criminally investigate or prosecute any alcohol or drug abuse patient.[facility] HospitalIn the event this information is protected by the Federal Confidentiality of Alcohol and Drug Abuse Patient Records regulations: The Federal rules restrict any use of the information to criminally investigate or prosecute any alcohol or drug abuse patient.[facility] HospitalIn the event this information is protected by the Federal Confidentiality of Alcohol and Drug Abuse Patient Records regulations: The Federal rules restrict any use of the information to criminally investigate or prosecute any alcohol or drug abuse patient.[facility] HospitalIn the event this information is protected by the Federal Confidentiality of Alcohol and Drug Abuse Patient Records regulations: The Federal rules restrict any use of the information to criminally investigate or prosecute any alcohol or drug abuse patient.[facility] HospitalIn the event this information is protected by the Federal Confidentiality of Alcohol and Drug Abuse Patient Records regulations: The Federal rules restrict any use of the information to criminally investigate or prosecute any alcohol or drug abuse patient.[facility] HospitalIn the event this information is protected by the Federal Confidentiality of Alcohol and Drug Abuse Patient Records regulations: The Federal rules restrict any use of the information to criminally investigate or prosecute any alcohol or drug abuse patient.[facility] HospitalIn the event this information is protected by the Federal Confidentiality of Alcohol and Drug Abuse Patient Records regulations: The Federal rules restrict any use of the information to criminally investigate or prosecute any alcohol or drug abuse patient.[facility] HospitalIn the event this information is protected by the Federal Confidentiality of Alcohol and Drug Abuse Patient Records regulations: The Federal rules restrict any use of the information to criminally investigate or prosecute any alcohol or drug abuse patient.[facility] HospitalIn the event this information is protected by the Federal Confidentiality of Alcohol and Drug Abuse Patient Records regulations: The Federal rules restrict any use of the information to criminally investigate or prosecute any alcohol or drug abuse patient.[facility] HospitalIn the event this information is protected by the Federal Confidentiality of Alcohol and Drug Abuse Patient Records regulations: The Federal rules restrict any use of the information to criminally investigate or prosecute any alcohol or drug abuse patient.[facility] HospitalIn the event this information is protected by the Federal Confidentiality of Alcohol and Drug Abuse Patient Records regulations: The Federal rules restrict any use of the information to criminally investigate or prosecute any alcohol or drug abuse patient.[facility] HospitalIn the event this information is protected by the Federal Confidentiality of Alcohol and Drug Abuse Patient Records regulations: The Federal rules restrict any use of the information to criminally investigate or prosecute any alcohol or drug abuse patient.[facility] HospitalIn the event this information is protected by the Federal Confidentiality of Alcohol and Drug Abuse Patient Records regulations: The Federal rules restrict any use of the information to criminally investigate or prosecute any alcohol or drug abuse patient.[facility] HospitalIn the event this information is protected by the Federal Confidentiality of Alcohol and Drug Abuse Patient Records regulations: The Federal rules restrict any use of the information to criminally investigate or prosecute any alcohol or drug abuse patient.[facility] HospitalIn the event this information is protected by the Federal Confidentiality of Alcohol and Drug Abuse Patient Records regulations: The Federal rules restrict any use of the information to criminally investigate or prosecute any alcohol or drug abuse patient.[facility] HospitalIn the event this information is protected by the Federal Confidentiality of Alcohol and Drug Abuse Patient Records regulations: The Federal rules restrict any use of the information to criminally investigate or prosecute any alcohol or drug abuse patient.[facility] HospitalIn the event this information is protected by the Federal Confidentiality of Alcohol and Drug Abuse Patient Records regulations: The Federal rules restrict any use of the information to criminally investigate or prosecute any alcohol or drug abuse patient.[facility] HospitalIn the event this information is protected by the Federal Confidentiality of Alcohol and Drug Abuse Patient Records regulations: The Federal rules restrict any use of the information to criminally investigate or prosecute any alcohol or drug abuse patient.[facility] HospitalIn the event this information is protected by the Federal Confidentiality of Alcohol and Drug Abuse Patient Records regulations: The Federal rules restrict any use of the information to criminally investigate or prosecute any alcohol or drug abuse patient.[facility] HospitalIn the event this information is protected by the Federal Confidentiality of Alcohol and Drug Abuse Patient Records regulations: The Federal rules restrict any use of the information to criminally investigate or prosecute any alcohol or drug abuse patient.[facility] HospitalIn the event this information is protected by the Federal Confidentiality of Alcohol and Drug Abuse Patient Records regulations: The Federal rules restrict any use of the information to criminally investigate or prosecute any alcohol or drug abuse patient.[facility] HospitalIn the event this information is protected by the Federal Confidentiality of Alcohol and Drug Abuse Patient Records regulations: The Federal rules restrict any use of the information to criminally investigate or prosecute any alcohol or drug abuse patient.[facility] HospitalIn the event this information is protected by the Federal Confidentiality of Alcohol and Drug Abuse Patient Records regulations: The Federal rules restrict any use of the information to criminally investigate or prosecute any alcohol or drug abuse patient.[facility] HospitalIn the event this information is protected by the Federal Confidentiality of Alcohol and Drug Abuse Patient Records regulations: The Federal rules restrict any use of the information to criminally investigate or prosecute any alcohol or drug abuse patient.[facility] HospitalIn the event this information is protected by the Federal Confidentiality of Alcohol and Drug Abuse Patient Records regulations: The Federal rules restrict any use of the information to criminally investigate or prosecute any alcohol or drug abuse patient.[facility] HospitalIn the event this information is protected by the Federal Confidentiality of Alcohol and Drug Abuse Patient Records regulations: The Federal rules restrict any use of the information to criminally investigate or prosecute any alcohol or drug abuse patient.[facility] HospitalIn the event this information is protected by the Federal Confidentiality of Alcohol and Drug Abuse Patient Records regulations: The Federal rules restrict any use of the information to criminally investigate or prosecute any alcohol or drug abuse patient.[facility] HospitalIn the event this information is protected by the Federal Confidentiality of Alcohol and Drug Abuse Patient Records regulations: The Federal rules restrict any use of the information to criminally investigate or prosecute any alcohol or drug abuse patient.[facility] HospitalIn the event this information is protected by the Federal Confidentiality of Alcohol and Drug Abuse Patient Records regulations: The Federal rules restrict any use of the information to criminally investigate or prosecute any alcohol or drug abuse patient.[facility] HospitalIn the event this information is protected by the Federal Confidentiality of Alcohol and Drug Abuse Patient Records regulations: The Federal rules restrict any use of the information to criminally investigate or prosecute any alcohol or drug abuse patient.[facility] HospitalIn the event this information is protected by the Federal Confidentiality of Alcohol and Drug Abuse Patient Records regulations: The Federal rules restrict any use of the information to criminally investigate or prosecute any alcohol or drug abuse patient.[facility] HospitalIn the event this information is protected by the Federal Confidentiality of Alcohol and Drug Abuse Patient Records regulations: The Federal rules restrict any use of the information to criminally investigate or prosecute any alcohol or drug abuse patient.[facility] HospitalIn the event this information is protected by the Federal Confidentiality of Alcohol and Drug Abuse Patient Records regulations: The Federal rules restrict any use of the information to criminally investigate or prosecute any alcohol or drug abuse patient.[facility] HospitalIn the event this information is protected by the Federal Confidentiality of Alcohol and Drug Abuse Patient Records regulations: The Federal rules restrict any use of the information to criminally investigate or prosecute any alcohol or drug abuse patient.[facility] HospitalIn the event this information is protected by the Federal Confidentiality of Alcohol and Drug Abuse Patient Records regulations: The Federal rules restrict any use of the information to criminally investigate or prosecute any alcohol or drug abuse patient.[facility] HospitalIn the event this information is protected by the Federal Confidentiality of Alcohol and Drug Abuse Patient Records regulations: The Federal rules restrict any use of the information to criminally investigate or prosecute any alcohol or drug abuse patient.[facility] HospitalIn the event this information is protected by the Federal Confidentiality of Alcohol and Drug Abuse Patient Records regulations: The Federal rules restrict any use of the information to criminally investigate or prosecute any alcohol or drug abuse patient.[facility] HospitalIn the event this information is protected by the Federal Confidentiality of Alcohol and Drug Abuse Patient Records regulations: The Federal rules restrict any use of the information to criminally investigate or prosecute any alcohol or drug abuse patient.[facility] HospitalIn the event this information is protected by the Federal Confidentiality of Alcohol and Drug Abuse Patient Records regulations: The Federal rules restrict any use of the information to criminally investigate or prosecute any alcohol or drug abuse patient.[facility] HospitalIn the event this information is protected by the Federal Confidentiality of Alcohol and Drug Abuse Patient Records regulations: The Federal rules restrict any use of the information to criminally investigate or prosecute any alcohol or drug abuse patient.[facility] HospitalIn the event this information is protected by the Federal Confidentiality of Alcohol and Drug Abuse Patient Records regulations: The Federal rules restrict any use of the information to criminally investigate or prosecute any alcohol or drug abuse patient.[facility] HospitalIn the event this information is protected by the Federal Confidentiality of Alcohol and Drug Abuse Patient Records regulations: The Federal rules restrict any use of the information to criminally investigate or prosecute any alcohol or drug abuse patient.[facility] HospitalIn the event this information is protected by the Federal Confidentiality of Alcohol and Drug Abuse Patient Records regulations: The Federal rules restrict any use of the information to criminally investigate or prosecute any alcohol or drug abuse patient.[facility] HospitalIn the event this information is protected by the Federal Confidentiality of Alcohol and Drug Abuse Patient Records regulations: The Federal rules restrict any use of the information to criminally investigate or prosecute any alcohol or drug abuse patient.[facility] HospitalIn the event this information is protected by the Federal Confidentiality of Alcohol and Drug Abuse Patient Records regulations: The Federal rules restrict any use of the information to criminally investigate or prosecute any alcohol or drug abuse patient.[facility] HospitalIn the event this information is protected by the Federal Confidentiality of Alcohol and Drug Abuse Patient Records regulations: The Federal rules restrict any use of the information to criminally investigate or prosecute any alcohol or drug abuse patient.[facility] HospitalIn the event this information is protected by the Federal Confidentiality of Alcohol and Drug Abuse Patient Records regulations: The Federal rules restrict any use of the information to criminally investigate or prosecute any alcohol or drug abuse patient.[facility] HospitalIn the event this information is protected by the Federal Confidentiality of Alcohol and Drug Abuse Patient Records regulations: The Federal rules restrict any use of the information to criminally investigate or prosecute any alcohol or drug abuse patient.[facility] HospitalIn the event this information is protected by the Federal Confidentiality of Alcohol and Drug Abuse Patient Records regulations: The Federal rules restrict any use of the information to criminally investigate or prosecute any alcohol or drug abuse patient.[facility] HospitalIn the event this information is protected by the Federal Confidentiality of Alcohol and Drug Abuse Patient Records regulations: The Federal rules restrict any use of the information to criminally investigate or prosecute any alcohol or drug abuse patient.[facility] Reason for Visit (unrecogniz ed section and content) Specialty Diagnoses / Procedures Referred By Loli maya Referred To Contact [facility] Diagnoses Osteoarthritis of right glenohumeral joint Procedures CONSULT TO PHYSICAL THERAPY PHYSICAL THERAPY EVALUATION HIGH COMPLEX 45 MINS Joseph Ang PA-C [address] [place] [address] [facility] [address] [address] Referral ID Status Reason Start Date Expiration Date Visits Requested Visits Authorized [id number] Authorized PCP Requested Referral Auto-Generate d Referral 06/08/2023 04/24/2024 99 99 Reason Comments PT Progress Note Reason Comments PT Discharge Specialty Diagnoses / Procedures Referred By Loli maya Referred To Contact [facility] Diagnoses Type 2 diabetes mellitus with diabetic neuropathy, without long-term current use of insulin (HCC) Balance disorder Other polyneuropathy Weakness of both lower extremities Procedures CONSULT TO PHYSICAL THERAPY PHYSICAL THERAPY EVALUATION HIGH COMPLEX 45 MINS Patricia Covarrubias MD [address] [place] [address] [facility] [address] [address] Referral ID Status Reason Start Date Expiration Date Visits Requested Visits Authorized [id number] Authorized PCP Requested Referral Auto-Generate d Referral 09/19/2022 09/19/2023 99 99 Reason Onset Date Comments Refill Request 02/19/2022 Reason Comments B-12 Injection Reason Onset Date Comments Refill Request 03/04/2022 Reason Comments Refill Request Reason Onset Date Comments Refill Request 03/27/2022 Reason Comments F/U 3 months -DM Reason Onset Date Comments Refill Request 04/22/2022 Reason Comments Diabetic Eye Exam [facility] Reason Onset Date Comments Refill Request 05/05/2022 Reason Onset Date Comments Refill Request 05/15/2022 Reason Comments Nurse Visit B 12 injection Reason Onset Date Comments Refill Request 06/29/2022 Reason Comments F/U 6 Month Established Patient Reason Comments Trauma Right wrist, hand, a nd thumb bruised x 3 days Reason Comments Established Patient Fracture Reason Onset Date Comments Refill Request 08/10/2022 Reason Comments Established Patient Fracture Reason Comments PT Eval Reason Comments New Pain New Patient Wants to get establi shed with a chain tender Specialty Diagnoses / Procedures Referred By Contac t Referred To Contact Podiatry Diagnoses Type 2 diabetes mellitus with diabetic neuropathy, without long-term current use of insulin (HCC) Procedures CONSULT TO PODIATRY OFFICE/OUTPATIENT NEW HIGH MDM 60-74 MINUTES Patricia Covarrubias MD [address] [place] [address] Referral ID Status Reason Start Date Expiration Date V isits Requested Visits Authorized [id number] Closed PCP Requested Referral 09/19/2022 09/19/2023 1 1 Reason Onset Date Comments Refill Request 11/27/2022 Reason Comments B-12 Injection Reason Comments Established Patient Knee Replacement Follow Up Reason Comments Follow Up Reason Comments New Pain Reason Comments Appointment Pre-op appointment Reason Comments Orders Reason Onset Date Comments Refill Request 02/28/2023 Reason Comments Established Patient Follow Up Diabetic Foot Care Pain Reason Comments Pre-Op Visit Reason Comments Orders Post-op physical the rapy orders Reason Comments Appointment Post-op physical the rapy Reason Comments Anesthesia Consult Reason Onset Date Comments Refill Request 06/13/2023 Reason Comments Recheck 3 month follow up Reason Comments Follow Up Established Patient Reason Onset Date Comments B-12 Injection Immunizations 08/14/2023 Flu vaccination Reason Onset Date Comments Refill Request 09/05/2023 Reason Comments B-12 Injection Imm/Inj Reason Onset Date Comments Refill Request 09/11/2023 Specialty Diagnoses / Procedures Referred By Contac t Referred To Contact MR IMAGING Diagnoses Pancreatic cyst Procedures MRI PANC/ROBIN WO/W IVCON MRI ABDOMEN W/O & W/CONTRAST MATERIAL Melo Freeman MD [address] [place] [address] [place] [address] Referral ID Status Reason Start Date Expiration Date V isits Requested Visits Authorized [id number] Closed Auto-Generate d Referral 11/15/2022 12/15/2023 1 1 Reason Onset Date Comments Refill Request 10/02/2023 Reason Comments F/U 3 Month Care Teams (unrecognized sec tion and content) Machine Stitcher Relationship Specialty Start Date End Date Patricia Covarrubias MD [address] [place], [place] [id number] PCP - General Internal Medicine 05/14/17 James Hu MD [address] [address] Referring Orthopedics 01/15/20 James Hu MD [address] [address] Home Care Physician Orthopedics 01/15/20 Agatha Mustafa, PT [address] [place] [address] Administration Internship Acute Care 01/15/20 Machine Stitcher Relationship Specialty Start Date End Date Patricia Covarrubias MD [address] [place], [place] [id number] PCP - General Internal Medicine 05/14/17 James Hu MD [address] [address] Referring Orthopedics 01/15/20 James Hu MD [address] [address] Home Care Physician Orthopedics 01/15/20 Agatha Mustafa, PT [address] [place] [address] Administration Internship Acute Care 01/15/20 Machine Stitcher Relationship Specialty Start Date End Date Patricia Covarrubias MD [address] [place] [address] PCP - General Internal Medicine 05/14/17 James Hu MD [address] [address] Referring Orthopedics 01/15/20 James Hu MD [facility] [address] [address] Home Care Physician Orthopedics 01/15/20 Agatha Mustafa, PT [address] [place] [address] Administration Internship Acute Care 01/15/20 Machine Stitcher Relationship Specialty Start Date End Date Patricia Covarrubias MD [address] [place] [address] PCP - General Internal Medicine 05/14/17 James Hu MD [facility] [address] [address] Referring Orthopedics 01/15/20 James Hu MD [facility] [address] [address] Home Care Physician Orthopedics 01/15/20 Agatha Mustafa, PT [address] [place] [address] Administration Internship Acute Care 01/15/20 Machine Stitcher Relationship Specialty Start Date End Date Patricia Covarrubias MD [address] [place] [address] PCP - General Internal Medicine 05/14/17 James Hu MD [facility] [address] [address] Referring Orthopedics 01/15/20 James Hu MD [address] [address] Home Care Physician Orthopedics 01/15/20 Agatha Mustafa, PT [address] [place] [address] Administration Internship Acute Care 01/15/20 Machine Stitcher Relationship Specialty Start Date End Date Patricia Covarrubias MD [address] [facility] [place] [address] PCP - General Internal Medicine 05/14/17 James Hu MD [address] [address] Referring Orthopedics 01/15/20 James Hu MD [address] [address] Home Care Physician Orthopedics 01/15/20 Agatha Mustafa, PT [address] [place] [address] Administration Internship Acute Care 01/15/20 Machine Stitcher Relationship Specialty Start Date End Date Patricia Covarrubias MD [address] [place] [address] PCP - General Internal Medicine 05/14/17 James Hu MD [address] [address] Referring Orthopedics 01/15/20 James Hu MD [address] [address] Home Care Physician Orthopedics 01/15/20 Agatha Mustafa, PT [address] [place] [address] Administration Internship Acute Care 01/15/20 Machine Stitcher Relationship Specialty Start Date End Date Patricia Covarrubias MD [address] [place] [address] PCP - General Internal Medicine 05/14/17 James Hu MD [address] [address] Referring Orthopedics 01/15/20 James Hu MD [address] [address] Home Care Physician Orthopedics 01/15/20 Agatha Mustafa, PT [address] [place] [address] Administration Internship Acute Care 01/15/20 Machine Stitcher Relationship Specialty Start Date End Date Patricia Covarrubias MD [address] [place] [address] PCP - General Internal Medicine 05/14/17 James Hu MD [address] [address] Referring Orthopedics 01/15/20 James Hu MD [address] [address] Home Care Physician Orthopedics 01/15/20 Agatha Mustafa, PT [address] [place] [address] Administration Internship Acute Care 01/15/20 Machine Stitcher Relationship Specialty Start Date End Date Patricia Covarrubias MD [address] [place] [address] PCP - General Internal Medicine 05/14/17 James Hu MD [address] [address] Referring Orthopedics 01/15/20 James Hu MD [address] [place] [address] Home Care Physician Orthopedics 01/15/20 Agatha Mustafa, PT [address] [place] [address] Administration Internship Acute Care 01/15/20 Machine Stitcher Relationship Specialty Start Date End Date Patricia Covarrubias MD [address] [place] [address] PCP - General Internal Medicine 05/14/17 James Hu MD [address] [place] [address] Referring Orthopedics 01/15/20 James Hu MD [address] [place] [address] Home Care Physician Orthopedics 01/15/20 Agatha Mustafa, PT [address] [place] [address] Administration Internship Acute Care 01/15/20 Machine Stitcher Relationship Specialty Start Date End Date Patricia Covarrubias MD [address] [place] [address] PCP - General Internal Medicine 05/14/17 James Hu MD [address] [place] [address] Referring Orthopedics 01/15/20 James Hu MD [address] [place] [address] Home Care Physician Orthopedics 01/15/20 Agatha Mustafa, PT [address] [place] [address] Administration Internship Acute Care 01/15/20 Machine Stitcher Relationship Specialty Start Date End Date Patricia Covarrubias MD [address] [place] [address] PCP - General Internal Medicine 05/14/17 James Hu MD [address] [address] Referring Orthopedics 01/15/20 James Hu MD [address] [address] Home Care Provider Orthopedics 01/15/20 Agatha Mustafa, PT [address] [place] [address] Administration Internship Acute Care 01/15/20 Machine Stitcher Relationship Specialty Start Date End Date Patricia Covarrubias MD [address] [place] [address] PCP - General Internal Medicine 05/14/17 James Hu MD [address] [address] Referring Orthopedics 01/15/20 James Hu MD [address] [address] Home Care Provider Orthopedics 01/15/20 Agatha Mustafa, PT [address] [place] [address] Administration Internship Acute Care 01/15/20 Machine Stitcher Relationship Specialty Start Date End Date Patricia Covarrubias MD [address] [place] [address] PCP - General Internal Medicine 05/14/17 James Hu MD [address] [address] Referring Orthopedics 01/15/20 James Hu MD [address] [place] [address] Home Care Provider Orthopedics 01/15/20 Agatha Mustafa, PT [address] [place] [address] Administration Internship Acute Care 01/15/20 Machine Stitcher Relationship Specialty Start Date End Date Patricia Covarrubias MD [address] [place] [address] PCP - General Internal Medicine 05/14/17 James Hu MD [address] [place] [address] Referring Orthopedics 01/15/20 James Hu MD [address] [place] [address] Home Care Provider Orthopedics 01/15/20 Agatha Mustafa, PT [address] [place] [address] Administration Internship Acute Care 01/15/20 Machine Stitcher Relationship Specialty Start Date End Date Patricia Covarrubias MD [address] [place] [address] PCP - General Internal Medicine 05/14/17 James Hu MD [address] [place] [address] Referring Orthopedics 01/15/20 James Hu MD [address] [place] [address] Home Care Provider Orthopedics 01/15/20 Agatha Mustafa, PT [address] [place] [address] Administration Internship Acute Care 01/15/20 Machine Stitcher Relationship Specialty Start Date End Date Patricia Covarrubias MD [address] [place] [address] PCP - General Internal Medicine 05/14/17 James Hu MD [address] [address] Referring Orthopedics 01/15/20 James Hu MD [address] [address] Home Care Provider Orthopedics 01/15/20 Agatha Mustafa, PT [address] [place] [address] Administration Internship Acute Care 01/15/20 Machine Stitcher Relationship Specialty Start Date End Date Patricia Covarrubias MD [address] [place] [address] PCP - General Internal Medicine 05/14/17 James Hu MD [address] [address] Referring Orthopedics 01/15/20 James Hu MD [address] [address] Home Care Provider Orthopedics 01/15/20 Agatha Mustafa, PT [address] [place] [address] Administration Internship Acute Care 01/15/20 Machine Stitcher Relationship Specialty Start Date End Date Patricia Covarrubias MD [address] [place] [address] PCP - General Internal Medicine 05/14/17 James Hu MD [address] [address] Referring Orthopedics 01/15/20 James Hu MD [address] [address] Home Care Provider Orthopedics 01/15/20 Agatha Mustafa, PT [address] [place] [address] Administration Internship Acute Care 01/15/20 Machine Stitcher Relationship Specialty Start Date End Date Patricia Covarrubias MD [address] [place] [address] PCP - General Internal Medicine 05/14/17 James Hu MD [facility] [address] [address] Referring Orthopedics 01/15/20 James Hu MD [address] [address] Home Care Provider Orthopedics 01/15/20 Agatha Mustafa, PT [address] [place] [address] Administration Internship Acute Care 01/15/20 Machine Stitcher Relationship Specialty Start Date End Date Patricia Covarrubias MD [address] [place] [address] PCP - General Internal Medicine 05/14/17 James Hu MD [address] [address] Referring Orthopedics 01/15/20 James Hu MD [address] [address] Home Care Provider Orthopedics 01/15/20 Agatha Mustafa, PT [address] [place] [address] Administration Internship Acute Care 01/15/20 Machine Stitcher Relationship Specialty Start Date End Date Patricia Covarrubias MD [address] [place] [address] PCP - General Internal Medicine 05/14/17 James Hu MD [address] [address] Referring Orthopedics 01/15/20 James Hu MD [address] [address] Home Care Provider Orthopedics 01/15/20 Agatha Mustafa, PT [address] [place] [address] Administration Internship Acute Care 01/15/20 Machine Stitcher Relationship Specialty Start Date End Date Patricia Covarrubias MD [address] [place] [address] PCP - General Internal Medicine 05/14/17 James Hu MD [address] [address] Referring Orthopedics 01/15/20 James Hu MD [address] [address] Home Care Provider Orthopedics 01/15/20 Agatha Mustafa, PT [address] [place] [address] Administration Internship Acute Care 01/15/20 Machine Stitcher Relationship Specialty Start Date End Date Patricia Covarrubias MD [address] [place] [address] PCP - General Internal Medicine 05/14/17 James Hu MD [address] [place] [address] Referring Orthopedics 01/15/20 James Hu MD [address] [place] [address] Home Care Provider Orthopedics 01/15/20 Agatha Mustafa, PT [address] [place] [address] Administration Internship Acute Care 01/15/20 Machine Stitcher Relationship Specialty Start Date End Date Patricia Covarrubias MD [address] [place] [address] PCP - General Internal Medicine 05/14/17 James Hu MD [address] [address] Referring Orthopedics 01/15/20 James Hu MD [address] [place] [address] Home Care Provider Orthopedics 01/15/20 Agatha Mustafa, PT [address] [place] [address] Administration Internship Acute Care 01/15/20 Machine Stitcher Relationship Specialty Start Date End Date Patricia Covarrubias MD [address] [place] [address] PCP - General Internal Medicine 05/14/17 James Hu MD [address] [place] [address] Referring Orthopedics 01/15/20 James Hu MD [address] [address] Home Care Provider Orthopedics 01/15/20 Agatha Mustafa, PT [address] [place], [place] [id number] Administration Internship Acute Care 01/15/20 Machine Stitcher Relationship Specialty Start Date End Date Patricia Covarrubias MD [address] [place] [address] PCP - General Internal Medicine 05/14/17 James Hu MD [facility] [address] [address] Referring Orthopedics 01/15/20 James Hu MD [facility] [address] [address] Home Care Provider Orthopedics 01/15/20 Agatha Mustafa, PT [address] [place] [address] Administration Internship Acute Care 01/15/20 Machine Stitcher Relationship Specialty Start Date End Date Patricia Covarrubias MD [address] [place] [address] PCP - General Internal Medicine 05/14/17 James Hu MD [facility] [address] [address] Referring Orthopedics 01/15/20 James Hu MD [facility] [address] [address] Home Care Provider Orthopedics 01/15/20 Agatha Mustafa, PT [address] [place], [place] [id number] Administration Internship Acute Care 01/15/20 Machine Stitcher Relationship Specialty Start Date End Date Patricia Covarrubias MD [address] [place] [address] PCP - General Internal Medicine 05/14/17 James Hu MD [address] [address] Referring Orthopedics 01/15/20 James Hu MD [address] [address] Home Care Provider Orthopedics 01/15/20 Agatha Mustafa, PT [address] [place] [address] Administration Internship Acute Care 01/15/20 Machine Stitcher Relationship Specialty Start Date End Date Patricia Covarrubias MD [address] [place] [address] PCP - General Internal Medicine 05/14/17 James Hu MD [address] [address] Referring Orthopedics 01/15/20 James Hu MD [address] [address] Home Care Provider Orthopedics 01/15/20 Agatha Mustafa, PT [address] [place] [address] Administration Internship Acute Care 01/15/20 Machine Stitcher Relationship Specialty Start Date End Date Patricia Covarrubias MD [address] [place] [address] PCP - General Internal Medicine 05/14/17 James Hu MD [address] [address] Referring Orthopedics 01/15/20 James Hu MD [address] [address] Home Care Provider Orthopedics 01/15/20 Agatha Mustafa, PT [address] [place] [address] Administration Internship Acute Care 01/15/20 Machine Stitcher Relationship Specialty Start Date End Date Patricia Covarrubias MD [address] [place] [address] PCP - General Internal Medicine 05/14/17 James Hu MD [address] [address] Referring Orthopedics 01/15/20 James Hu MD [facility] [address] [address] Home Care Provider Orthopedics 01/15/20 Agatha Mustafa, PT [address] [place], [place] [id number] Administration Internship Acute Care 01/15/20 Machine Stitcher Relationship Specialty Start Date End Date Patricia Covarrubias MD [address] [place] [address] PCP - General Internal Medicine 05/14/17 James Hu MD [facility] [address] [address] Referring Orthopedics 01/15/20 James Hu MD [address] [address] Home Care Provider Orthopedics 01/15/20 Agatha Mustafa, PT [address] [place], [place] [id number] Administration Internship Acute Care 01/15/20 Machine Stitcher Relationship Specialty Start Date End Date Patricia Covarrubias MD [address] [place] [address] PCP - General Internal Medicine 05/14/17 James Hu MD [address] [address] Referring Orthopedics 01/15/20 James Hu MD [address] [address] Home Care Provider Orthopedics 01/15/20 Agatha Mustafa, PT [address] [place] [address] Administration Internship Acute Care 01/15/20 Machine Stitcher Relationship Specialty Start Date End Date Patricia Covarrubias MD [address] [place] [address] PCP - General Internal Medicine 05/14/17 James Hu MD [address] [address] Referring Orthopedics 01/15/20 James Hu MD [address] [address] Home Care Provider Orthopedics 01/15/20 Agatha Mustafa, PT [address] [place] [address] Administration Internship Acute Care 01/15/20 Machine Stitcher Relationship Specialty Start Date End Date Patricia Covarrubias MD [address] [place] [address] PCP - General Internal Medicine 05/14/17 James Hu MD [address] [address] Referring Orthopedics 01/15/20 James Hu MD [address] [address] Home Care Provider Orthopedics 01/15/20 Agatha Mustafa, PT [address] [place] [address] Administration Internship Acute Care 01/15/20 Machine Stitcher Relationship Specialty Start Date End Date Patricia Covarrubias MD [address] [place] [address] PCP - General Internal Medicine 05/14/17 James Hu MD [address] [address] Referring Orthopedics 01/15/20 James Hu MD [facility] [address] [address] Home Care Provider Orthopedics 01/15/20 Agatha Mustafa, PT [address] [place] [address] Administration Internship Acute Care 01/15/20 Machine Stitcher Relationship Specialty Start Date End Date Patricia Covarrubias MD [address] [place] [address] PCP - General Internal Medicine 05/14/17 05/06/23 Meaghan Villareal APRN.TOOL POLISHING MACHINE OPERATOR [address] [place] [address] PCP - General Internal Medicine 05/07/23 James Hu MD [address] [address] Referring Orthopedics 01/15/20 James Hu MD [facility] [address] [address] Home Care Provider Orthopedics 01/15/20 Agatha Mustafa, PT [address] [place] [address] Administration Internship Acute Care 01/15/20 Machine Stitcher Relationship Specialty Start Date End Date Meaghan Villareal APRN.TOOL POLISHING MACHINE OPERATOR [address] [place] [address] PCP - General Internal Medicine 05/07/23 James Hu MD [address] [address] Referring Orthopedics 01/15/20 James Hu MD [facility] [address] [address] Home Care Provider Orthopedics 01/15/20 Agatha Mustafa, PT [address] [place] [address] Administration Internship Acute Care 01/15/20 Machine Stitcher Relationship Specialty Start Date End Date Meahgan Villareal APRN.TOOL POLISHING MACHINE OPERATOR [address] [place] [address] PCP - General Internal Medicine 05/07/23 James Hu MD [facility] [address] [address] Referring Orthopedics 01/15/20 James Hu MD [facility] [address] [address] Home Care Provider Orthopedics 01/15/20 Agatha Mustafa, PT [address] [place] [address] Administration Internship Acute Care 01/15/20 Machine Stitcher Relationship Specialty Start Date End Date Meaghan Villareal APRN.TOOL POLISHING MACHINE OPERATOR [address] [place] [address] PCP - General Internal Medicine 05/07/23 James Hu MD [facility] [address] [address] Referring Orthopedics 01/15/20 James Hu MD [address] [address] Home Care Provider Orthopedics 01/15/20 Agatha Mustafa, PT [address] [place] [address] Administration Internship Acute Care 01/15/20 Machine Stitcher Relationship Specialty Start Date End Date Meaghan Villareal APRN.TOOL POLISHING MACHINE OPERATOR [address] [place] [address] PCP - General Internal Medicine 05/07/23 James Hu MD [address] [place] [address] Referring Orthopedics 01/15/20 James Hu MD [address] [place] [address] Home Care Provider Orthopedics 01/15/20 Agatha Mustafa, PT [address] [place] [address] Administration Internship Acute Care 01/15/20 Machine Stitcher Relationship Specialty Start Date End Date Meaghan Villareal APRN.TOOL POLISHING MACHINE OPERATOR [address] [place] [address] PCP - General Internal Medicine 05/07/23 James Hu MD [address] [place] [address] Referring Orthopedics 01/15/20 James Hu MD [address] [address] Home Care Provider Orthopedics 01/15/20 Agatha Mustafa, PT [address] [place] [address] Administration Internship Acute Care 01/15/20 Machine Stitcher Relationship Specialty Start Date End Date Meaghan Villareal APRN.TOOL POLISHING MACHINE OPERATOR [address] [place] [address] PCP - General Internal Medicine 05/07/23 James Hu MD [address] [address] Referring Orthopedics 01/15/20 James Hu MD [address] [address] Home Care Provider Orthopedics 01/15/20 Agatha Mustafa, PT [address] [place] [address] Administration Internship Acute Care 01/15/20 Machine Stitcher Relationship Specialty Start Date End Date Meaghan Villareal APRN.TOOL POLISHING MACHINE OPERATOR [address] [place] [address] PCP - General Internal Medicine 05/07/23 James Hu MD [address] [address] Referring Orthopedics 01/15/20 James Hu MD [address] [address] Home Care Provider Orthopedics 01/15/20 Agatha Mustafa, PT [address] [place] [address] Administration Internship Acute Care 01/15/20 Machine Stitcher Relationship Specialty Start Date End Date Meaghan Villareal APRN.TOOL POLISHING MACHINE OPERATOR [address] [place] [address] PCP - General Internal Medicine 05/07/23 James Hu MD [address] [address] Referring Orthopedics 01/15/20 James Hu MD [address] [address] Home Care Provider Orthopedics 01/15/20 Agatha Mustafa, PT [address] [place] [address] Administration Internship Acute Care 01/15/20 Machine Stitcher Relationship Specialty Start Date End Date Meaghan Villareal, BRIM BLOCKER.TOOL POLISHING MACHINE OPERATOR [address] [place] [address] PCP - General Internal Medicine 05/07/23 James Hu MD [address] [address] Referring Orthopedics 01/15/20 James Hu MD [address] [address] Home Care Provider Orthopedics 01/15/20 [place] [address] [place] [address] Administration Internship Acute Care 01/15/20 Machine Stitcher Relationship Specialty Start Date End Date Meaghan Villareal APRN.TOOL POLISHING MACHINE OPERATOR [address] [place] [address] PCP - General Internal Medicine 05/07/23 James Hu MD [address] [place] [address] Referring Orthopedics 01/15/20 James Hu MD [address] [place] [address] Home Care Provider Orthopedics 01/15/20 Machine Stitcher Relationship Specialty Start Date End Date Meaghan Villareal APRN.TOOL POLISHING MACHINE OPERATOR [address] [place] [address] PCP - General Internal Medicine 05/07/23 James Hu MD [address] [place] [address] Referring Orthopedics 01/15/20 James Hu MD [address] [place] [address] Home Care Provider Orthopedics 01/15/20 Machine Stitcher Relationship Specialty Start Date End Date Meaghan Villareal APRN.TOOL POLISHING MACHINE OPERATOR [address] [place] [address] PCP - General Internal Medicine 05/07/23 James Hu MD [address] [place] [address] Referring Orthopedics 01/15/20 James Hu MD [address] [place] [address] Home Care Provider Orthopedics 01/15/20 Machine Stitcher Relationship Specialty Start Date End Date Meaghan Villareal APRN.TOOL POLISHING MACHINE OPERATOR [address] [place] [address] PCP - General Internal Medicine 05/07/23 James Hu MD [address] [place] [address] Referring Orthopedics 01/15/20 James Hu MD [address] [place] [address] Home Care Provider Orthopedics 01/15/20 Machine Stitcher Relationship Specialty Start Date End Date Meaghan Villareal APRN.TOOL POLISHING MACHINE OPERATOR [address] [place] [address] PCP - General Internal Medicine 05/07/23 James Hu MD [address] [place] [address] Referring Orthopedics 01/15/20 James Hu MD [address] [place] [address] Home Care Provider Orthopedics 01/15/20 Machine Stitcher Relationship Specialty Start Date End Date Meaghan Villareal APRN.TOOL POLISHING MACHINE OPERATOR [address] [place] [address] PCP - General Internal Medicine 05/07/23 James Hu MD [facility] [address] [address] Referring Orthopedics 01/15/20 James Hu MD [address] [address] Home Care Provider Orthopedics 01/15/20 Machine Stitcher Relationship Specialty Start Date End Date Meaghan Villareal APRN.TOOL POLISHING MACHINE OPERATOR [address] [place] [address] PCP - General Internal Medicine 05/07/23 James Hu MD [address] [place] [address] Referring Orthopedics 01/15/20 James Hu MD [address] [place] [address] Home Care Provider Orthopedics 01/15/20 Machine Stitcher Relationship Specialty Start Date End Date Meaghan Villareal APRN.TOOL POLISHING MACHINE OPERATOR [address] [place] [address] PCP - General Internal Medicine 05/07/23 James Hu MD [facility] [address] [address] Referring Orthopedics 01/15/20 James Hu MD [address] [address] Home Care Provider Orthopedics 01/15/20 Machine Stitcher Relationship Specialty Start Date End Date Meaghan Villareal APRN.TOOL POLISHING MACHINE OPERATOR [address] [place] [address] PCP - General Internal Medicine 05/07/23 James Hu MD [address] [address] Referring Orthopedics 01/15/20 James Hu MD [facility] [address] [address] Home Care Provider Orthopedics 01/15/20 Machine Stitcher Relationship Specialty Start Date End Date Meaghan Villareal APRN.TOOL POLISHING MACHINE OPERATOR [address] [place] [address] PCP - General Internal Medicine 05/07/23 aJmes Hu MD [address] [place] [address] Referring Orthopedics 01/15/20 James Hu MD [address] [address] Home Care Provider Orthopedics 01/15/20 Machine Stitcher Relationship Specialty Start Date End Date Meaghan Villareal APRN.TOOL POLISHING MACHINE OPERATOR [address] [place], [place] [address] PCP - General Internal Medicine 05/07/23 James Hu MD [address] [address] Referring Orthopedics 01/15/20 James Hu MD [address] [address] Home Care Provider Orthopedics 01/15/20 Machine Stitcher Relationship Specialty Start Date End Date Patricia Covarrubias MD [address] [place] [address] PCP - General Internal Medicine 05/14/17 05/06/23 James Hu MD [address] [address] Referring Orthopedics 01/15/20 James Hu MD [address] [address] Home Care Provider Orthopedics 01/15/20 Agatha Mustafa, PT [address] [place] [address] Administration Internship Acute Care 01/15/20 07/12/23 INFORMATION SOURCE (unrecogn ized section and content) DATE CREATED AUTHOR AUTHOR'S ORGANIZ ATION 12/05/2023 [facility] FOR RECORDS PERTAINING TO PATIENTS WHO ARE OR HAVE BEEN ENROLLED IN A CHEMICAL DEPENDENCY/SUBSTANCEABUSE PROGRAM, SOME INFORMATION MAY BE OMITTED. This clinical summary was aggregated from multiple sources. Caution should be exercised in using it in the provision of clinical care. This summary normalizes information from multiple sources, and as a consequence, information in this document may materially change the coding, format and clinical context of patient data. In addition, data may be omitted in some cases. CLINICAL DECISIONS SHOULD BE BASED ON THE PRIMARY CLINICAL RECORDS. [email or web address] provides no warranty or guarantee of the accuracy or completeness of information in this document.
[2023-12-06 13:58] LABS: CREATININE FINGERSTICK < 1.0 mg/dL (0.55-1.02)
== END | disposition home or self-care (01) ==
LOC: CT 13:29
PROVIDERS: PCP Internal Medicine; Referring Provider Otolaryngology; Visit Provider Otolaryngology
DX: R22.1 Localized swelling, mass and lump, neck (principal)
CPT/HCPCS: 70491; Q9967